=== PATIENT | female | born 1950 | race Caucasian/White ===

== ENCOUNTER → 2017-10-06 | Outpatient (CLI) | payer OTHER ==
[~2017-10-06] MED LIST: ASPI-319 PO; ATOR80TA PO; BENA40TA6 PO; CARV12.5 PO; CLON0.3T PO; EZET10TA47 PO; HYDR25TA4 PO; IPRA1AER2 INH; LEVO112T2 PO
--- NOTE | 2017-10-06 13:24 | DIAGNOSTIC IMAGING REPORT ---
R KNEE 3 VIEWS CLINICAL HISTORY: M17.11 Osteoarthritis of right knee, unspecified osteoarthritis pain COMPARISON: None. DISCUSSION: Moderate degenerative narrowing of all major joint compartments. No significant joint effusion. Moderate degenerative changes of patellofemoral joint. No evidence for subluxation. Mild osteopenia. There is no evidence for soft tissue swelling. IMPRESSION: Moderate degenerative change all major joint compartments. Osteopenia. The above report was generated using voice recognition software. It may contain grammatical, syntax or spelling errors. Electronically signed by: Yasir Patel M.D. 10/06/2017 1:22 PM Dictated Date/Time: 10/06/2017 1:20 PM
== END | disposition home or self-care (01) ==
LOC: C.RAD1850 12:16
PROVIDERS: ATTEND Internal Medicine
DX: M17.11 Unilateral primary osteoarthritis, right knee (principal); M85.861 Other specified disorders of bone density and structure, right lower leg

== ENCOUNTER → 2018-01-29 | Outpatient (CLI) | payer OTHER ==
[2018-01-29 10:51] LABS: BASO % 0.4 %; BASO ABS # 0.03 K/uL (0-0.2); EOS % 1.8 %; EOS ABS # 0.15 K/uL (0-0.5); HEMATOCRIT 38.1 % (37-47); HEMOGLOBIN 11.8 g/dL (12.0-16.0); IG# 0.02 K/uL (0.00-0.02); LYMPH % 21.4 %; LYMPH ABS # 1.77 K/uL (1.2-3.4); MEAN CORPUSCULAR HEMOGLOBIN 23.8 pg (25-34); MEAN PLATELET VOLUME 9.9 fL (7.4-10.4); MONO % 4.7 %; MONO ABS # 0.39 K/uL (0.11-0.59); NEUT % 71.5 %; PLATELET COUNT 256 K/uL (130-400); RED CELL DISTRIBUTION WIDTH CV 15.9 % (11.5-14.5); RED CELL DISTRIBUTION WIDTH SD 44.7 fL (36.4-46.3); WHITE BLOOD COUNT 8.26 K/uL (4.8-10.8)
[2018-01-29 11:05] LABS: HEMOGLOBIN A1C 5.7 % (4.5-5.6)
[2018-01-29 11:17] LABS: ALBUMIN 3.7 gm/dl (3.4-5.0); ALKALINE PHOSPHATASE 62 U/L (45-117); ALT/SGPT 15 U/L (12-78); AST/SGOT 10 U/L (15-37); BLOOD UREA NITROGEN 29 mg/dl (7-18); CALCIUM 8.6 mg/dl (8.5-10.1); CARBON DIOXIDE 27 mmol/L (21-32); CHOLESTEROL 309 mg/dl (0-200); CREATININE 1.36 mg/dl (0.60-1.20); GLUCOSE 104 mg/dl (70-99); LDL CHOLESTEROL CALCULATED 225 mg/dl; POTASSIUM 4.2 mmol/L (3.5-5.1); SODIUM 137 mmol/L (136-145); TOTAL PROTEIN 7.6 gm/dl (6.4-8.2)
== END | disposition home or self-care (01) ==
LOC: C.LABBC 07:27
PROVIDERS: ATTEND Internal Medicine
DX: R80.9 Proteinuria, unspecified (principal); R73.01 Impaired fasting glucose; E03.9 Hypothyroidism, unspecified; E78.5 Hyperlipidemia, unspecified; D64.9 Anemia, unspecified

== ENCOUNTER 2022-11-08 11:30 | Inpatient (IN) ==
--- NOTE | 2022-11-08 11:48 | Emergency Department Note ---
Impression & Plan Nausea & vomiting, Ventral hernia, Ambulatory dysfunction ED Provider Note Provider: John Felton MD DATE OF SERVICE: 11/08/2022 CHIEF COMPLAINT: Nausea and vomiting last night with report of blood in the vomit this morning HISTORY OF PRESENT ILLNESS: Patient is a 72-year-old female history of hypertension, COPD, and hypothyroidism presenting today via ambulance from her home. Patient hard of hearing but relates that last night nausea and vomiting. Had some mild mid abdominal pain. Abdominal pain and nausea and vomiting have resolved. Evidently according EMS family reported there is some blood in the vomit this morning and thus they sent her here for evaluation. Patient denies feeling lightheaded dizzy or falling. Denies chest pain or shortness of breath. Denies any diarrheal symptoms. No sick contacts reported. PAST MEDICAL HISTORY: As noted above MEDICATIONS: Reviewed home medications in plastic bag present with the patient upon arrival SOCIAL HISTORY: Lives with sons by her report PHYSICAL EXAM: GENERAL: alert and oriented in no acute distress on stretcher, hard of hearing Head: normocephalic and atraumatic EYES: No injection, discharge or icterus. NECK: Trachea midline. ENT: Mucous membranes pink and moist. LUNGS: Airway patent. No retractions. Breath sounds clear HEART: Regular rate and rhythm. No chest wall tenderness ABDOMEN: Soft and non-tender, without guarding or rebound with a large mid to right-sided appears to be hernia. SKIN: Acyanotic, warm, dry. There is some erythematous rash in the intertriginous regions and under the bilateral breasts. EXTREMITIES: Without swelling or deformity. NEUROLOGICAL: No focal deficits but again hard of hearing. No aphasia. No facial droop or slurred speech. EK bpm normal sinus rhythm with sinus arrhythmia. No PVC noted. No acute ST segment elevation with some inferior lateral T wave flattening and slight ST changes. QTc 450. CONTINUOUS CARDIAC MONITORING: was ordered and showed a heart rate of 80s-90s bpm in normal sinus rhythm Patient's laboratory studies and imaging reviewed. Differential includes GI bleed, appendicitis, infections, diverticulitis, UTI, obstruction, mesenteric ischemia, aortic pathology, inflammatory bowel disease, renal colic, PUD, pancreatitis, biliary pathology, hernia, volvulus, constipation, as well as other pathologies. IMPRESSION/MEDICAL DECISION MAKING: Patient with what appears to be likely a yeast infection in the intertriginous regions and given some nystatin powder for this. Benign abdomen here but a large hernia appreciated across the abdomen nontender in nature. Denies any diarrhea. Denies any black or bloody stools by her report. No sick contacts reported by the patient. Not any significant pain/distress. Not hypotensive. Basic blood work ordered including type and screen. We will give some Protonix as there is report of some blood in the vomit. Patient also with a bit of odor and question possible underlying UTI. We will complete a CT scan of the abdomen pelvis to further evaluate for any acute intra-abdominal issue at this time but lower suspicion as again her abdomen is fairly benign on exam. Do not believe she has an incarcerated hernia or perforation at this time. Denying any nausea at this point. Patient with some small sacral decubitus ulcers as well as covered in feces here as well as along the toenails. Reviewed prior [facility] outpatient records though it appears its been sometime since her regular office visit. With her permission reached out to her son Doug. Reports she lost her [address] 7 months ago and he brought her into her place so she was not homeless. Evidently bathrooms on the second floor she cannot really get there due to the stairs. Have been going to family members places at some points but mainly living in a bed and now in a recliner. These are very soiled. They have been pursuing various placement options and she is going to see about [facility] residences this coming week. He reports family are unsure if this would be enough care for her she is really not able to walk much even with a walker at home. Blood work shows a little bit of leukocytosis 11.5. Hemoglobin stable 11.4 from several years ago. Some slight CKD with a creatinine of 1.5 but from the notes it appears that this is around her baseline of 1.3. No evidence of acute hepatitis or pancreatitis. Doubt severe GI bleed possibly may be a bit of Princess-Michelle from vomiting overnight but comfortable now. Urinalysis here surprisingly without significant abnormality noted such as infection or blood. Patient's sister later at bedside with her. She initially refused CT scan after further discussion was agreeable to try it. Stated later some indigestion and nausea. Given Zofran and Pepcid with some improvement of this. Patient well resting and napping here does drop into the 80s on room air but improves with stimulation back above 90% on room air. CT scan per radiology shows large ventral hernia possibly with some gastric outlet syndrome but no evidence of obstruction. Again the patient has benign abdomen and nausea is improved. Doing some sips of water here. Discussed with her given her recurrent nausea issues as well as her care issues at home would recommend further observation here and possible need for placement services and will likely need outpatient surgery follow-up to further discuss her hernia. DIAGNOSIS: Nausea and vomiting, ventral hernia, ambulatory dysfunction DISPOSITION: Hospitalist will evaluate Patient was agreeable with this plan. Past Med/Surg History Surgical History H/O: hysterectomy History of tonsillectomy Family History Mother Myocardial infarction Diabetes Denies family history of Colon cancer Ovarian cancer Prostate cancer Breast cancer Social History Smoking Status: Never smoker Hx Alcohol Use: No Hx Substance Use: No Preferred Language: Amharic Visual Impairment: No Limitations Hearing Ability: Normal marital status: Current Living Situation: Alone current occupational status: retired Feels Safe at Home: Yes Dental Care, Regularly: Yes Physical Activity Frequency: Does not Exercise Allergies Allergies Allergy/AdvReac Type Severity Reaction Status Date / Time Penicillins Allergy Unknown Verified 06/24/19 10:09 Sulfa (Sulfonamide Allergy Unknown rash Verified 06/24/19 10:09 Antibiotics) Home Meds Home Medications Medication Instructions Recorded Confirmed atorvastatin 80 mg tablet 0 mg PO DAILY 11/08/22 11/08/22 buspirone 5 mg tablet 5 mg PO DAILY 11/08/22 11/08/22 escitalopram oxalate 10 mg tablet 10 mg PO DAILY 11/08/22 11/08/22 fluticasone furoate 100 0 puffs inhalation DAILY 11/08/22 11/08/22 mcg-vilanterol 25 mcg/dose inhalation powder (Breo Ellipta) Previous Rx's Medication Instructions Recorded benazepril 40 mg tablet 40 mg PO DAILY #90 tabs 06/24/19 carvedilol 12.5 mg tablet (Coreg) 12.5 mg PO BID #90 tabs 06/24/19 clonidine HCl 0.3 mg tablet 0.3 mg PO HS #90 tabs 06/24/19 ezetimibe 10 mg tablet (Zetia) 10 mg PO QDL #90 tabs 06/24/19 hydrochlorothiazide 25 mg tablet 25 mg PO DAILY #90 tabs 06/24/19 levothyroxine 112 mcg tablet 112 mcg PO 6XWK #90 tabs 07/07/19 Results & Data (ED) Vital Signs Vital Signs - 24 hr 11/08/22 12:05 11/08/22 11:40 11/08/22 12:51 Temperature 36.5 C Temperature Source Oral Pulse Rate 81 87 93 H Pulse Rate from SpO2 Sensor Respiratory Rate 20 20 Respiratory Effort / Characteristics Non-Labored Spontaneous Respiratory Depth Normal Respiratory Pattern Regular Blood Pressure 133/77 154/99 H Blood Pressure Mean 95 117 Pulse Oximetry 95 97 Oxygen Delivery Method Room Air Sepsis Recent Fever Within 48 Hours No Sepsis New/Unexplained Change in Mental Status No Sepsis Action Taken by Nursing No Action Required 11/08/22 14:00 11/08/22 15:30 11/08/22 15:35 Temperature Temperature Source Pulse Rate 82 93 H Pulse Rate from SpO2 Sensor 91 H Respiratory Rate 16 15 Respiratory Effort / Characteristics Respiratory Depth Respiratory Pattern Blood Pressure 163/107 H 169/101 H Blood Pressure Mean 125 123 Pulse Oximetry 94 95 85 L Oxygen Delivery Method Room Air Room Air Room Air Sepsis Recent Fever Within 48 Hours Sepsis New/Unexplained Change in Mental Status Sepsis Action Taken by Nursing 11/08/22 15:49 11/08/22 16:03 11/08/22 16:00 Temperature Temperature Source Pulse Rate 99 H 87 Pulse Rate from SpO2 Sensor Respiratory Rate 12 Respiratory Effort / Characteristics Respiratory Depth Respiratory Pattern Blood Pressure 140/90 Blood Pressure Mean 106 Pulse Oximetry 94 95 Oxygen Delivery Method Room Air Sepsis Recent Fever Within 48 Hours Sepsis New/Unexplained Change in Mental Status Sepsis Action Taken by Nursing 11/08/22 17:00 Temperature Temperature Source Pulse Rate 85 Pulse Rate from SpO2 Sensor Respiratory Rate 17 Respiratory Effort / Characteristics Respiratory Depth Respiratory Pattern Blood Pressure 122/89 Blood Pressure Mean 100 Pulse Oximetry 93 Oxygen Delivery Method Sepsis Recent Fever Within 48 Hours Sepsis New/Unexplained Change in Mental Status Sepsis Action Taken by Nursing Laboratory Data 11/08/22 12:05 11/08/22 12:05 Lab Results 11/08/22 11/08/22 11/08/22 Range/Units 12:05 12:05 12:05 WBC 11.58 H (4.8-10.8) K/ul RBC 4.63 (4.20-5.40) M/uL Hgb 11.4 L (12.0-16.0) g/dl Hct 37.3 (37.0-47.0) % MCV 80.6 (80.0-100.0) fL MCH 24.6 L (25.0-34.0) pg MCHC 30.6 L (32.0-36.0) g/dL RDW Std Deviation 48.5 H (36.4-46.3) fL RDW Coeff of Tip 16.6 H (11.5-14.5) % Plt Count 363 (130-400) K/uL MPV 9.4 (9.4-12.4) fL Immature Gran % (Auto) 0.4 % Neut % (Auto) 90.1 % Lymph % (Auto) 7.1 % Daniels % (Auto) 2.0 % Eos % (Auto) 0.2 % Baso % (Auto) 0.2 % Neut # (Auto) 10.44 H (1.40-6.50) K/uL Lymph # (Auto) 0.82 L (1.2-3.4) K/uL Daniels # (Auto) 0.23 (0.11-0.59) K/uL Eos # (Auto) 0.02 (0-0.50) K/uL Baso # (Auto) 0.02 (0-0.2) K/uL Immature Gran # (Auto) 0.05 (0.01-0.20) K/uL Hypersegmented Neuts 1+ PT 10.6 (9.0-12.0) Seconds INR 1.0 (0.9-1.1) Sodium (136-145) mmol/L Potassium (3.5-5.1) mmol/L Chloride (98-107) mmol/L Carbon Dioxide (21-32) mmol/L Anion Gap (3-11) BUN (6-23) mg/dl Creatinine (0.6-1.2) mg/dl Est Cr Clr Drug Dosing ml/min Est GFR ( Amer) ml/min Est GFR (Non-Af Amer) ml/min BUN/Creatinine Ratio (10-20) Glucose (70-99(Fasting)) mg/dl Calcium (8.6-10.3) mg/dl Total Bilirubin (0.2-1.0) mg/dl AST (13-39) U/L ALT (7-52) U/L Alkaline Phosphatase (34-104) U/L Troponin I High Sens (0-14) pg/ml Total Protein (6.0-8.3) gm/dl Albumin (3.4-5.0) gm/dl Globulin (2.5-4.0) gm/dl Albumin/Globulin Ratio (0.9-2) Lipase (11-82) U/L Urine Color Urine Appearance (Clear) Urine pH (4.5-7.5) Ur Specific [place] (1.000-1.030) Urine Protein (Negative) Urine Glucose (UA) (Negative) Urine Ketones (Negative) Urine Blood (Negative) Urine Nitrite (Negative) Urine Bilirubin (Negative) Urine Urobilinogen (Negative) Ur Leukocyte Esterase (Negative) Urine WBC (Auto) (0-5) /hpf Urine RBC (Auto) (0-4) /hpf U Hyaline Cast (Auto) (0-5) /lpf U Epithel Cells (Auto) (0-5) /lpf Urine Bacteria (Auto) (Negative) SARS-CoV-2, RNA, NAAT (NEGATIVE) Blood Type A Positive Antibody Screen NEGATIVE 11/08/22 11/08/22 11/08/22 Range/Units 12:05 12:45 12:45 WBC (4.8-10.8) K/ul RBC (4.20-5.40) M/uL Hgb (12.0-16.0) g/dl Hct (37.0-47.0) % MCV (80.0-100.0) fL MCH (25.0-34.0) pg MCHC (32.0-36.0) g/dL RDW Std Deviation (36.4-46.3) fL RDW Coeff of Tip (11.5-14.5) % Plt Count (130-400) K/uL MPV (9.4-12.4) fL Immature Gran % (Auto) % Neut % (Auto) % Lymph % (Auto) % Daniels % (Auto) % Eos % (Auto) % Baso % (Auto) % Neut # (Auto) (1.40-6.50) K/uL Lymph # (Auto) (1.2-3.4) K/uL Daniels # (Auto) (0.11-0.59) K/uL Eos # (Auto) (0-0.50) K/uL Baso # (Auto) (0-0.2) K/uL Immature Gran # (Auto) (0.01-0.20) K/uL Hypersegmented Neuts PT (9.0-12.0) Seconds INR (0.9-1.1) Sodium 140 (136-145) mmol/L Potassium 4.2 (3.5-5.1) mmol/L Chloride 98 (98-107) mmol/L Carbon Dioxide 31 (21-32) mmol/L Anion Gap 11 (3-11) BUN 44 H (6-23) mg/dl Creatinine 1.50 H (0.6-1.2) mg/dl Est Cr Clr Drug Dosing 30.8 ml/min Est GFR ( Amer) 39.4 ml/min Est GFR (Non-Af Amer) 34.0 ml/min BUN/Creatinine Ratio 29.3 H (10-20) Glucose 132 H (70-99(Fasting)) mg/dl Calcium 9.4 (8.6-10.3) mg/dl Total Bilirubin 0.8 (0.2-1.0) mg/dl AST 12 L (13-39) U/L ALT 7 (7-52) U/L Alkaline Phosphatase 59 (34-104) U/L Troponin I High Sens 13.0 (0-14) pg/ml Total Protein 7.3 (6.0-8.3) gm/dl Albumin 4.0 (3.4-5.0) gm/dl Globulin 3.3 (2.5-4.0) gm/dl Albumin/Globulin Ratio 1.2 (0.9-2) Lipase 80 (11-82) U/L Urine Color Dark Yellow Urine Appearance Clear (Clear) Urine pH 5.0 (4.5-7.5) Ur Specific [place] 1.025 (1.000-1.030) Urine Protein 2+ H (Negative) Urine Glucose (UA) Negative (Negative) Urine Ketones 1+ H (Negative) Urine Blood Negative (Negative) Urine Nitrite Negative (Negative) Urine Bilirubin Negative (Negative) Urine Urobilinogen Negative (Negative) Ur Leukocyte Esterase Negative (Negative) Urine WBC (Auto) 1-5 (0-5) /hpf Urine RBC (Auto) 0-4 (0-4) /hpf U Hyaline Cast (Auto) 0 (0-5) /lpf U Epithel Cells (Auto) 10-20 H (0-5) /lpf Urine Bacteria (Auto) Negative (Negative) SARS-CoV-2, RNA, NAAT NEGATIVE (NEGATIVE) Blood Type Antibody Screen Administered Medications Nystatin (Nystatin Powder 15gm Btl) 1 appln EXT BID PRN PRN Reason: rash Stop: 12/08/22 11:41 Last Admin: 11/08/22 13:46 Dose: 1 appln Documented By: ANNE Discontinued Medications Pantoprazole Sodium 80 mg/ (Dextrose) 120 mls @ 480 mls/hr IV ONE STA Stop: 11/08/22 11:54 Last Infusion: 11/08/22 16:25 Dose: 0 mls/hr Documented By: Admin: 11/08/22 15:37 Dose: 480 mls/hr Documented By: ANNE Famotidine (Pepcid 20mg Iv Push) 20 mg in 5 mls @ 2.5 mls/min IV NOW STA Stop: 11/08/22 13:42 Last Admin: 11/08/22 13:46 Dose: 2.5 mls/min Documented By: ANNE Sodium Chloride (Nss) 500 mls @ 999 mls/hr IV .Q31M ONE Stop: 11/08/22 17:12 Last Infusion: 11/08/22 17:54 Dose: 0 mls/hr Documented By: Admin: 11/08/22 16:51 Dose: 999 mls/hr Documented By: ESTELLA Ondansetron HCl (Ondansetron Inj 2 Mg/Ml 2 Ml Vial) 4 mg IV NOW STA Stop: 11/08/22 13:42 Last Admin: 11/08/22 13:46 Dose: 4 mg Documented By: ANNE Imaging Data Radiologist's Impression: Abdomen/Pelvis CT 11/08/22 12:44 CT abd pelvis wo con CLINICAL HISTORY: n/v TECHNIQUE: Helical axial images of the abdomen and pelvis were obtained. Automated dose lowering techniques and/or adjustment according to patient size were utilized for this exam. This exam was performed without intravenous contrast. CT DOSE: 948.46 mGy.cm COMPARISON: None available at the time of this dictation. FINDINGS: Lower chest: Bibasilar atelectasis versus scarring is seen. Liver: Unremarkable. No focal lesions are seen. Gallbladder and biliary tree: No calcified gallstones. Normal caliber wall. No intra- or extrahepatic biliary ductal dilation. Pancreas: Unremarkable, no focal lesions. Spleen: Unremarkable. Adrenals: Nodularity of the adrenal glands is noted. Kidneys and ureters: Numerous exophytic lesions are seen, some of which measure greater than simple fluid density. Vascular calcifications are seen. Bladder: Unremarkable. Reproductive organs: Patient is status post hysterectomy. Bowel: Diverticulosis is seen without evidence of diverticulitis. A large portion of bowel loops as well as the stomach lie within a large ventral hernia, however no evidence of bowel obstruction is seen. There is, however, prominence of the stomach with narrowing at the pylorus. Lymph nodes Retroperitoneal: Unremarkable. Pelvic: Unremarkable. Mesenteric: Unremarkable. Peritoneum: Normal. Vessels: Atherosclerotic calcifications are seen. Infrarenal aortic aneurysm measures approximately 3 mm in diameter. Abdominal wall: Large ventral hernia contains multiple loops of bowel. Fat- containing bilateral inguinal hernias are seen. Bones: Unremarkable. IMPRESSION: 1. Prominence of the stomach with multiple air-fluid levels and narrowing at the level of the pylorus as it exits from a ventral hernia. This may represent gastric outlet obstruction owing to the ventral hernia. No bowel obstruction is otherwise seen. Diverticulosis is seen without diverticulitis. 2. Numerous exophytic lesions in the bilateral kidneys, some of which measure greater than simple fluid density. A renal ultrasound or renal mass MRI can be performed to further characterize these findings and exclude renal cell carcinoma. ACT 112: Negative or not required by law. Electronically signed by: Alex Valentine M.D. 11/08/2022 4:21 PM Chest X-Ray 11/08/22 15:45 XR chest 1V portable HISTORY: hypoxia COMPARISON: Chest CTA 01/08/2015. FINDINGS: No pneumothorax. No pleural effusions. There are low lung volumes. The cardiac silhouette remains mildly enlarged. No new focal lung consolidations to suggest a pneumonia. No evidence for pulmonary edema. There are degenerative changes within the bilateral shoulders. IMPRESSION: Mild cardiomegaly. Otherwise, no acute process within the chest. ACT 112: Negative or not required by law. Electronically signed by: Christopher Levy M.D. 11/08/2022 4:32 PM Discharge Plan Visit Data Chief Complaint: Vomiting Stated Complaint: N/V LAST NIGHT ED Provider: John Felton Discharge Problem: Nausea & vomiting, Ventral hernia, Ambulatory dysfunction Patient Disposition: Being Evaluated by Hospitalist Forms Stand Alone Forms: My [facility] Prescriptions Prescriptions: No Action levothyroxine 112 mcg tablet 112 mcg PO 6XWK Qty: 90 3RF benazepril 40 mg tablet 40 mg PO DAILY Qty: 90 3RF carvedilol [Coreg] 12.5 mg tablet 12.5 mg PO BID Qty: 90 3RF clonidine HCl 0.3 mg tablet 0.3 mg PO HS Qty: 90 3RF ezetimibe [Zetia] 10 mg tablet 10 mg PO QDL Qty: 90 3RF hydrochlorothiazide 25 mg tablet 25 mg PO DAILY Qty: 90 3RF buspirone 5 mg tablet 5 mg PO DAILY escitalopram oxalate 10 mg tablet 10 mg PO DAILY atorvastatin 80 mg tablet 0 mg PO DAILY Patient Comments: Pt doesn't have the medication bottle with her but knows she takes a becky sterol Pt. fluticasone furoate-vilanterol [Breo Ellipta] 100-25 mcg/dose blister with device 0 puffs INH DAILY Rx Instructions: Pt doesn't have medicine with her and is unsure. Referrals Referrals: PCP,NO [Primary Care Provider] - Nausea & vomiting Qualifiers: Vomiting type: unspecified Qualified Code(s): R11.2 - Nausea with vomiting, unspecified Ventral hernia Qualifiers: Obstruction and gangrene presence: without obstruction or gangrene Qualified Code(s): K43.9 - Ventral hernia without obstruction or gangrene
[2022-11-08 12:27] LABS: Hematocrit (blood only) 37.3 % (37.0-47.0); Hemoglobin 11.4 g/dl (12.0-16.0); Mean Corpuscular Hemoglobin 24.6 pg (25.0-34.0); Mean Corpuscular Hgb Conc 30.6 g/dL (32.0-36.0); Mean Corpuscular Volume 80.6 fL (80.0-100.0); Mean Platelet Volume 9.4 fL (9.4-12.4); Platelet Count 363 K/uL (130-400); RDW Coefficient of Variation 16.6 % (11.5-14.5); RDW Standard Deviation 48.5 fL (36.4-46.3); Red Blood Count 4.63 M/uL (4.20-5.40); White Blood Count 11.58 K/ul (4.8-10.8)
[2022-11-08 12:42] LABS: Albumin Globulin Ratio 1.2 (0.9-2); BUN Creatinine Ratio 29.3 (10-20); Bilirubin,Total 0.8 mg/dl (0.2-1.0); Calcium 9.4 mg/dl (8.6-10.3); Creatinine Clr Calc Pharmacy 30.8 ml/min; Est GFR (African American) 39.4 ml/min; Globulin 3.3 gm/dl (2.5-4.0); Potassium 4.2 mmol/L (3.5-5.1); Total Protein 7.3 gm/dl (6.0-8.3)
[2022-11-08 12:47] LABS: Basophils # (auto) 0.02 K/uL (0-0.2); Basophils % (auto) 0.2 %; Eosinophils # (auto) 0.02 K/uL (0-0.50); Eosinophils % (auto) 0.2 %; Hypersegmented Neutrophils 1+; Immature Granulocytes # (auto) 0.05 K/uL (0.01-0.20); Immature Granulocytes % (auto) 0.4 %; Lymphocytes # (auto) 0.82 K/uL (1.2-3.4); Lymphocytes % (auto) 7.1 %; Monocytes # (auto) 0.23 K/uL (0.11-0.59); Neutrophils # (auto) 10.44 K/uL (1.40-6.50); Neutrophils % (auto) 90.1 %
[2022-11-08 12:51] LABS: Prothrombin Time 10.6 Seconds (9.0-12.0)
[2022-11-08 13:00] LABS: Appearance Urine Clear (Clear); Bacteria Urine Automated Negative (Negative); Bilirubin Urine Negative (Negative); Blood Urine Negative (Negative); Cast Urine Automated 0 /lpf (0-5); Color Urine Dark Yellow; Glucose Urine UA Negative (Negative); Ketones Urine 1+ (Negative); Leukocyte Esterase Urine Negative (Negative); Nitrite Urine Negative (Negative); Protein Urine 2+ (Negative); RBC Urine Automated 0-4 /hpf (0-4); Specific Gravity Urine 1.025 (1.000-1.030); Urobilinogen Urine Negative (Negative)
[2022-11-08] MEDS ORDERED: FAMOTIDINE 20MG IV PUSH 20 MG/5 ML SYR IV STA (13:41)
[2022-11-08] MEDS ORDERED: ONDANSETRON INJ 2 MG/ML 2 ML VIAL IV STA (13:41)
[2022-11-08] MEDS: NYSTATIN POWDER 15GM BTL EXT PRN ×2 (13:46→19:46)
[2022-11-08] MEDS: PANTOprazole 80 MG in DEXTROSE 5% 100 ML IV STA ×2 (13:46→15:37)
--- NOTE | 2022-11-08 14:59 | Electrocardiogram Report ---
Test Reason : Blood Pressure : / mmHG Vent. Rate : 089 BPM Atrial Rate : 089 BPM P-R Int : 122 ms QRS Dur : 092 ms QT Int : 370 ms P-R-T Axes : 088 023 236 degrees QTc Int : 450 ms Poor data quality, interpretation may be adversely affected Normal sinus rhythm with occasional Premature atrial complexes Nonspecific ST and T wave abnormality Abnormal ECG When compared with ECG of 08-JAN-2015 12:06, No significant change was found Confirmed by Nils Scott ([id number]) on 11/08/2022 2:59:16 PM Referred By: REFERRED SELF Confirmed By:Nils Scott
--- NOTE | 2022-11-08 16:23 | CT Scan Report ---
CT abd pelvis wo con CLINICAL HISTORY: n/v TECHNIQUE: Helical axial images of the abdomen and pelvis were obtained. Automated dose lowering tech niques and/or adjustment according to patient size were utilized for this exam. This exam was perfor med without intravenous contrast. CT DOSE: 948.46 mGy.cm COMPARISON: None available at the time of this dictation. FINDINGS: Lower chest: Bibasilar atelectasis versus scarring is seen. Liver: Unremarkable. No focal lesions are seen. Gallbladder and biliary tree: No calcified gallstones. Normal caliber wall. No intra- or extrahepatic biliary ductal dilation. Pancreas: Unremarkable, no focal lesions. Spleen: Unremarkable. Adrenals: Nodularity of the adrenal glands is noted. Kidneys and ureters: Numerous exophytic lesions are seen, some of which measure greater than simple f luid density. Vascular calcifications are seen. Bladder: Unremarkable. Reproductive organs: Patient is status post hysterectomy. Bowel: Diverticulosis is seen without evidence of diverticulitis. A large portion of bowel loops as w ell as the stomach lie within a large ventral hernia, however no evidence of bowel obstruction is see n. There is, however, prominence of the stomach with narrowing at the pylorus. Lymph nodes Retroperitoneal: Unremarkable. Pelvic: Unremarkable. Mesenteric: Unremarkable. Peritoneum: Normal. Vessels: Atherosclerotic calcifications are seen. Infrarenal aortic aneurysm measures approximately 3 mm in diameter. Abdominal wall: Large ventral hernia contains multiple loops of bowel. Fat-containing bilateral ingui nal hernias are seen. Bones: Unremarkable. IMPRESSION: 1. Prominence of the stomach with multiple air-fluid levels and narrowing at the level of the pyloru s as it exits from a ventral hernia. This may represent gastric outlet obstruction owing to the ventr al hernia. No bowel obstruction is otherwise seen. Diverticulosis is seen without diverticulitis. 2. Numerous exophytic lesions in the bilateral kidneys, some of which measure greater than simple fl uid density. A renal ultrasound or renal mass MRI can be performed to further characterize these find ings and exclude renal cell carcinoma. ACT 112: Negative or not required by law. Electronically signed by: Alex Valentine M.D. 11/08/2022 4:21 PM
--- NOTE | 2022-11-08 16:33 | XRay Report ---
XR chest 1V portable HISTORY: hypoxia COMPARISON: Chest CTA 01/08/2015. FINDINGS: No pneumothorax. No pleural effusions. There are low lung volumes. The cardiac silhouette r emains mildly enlarged. No new focal lung consolidations to suggest a pneumonia. No evidence for pulm onary edema. There are degenerative changes within the bilateral shoulders. IMPRESSION: Mild cardiomegaly. Otherwise, no acute process within the chest. ACT 112: Negative or not required by law. Electronically signed by: Christopher Levy M.D. 11/08/2022 4:32 PM
[2022-11-08] MEDS ORDERED: SODIUM CHLORIDE 0.9% 500 ML IV ONE (16:42)
--- NOTE | 2022-11-08 18:31 | History & Physical Report ---
Date of Service November 08, 2022 Assessment & Plan (1) Nausea & vomiting: (2) Ventral hernia: Plan: Patient is 72 y/o F with PMH HTN, CKD III, COPD, hypothyroidism, chronic anemia, anxiety presented to ER with complaint of nausea and vomiting x1 day In ER afebrile, vital stable. WBC: 11.5 CT abdomen pelvis: Prominence of the stomach with multiple air-fluid levels and narrowing at the level of the pylorus as it exits from a ventral hernia. This may represent gastric outlet obstruction owing to the ventral hernia. No bowel obstruction is otherwise seen. A 19 mm focus of fat necrosis is noted in the mesentery contained within the ventral hernia. Diverticulosis is seen without diverticulitis. No current abdominal pain. Clear liquid diet for now N.p.o. midnight General surgery consult. Dr Cortes examined patient. Recommended Cipro, Flagyl secondary to leukocytosis. No acute abdomen CBC, BMP in a.m. Possible hematemesis EMS reported possible hematemesis noted in patient's home. Patient is unaware of any noted hematemesis, coffee-ground emesis, melena, hematochezia Hgb: 11.4 (at baseline), BUN: 44,Cr: 1.5 In ER received 500 mL NSS, IV PPI, IV Pepcid, IV Zofran IV PPI IVF GI consult Monitor Hgb (3) Abnormal CT of the abdomen: Plan: CT abdomen pelvis: Numerous exophytic lesions in the bilateral kidneys, some of which measure greater than simple fluid density. A renal ultrasound or renal mass MRI can be performed to further characterize these findings and exclude renal cell carcinoma Obtain renal ultrasound (4) Ambulatory dysfunction: Plan: Ambulates with walker at baseline. Very sedentary Currently living with son who has bathroom on second floor which patient is unable to use PT/OT eval Will likely need case management assistance for possible placement (5) Candidiasis: Plan: Sacral wounds Nystatin Wound nurse consult for sacral wounds (6) CKD (chronic kidney disease), stage III: Plan: Cr: 1.5. Baseline~1.3 Monitor renal functions, avoid nephrotoxic agents when possible (7) Anemia: Plan: Hgb: 11.4. Baseline 11.5-11.8 per outpatient chart review Monitor H&H (8) COPD (chronic obstructive pulmonary disease): Plan: No signs acute exacerbation Continue home inhaler (9) HTN (hypertension): Plan: Continue carvedilol, benazepril with holding parameters Hold HCTZ (10) Hypothyroidism: Plan: Continue levothyroxine (11) Anxiety: Plan: Continue escitalopram, buspirone as needed DVT Prophylaxis SCDs Full Code as per discussion with pt Follows with Dr Ridley for routine care Pt was seen and care coordinated with Dr Marie. See addendum I spent a total of 81 minutes reviewing notes, outpatient records, labs, medication, coordinating, documenting and providing care for this patient excluding time spent in the performance of separately billed services. History of Present Illness Chief Complaint: nausea Primary Care Provider: NO PCP Patient is 72 y/o F with PMH HTN, CKD III, COPD, hypothyroidism, chronic anemia, anxiety presented to ER with complaint of nausea and vomiting x1 day. Patient states yesterday started with nausea and vomited several times. She also reports she had pain across her upper abdomen and points to location over her ventral hernia. She reports history of hernia to abdomen for years. Patient states pain "did not last long". She denies any current abdominal pain. Patient states vomited once while in ER today. She states overall she is feeling much better as compared to yesterday. Patient currently living with son. She reports she ambulates with use of walker. Patient reports sons house has bathroom on second floor and patient is unable to use the stairs to get to the bathroom. She states she is using bedside commode. She reports she does not bathe regularly. Patient's son is interested in trying to get placement for patient and they have been currently looking. Patient admits that she is not active and mostly sits in recliner. EMS had reported to ER staff that patient, clothing, furniture was soiled. EMS had thought had noted blood in emesis. Patient states "unsure" if had any hematemesis or coffee ground emesis. She reports has regular BM's and have been formed. Has not noted melena, hematochezia. Denies any known fever, chills, DAVIS, dizziness, syncope, falls, CP, SOB, palpitations, cough, sore throat, rhinorrhea, paresthesias, increased weakness, extremity edema, rashes, urinary symptoms. Allergies Allergy/AdvReac Type Severity Reaction Status Date / Time Penicillins Allergy Unknown Verified 06/24/19 10:09 Sulfa (Sulfonamide Allergy Unknown rash Verified 06/24/19 10:09 Antibiotics) Home Medications Medication Instructions Recorded Confirmed Type benazepril 40 mg tablet 40 mg PO DAILY #90 tabs 06/24/19 11/08/22 Rx carvedilol 12.5 mg tablet (Coreg) 12.5 mg PO BID #90 tabs 06/24/19 11/08/22 Rx clonidine HCl 0.3 mg tablet 0.3 mg PO HS #90 tabs 06/24/19 11/08/22 Rx ezetimibe 10 mg tablet (Zetia) 10 mg PO QDL #90 tabs 06/24/19 11/08/22 Rx hydrochlorothiazide 25 mg tablet 25 mg PO DAILY #90 tabs 06/24/19 11/08/22 Rx levothyroxine 112 mcg tablet 112 mcg PO 6XWK #90 tabs 07/07/19 11/08/22 Rx atorvastatin 80 mg tablet 80 mg PO DAILY 11/08/22 11/08/22 History buspirone 5 mg tablet 5 mg PO BID PRN Anxiety 11/08/22 11/08/22 History escitalopram oxalate 10 mg tablet 10 mg PO DAILY 11/08/22 11/08/22 History fluticasone furoate 100 1 puffs inhalation DAILY 11/08/22 11/08/22 History mcg-vilanterol 25 mcg/dose inhalation powder (Breo Ellipta) Past Med/Surg History Medical History Anemia Anxiety CKD (chronic kidney disease), stage III COPD (chronic obstructive pulmonary disease) HTN (hypertension) Hyperlipidemia Hypothyroidism Surgical History H/O: hysterectomy History of tonsillectomy Family History Mother Myocardial infarction Diabetes Denies family history of Colon cancer Ovarian cancer Prostate cancer Breast cancer Social History Smoking Status: Unknown if ever smoked Hx Substance Use: No Preferred Language: Vietnamese Visual Impairment: No Limitations 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 Beliefs That Will Affect Care: None marital status: Current Living Situation: Family Current Living Situation Comment: Lives with sons current occupational status: retired Feels Safe at Home: Declines to Answer Dental Care, Regularly: Yes Physical Activity Frequency: Does not Exercise Assistive Devices: Walker Review of Systems Review of Systems: All systems reviewed & are unremarkable except as noted in HPI & below Physical Exam Physical Exam: General: no distress, WDWN, disheveled Head: normocephalic, atraumatic Eyes: PERRL, EOM's intact, conjunctiva non-injected, anicteric ENT: +hard of hearing normal inspection external ears, nose, mucous membranes mildly dry Neck: supple, trachea midline Lungs: clear, no respiratory distress, no wheezing/rhonchi/rales CV: RRR, no murmur, no pretibial edema Abd: normal BS, +large ventral hernia, non-tender to palpation, otherwise soft, non-tender Ext: no cyanosis, no calf tenderness Neuro: A&O x 3, no focal deficits noted, normal affect Skin: warm, dry Results & Data Results & Data Vital Signs (Past 12 Hours) Vital Signs Temp Pulse Resp BP Pulse Ox O2 Del Method 11/08/22 18:00 84 16 138/94 93 Room Air 11/08/22 17:30 92 H 21 137/91 93 Room Air 11/08/22 17:00 85 17 122/89 93 11/08/22 16:00 87 12 140/90 95 11/08/22 16:03 99 H 11/08/22 15:49 94 Room Air 11/08/22 15:35 85 L Room Air 11/08/22 15:30 93 H 15 169/101 H 95 Room Air 11/08/22 14:00 82 16 163/107 H 94 Room Air 11/08/22 12:51 93 H 20 154/99 H 97 11/08/22 11:40 36.5 C 87 20 133/77 95 Room Air 11/08/22 12:05 81 Laboratory Results Short CBC 11/08/22 Range/Units 12:05 WBC 11.58 H (4.8-10.8) K/ul Hgb 11.4 L (12.0-16.0) g/dl Hct 37.3 (37.0-47.0) % Plt Count 363 (130-400) K/uL BMP 11/08/22 12:05 Sodium 140 Potassium 4.2 Chloride 98 Carbon Dioxide 31 BUN 44 H Creatinine 1.50 H Glucose 132 H Calcium 9.4 Liver Function 11/08/22 Range/Units 12:05 Total Bilirubin 0.8 (0.2-1.0) mg/dl AST 12 L (13-39) U/L ALT 7 (7-52) U/L Alkaline Phosphatase 59 (34-104) U/L Albumin 4.0 (3.4-5.0) gm/dl Urine 11/08/22 Range/Units 12:45 Urine Color Dark Yellow Urine Appearance Clear (Clear) Urine pH 5.0 (4.5-7.5) Ur Specific [place] 1.025 (1.000-1.030) Urine Protein 2+ H (Negative) Urine Glucose (UA) Negative (Negative) Diagnostic Findings Abdomen/Pelvis CT 11/08/22 12:44 CT abd pelvis wo con CLINICAL HISTORY: n/v TECHNIQUE: Helical axial images of the abdomen and pelvis were obtained. Automated dose lowering techniques and/or adjustment according to patient size were utilized for this exam. This exam was performed without intravenous contrast. CT DOSE: 948.46 mGy.cm COMPARISON: None available at the time of this dictation. FINDINGS: Lower chest: Bibasilar atelectasis versus scarring is seen. Liver: Unremarkable. No focal lesions are seen. Gallbladder and biliary tree: No calcified gallstones. Normal caliber wall. No intra- or extrahepatic biliary ductal dilation. Pancreas: Unremarkable, no focal lesions. Spleen: Unremarkable. Adrenals: Nodularity of the adrenal glands is noted. Kidneys and ureters: Numerous exophytic lesions are seen, some of which measure greater than simple fluid density. Vascular calcifications are seen. Bladder: Unremarkable. Reproductive organs: Patient is status post hysterectomy. Bowel: Diverticulosis is seen without evidence of diverticulitis. A large portion of bowel loops as well as the stomach lie within a large ventral hernia, however no evidence of bowel obstruction is seen. There is, however, prominence of the stomach with narrowing at the pylorus. Lymph nodes Retroperitoneal: Unremarkable. Pelvic: Unremarkable. Mesenteric: Unremarkable. Peritoneum: Normal. Vessels: Atherosclerotic calcifications are seen. Infrarenal aortic aneurysm measures approximately 3 mm in diameter. Abdominal wall: Large ventral hernia contains multiple loops of bowel. Fat- containing bilateral inguinal hernias are seen. Bones: Unremarkable. IMPRESSION: 1. Prominence of the stomach with multiple air-fluid levels and narrowing at the level of the pylorus as it exits from a ventral hernia. This may represent gastric outlet obstruction owing to the ventral hernia. No bowel obstruction is otherwise seen. Diverticulosis is seen without diverticulitis. 2. Numerous exophytic lesions in the bilateral kidneys, some of which measure greater than simple fluid density. A renal ultrasound or renal mass MRI can be performed to further characterize these findings and exclude renal cell carcinoma. ACT 112: Negative or not required by law. Electronically signed by: Alex Valentine M.D. 11/08/2022 4:21 PM Chest X-Ray 11/08/22 15:45 XR chest 1V portable HISTORY: hypoxia COMPARISON: Chest CTA 01/08/2015. FINDINGS: No pneumothorax. No pleural effusions. There are low lung volumes. The cardiac silhouette remains mildly enlarged. No new focal lung consolidations to suggest a pneumonia. No evidence for pulmonary edema. There are degenerative changes within the bilateral shoulders. IMPRESSION: Mild cardiomegaly. Otherwise, no acute process within the chest. ACT 112: Negative or not required by law. Electronically signed by: Christopher Levy M.D. 11/08/2022 4:32 PM Supervising Physician Co-Signing Physician Notes I have seen and examined the patient and have discussed the case with the provider above. I agree with the assessment and plan as stated. 72-year-old female with multiple medical problems including hearing loss presents with acute nausea and vomiting. History is difficult given her hearing loss. She denies any abdominal pain. She is feeling better and not consistently nauseous. There apparently are some social issues and she is currently living with her son. She reports not bathing regularly. She appears unkempt. On physical exam she is hemodynamically stable and afebrile and answering questions appropriately. She appears to be oriented to her baseline. She is oxygenating well on minimal oxygen supplementation via nasal cannula. Work-up today includes a CT abdomen pelvis without contrast revealing concern for gastric outlet obstruction owing to a ventral hernia. There are air-fluid levels and narrowing at the level of the pylorus as it exits from the ventral hernia. No other bowel obstruction is otherwise seen. Per general surgery she does not have an acute abdomen. Currently she is not requiring an NG tube. Physical exam is otherwise unremarkable or as noted above. Labs and imaging were reviewed and discussed with provider above. Agree with renal ultrasound. Appreciate general surgery following patient. GI consulted. Continue wound care for sacral wound seen on admission. PT OT consulted. She remains in stable condition on telemetry. DO Frank (1) Nausea & vomiting Vomiting type: unspecified Qualified Code(s): R11.2 - Nausea with vomiting, unspecified (2) Ventral hernia Obstruction and gangrene presence: without obstruction or gangrene Qualified Code(s): K43.9 - Ventral hernia without obstruction or gangrene
--- NOTE | 2022-11-08 20:05 | Surgery Consultation ---
Date of Consultation November 08, 2022 Assessment & Plan (1) Nausea & vomiting: assessment: pt is a 72 year-old female with PMH- HTN, cardiomegaly, chest pain, COPD, hypothyroidism, anemia and large ventral hernia. pt presents with one day history nausea and vomiting, vomiting with some blood per- EMS reported. pt has > 10 years history large ventral hernia. pt felt some abdominal pain, but now pt said that she has no abdominal pain, pt denies dizziness, no fever, no diarrhea. pt had CT scan at ER - IMPRESSION: 1. Prominence of the stomach with multiple air-fluid levels and narrowing at the level of the pylorus as it exits from a ventral hernia. This may represent gastric outlet obstruction owing to the ventral hernia. No bowel obstruction is otherwise seen. Diverticulosis is seen without diverticulitis. 2. Numerous exophytic lesions in the bilateral kidneys, some of which measure greater than simple fluid density. A renal ultrasound or renal mass MRI can be performed to further characterize these findings and exclude renal cell carcinoma. ADDENDUM A 19 mm focus of fat necrosis is noted in the mesentery contained within the ventral hernia. IM: nausea, vomiting, possible pylorus narrow, large ventral hernia. plan, based on H/P, labs and CT scan, no signs for incarcerated ventral hernia, conservative treatment now, NPO, IV fluid, may start cipro + flagyl for high WBC, consult GI for EGD to R/O upper GI bleeding and pylorus stenosis. repeat labs in morning. out-patient for large ventral hernia surgery by special hernia surgeon. will F/U. D/W hospitalist. (2) Ventral hernia: History of Present Illness Reason for Consultation: nausea and vomiting Requesting Physician: Lexi Nichols PA History of Present Illness CC: nausea and vomiting HPI: pt is a 72 year-old female who with PMH- HTN, cardiomegaly, chest pain, COPD, hypothyroidism, anemia and large ventral hernia. pt presents with one day history nausea and vomiting, vomiting with some blood per- EMS reported. pt has > 10 years history large ventral hernia. pt felt some abdominal pain, but now pt said that she has no abdominal pain, pt denies dizziness, no fever, no diarrhea. pt had CT scan at ER - IMPRESSION: 1. Prominence of the stomach with multiple air-fluid levels and narrowing at the level of the pylorus as it exits from a ventral hernia. This may represent gastric outlet obstruction owing to the ventral hernia. No bowel obstruction is otherwise seen. Diverticulosis is seen without diverticulitis. 2. Numerous exophytic lesions in the bilateral kidneys, some of which measure greater than simple fluid density. A renal ultrasound or renal mass MRI can be performed to further characterize these findings and exclude renal cell carcinoma. ADDENDUM A 19 mm focus of fat necrosis is noted in the mesentery contained within the ventral hernia. Allergies Allergy/AdvReac Type Severity Reaction Status Date / Time Penicillins Allergy Unknown Verified 06/24/19 10:09 Sulfa (Sulfonamide Allergy Unknown rash Verified 06/24/19 10:09 Antibiotics) Home Medications Medication Instructions Recorded Confirmed Type benazepril 40 mg tablet 40 mg PO DAILY #90 tabs 06/24/19 11/08/22 Rx carvedilol 12.5 mg tablet (Coreg) 12.5 mg PO BID #90 tabs 06/24/19 11/08/22 Rx clonidine HCl 0.3 mg tablet 0.3 mg PO HS #90 tabs 06/24/19 11/08/22 Rx ezetimibe 10 mg tablet (Zetia) 10 mg PO QDL #90 tabs 06/24/19 11/08/22 Rx hydrochlorothiazide 25 mg tablet 25 mg PO DAILY #90 tabs 06/24/19 11/08/22 Rx levothyroxine 112 mcg tablet 112 mcg PO 6XWK #90 tabs 07/07/19 11/08/22 Rx atorvastatin 80 mg tablet 80 mg PO DAILY 11/08/22 11/08/22 History buspirone 5 mg tablet 5 mg PO BID PRN Anxiety 11/08/22 11/08/22 History escitalopram oxalate 10 mg tablet 10 mg PO DAILY 11/08/22 11/08/22 History fluticasone furoate 100 1 puffs inhalation DAILY 11/08/22 11/08/22 History mcg-vilanterol 25 mcg/dose inhalation powder (Breo Ellipta) Patient History Surgical History H/O: hysterectomy History of tonsillectomy Family History Mother Myocardial infarction Diabetes Denies family history of Colon cancer Ovarian cancer Prostate cancer Breast cancer Social History Smoking Status: Never smoker Hx Alcohol Use: No Hx Substance Use: No Preferred Language: Frisian Visual Impairment: No Limitations Hearing Ability: Normal marital status: Current Living Situation: Alone current occupational status: retired Feels Safe at Home: Yes Dental Care, Regularly: Yes Physical Activity Frequency: Does not Exercise Review of Systems Constitutional: as per Subjective / HPI no distress Eyes: as per Subjective / HPI Respiratory: as per Subjective / HPI COPD Cardiovascular: Additional Comments: HTN, cardiomegaly, chest pain, hyperlipidemia Gastrointestinal: large ventral hernia, nausea and vomiting, Genitourinary: as per Subjective / HPI Neurologic: as per Subjective / HPI Psychiatric: as per Subjective / HPI Endocrine: hypothyroidism Hematologic / Lymphatic: anemia Physical Exam Constitutional: WD/WN, vitals as above Eyes: PERRL, conjunctivae normal, anicteric sclerae Neck: trachea midline, no thyromegaly Respiratory: normal respiratory effort, lungs clear to auscultation Cardiovascular: RRR, no murmur, no edema Gastrointestinal (Abdomen): large ventral hernia, soft, no tenderness, no distend, BS +. Neurologic: patellar DTR's 2+ bilat, sensation intact Psychiatric: A+Ox3, euthymic affect Results & Data Vital Signs (Past 12 Hours) Vital Signs Temp Pulse Resp BP Pulse Ox O2 Del Method O2 Flow Rate 11/08/22 19:30 78 14 149/81 H 92 Nasal Cannula 2 11/08/22 19:00 83 17 141/80 H 93 Room Air 11/08/22 18:30 84 15 142/100 H 91 Room Air 11/08/22 18:00 84 16 138/94 93 Room Air 11/08/22 17:30 92 H 21 137/91 93 Room Air 11/08/22 17:00 85 17 122/89 93 11/08/22 16:00 87 12 140/90 95 11/08/22 16:03 99 H 11/08/22 15:49 94 Room Air 11/08/22 15:35 85 L Room Air 11/08/22 15:30 93 H 15 169/101 H 95 Room Air 11/08/22 14:00 82 16 163/107 H 94 Room Air 11/08/22 12:51 93 H 20 154/99 H 97 11/08/22 11:40 36.5 C 87 20 133/77 95 Room Air 11/08/22 12:05 81 Laboratory Results Lab Results 11/08/22 11/08/22 11/08/22 Range/Units 12:05 12:05 12:05 WBC 11.58 H (4.8-10.8) K/ul RBC 4.63 (4.20-5.40) M/uL Hgb 11.4 L (12.0-16.0) g/dl Hct 37.3 (37.0-47.0) % MCV 80.6 (80.0-100.0) fL MCH 24.6 L (25.0-34.0) pg MCHC 30.6 L (32.0-36.0) g/dL RDW Std Deviation 48.5 H (36.4-46.3) fL RDW Coeff of Tip 16.6 H (11.5-14.5) % Plt Count 363 (130-400) K/uL MPV 9.4 (9.4-12.4) fL Immature Gran % (Auto) 0.4 % Neut % (Auto) 90.1 % Lymph % (Auto) 7.1 % Knott % (Auto) 2.0 % Eos % (Auto) 0.2 % Baso % (Auto) 0.2 % Neut # (Auto) 10.44 H (1.40-6.50) K/uL Lymph # (Auto) 0.82 L (1.2-3.4) K/uL Knott # (Auto) 0.23 (0.11-0.59) K/uL Eos # (Auto) 0.02 (0-0.50) K/uL Baso # (Auto) 0.02 (0-0.2) K/uL Immature Gran # (Auto) 0.05 (0.01-0.20) K/uL Hypersegmented Neuts 1+ PT 10.6 (9.0-12.0) Seconds INR 1.0 (0.9-1.1) Sodium (136-145) mmol/L Potassium (3.5-5.1) mmol/L Chloride (98-107) mmol/L Carbon Dioxide (21-32) mmol/L Anion Gap (3-11) BUN (6-23) mg/dl Creatinine (0.6-1.2) mg/dl Est Cr Clr Drug Dosing ml/min Est GFR ( Amer) ml/min Est GFR (Non-Af Amer) ml/min BUN/Creatinine Ratio (10-20) Glucose (70-99(Fasting)) mg/dl Calcium (8.6-10.3) mg/dl Total Bilirubin (0.2-1.0) mg/dl AST (13-39) U/L ALT (7-52) U/L Alkaline Phosphatase (34-104) U/L Troponin I High Sens (0-14) pg/ml Total Protein (6.0-8.3) gm/dl Albumin (3.4-5.0) gm/dl Globulin (2.5-4.0) gm/dl Albumin/Globulin Ratio (0.9-2) Lipase (11-82) U/L Urine Color Urine Appearance (Clear) Urine pH (4.5-7.5) Ur Specific [place] (1.000-1.030) Urine Protein (Negative) Urine Glucose (UA) (Negative) Urine Ketones (Negative) Urine Blood (Negative) Urine Nitrite (Negative) Urine Bilirubin (Negative) Urine Urobilinogen (Negative) Ur Leukocyte Esterase (Negative) Urine WBC (Auto) (0-5) /hpf Urine RBC (Auto) (0-4) /hpf U Hyaline Cast (Auto) (0-5) /lpf U Epithel Cells (Auto) (0-5) /lpf Urine Bacteria (Auto) (Negative) SARS-CoV-2, RNA, NAAT (NEGATIVE) Blood Type A Positive Antibody Screen NEGATIVE 11/08/22 11/08/22 11/08/22 Range/Units 12:05 12:45 12:45 WBC (4.8-10.8) K/ul RBC (4.20-5.40) M/uL Hgb (12.0-16.0) g/dl Hct (37.0-47.0) % MCV (80.0-100.0) fL MCH (25.0-34.0) pg MCHC (32.0-36.0) g/dL RDW Std Deviation (36.4-46.3) fL RDW Coeff of Tip (11.5-14.5) % Plt Count (130-400) K/uL MPV (9.4-12.4) fL Immature Gran % (Auto) % Neut % (Auto) % Lymph % (Auto) % Knott % (Auto) % Eos % (Auto) % Baso % (Auto) % Neut # (Auto) (1.40-6.50) K/uL Lymph # (Auto) (1.2-3.4) K/uL Knott # (Auto) (0.11-0.59) K/uL Eos # (Auto) (0-0.50) K/uL Baso # (Auto) (0-0.2) K/uL Immature Gran # (Auto) (0.01-0.20) K/uL Hypersegmented Neuts PT (9.0-12.0) Seconds INR (0.9-1.1) Sodium 140 (136-145) mmol/L Potassium 4.2 (3.5-5.1) mmol/L Chloride 98 (98-107) mmol/L Carbon Dioxide 31 (21-32) mmol/L Anion Gap 11 (3-11) BUN 44 H (6-23) mg/dl Creatinine 1.50 H (0.6-1.2) mg/dl Est Cr Clr Drug Dosing 30.8 ml/min Est GFR ( Amer) 39.4 ml/min Est GFR (Non-Af Amer) 34.0 ml/min BUN/Creatinine Ratio 29.3 H (10-20) Glucose 132 H (70-99(Fasting)) mg/dl Calcium 9.4 (8.6-10.3) mg/dl Total Bilirubin 0.8 (0.2-1.0) mg/dl AST 12 L (13-39) U/L ALT 7 (7-52) U/L Alkaline Phosphatase 59 (34-104) U/L Troponin I High Sens 13.0 (0-14) pg/ml Total Protein 7.3 (6.0-8.3) gm/dl Albumin 4.0 (3.4-5.0) gm/dl Globulin 3.3 (2.5-4.0) gm/dl Albumin/Globulin Ratio 1.2 (0.9-2) Lipase 80 (11-82) U/L Urine Color Dark Yellow Urine Appearance Clear (Clear) Urine pH 5.0 (4.5-7.5) Ur Specific [place] 1.025 (1.000-1.030) Urine Protein 2+ H (Negative) Urine Glucose (UA) Negative (Negative) Urine Ketones 1+ H (Negative) Urine Blood Negative (Negative) Urine Nitrite Negative (Negative) Urine Bilirubin Negative (Negative) Urine Urobilinogen Negative (Negative) Ur Leukocyte Esterase Negative (Negative) Urine WBC (Auto) 1-5 (0-5) /hpf Urine RBC (Auto) 0-4 (0-4) /hpf U Hyaline Cast (Auto) 0 (0-5) /lpf U Epithel Cells (Auto) 10-20 H (0-5) /lpf Urine Bacteria (Auto) Negative (Negative) SARS-CoV-2, RNA, NAAT NEGATIVE (NEGATIVE) Blood Type Antibody Screen Diagnostic Findings ADDENDUM A 19 mm focus of fat necrosis is noted in the mesentery contained within the ventral hernia. Electronically signed by: Alex Valentine M.D. 11/08/2022 5:[address] abd pelvis wo con CLINICAL HISTORY: n/v TECHNIQUE: Helical axial images of the abdomen and pelvis were obtained. Automated dose lowering techniques and/or adjustment according to patient size were utilized for this exam. This exam was performed without intravenous contrast. CT DOSE: 948.46 mGy.cm COMPARISON: None available at the time of this dictation. FINDINGS: Lower chest: Bibasilar atelectasis versus scarring is seen. Liver: Unremarkable. No focal lesions are seen. Gallbladder and biliary tree: No calcified gallstones. Normal caliber wall. No intra- or extrahepatic biliary ductal dilation. Pancreas: Unremarkable, no focal lesions. Spleen: Unremarkable. Adrenals: Nodularity of the adrenal glands is noted. Kidneys and ureters: Numerous exophytic lesions are seen, some of which measure greater than simple fluid density. Vascular calcifications are seen. Bladder: Unremarkable. Reproductive organs: Patient is status post hysterectomy. Bowel: Diverticulosis is seen without evidence of diverticulitis. A large portion of bowel loops as well as the stomach lie within a large ventral hernia, however no evidence of bowel obstruction is seen. There is, however, prominence of the stomach with narrowing at the pylorus. Lymph nodes Retroperitoneal: Unremarkable. Pelvic: Unremarkable. Mesenteric: Unremarkable. Peritoneum: Normal. Vessels: Atherosclerotic calcifications are seen. Infrarenal aortic aneurysm measures approximately 3 mm in diameter. Abdominal wall: Large ventral hernia contains multiple loops of bowel. Fat- containing bilateral inguinal hernias are seen. Bones: Unremarkable. IMPRESSION: 1. Prominence of the stomach with multiple air-fluid levels and narrowing at the level of the pylorus as it exits from a ventral hernia. This may represent gastric outlet obstruction owing to the ventral hernia. No bowel obstruction is otherwise seen. Diverticulosis is seen without diverticulitis. 2. Numerous exophytic lesions in the bilateral kidneys, some of which measure greater than simple fluid density. A renal ultrasound or renal mass MRI can be performed to further characterize these findings and exclude renal cell carcinoma. ACT 112: Negative or not required by law. Electronically signed by: Alex Valentine M.D. 11/08/2022 4:21 PM (1) Nausea & vomiting Vomiting type: unspecified Qualified Code(s): R11.2 - Nausea with vomiting, unspecified (2) Ventral hernia Obstruction and gangrene presence: without obstruction or gangrene Qualified Code(s): K43.9 - Ventral hernia without obstruction or gangrene
[2022-11-08] MEDS ORDERED: busPIRone 5 MG TAB PO PRN (20:29)
[2022-11-08] MEDS ORDERED: ONDANSETRON INJ 2 MG/ML 2 ML VIAL IV PRN (20:29)
[2022-11-08] MEDS ORDERED: ACETAMINOPHEN 325 MG TAB PO PRN (20:29)
[2022-11-08] MEDS ORDERED: POLYETHYLENE (MIRALAX) 17 GM PACK PO PRN (20:29)
[2022-11-08] MEDS ORDERED: cloNIDine HCL 0.3 MG TAB PO SCH (21:00)
[2022-11-08] MEDS: NYSTATIN POWDER 15GM BTL EXT SCH (21:49)
[2022-11-08] MEDS: PANTOprazole 40 MG in DEXTROSE 5% 100 ML IV SCH (21:50)
[2022-11-08] MEDS ORDERED: PROMETHAZINE HCL 6.25 MG in SODIUM CHLORIDE 0.9% 50 ML IV PRN (21:51)
[2022-11-08] MEDS ORDERED: SODIUM CHLORIDE 0.9% 1000ML 1,000 ML IV SCH (22:00)
[2022-11-08] MEDS: carvediloL 12.5 MG TAB PO SCH (22:16)
[2022-11-08] MEDS: CIPROFLOXACIN / D5W 400 MG/200 ML BAG IV SCH (23:05)
[2022-11-08] MEDS: metroNIDAZOLE 500 MG/100 ML BAG IV SCH (23:07)
[2022-11-09] MEDS: PANTOprazole 40 MG in DEXTROSE 5% 100 ML IV SCH ×4 (03:20→20:54)
[2022-11-09] MEDS: metroNIDAZOLE 500 MG/100 ML BAG IV SCH ×4 (05:21→23:15)
[2022-11-09] MEDS: LEVOTHYROXINE SODIUM 112 MCG TABLET PO SCH (05:25)
[2022-11-09 06:48] LABS: Basophils # (auto) 0.02 K/uL (0-0.2); Basophils % (auto) 0.2 %; Eosinophils # (auto) 0.04 K/uL (0-0.50); Eosinophils % (auto) 0.4 %; Hematocrit (blood only) 29.2 % (37.0-47.0); Immature Granulocytes # (auto) 0.04 K/uL (0.01-0.20); Immature Granulocytes % (auto) 0.4 %; Lymphocytes # (auto) 1.17 K/uL (1.2-3.4); Lymphocytes % (auto) 12.9 %; Mean Corpuscular Hemoglobin 24.9 pg (25.0-34.0); Mean Corpuscular Hgb Conc 30.8 g/dL (32.0-36.0); Mean Corpuscular Volume 80.7 fL (80.0-100.0); Mean Platelet Volume 9.4 fL (9.4-12.4); Monocytes # (auto) 0.45 K/uL (0.11-0.59); Neutrophils # (auto) 7.32 K/uL (1.40-6.50); Neutrophils % (auto) 81.1 %; Platelet Count 246 K/uL (130-400); RDW Coefficient of Variation 16.7 % (11.5-14.5); RDW Standard Deviation 49.5 fL (36.4-46.3); Red Blood Count 3.62 M/uL (4.20-5.40); White Blood Count 9.04 K/ul (4.8-10.8)
[2022-11-09 07:21] LABS: BUN Creatinine Ratio 26.2 (10-20); Calcium 8.7 mg/dl (8.6-10.3); Creatinine Clr Calc Pharmacy 34.8 ml/min; Est GFR (Non-African American) 35.4 ml/min; Potassium 3.8 mmol/L (3.5-5.1)
[2022-11-09] MEDS: ATORVASTATIN 40 MG TAB PO SCH (07:32)
[2022-11-09] MEDS: carvediloL 12.5 MG TAB PO SCH (07:32)
[2022-11-09] MEDS: ESCITALOPRAM OXALATE 10 MG TAB PO SCH (07:33)
[2022-11-09] MEDS ORDERED: ENALAPRIL MALEATE 10 MG TAB PO SCH (09:00)
--- NOTE | 2022-11-09 09:15 | Gastrointestinal Consultation ---
Date of Consultation November 09, 2022 Assessment & Plan (1) Nausea & vomiting: She has had vomiting for several days without pain. Confusing as to the bleeding as she says she looked at her emesis and didn't see blood but her son told her she didn't vomit any blood. The problem is the CT suggests the stomach is "obstructed" from the ventral hernia. To do EGD and blow air into the stomach we could make the issues worse with obstruction and perhaps precipitate incarceration. I think she needs her ventral hernia repaired before we can safely do EGD. Granted her hemoglobin has dropped from 11 to 9 but she is not vomiting any further right now and she reports her stools are not black. History of Present Illness Reason for Consultation: ? hematemsis Attending Physician: Darrell Gtz MD History of Present Illness 72 year old female admitted with vomiting for several days. She tells me (she is really hard of hearing) that she did not see any blood. Her son told her she did vomit blood. She has a ventral hernia and says she has had it for life. She denies abdominal pain with the vomiting. Her last episode of vomiting was last night. CT on admit showed large ventral hernia containing stomach and small bowel with thickening of the pylorus where it exits the hernia. They felt it was consistent with gastric outlet obstruction related to the hernia Allergies Allergy/AdvReac Type Severity Reaction Status Date / Time Penicillins Allergy Unknown Verified 06/24/19 10:09 Sulfa (Sulfonamide Allergy Unknown rash Verified 06/24/19 10:09 Antibiotics) Home Medications Medication Instructions Recorded Confirmed Type benazepril 40 mg tablet 40 mg PO DAILY #90 tabs 06/24/19 11/08/22 Rx carvedilol 12.5 mg tablet (Coreg) 12.5 mg PO BID #90 tabs 06/24/19 11/08/22 Rx clonidine HCl 0.3 mg tablet 0.3 mg PO HS #90 tabs 06/24/19 11/08/22 Rx ezetimibe 10 mg tablet (Zetia) 10 mg PO QDL #90 tabs 06/24/19 11/08/22 Rx hydrochlorothiazide 25 mg tablet 25 mg PO DAILY #90 tabs 06/24/19 11/08/22 Rx levothyroxine 112 mcg tablet 112 mcg PO 6XWK #90 tabs 07/07/19 11/08/22 Rx atorvastatin 80 mg tablet 80 mg PO DAILY 11/08/22 11/08/22 History buspirone 5 mg tablet 5 mg PO BID PRN Anxiety 11/08/22 11/08/22 History escitalopram oxalate 10 mg tablet 10 mg PO DAILY 11/08/22 11/08/22 History fluticasone furoate 100 1 puffs inhalation DAILY 11/08/22 11/08/22 History mcg-vilanterol 25 mcg/dose inhalation powder (Breo Ellipta) Patient History Medical History Anemia Anxiety CKD (chronic kidney disease), stage III COPD (chronic obstructive pulmonary disease) HTN (hypertension) Hyperlipidemia Hypothyroidism Surgical History H/O: hysterectomy History of tonsillectomy Family History Mother Myocardial infarction Diabetes Denies family history of Colon cancer Ovarian cancer Prostate cancer Breast cancer Social History Smoking Status: Unknown if ever smoked Hx Substance Use: No Preferred Language: Citizen Of [place] Visual Impairment: No Limitations Hearing Ability: Normal 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 Beliefs That Will Affect Care: None marital status: Current Living Situation: Family Current Living Situation Comment: Lives with sons current occupational status: retired Feels Safe at Home: Declines to Answer Dental Care, Regularly: Yes Physical Activity Frequency: Does not Exercise Assistive Devices: Walker Review of Systems Review of Systems: All systems reviewed & are unremarkable except as noted in HPI & below Physical Exam Constitutional: WD/WN, vitals as above no acute distress Eyes: PERRL, conjunctivae normal, anicteric sclerae ENMT: external ear and nose normal, oropharynx normal Neck: trachea midline, no thyromegaly Respiratory: normal respiratory effort, lungs clear to auscultation Cardiovascular: RRR, no murmur, no edema Gastrointestinal (Abdomen): normal bowel sounds, soft, nontender, no hepatosplenomegaly Musculoskeletal: Extremities: no cyanosis and no clubbing Skin: no rashes, warm and dry Neurologic: PERRL, EOMI, accommodation nl, no face palsy, no dysarthria Psychiatric: Orientation: alert and oriented x 3 Results & Data Vital Signs (Past 12 Hours) Vital Signs Temp Pulse Pulse Resp BP BP Pulse Ox 11/09/22 07:16 36.5 C 85 18 110/71 95 11/09/22 03:21 36.6 C 80 18 106/69 99 11/08/22 23:30 84 11/08/22 23:11 36.5 C 84 19 114/78 99 O2 Del Method O2 Flow Rate 11/09/22 07:16 Nasal Cannula 2 11/09/22 03:21 Nasal Cannula 2 11/08/22 23:30 11/08/22 23:11 Nasal Cannula 2 Laboratory Results 11/09/22 11/09/22 11/08/22 Range/Units 06:09 06:09 12:45 WBC 9.04 (4.8-10.8) K/ul RBC 3.62 L (4.20-5.40) M/uL Hgb 9.0 L (12.0-16.0) g/dl Hct 29.2 L (37.0-47.0) % MCV 80.7 (80.0-100.0) fL MCH 24.9 L (25.0-34.0) pg MCHC 30.8 L (32.0-36.0) g/dL RDW Std Deviation 49.5 H (36.4-46.3) fL RDW Coeff of Tip 16.7 H (11.5-14.5) % Plt Count 246 (130-400) K/uL MPV 9.4 (9.4-12.4) fL Immature Gran % (Auto) 0.4 % Neut % (Auto) 81.1 % Lymph % (Auto) 12.9 % Sunflower % (Auto) 5.0 % Eos % (Auto) 0.4 % Baso % (Auto) 0.2 % Neut # (Auto) 7.32 H (1.40-6.50) K/uL Lymph # (Auto) 1.17 L (1.2-3.4) K/uL [place] # (Auto) 0.45 (0.11-0.59) K/uL Eos # (Auto) 0.04 (0-0.50) K/uL Baso # (Auto) 0.02 (0-0.2) K/uL Immature Gran # (Auto) 0.04 (0.01-0.20) K/uL Hypersegmented Neuts PT (9.0-12.0) Seconds INR (0.9-1.1) Sodium 141 (136-145) mmol/L Potassium 3.8 (3.5-5.1) mmol/L Chloride 102 (98-107) mmol/L Carbon Dioxide 32 (21-32) mmol/L Anion Gap 7 (3-11) BUN 38 H (6-23) mg/dl Creatinine 1.45 H (0.6-1.2) mg/dl Est Cr Clr Drug Dosing 34.8 ml/min Est GFR ( Amer) 41.0 ml/min Est GFR (Non-Af Amer) 35.4 ml/min BUN/Creatinine Ratio 26.2 H (10-20) Glucose 97 (70-99(Fasting)) mg/dl Calcium 8.7 (8.6-10.3) mg/dl Total Bilirubin (0.2-1.0) mg/dl AST (13-39) U/L ALT (7-52) U/L Alkaline Phosphatase (34-104) U/L Troponin I High Sens (0-14) pg/ml Total Protein (6.0-8.3) gm/dl Albumin (3.4-5.0) gm/dl Globulin (2.5-4.0) gm/dl Albumin/Globulin Ratio (0.9-2) Lipase (11-82) U/L Urine Color Urine Appearance (Clear) Urine pH (4.5-7.5) Ur Specific [place] (1.000-1.030) Urine Protein (Negative) Urine Glucose (UA) (Negative) Urine Ketones (Negative) Urine Blood (Negative) Urine Nitrite (Negative) Urine Bilirubin (Negative) Urine Urobilinogen (Negative) Ur Leukocyte Esterase (Negative) Urine WBC (Auto) (0-5) /hpf Urine RBC (Auto) (0-4) /hpf U Hyaline Cast (Auto) (0-5) /lpf U Epithel Cells (Auto) (0-5) /lpf Urine Bacteria (Auto) (Negative) SARS-CoV-2, RNA, NAAT NEGATIVE (NEGATIVE) Blood Type Antibody Screen 11/08/22 11/08/22 11/08/22 Range/Units 12:45 12:05 12:05 WBC (4.8-10.8) K/ul RBC (4.20-5.40) M/uL Hgb (12.0-16.0) g/dl Hct (37.0-47.0) % MCV (80.0-100.0) fL MCH (25.0-34.0) pg MCHC (32.0-36.0) g/dL RDW Std Deviation (36.4-46.3) fL RDW Coeff of Tip (11.5-14.5) % Plt Count (130-400) K/uL MPV (9.4-12.4) fL Immature Gran % (Auto) % Neut % (Auto) % Lymph % (Auto) % [place] % (Auto) % Eos % (Auto) % Baso % (Auto) % Neut # (Auto) (1.40-6.50) K/uL Lymph # (Auto) (1.2-3.4) K/uL [place] # (Auto) (0.11-0.59) K/uL Eos # (Auto) (0-0.50) K/uL Baso # (Auto) (0-0.2) K/uL Immature Gran # (Auto) (0.01-0.20) K/uL Hypersegmented Neuts PT 10.6 (9.0-12.0) Seconds INR 1.0 (0.9-1.1) Sodium 140 (136-145) mmol/L Potassium 4.2 (3.5-5.1) mmol/L Chloride 98 (98-107) mmol/L Carbon Dioxide 31 (21-32) mmol/L Anion Gap 11 (3-11) BUN 44 H (6-23) mg/dl Creatinine 1.50 H (0.6-1.2) mg/dl Est Cr Clr Drug Dosing 30.8 ml/min Est GFR ( Amer) 39.4 ml/min Est GFR (Non-Af Amer) 34.0 ml/min BUN/Creatinine Ratio 29.3 H (10-20) Glucose 132 H (70-99(Fasting)) mg/dl Calcium 9.4 (8.6-10.3) mg/dl Total Bilirubin 0.8 (0.2-1.0) mg/dl AST 12 L (13-39) U/L ALT 7 (7-52) U/L Alkaline Phosphatase 59 (34-104) U/L Troponin I High Sens 13.0 (0-14) pg/ml Total Protein 7.3 (6.0-8.3) gm/dl Albumin 4.0 (3.4-5.0) gm/dl Globulin 3.3 (2.5-4.0) gm/dl Albumin/Globulin Ratio 1.2 (0.9-2) Lipase 80 (11-82) U/L Urine Color Dark Yellow Urine Appearance Clear (Clear) Urine pH 5.0 (4.5-7.5) Ur Specific [place] 1.025 (1.000-1.030) Urine Protein 2+ H (Negative) Urine Glucose (UA) Negative (Negative) Urine Ketones 1+ H (Negative) Urine Blood Negative (Negative) Urine Nitrite Negative (Negative) Urine Bilirubin Negative (Negative) Urine Urobilinogen Negative (Negative) Ur Leukocyte Esterase Negative (Negative) Urine WBC (Auto) 1-5 (0-5) /hpf Urine RBC (Auto) 0-4 (0-4) /hpf U Hyaline Cast (Auto) 0 (0-5) /lpf U Epithel Cells (Auto) 10-20 H (0-5) /lpf Urine Bacteria (Auto) Negative (Negative) SARS-CoV-2, RNA, NAAT (NEGATIVE) Blood Type Antibody Screen 11/08/22 11/08/22 Range/Units 12:05 12:05 WBC 11.58 H (4.8-10.8) K/ul RBC 4.63 (4.20-5.40) M/uL Hgb 11.4 L (12.0-16.0) g/dl Hct 37.3 (37.0-47.0) % MCV 80.6 (80.0-100.0) fL MCH 24.6 L (25.0-34.0) pg MCHC 30.6 L (32.0-36.0) g/dL RDW Std Deviation 48.5 H (36.4-46.3) fL RDW Coeff of Tip 16.6 H (11.5-14.5) % Plt Count 363 (130-400) K/uL MPV 9.4 (9.4-12.4) fL Immature Gran % (Auto) 0.4 % Neut % (Auto) 90.1 % Lymph % (Auto) 7.1 % [place]flower % (Auto) 2.0 % Eos % (Auto) 0.2 % Baso % (Auto) 0.2 % Neut # (Auto) 10.44 H (1.40-6.50) K/uL Lymph # (Auto) 0.82 L (1.2-3.4) K/uL [place] # (Auto) 0.23 (0.11-0.59) K/uL Eos # (Auto) 0.02 (0-0.50) K/uL Baso # (Auto) 0.02 (0-0.2) K/uL Immature Gran # (Auto) 0.05 (0.01-0.20) K/uL Hypersegmented Neuts 1+ PT (9.0-12.0) Seconds INR (0.9-1.1) Sodium (136-145) mmol/L Potassium (3.5-5.1) mmol/L Chloride (98-107) mmol/L Carbon Dioxide (21-32) mmol/L Anion Gap (3-11) BUN (6-23) mg/dl Creatinine (0.6-1.2) mg/dl Est Cr Clr Drug Dosing ml/min Est GFR ( Amer) ml/min Est GFR (Non-Af Amer) ml/min BUN/Creatinine Ratio (10-20) Glucose (70-99(Fasting)) mg/dl Calcium (8.6-10.3) mg/dl Total Bilirubin (0.2-1.0) mg/dl AST (13-39) U/L ALT (7-52) U/L Alkaline Phosphatase (34-104) U/L Troponin I High Sens (0-14) pg/ml Total Protein (6.0-8.3) gm/dl Albumin (3.4-5.0) gm/dl Globulin (2.5-4.0) gm/dl Albumin/Globulin Ratio (0.9-2) Lipase (11-82) U/L Urine Color Urine Appearance (Clear) Urine pH (4.5-7.5) Ur Specific [place] (1.000-1.030) Urine Protein (Negative) Urine Glucose (UA) (Negative) Urine Ketones (Negative) Urine Blood (Negative) Urine Nitrite (Negative) Urine Bilirubin (Negative) Urine Urobilinogen (Negative) Ur Leukocyte Esterase (Negative) Urine WBC (Auto) (0-5) /hpf Urine RBC (Auto) (0-4) /hpf U Hyaline Cast (Auto) (0-5) /lpf U Epithel Cells (Auto) (0-5) /lpf Urine Bacteria (Auto) (Negative) SARS-CoV-2, RNA, NAAT (NEGATIVE) Blood Type A Positive Antibody Screen NEGATIVE Diagnostic Findings Abdomen/Pelvis CT 11/08/22 12:44 CT abd pelvis wo con CLINICAL HISTORY: n/v TECHNIQUE: Helical axial images of the abdomen and pelvis were obtained. Automated dose lowering techniques and/or adjustment according to patient size were utilized for this exam. This exam was performed without intravenous contrast. CT DOSE: 948.46 mGy.cm COMPARISON: None available at the time of this dictation. FINDINGS: Lower chest: Bibasilar atelectasis versus scarring is seen. Liver: Unremarkable. No focal lesions are seen. Gallbladder and biliary tree: No calcified gallstones. Normal caliber wall. No intra- or extrahepatic biliary ductal dilation. Pancreas: Unremarkable, no focal lesions. Spleen: Unremarkable. Adrenals: Nodularity of the adrenal glands is noted. Kidneys and ureters: Numerous exophytic lesions are seen, some of which measure greater than simple fluid density. Vascular calcifications are seen. Bladder: Unremarkable. Reproductive organs: Patient is status post hysterectomy. Bowel: Diverticulosis is seen without evidence of diverticulitis. A large portion of bowel loops as well as the stomach lie within a large ventral hernia, however no evidence of bowel obstruction is seen. There is, however, prominence of the stomach with narrowing at the pylorus. Lymph nodes Retroperitoneal: Unremarkable. Pelvic: Unremarkable. Mesenteric: Unremarkable. Peritoneum: Normal. Vessels: Atherosclerotic calcifications are seen. Infrarenal aortic aneurysm measures approximately 3 mm in diameter. Abdominal wall: Large ventral hernia contains multiple loops of bowel. Fat- containing bilateral inguinal hernias are seen. Bones: Unremarkable. IMPRESSION: 1. Prominence of the stomach with multiple air-fluid levels and narrowing at the level of the pylorus as it exits from a ventral hernia. This may represent gastric outlet obstruction owing to the ventral hernia. No bowel obstruction is otherwise seen. Diverticulosis is seen without diverticulitis. 2. Numerous exophytic lesions in the bilateral kidneys, some of which measure greater than simple fluid density. A renal ultrasound or renal mass MRI can be performed to further characterize these findings and exclude renal cell carcinoma. ACT 112: Negative or not required by law. Electronically signed by: Alex Valentine M.D. 11/08/2022 4:21 PM Chest X-Ray 11/08/22 15:45 XR chest 1V portable HISTORY: hypoxia COMPARISON: Chest CTA 01/08/2015. FINDINGS: No pneumothorax. No pleural effusions. There are low lung volumes. The cardiac silhouette remains mildly enlarged. No new focal lung consolidations to suggest a pneumonia. No evidence for pulmonary edema. There are degenerative changes within the bilateral shoulders. IMPRESSION: Mild cardiomegaly. Otherwise, no acute process within the chest. ACT 112: Negative or not required by law. Electronically signed by: Christopher Levy M.D. 11/08/2022 4:32 PM (1) Nausea & vomiting Vomiting type: unspecified Qualified Code(s): R11.2 - Nausea with vomiting, unspecified
[2022-11-09] MEDS: CIPROFLOXACIN / D5W 400 MG/200 ML BAG IV SCH ×2 (09:58→21:02)
[2022-11-09] MEDS: FLUTICASONE/VILANTEROL 100/25MCG 14 PUFFS/INHALER INH SCH (10:02)
--- NOTE | 2022-11-09 10:37 | Ultrasound Report ---
RENAL ULTRASOUND HISTORY: Abnormal CT. Follow-up renal cysts. renal cysts COMPARISON: Abdomen and pelvis CT 11/08/2022. FINDINGS: Right kidney: 8.8 cm. Multiple cysts with the largest in the upper pole measuring 6.1 cm. No hydronep hrosis. Normal corticomedullary differentiation and cortical thickness. Left kidney: 8.5 cm. Multiple cysts with the largest in the upper pole measuring 4.2 cm. No hydroneph rosis. Normal corticomedullary differentiation and cortical thickness. Bladder: Decompressed and not well visualized. IMPRESSION: 1. Multiple bilateral renal cysts. 2. No hydronephrosis. 3. The bladder is decompressed and not well visualized. ACT 112: Negative or not required by law. Electronically signed by: Christopher Levy M.D. 11/09/2022 10:35 AM
[2022-11-09] MEDS ORDERED: LACTATED RINGER'S 500 ML IV ONE (11:43)
[2022-11-09] MEDS: EZETIMIBE 10 MG TABLET PO SCH (11:51)
[2022-11-09] MEDS: NYSTATIN POWDER 15GM BTL EXT SCH ×3 (11:51→20:55)
--- NOTE | 2022-11-09 12:13 | Surgery Progress Note ---
Date of Service November 09, 2022 Assessment & Plan (1) Nausea & vomiting: Plan: assessment: pt is a 72 year-old female with PMH- HTN, cardiomegaly, chest pain, COPD, hypothyroidism, anemia and large ventral hernia. pt presents with one day history nausea and vomiting, vomiting with some blood per- EMS reported. pt has > 10 years history large ventral hernia. pt felt some abdominal pain, but now pt said that she has no abdominal pain, pt denies dizziness, no fever, no diarrhea. pt had CT scan at ER - IMPRESSION: 1. Prominence of the stomach with multiple air-fluid levels and narrowing at the level of the pylorus as it exits from a ventral hernia. This may represent gastric outlet obstruction owing to the ventral hernia. No bowel obstruction is otherwise seen. Diverticulosis is seen without diverticulitis. 2. Numerous exophytic lesions in the bilateral kidneys, some of which measure greater than simple fluid density. A renal ultrasound or renal mass MRI can be performed to further characterize these findings and exclude renal cell carcinoma. ADDENDUM A 19 mm focus of fat necrosis is noted in the mesentery contained within the ventral hernia. IM: nausea, vomiting, possible pylorus narrow, large ventral hernia. plan, based on H/P, labs and CT scan, no signs for incarcerated ventral hernia, conservative treatment now, NPO, IV fluid, may start cipro + flagyl for high WBC, consult GI for EGD to R/O upper GI bleeding and pylorus stenosis. repeat labs in morning. out-patient for large ventral hernia surgery by special hernia surgeon. will F/U. D/W hospitalist. 11/09/2022 12:[address] Cortes F/U large ventral hernia, pt is doing better, passed some gas, no nausea and vomiting, based on large ventral hernia, recommend to transfer to higher level care , need speciality hernia surgeon for pt's hernia repair. keep NPO now. ice chip and po meds okay. will F/U, (2) Ventral hernia: Admission and Anticipated Discharge Date Admission Date: November 08, 2022 Subjective 11/09/2022 12:05Pm Dr. Cortes F/U large ventral hernia, pt said she feels better, passed some gas, no BM yet. no abdominal pain, no nausea and vomiting, no fever. Review of Systems Constitutional: as per Subjective / HPI no distress Eyes: as per Subjective / HPI Respiratory: as per Subjective / HPI COPD Cardiovascular: Additional Comments: HTN, cardiomegaly, chest pain, hyperlipidemia Gastrointestinal: large ventral hernia, nausea and vomiting, Genitourinary: as per Subjective / HPI Neurologic: as per Subjective / HPI Psychiatric: as per Subjective / HPI Endocrine: hypothyroidism Hematologic / Lymphatic: anemia Physical Exam Constitutional: WD/WN, vitals as above Eyes: PERRL, conjunctivae normal, anicteric sclerae Neck: trachea midline, no thyromegaly Respiratory: normal respiratory effort, lungs clear to auscultation Cardiovascular: RRR, no murmur, no edema Gastrointestinal (Abdomen): soft, no tenderness, large ventral hernia, no incarcerated signs on abdomen, BS +, no distend. Neurologic: patellar DTR's 2+ bilat, sensation intact Psychiatric: A+Ox3, euthymic affect Results & Data Vital Signs (Past 12 Hours) Vital Signs Temp Pulse Resp BP BP Pulse Ox O2 Del Method 11/09/22 11:47 36.3 C L 59 L 18 82/42 L 96 Nasal Cannula 11/09/22 07:16 36.5 C 85 18 110/71 95 Nasal Cannula 11/09/22 03:21 36.6 C 80 18 106/69 99 Nasal Cannula O2 Flow Rate 11/09/22 11:47 11/09/22 07:16 2 11/09/22 03:21 2 Laboratory Results Lab Results 11/08/22 11/08/22 11/08/22 Range/Units 12:05 12:05 12:05 WBC 11.58 H (4.8-10.8) K/ul RBC 4.63 (4.20-5.40) M/uL Hgb 11.4 L (12.0-16.0) g/dl Hct 37.3 (37.0-47.0) % MCV 80.6 (80.0-100.0) fL MCH 24.6 L (25.0-34.0) pg MCHC 30.6 L (32.0-36.0) g/dL RDW Std Deviation 48.5 H (36.4-46.3) fL RDW Coeff of Tip 16.6 H (11.5-14.5) % Plt Count 363 (130-400) K/uL MPV 9.4 (9.4-12.4) fL Immature Gran % (Auto) 0.4 % Neut % (Auto) 90.1 % Lymph % (Auto) 7.1 % [place] % (Auto) 2.0 % Eos % (Auto) 0.2 % Baso % (Auto) 0.2 % Neut # (Auto) 10.44 H (1.40-6.50) K/uL Lymph # (Auto) 0.82 L (1.2-3.4) K/uL [place] # (Auto) 0.23 (0.11-0.59) K/uL Eos # (Auto) 0.02 (0-0.50) K/uL Baso # (Auto) 0.02 (0-0.2) K/uL Immature Gran # (Auto) 0.05 (0.01-0.20) K/uL Hypersegmented Neuts 1+ PT 10.6 (9.0-12.0) Seconds INR 1.0 (0.9-1.1) Sodium (136-145) mmol/L Potassium (3.5-5.1) mmol/L Chloride (98-107) mmol/L Carbon Dioxide (21-32) mmol/L Anion Gap (3-11) BUN (6-23) mg/dl Creatinine (0.6-1.2) mg/dl Est Cr Clr Drug Dosing ml/min Est GFR ( Amer) ml/min Est GFR (Non-Af Amer) ml/min BUN/Creatinine Ratio (10-20) Glucose (70-99(Fasting)) mg/dl Calcium (8.6-10.3) mg/dl Total Bilirubin (0.2-1.0) mg/dl AST (13-39) U/L ALT (7-52) U/L Alkaline Phosphatase (34-104) U/L Troponin I High Sens (0-14) pg/ml Total Protein (6.0-8.3) gm/dl Albumin (3.4-5.0) gm/dl Globulin (2.5-4.0) gm/dl Albumin/Globulin Ratio (0.9-2) Lipase (11-82) U/L Urine Color Urine Appearance (Clear) Urine pH (4.5-7.5) Ur Specific [place] (1.000-1.030) Urine Protein (Negative) Urine Glucose (UA) (Negative) Urine Ketones (Negative) Urine Blood (Negative) Urine Nitrite (Negative) Urine Bilirubin (Negative) Urine Urobilinogen (Negative) Ur Leukocyte Esterase (Negative) Urine WBC (Auto) (0-5) /hpf Urine RBC (Auto) (0-4) /hpf U Hyaline Cast (Auto) (0-5) /lpf U Epithel Cells (Auto) (0-5) /lpf Urine Bacteria (Auto) (Negative) SARS-CoV-2, RNA, NAAT (NEGATIVE) Blood Type A Positive Antibody Screen NEGATIVE 11/08/22 11/08/22 11/08/22 Range/Units 12:05 12:45 12:45 WBC (4.8-10.8) K/ul RBC (4.20-5.40) M/uL Hgb (12.0-16.0) g/dl Hct (37.0-47.0) % MCV (80.0-100.0) fL MCH (25.0-34.0) pg MCHC (32.0-36.0) g/dL RDW Std Deviation (36.4-46.3) fL RDW Coeff of Tip (11.5-14.5) % Plt Count (130-400) K/uL MPV (9.4-12.4) fL Immature Gran % (Auto) % Neut % (Auto) % Lymph % (Auto) % [place] % (Auto) % Eos % (Auto) % Baso % (Auto) % Neut # (Auto) (1.40-6.50) K/uL Lymph # (Auto) (1.2-3.4) K/uL [place] # (Auto) (0.11-0.59) K/uL Eos # (Auto) (0-0.50) K/uL Baso # (Auto) (0-0.2) K/uL Immature Gran # (Auto) (0.01-0.20) K/uL Hypersegmented Neuts PT (9.0-12.0) Seconds INR (0.9-1.1) Sodium 140 (136-145) mmol/L Potassium 4.2 (3.5-5.1) mmol/L Chloride 98 (98-107) mmol/L Carbon Dioxide 31 (21-32) mmol/L Anion Gap 11 (3-11) BUN 44 H (6-23) mg/dl Creatinine 1.50 H (0.6-1.2) mg/dl Est Cr Clr Drug Dosing 30.8 ml/min Est GFR ( Amer) 39.4 ml/min Est GFR (Non-Af Amer) 34.0 ml/min BUN/Creatinine Ratio 29.3 H (10-20) Glucose 132 H (70-99(Fasting)) mg/dl Calcium 9.4 (8.6-10.3) mg/dl Total Bilirubin 0.8 (0.2-1.0) mg/dl AST 12 L (13-39) U/L ALT 7 (7-52) U/L Alkaline Phosphatase 59 (34-104) U/L Troponin I High Sens 13.0 (0-14) pg/ml Total Protein 7.3 (6.0-8.3) gm/dl Albumin 4.0 (3.4-5.0) gm/dl Globulin 3.3 (2.5-4.0) gm/dl Albumin/Globulin Ratio 1.2 (0.9-2) Lipase 80 (11-82) U/L Urine Color Dark Yellow Urine Appearance Clear (Clear) Urine pH 5.0 (4.5-7.5) Ur Specific [place] 1.025 (1.000-1.030) Urine Protein 2+ H (Negative) Urine Glucose (UA) Negative (Negative) Urine Ketones 1+ H (Negative) Urine Blood Negative (Negative) Urine Nitrite Negative (Negative) Urine Bilirubin Negative (Negative) Urine Urobilinogen Negative (Negative) Ur Leukocyte Esterase Negative (Negative) Urine WBC (Auto) 1-5 (0-5) /hpf Urine RBC (Auto) 0-4 (0-4) /hpf U Hyaline Cast (Auto) 0 (0-5) /lpf U Epithel Cells (Auto) 10-20 H (0-5) /lpf Urine Bacteria (Auto) Negative (Negative) SARS-CoV-2, RNA, NAAT NEGATIVE (NEGATIVE) Blood Type Antibody Screen 11/09/22 11/09/22 Range/Units 06:09 06:09 WBC 9.04 (4.8-10.8) K/ul RBC 3.62 L (4.20-5.40) M/uL Hgb 9.0 L (12.0-16.0) g/dl Hct 29.2 L (37.0-47.0) % MCV 80.7 (80.0-100.0) fL MCH 24.9 L (25.0-34.0) pg MCHC 30.8 L (32.0-36.0) g/dL RDW Std Deviation 49.5 H (36.4-46.3) fL RDW Coeff of Tip 16.7 H (11.5-14.5) % Plt Count 246 (130-400) K/uL MPV 9.4 (9.4-12.4) fL Immature Gran % (Auto) 0.4 % Neut % (Auto) 81.1 % Lymph % (Auto) 12.9 % [place] % (Auto) 5.0 % Eos % (Auto) 0.4 % Baso % (Auto) 0.2 % Neut # (Auto) 7.32 H (1.40-6.50) K/uL Lymph # (Auto) 1.17 L (1.2-3.4) K/uL [place] # (Auto) 0.45 (0.11-0.59) K/uL Eos # (Auto) 0.04 (0-0.50) K/uL Baso # (Auto) 0.02 (0-0.2) K/uL Immature Gran # (Auto) 0.04 (0.01-0.20) K/uL Hypersegmented Neuts PT (9.0-12.0) Seconds INR (0.9-1.1) Sodium 141 (136-145) mmol/L Potassium 3.8 (3.5-5.1) mmol/L Chloride 102 (98-107) mmol/L Carbon Dioxide 32 (21-32) mmol/L Anion Gap 7 (3-11) BUN 38 H (6-23) mg/dl Creatinine 1.45 H (0.6-1.2) mg/dl Est Cr Clr Drug Dosing 34.8 ml/min Est GFR ( Amer) 41.0 ml/min Est GFR (Non-Af Amer) 35.4 ml/min BUN/Creatinine Ratio 26.2 H (10-20) Glucose 97 (70-99(Fasting)) mg/dl Calcium 8.7 (8.6-10.3) mg/dl Total Bilirubin (0.2-1.0) mg/dl AST (13-39) U/L ALT (7-52) U/L Alkaline Phosphatase (34-104) U/L Troponin I High Sens (0-14) pg/ml Total Protein (6.0-8.3) gm/dl Albumin (3.4-5.0) gm/dl Globulin (2.5-4.0) gm/dl Albumin/Globulin Ratio (0.9-2) Lipase (11-82) U/L Urine Color Urine Appearance (Clear) Urine pH (4.5-7.5) Ur Specific [place] (1.000-1.030) Urine Protein (Negative) Urine Glucose (UA) (Negative) Urine Ketones (Negative) Urine Blood (Negative) Urine Nitrite (Negative) Urine Bilirubin (Negative) Urine Urobilinogen (Negative) Ur Leukocyte Esterase (Negative) Urine WBC (Auto) (0-5) /hpf Urine RBC (Auto) (0-4) /hpf U Hyaline Cast (Auto) (0-5) /lpf U Epithel Cells (Auto) (0-5) /lpf Urine Bacteria (Auto) (Negative) SARS-CoV-2, RNA, NAAT (NEGATIVE) Blood Type Antibody Screen (1) Nausea & vomiting Vomiting type: unspecified Qualified Code(s): R11.2 - Nausea with vomiting, unspecified (2) Ventral hernia Obstruction and gangrene presence: without obstruction or gangrene Qualified Code(s): K43.9 - Ventral hernia without obstruction or gangrene
[2022-11-09] MEDS ORDERED: SODIUM CHLORIDE 0.9% 1000ML 1,000 ML IV ONE (13:31)
[2022-11-09] MEDS: D5W AND LACTATED RINGERS 1,000 ML IV SCH (15:17)
--- NOTE | 2022-11-09 16:18 | Hospitalist Progress Note ---
Date of Service November 09, 2022 Assessment & Plan (1) Nausea & vomiting: (2) Ventral hernia: Plan: Past medical history of hypertension, CKD, COPD, anxiety presented to the hospital with nausea and vomiting for 1 day. Patient living with her son prior to presentation. Had nausea on and off for several months to years. Has not seen a doctor for several years. Unknown medical compliance as patient is responsible for her medications. CT abdomen and pelvis on admission personally reviewed; Prominence of the stomach with multiple air-fluid levels and narrowing at the level of the pylorus as it exits from a ventral hernia. This may represent gastric outlet obstruction owing to the ventral hernia. No bowel obstruction is otherwise seen. Discussed with Dr. Cortes from surgery; recommended transfer to tertiary care center for ventral hernia repair. Discussed with Dr. Hernandez in [facility]; recommended NG tube placement and Gastrografin challenge test in 8 hours Patient declined placement of NG tube and transferred to [place]. Dr. Cortes was also at bedside. Patient denied nausea, vomiting. Patient noted to have acute hypotension with blood pressure with SBP's of 60s to 70s. The most likely cause is the multiple antihypertensive she received. Mercedes ent was noncompliant prior to admission. Patient evaluated at bedside multiple times; she was alert oriented x3. She denies any dizziness or any distress. Lactate was ordered; 1.1. Also, 500 cc fluid ordered. Also, 1 L bolus ordered. Continue on antibiotics. All of her antihypertensive were stopped. Clear liquid diet was started after discussion with general surgery. N.p.o. from midnight. Discussed with radiologist(Dr. Levy); plan for barium swallow tomorrow a.m. with KUB. Monitor lactic acid; bolus as necessary. Started on D5 LR at 125 cc/h. (3) Abnormal CT of the abdomen: Plan: CT abdomen pelvis: Numerous exophytic lesions in the bilateral kidneys, some of which measure greater than simple fluid density. A renal ultrasound or renal mass MRI can be performed to further characterize these findings and exclude renal cell carcinoma Renal ultrasound results reviewed; no hydronephrosis. Multiple bilateral renal cysts. (4) Ambulatory dysfunction: Plan: Sister reports that patient has been in bed for the last 8 months. Currently living with son who has bathroom on second floor which patient is unable to use PT/OT eval (5) Candidiasis: Plan: Sacral wounds Nystatin Wound nurse consult for sacral wounds (6) CKD (chronic kidney disease), stage III: Plan: Cr: 1.5. Baseline~1.3 Monitor renal functions, avoid nephrotoxic agents when possible (7) Anemia: Plan: Hgb: 11.4. Baseline 11.5-11.8 per outpatient chart review Monitor H&H (8) COPD (chronic obstructive pulmonary disease): Plan: No signs acute exacerbation Continue home inhaler (9) HTN (hypertension): Plan: Stop antihypertensive due to hypotension. (10) Hypothyroidism: Plan: Continue levothyroxine (11) Anxiety: Plan: Continue escitalopram, buspirone as needed DVT Prophylaxis SCDs Full code Discussed with her sister Total critical time spent 60 minutes which includes history taking/examining patient at bedside, ordering labs, reviewing them, discussing with consultants, making decent communicating with RN. Please note the above document was generated using voice recognition software. It may contain grammatical, syntax or spelling errors. Any formal questions or concerns about the content, text or information contained within the body of this dictation should be directly addressed to the provider for clarification Admission and Anticipated Discharge Date Admission Date: November 08, 2022 Subjective Patient seen multiple times during the day. She appears comfortable; not in distress. No nausea or vomiting. She denies any abdominal pain. Review of Systems Review of Systems: All systems reviewed & are unremarkable except as noted in Subjective Physical Exam Physical Exam: Constitutional: Alert, oriented to time place and person. Hard of hearing. Respiratory: normal respiratory effort, lungs clear to auscultation, no wheeze, rales, rhonchi. Normal insp/exp effort, no accessory muscle use Cardiovascular: RRR, no murmur, no edema Vessels: no JVD or carotid bruit Chest: normal inspection of chest Abdomen: Large ventral hernia present, nontender. Musculoskeletal: no cyanosis or clubbing, extremities motor strength 5/5 Skin: no rashes, warm and dry normal turgor Neurologic: PERRL, EOMI, accommodation nl, no face palsy, no dysarthria CN's II- XI intact bilaterally and moves all extremities Psychiatric: A+Ox3, euthymic affect Results & Data Results & Data Vital Signs (Past 12 Hours) Vital Signs Temp Pulse Pulse Resp BP BP Pulse Ox 11/09/22 15:32 63 84/58 L 11/09/22 15:00 36.5 C 77 18 121/58 L 95 11/09/22 14:15 78/49 L 11/09/22 13:12 72/41 L 11/09/22 12:08 88/44 L 11/09/22 11:47 36.3 C L 59 L 18 82/42 L 96 11/09/22 07:16 36.5 C 85 18 110/71 95 O2 Del Method O2 Flow Rate 11/09/22 15:32 11/09/22 15:00 Room Air 11/09/22 14:15 11/09/22 13:12 11/09/22 12:08 11/09/22 11:47 Nasal Cannula 11/09/22 07:16 Nasal Cannula 2 Laboratory Results Laboratory Results WBC 9.04 K/ul (4.8-10.8) 11/09/22 06:09 RBC 3.62 M/uL (4.20-5.40) L 11/09/22 06:09 Hgb 9.0 g/dl (12.0-16.0) L 11/09/22 06:09 Hct 29.2 % (37.0-47.0) L 11/09/22 06:09 MCV 80.7 fL (80.0-100.0) 11/09/22 06:09 MCH 24.9 pg (25.0-34.0) L 11/09/22 06:09 MCHC 30.8 g/dL (32.0-36.0) L 11/09/22 06:09 RDW Std Deviation 49.5 fL (36.4-46.3) H 11/09/22 06:09 RDW Coeff of Tip 16.7 % (11.5-14.5) H 11/09/22 06:09 Plt Count 246 K/uL (130-400) 11/09/22 06:09 MPV 9.4 fL (9.4-12.4) 11/09/22 06:09 Immature Gran % (Auto) 0.4 % 11/09/22 06:09 Neut % (Auto) 81.1 % 11/09/22 06:09 Lymph % (Auto) 12.9 % 11/09/22 06:09 [place] % (Auto) 5.0 % 11/09/22 06:09 Eos % (Auto) 0.4 % 11/09/22 06:09 Baso % (Auto) 0.2 % 11/09/22 06:09 Neut # (Auto) 7.32 K/uL (1.40-6.50) H 11/09/22 06:09 Lymph # (Auto) 1.17 K/uL (1.2-3.4) L 11/09/22 06:09 [place] # (Auto) 0.45 K/uL (0.11-0.59) 11/09/22 06:09 Eos # (Auto) 0.04 K/uL (0-0.50) 11/09/22 06:09 Baso # (Auto) 0.02 K/uL (0-0.2) 11/09/22 06:09 Immature Gran # (Auto) 0.04 K/uL (0.01-0.20) 11/09/22 06:09 Hypersegmented Neuts 1+ 11/08/22 12:05 PT 10.6 Seconds (9.0-12.0) 11/08/22 12:05 INR 1.0 (0.9-1.1) 11/08/22 12:05 Sodium 141 mmol/L (136-145) 11/09/22 06:09 Potassium 3.8 mmol/L (3.5-5.1) 11/09/22 06:09 Chloride 102 mmol/L (98-107) 11/09/22 06:09 Carbon Dioxide 32 mmol/L (21-32) 11/09/22 06:09 Anion Gap 7 (3-11) 11/09/22 06:09 BUN 38 mg/dl (6-23) H 11/09/22 06:09 Creatinine 1.45 mg/dl (0.6-1.2) H 11/09/22 06:09 Est Cr Clr Drug Dosing 34.8 ml/min 11/09/22 06:09 Est GFR ( Amer) 41.0 ml/min 11/09/22 06:09 Est GFR (Non-Af Amer) 35.4 ml/min 11/09/22 06:09 BUN/Creatinine Ratio 26.2 (10-20) H 11/09/22 06:09 Glucose 97 mg/dl (70-99(Fasting)) 11/09/22 06:09 Lactate 1.0 mmol/L (0.4-2.0) 11/09/22 14:08 Calcium 8.7 mg/dl (8.6-10.3) 11/09/22 06:09 Total Bilirubin 0.8 mg/dl (0.2-1.0) 11/08/22 12:05 AST 12 U/L (13-39) L 11/08/22 12:05 ALT 7 U/L (7-52) 11/08/22 12:05 Alkaline Phosphatase 59 U/L (34-104) 11/08/22 12:05 Troponin I High Sens 13.0 pg/ml (0-14) 11/08/22 12:05 Total Protein 7.3 gm/dl (6.0-8.3) 11/08/22 12:05 Albumin 4.0 gm/dl (3.4-5.0) 11/08/22 12:05 Globulin 3.3 gm/dl (2.5-4.0) 11/08/22 12:05 Albumin/Globulin Ratio 1.2 (0.9-2) 11/08/22 12:05 Lipase 80 U/L (11-82) 11/08/22 12:05 Urine Color Dark Yellow 11/08/22 12:45 Urine Appearance Clear (Clear) 11/08/22 12:45 Urine pH 5.0 (4.5-7.5) 11/08/22 12:45 Ur Specific [place] 1.025 (1.000-1.030) 11/08/22 12:45 Urine Protein 2+ (Negative) H 11/08/22 12:45 Urine Glucose (UA) Negative (Negative) 11/08/22 12:45 Urine Ketones 1+ (Negative) H 11/08/22 12:45 Urine Blood Negative (Negative) 11/08/22 12:45 Urine Nitrite Negative (Negative) 11/08/22 12:45 Urine Bilirubin Negative (Negative) 11/08/22 12:45 Urine Urobilinogen Negative (Negative) 11/08/22 12:45 Ur Leukocyte Esterase Negative (Negative) 11/08/22 12:45 Urine WBC (Auto) 1-5 /hpf (0-5) 11/08/22 12:45 Urine RBC (Auto) 0-4 /hpf (0-4) 11/08/22 12:45 U Hyaline Cast (Auto) 0 /lpf (0-5) 11/08/22 12:45 U Epithel Cells (Auto) 10-20 /lpf (0-5) H 11/08/22 12:45 Urine Bacteria (Auto) Negative (Negative) 11/08/22 12:45 SARS-CoV-2, RNA, NAAT NEGATIVE (NEGATIVE) 11/08/22 12:45 Blood Type A Positive 11/08/22 12:05 Antibody Screen NEGATIVE 11/08/22 12:05 Impressions Abdomen/Pelvis CT 11/08/22 12:44 CT abd pelvis wo con CLINICAL HISTORY: n/v TECHNIQUE: Helical axial images of the abdomen and pelvis were obtained. Automated dose lowering techniques and/or adjustment according to patient size were utilized for this exam. This exam was performed without intravenous contrast. CT DOSE: 948.46 mGy.cm COMPARISON: None available at the time of this dictation. FINDINGS: Lower chest: Bibasilar atelectasis versus scarring is seen. Liver: Unremarkable. No focal lesions are seen. Gallbladder and biliary tree: No calcified gallstones. Normal caliber wall. No intra- or extrahepatic biliary ductal dilation. Pancreas: Unremarkable, no focal lesions. Spleen: Unremarkable. Adrenals: Nodularity of the adrenal glands is noted. Kidneys and ureters: Numerous exophytic lesions are seen, some of which measure greater than simple fluid density. Vascular calcifications are seen. Bladder: Unremarkable. Reproductive organs: Patient is status post hysterectomy. Bowel: Diverticulosis is seen without evidence of diverticulitis. A large portion of bowel loops as well as the stomach lie within a large ventral hernia, however no evidence of bowel obstruction is seen. There is, however, prominence of the stomach with narrowing at the pylorus. Lymph nodes Retroperitoneal: Unremarkable. Pelvic: Unremarkable. Mesenteric: Unremarkable. Peritoneum: Normal. Vessels: Atherosclerotic calcifications are seen. Infrarenal aortic aneurysm measures approximately 3 mm in diameter. Abdominal wall: Large ventral hernia contains multiple loops of bowel. Fat- containing bilateral inguinal hernias are seen. Bones: Unremarkable. IMPRESSION: 1. Prominence of the stomach with multiple air-fluid levels and narrowing at the level of the pylorus as it exits from a ventral hernia. This may represent gastric outlet obstruction owing to the ventral hernia. No bowel obstruction is otherwise seen. Diverticulosis is seen without diverticulitis. 2. Numerous exophytic lesions in the bilateral kidneys, some of which measure greater than simple fluid density. A renal ultrasound or renal mass MRI can be performed to further characterize these findings and exclude renal cell carcinoma. ACT 112: Negative or not required by law. Electronically signed by: Alex Valentine M.D. 11/08/2022 4:21 PM Chest X-Ray 11/08/22 15:45 XR chest 1V portable HISTORY: hypoxia COMPARISON: Chest CTA 01/08/2015. FINDINGS: No pneumothorax. No pleural effusions. There are low lung volumes. The cardiac silhouette remains mildly enlarged. No new focal lung consolidations to suggest a pneumonia. No evidence for pulmonary edema. There are degenerative changes within the bilateral shoulders. IMPRESSION: Mild cardiomegaly. Otherwise, no acute process within the chest. ACT 112: Negative or not required by law. Electronically signed by: Christopher Levy M.D. 11/08/2022 4:32 PM Renal Ultrasound 11/09/22 00:00 RENAL ULTRASOUND HISTORY: Abnormal CT. Follow-up renal cysts. renal cysts COMPARISON: Abdomen and pelvis CT 11/08/2022. FINDINGS: Right kidney: 8.8 cm. Multiple cysts with the largest in the upper pole measuring 6.1 cm. No hydronephrosis. Normal corticomedullary differentiation and cortical thickness. Left kidney: 8.5 cm. Multiple cysts with the largest in the upper pole measuring 4.2 cm. No hydronephrosis. Normal corticomedullary differentiation and cortical thickness. Bladder: Decompressed and not well visualized. IMPRESSION: 1. Multiple bilateral renal cysts. 2. No hydronephrosis. 3. The bladder is decompressed and not well visualized. ACT 112: Negative or not required by law. Electronically signed by: Christopher Levy M.D. 11/09/2022 10:35 AM (1) Nausea & vomiting Vomiting type: unspecified Qualified Code(s): R11.2 - Nausea with vomiting, unspecified (2) Ventral hernia Obstruction and gangrene presence: without obstruction or gangrene Qualified Code(s): K43.9 - Ventral hernia without obstruction or gangrene
[2022-11-09] MEDS ORDERED: LACTATED RINGER'S 1,000 ML IV ONE (16:19)
[2022-11-09] MEDS ORDERED: SODIUM CHLORIDE 0.9% 500 ML IV ONE (23:58)
[2022-11-10] MEDS: D5W AND LACTATED RINGERS 1,000 ML IV SCH (00:02)
[2022-11-10] MEDS ORDERED: D5W AND NSS 1,000 ML IV SCH (01:00)
[2022-11-10] MEDS ORDERED: SODIUM CHLORIDE 0.9% 500 ML IV ONE (01:24)
[2022-11-10] MEDS: PANTOprazole 40 MG in DEXTROSE 5% 100 ML IV SCH ×4 (02:10→15:52)
[2022-11-10 02:34] LABS: Basophils # (auto) 0.01 K/uL (0-0.2); Basophils % (auto) 0.2 %; Eosinophils # (auto) 0.09 K/uL (0-0.50); Eosinophils % (auto) 1.8 %; Hematocrit (blood only) 24.3 % (37.0-47.0); Hemoglobin 7.3 g/dl (12.0-16.0); Immature Granulocytes # (auto) 0.02 K/uL (0.01-0.20); Immature Granulocytes % (auto) 0.4 %; Lymphocytes # (auto) 1.07 K/uL (1.2-3.4); Lymphocytes % (auto) 20.9 %; Mean Corpuscular Hemoglobin 25.3 pg (25.0-34.0); Mean Corpuscular Volume 84.1 fL (80.0-100.0); Mean Platelet Volume 9.4 fL (9.4-12.4); Monocytes # (auto) 0.24 K/uL (0.11-0.59); Monocytes % (auto) 4.7 %; Neutrophils # (auto) 3.69 K/uL (1.40-6.50); Platelet Count 169 K/uL (130-400); RDW Coefficient of Variation 16.9 % (11.5-14.5); Red Blood Count 2.89 M/uL (4.20-5.40); White Blood Count 5.12 K/ul (4.8-10.8)
[2022-11-10] MEDS: D5W AND NSS 1,000 ML IV SCH ×3 (02:53→22:46)
[2022-11-10 02:59] LABS: Hypochromasia Present
[2022-11-10 03:00] LABS: Albumin Globulin Ratio 1.3 (0.9-2); Albumin Level 2.6 gm/dl (3.4-5.0); BUN Creatinine Ratio 23.5 (10-20); Bilirubin,Total 0.4 mg/dl (0.2-1.0); Calcium 7.3 mg/dl (8.6-10.3); Creatinine Clr Calc Pharmacy 33.9 ml/min; Est GFR (African American) 39.7 ml/min; Est GFR (Non-African American) 34.2 ml/min; Magnesium 1.1 mg/dl (1.7-2.4); Potassium 3.6 mmol/L (3.5-5.1); Total Protein 4.6 gm/dl (6.0-8.3)
[2022-11-10] MEDS: metroNIDAZOLE 500 MG/100 ML BAG IV SCH ×2 (05:54→15:44)
[2022-11-10] MEDS ORDERED: SODIUM CHLORIDE 0.9% 1000ML 500 ML IV ONE (07:27)
[2022-11-10] MEDS ORDERED: SODIUM CHLORIDE 0.9% 250 ML IV PRN (07:50)
[2022-11-10 08:21] LABS: Hematocrit (blood only) 25.3 % (37.0-47.0); Hemoglobin 7.5 g/dl (12.0-16.0)
--- NOTE | 2022-11-10 08:48 | Gastroenterology Progress Note ---
Date of Service November 10, 2022 Assessment & Plan (1) Anemia: Plan: Discussed with patient and she does not want to have EGD after having told Dr. Gtz she would go through with it. She is afraid to be "knocked out". I explained to her that it was safe but she wants to think about it. It is unusual to have that significant of a drop in hemoglobin without manifesting with blood in stool. The other issue is the question of this hernia. If she does have an obstruction as read by radiology then EGD could potentially precipitate an incarcerated hernia leading to emergent surgery. If she changes her mind will proceed with EGD as long as general surgery available if hernia does incarcerate Admission and Anticipated Discharge Date Admission Date: November 08, 2022 Subjective Apparently had trouble last night with hypotension and a drop in hemoglobin to 7. No mandi bleeding. No hematemesis. No mandi blood on rectal exam. Physical Exam Physical Exam: She looks comfortable at this time Results & Data Vital Signs (Past 12 Hours) Vital Signs Temp Pulse Pulse Pulse Resp BP BP 11/10/22 08:00 66 20 81/46 L 11/10/22 07:20 36.4 C L 64 16 66/39 L 11/10/22 07:00 58 L 11/10/22 06:30 83/49 L 11/10/22 03:37 36.0 C L 64 16 93/60 L 11/10/22 03:00 65 20 85/46 L 11/10/22 01:43 78/42 L 11/10/22 01:23 64/40 L 11/10/22 00:43 55 L 11/09/22 23:53 72/40 L 11/09/22 23:37 36.3 C L 56 L 18 76/44 L 11/09/22 22:45 Pulse Ox O2 Del Method O2 Flow Rate 11/10/22 08:00 96 Nasal Cannula 2 11/10/22 07:20 96 Nasal Cannula 2 11/10/22 07:00 11/10/22 06:30 11/10/22 03:37 95 Nasal Cannula 2 11/10/22 03:00 94 Nasal Cannula 2 11/10/22 01:43 11/10/22 01:23 11/10/22 00:43 11/09/22 23:53 11/09/22 23:37 98 Nasal Cannula 2 11/09/22 22:45 Nasal Cannula 1.5 Laboratory Results 11/10/22 11/10/22 11/10/22 Range/Units Unknown 07:48 02:11 WBC (4.8-10.8) K/ul RBC (4.20-5.40) M/uL Hgb 7.5 L (12.0-16.0) g/dl Hct 25.3 L (37.0-47.0) % MCV (80.0-100.0) fL MCH (25.0-34.0) pg MCHC (32.0-36.0) g/dL RDW Std Deviation (36.4-46.3) fL RDW Coeff of Tip (11.5-14.5) % Plt Count (130-400) K/uL MPV (9.4-12.4) fL Immature Gran % (Auto) % Neut % (Auto) % Lymph % (Auto) % [place] % (Auto) % Eos % (Auto) % Baso % (Auto) % Neut # (Auto) (1.40-6.50) K/uL Lymph # (Auto) (1.2-3.4) K/uL [place] # (Auto) (0.11-0.59) K/uL Eos # (Auto) (0-0.50) K/uL Baso # (Auto) (0-0.2) K/uL Immature Gran # (Auto) (0.01-0.20) K/uL Hypochromasia Sodium (136-145) mmol/L Potassium (3.5-5.1) mmol/L Chloride (98-107) mmol/L Carbon Dioxide (21-32) mmol/L Anion Gap (3-11) BUN (6-23) mg/dl Creatinine (0.6-1.2) mg/dl Est Cr Clr Drug Dosing ml/min Est GFR ( Amer) ml/min Est GFR (Non-Af Amer) ml/min BUN/Creatinine Ratio (10-20) Glucose (70-99(Fasting)) mg/dl Lactate (0.4-2.0) mmol/L Calcium (8.6-10.3) mg/dl Magnesium (1.7-2.4) mg/dl Total Bilirubin (0.2-1.0) mg/dl AST (13-39) U/L ALT (7-52) U/L Alkaline Phosphatase (34-104) U/L Total Protein (6.0-8.3) gm/dl Albumin (3.4-5.0) gm/dl Globulin (2.5-4.0) gm/dl Albumin/Globulin Ratio (0.9-2) Random Cortisol mcg/dl Stool Occult Bld Scrn Negative (Negative) Blood Type Recheck Pending 11/10/22 11/10/22 11/10/22 Range/Units 02:11 02:11 02:11 WBC 5.12 (4.8-10.8) K/ul RBC 2.89 L (4.20-5.40) M/uL Hgb 7.3 L (12.0-16.0) g/dl Hct 24.3 L (37.0-47.0) % MCV 84.1 (80.0-100.0) fL MCH 25.3 (25.0-34.0) pg MCHC 30.0 L (32.0-36.0) g/dL RDW Std Deviation 52.0 H (36.4-46.3) fL RDW Coeff of Tip 16.9 H (11.5-14.5) % Plt Count 169 (130-400) K/uL MPV 9.4 (9.4-12.4) fL Immature Gran % (Auto) 0.4 % Neut % (Auto) 72.0 % Lymph % (Auto) 20.9 % [place] % (Auto) 4.7 % Eos % (Auto) 1.8 % Baso % (Auto) 0.2 % Neut # (Auto) 3.69 (1.40-6.50) K/uL Lymph # (Auto) 1.07 L (1.2-3.4) K/uL [place] # (Auto) 0.24 (0.11-0.59) K/uL Eos # (Auto) 0.09 (0-0.50) K/uL Baso # (Auto) 0.01 (0-0.2) K/uL Immature Gran # (Auto) 0.02 (0.01-0.20) K/uL Hypochromasia Present Sodium 135 L (136-145) mmol/L Potassium 3.6 (3.5-5.1) mmol/L Chloride 106 (98-107) mmol/L Carbon Dioxide 28 (21-32) mmol/L Anion Gap 1 L (3-11) BUN 35 H (6-23) mg/dl Creatinine 1.49 H (0.6-1.2) mg/dl Est Cr Clr Drug Dosing 33.9 ml/min Est GFR ( Amer) 39.7 ml/min Est GFR (Non-Af Amer) 34.2 ml/min BUN/Creatinine Ratio 23.5 H (10-20) Glucose 98 (70-99(Fasting)) mg/dl Lactate 0.6 (0.4-2.0) mmol/L Calcium 7.3 L (8.6-10.3) mg/dl Magnesium 1.1 L (1.7-2.4) mg/dl Total Bilirubin 0.4 (0.2-1.0) mg/dl AST 8 L (13-39) U/L ALT 5 L (7-52) U/L Alkaline Phosphatase 32 L (34-104) U/L Total Protein 4.6 L D (6.0-8.3) gm/dl Albumin 2.6 L (3.4-5.0) gm/dl Globulin 2.0 L (2.5-4.0) gm/dl Albumin/Globulin Ratio 1.3 (0.9-2) Random Cortisol mcg/dl Stool Occult Bld Scrn (Negative) Blood Type Recheck 11/09/22 11/09/22 11/09/22 Range/Units 20:22 17:11 14:08 WBC (4.8-10.8) K/ul RBC (4.20-5.40) M/uL Hgb (12.0-16.0) g/dl Hct (37.0-47.0) % MCV (80.0-100.0) fL MCH (25.0-34.0) pg MCHC (32.0-36.0) g/dL RDW Std Deviation (36.4-46.3) fL RDW Coeff of Tip (11.5-14.5) % Plt Count (130-400) K/uL MPV (9.4-12.4) fL Immature Gran % (Auto) % Neut % (Auto) % Lymph % (Auto) % [place] % (Auto) % Eos % (Auto) % Baso % (Auto) % Neut # (Auto) (1.40-6.50) K/uL Lymph # (Auto) (1.2-3.4) K/uL [place] # (Auto) (0.11-0.59) K/uL Eos # (Auto) (0-0.50) K/uL Baso # (Auto) (0-0.2) K/uL Immature Gran # (Auto) (0.01-0.20) K/uL Hypochromasia Sodium (136-145) mmol/L Potassium (3.5-5.1) mmol/L Chloride (98-107) mmol/L Carbon Dioxide (21-32) mmol/L Anion Gap (3-11) BUN (6-23) mg/dl Creatinine (0.6-1.2) mg/dl Est Cr Clr Drug Dosing ml/min Est GFR ( Amer) ml/min Est GFR (Non-Af Amer) ml/min BUN/Creatinine Ratio (10-20) Glucose (70-99(Fasting)) mg/dl Lactate 1.8 1.0 (0.4-2.0) mmol/L Calcium (8.6-10.3) mg/dl Magnesium (1.7-2.4) mg/dl Total Bilirubin (0.2-1.0) mg/dl AST (13-39) U/L ALT (7-52) U/L Alkaline Phosphatase (34-104) U/L Total Protein (6.0-8.3) gm/dl Albumin (3.4-5.0) gm/dl Globulin (2.5-4.0) gm/dl Albumin/Globulin Ratio (0.9-2) Random Cortisol 13.28 mcg/dl Stool Occult Bld Scrn (Negative) Blood Type Recheck
--- NOTE | 2022-11-10 08:54 | Surgery Progress Note ---
Date of Service November 10, 2022 Assessment & Plan (1) Nausea & vomiting: Plan: assessment: pt is a 72 year-old female with PMH- HTN, cardiomegaly, chest pain, COPD, hypothyroidism, anemia and large ventral hernia. pt presents with one day history nausea and vomiting, vomiting with some blood per- EMS reported. pt has > 10 years history large ventral hernia. pt felt some abdominal pain, but now pt said that she has no abdominal pain, pt denies dizziness, no fever, no diarrhea. pt had CT scan at ER - IMPRESSION: 1. Prominence of the stomach with multiple air-fluid levels and narrowing at the level of the pylorus as it exits from a ventral hernia. This may represent gastric outlet obstruction owing to the ventral hernia. No bowel obstruction is otherwise seen. Diverticulosis is seen without diverticulitis. 2. Numerous exophytic lesions in the bilateral kidneys, some of which measure greater than simple fluid density. A renal ultrasound or renal mass MRI can be performed to further characterize these findings and exclude renal cell carcinoma. ADDENDUM A 19 mm focus of fat necrosis is noted in the mesentery contained within the ventral hernia. IM: nausea, vomiting, possible pylorus narrow, large ventral hernia. plan, based on H/P, labs and CT scan, no signs for incarcerated ventral hernia, conservative treatment now, NPO, IV fluid, may start cipro + flagyl for high WBC, consult GI for EGD to R/O upper GI bleeding and pylorus stenosis. repeat labs in morning. out-patient for large ventral hernia surgery by special hernia surgeon. will F/U. D/W hospitalist. 11/09/2022 12:[address] Sebastian Franz/Isidro large ventral hernia, pt is doing better, passed some gas, no nausea and vomiting, based on large ventral hernia, recommend to transfer to higher level care , need speciality hernia surgeon for pt's hernia repair. keep NPO now. ice chip and po meds okay. will F/U, 11/10/2022 9:01 AM , DR. Sebastian Franz/Isidro large ventral hernia. no incarcerated hernia signs, no emergent surgery indication now, passed BM. low BP 81/46, but pt feels comfortable. recommend blood transfusion, possible 2 units RBC, check H/H after first blood transfusion. need to R/O Upper GI bleed, per GI doctor. pt agreed with transfusion. please correct low MG may consult paving contractor for 2-D echo once pt is stable , recommend to transfer to higher level care , need speciality hernia surgeon for pt's hernia repair. D/W hospitalist will F/U (2) Ventral hernia: Admission and Anticipated Discharge Date Admission Date: November 08, 2022 Supervising Physician Co-Signing Physician Notes I have seen and examined the patient and have discussed the case with the provider above. I agree with the assessment and plan as stated. 72-year-old female with multiple medical problems including hearing loss presents with acute nausea and vomiting. History is difficult given her hearing loss. She denies any abdominal pain. She is feeling better and not consistently nauseous. There apparently are some social issues and she is currently living with her son. She reports not bathing regularly. She appears unkempt. On physical exam she is hemodynamically stable and afebrile and answering questions appropriately. She appears to be oriented to her baseline. She is oxygenating well on minimal oxygen supplementation via nasal cannula. Work-up today includes a CT abdomen pelvis without contrast revealing concern for gastric outlet obstruction owing to a ventral hernia. There are air-fluid levels and narrowing at the level of the pylorus as it exits from the ventral hernia. No other bowel obstruction is otherwise seen. Per general surgery she does not have an acute abdomen. Currently she is not requiring an NG tube. Physical exam is otherwise unremarkable or as noted above. Labs and imaging were reviewed and discussed with provider above. Agree with renal ultrasound. Appreciate general surgery following patient. GI consulted. Continue wound care for sacral wound seen on admission. PT OT consulted. She remains in stable condition on telemetry. DO Anirudh Marie Apparently had trouble last night with hypotension and a drop in hemoglobin to 7. No mandi bleeding. No hematemesis. No mandi blood on rectal exam. 11/10/2022 8:55 AM, Dr. Cortes pt's BP is 81/46, but pt is comfortable on bed, no distress, pt said she feels like normal, no abdominal pain, no nausea, no hematemesis. passed BM , no black stool. H/H 7.5/25.3. lactate 0.5 Review of Systems Constitutional: as per Subjective / HPI no distress Eyes: as per Subjective / HPI Respiratory: as per Subjective / HPI COPD Cardiovascular: Additional Comments: HTN, cardiomegaly, chest pain, hyperlipidemia Gastrointestinal: large ventral hernia, nausea and vomiting, Genitourinary: as per Subjective / HPI Neurologic: as per Subjective / HPI Psychiatric: as per Subjective / HPI Endocrine: hypothyroidism Hematologic / Lymphatic: anemia Physical Exam Constitutional: WD/WN, vitals as above Eyes: PERRL, conjunctivae normal, anicteric sclerae Neck: trachea midline, no thyromegaly Respiratory: normal respiratory effort, lungs clear to auscultation Cardiovascular: RRR, no murmur, no edema Gastrointestinal (Abdomen): large ventral hernia, soft, no tenderness, no distend, BS +. no signs of incarcerated hernia Neurologic: patellar DTR's 2+ bilat, sensation intact Psychiatric: A+Ox3, euthymic affect Results & Data Vital Signs (Past 12 Hours) Vital Signs Temp Pulse Pulse Pulse Resp BP BP 11/10/22 08:00 66 20 81/46 L 11/10/22 07:20 36.4 C L 64 16 66/39 L 11/10/22 07:00 58 L 11/10/22 06:30 83/49 L 11/10/22 03:37 36.0 C L 64 16 93/60 L 11/10/22 03:00 65 20 85/46 L 11/10/22 01:43 78/42 L 11/10/22 01:23 64/40 L 11/10/22 00:43 55 L 11/09/22 23:53 72/40 L 11/09/22 23:37 36.3 C L 56 L 18 76/44 L 11/09/22 22:45 Pulse Ox O2 Del Method O2 Flow Rate 11/10/22 08:00 96 Nasal Cannula 2 11/10/22 07:20 96 Nasal Cannula 2 11/10/22 07:00 11/10/22 06:30 11/10/22 03:37 95 Nasal Cannula 2 11/10/22 03:00 94 Nasal Cannula 2 11/10/22 01:43 11/10/22 01:23 11/10/22 00:43 11/09/22 23:53 11/09/22 23:37 98 Nasal Cannula 2 11/09/22 22:45 Nasal Cannula 1.5 Laboratory Results Lab Results 11/08/22 11/08/22 11/08/22 Range/Units 12:05 12:05 12:05 WBC 11.58 H (4.8-10.8) K/ul RBC 4.63 (4.20-5.40) M/uL Hgb 11.4 L (12.0-16.0) g/dl Hct 37.3 (37.0-47.0) % MCV 80.6 (80.0-100.0) fL MCH 24.6 L (25.0-34.0) pg MCHC 30.6 L (32.0-36.0) g/dL RDW Std Deviation 48.5 H (36.4-46.3) fL RDW Coeff of Tip 16.6 H (11.5-14.5) % Plt Count 363 (130-400) K/uL MPV 9.4 (9.4-12.4) fL Immature Gran % (Auto) 0.4 % Neut % (Auto) 90.1 % Lymph % (Auto) 7.1 % [place] % (Auto) 2.0 % Eos % (Auto) 0.2 % Baso % (Auto) 0.2 % Neut # (Auto) 10.44 H (1.40-6.50) K/uL Lymph # (Auto) 0.82 L (1.2-3.4) K/uL [place] # (Auto) 0.23 (0.11-0.59) K/uL Eos # (Auto) 0.02 (0-0.50) K/uL Baso # (Auto) 0.02 (0-0.2) K/uL Immature Gran # (Auto) 0.05 (0.01-0.20) K/uL Hypersegmented Neuts 1+ Hypochromasia PT 10.6 (9.0-12.0) Seconds INR 1.0 (0.9-1.1) Sodium (136-145) mmol/L Potassium (3.5-5.1) mmol/L Chloride (98-107) mmol/L Carbon Dioxide (21-32) mmol/L Anion Gap (3-11) BUN (6-23) mg/dl Creatinine (0.6-1.2) mg/dl Est Cr Clr Drug Dosing ml/min Est GFR ( Amer) ml/min Est GFR (Non-Af Amer) ml/min BUN/Creatinine Ratio (10-20) Glucose (70-99(Fasting)) mg/dl Lactate (0.4-2.0) mmol/L Calcium (8.6-10.3) mg/dl Magnesium (1.7-2.4) mg/dl Total Bilirubin (0.2-1.0) mg/dl AST (13-39) U/L ALT (7-52) U/L Alkaline Phosphatase (34-104) U/L Troponin I High Sens (0-14) pg/ml Total Protein (6.0-8.3) gm/dl Albumin (3.4-5.0) gm/dl Globulin (2.5-4.0) gm/dl Albumin/Globulin Ratio (0.9-2) Lipase (11-82) U/L Random Cortisol mcg/dl Urine Color Urine Appearance (Clear) Urine pH (4.5-7.5) Ur Specific [place] (1.000-1.030) Urine Protein (Negative) Urine Glucose (UA) (Negative) Urine Ketones (Negative) Urine Blood (Negative) Urine Nitrite (Negative) Urine Bilirubin (Negative) Urine Urobilinogen (Negative) Ur Leukocyte Esterase (Negative) Urine WBC (Auto) (0-5) /hpf Urine RBC (Auto) (0-4) /hpf U Hyaline Cast (Auto) (0-5) /lpf U Epithel Cells (Auto) (0-5) /lpf Urine Bacteria (Auto) (Negative) Stool Occult Bld Scrn (Negative) SARS-CoV-2, RNA, NAAT (NEGATIVE) Blood Type A Positive Blood Type Recheck Antibody Screen NEGATIVE Crossmatch See Detail 11/08/22 11/08/22 11/08/22 Range/Units 12:05 12:45 12:45 WBC (4.8-10.8) K/ul RBC (4.20-5.40) M/uL Hgb (12.0-16.0) g/dl Hct (37.0-47.0) % MCV (80.0-100.0) fL MCH (25.0-34.0) pg MCHC (32.0-36.0) g/dL RDW Std Deviation (36.4-46.3) fL RDW Coeff of Tip (11.5-14.5) % Plt Count (130-400) K/uL MPV (9.4-12.4) fL Immature Gran % (Auto) % Neut % (Auto) % Lymph % (Auto) % [place] % (Auto) % Eos % (Auto) % Baso % (Auto) % Neut # (Auto) (1.40-6.50) K/uL Lymph # (Auto) (1.2-3.4) K/uL [place] # (Auto) (0.11-0.59) K/uL Eos # (Auto) (0-0.50) K/uL Baso # (Auto) (0-0.2) K/uL Immature Gran # (Auto) (0.01-0.20) K/uL Hypersegmented Neuts Hypochromasia PT (9.0-12.0) Seconds INR (0.9-1.1) Sodium 140 (136-145) mmol/L Potassium 4.2 (3.5-5.1) mmol/L Chloride 98 (98-107) mmol/L Carbon Dioxide 31 (21-32) mmol/L Anion Gap 11 (3-11) BUN 44 H (6-23) mg/dl Creatinine 1.50 H (0.6-1.2) mg/dl Est Cr Clr Drug Dosing 30.8 ml/min Est GFR ( Amer) 39.4 ml/min Est GFR (Non-Af Amer) 34.0 ml/min BUN/Creatinine Ratio 29.3 H (10-20) Glucose 132 H (70-99(Fasting)) mg/dl Lactate (0.4-2.0) mmol/L Calcium 9.4 (8.6-10.3) mg/dl Magnesium (1.7-2.4) mg/dl Total Bilirubin 0.8 (0.2-1.0) mg/dl AST 12 L (13-39) U/L ALT 7 (7-52) U/L Alkaline Phosphatase 59 (34-104) U/L Troponin I High Sens 13.0 (0-14) pg/ml Total Protein 7.3 (6.0-8.3) gm/dl Albumin 4.0 (3.4-5.0) gm/dl Globulin 3.3 (2.5-4.0) gm/dl Albumin/Globulin Ratio 1.2 (0.9-2) Lipase 80 (11-82) U/L Random Cortisol mcg/dl Urine Color Dark Yellow Urine Appearance Clear (Clear) Urine pH 5.0 (4.5-7.5) Ur Specific [place] 1.025 (1.000-1.030) Urine Protein 2+ H (Negative) Urine Glucose (UA) Negative (Negative) Urine Ketones 1+ H (Negative) Urine Blood Negative (Negative) Urine Nitrite Negative (Negative) Urine Bilirubin Negative (Negative) Urine Urobilinogen Negative (Negative) Ur Leukocyte Esterase Negative (Negative) Urine WBC (Auto) 1-5 (0-5) /hpf Urine RBC (Auto) 0-4 (0-4) /hpf U Hyaline Cast (Auto) 0 (0-5) /lpf U Epithel Cells (Auto) 10-20 H (0-5) /lpf Urine Bacteria (Auto) Negative (Negative) Stool Occult Bld Scrn (Negative) SARS-CoV-2, RNA, NAAT NEGATIVE (NEGATIVE) Blood Type Blood Type Recheck Antibody Screen Crossmatch 11/09/22 11/09/22 11/09/22 Range/Units 06:09 06:09 14:08 WBC 9.04 (4.8-10.8) K/ul RBC 3.62 L (4.20-5.40) M/uL Hgb 9.0 L (12.0-16.0) g/dl Hct 29.2 L (37.0-47.0) % MCV 80.7 (80.0-100.0) fL MCH 24.9 L (25.0-34.0) pg MCHC 30.8 L (32.0-36.0) g/dL RDW Std Deviation 49.5 H (36.4-46.3) fL RDW Coeff of Tip 16.7 H (11.5-14.5) % Plt Count 246 (130-400) K/uL MPV 9.4 (9.4-12.4) fL Immature Gran % (Auto) 0.4 % Neut % (Auto) 81.1 % Lymph % (Auto) 12.9 % [place] % (Auto) 5.0 % Eos % (Auto) 0.4 % Baso % (Auto) 0.2 % Neut # (Auto) 7.32 H (1.40-6.50) K/uL Lymph # (Auto) 1.17 L (1.2-3.4) K/uL [place] # (Auto) 0.45 (0.11-0.59) K/uL Eos # (Auto) 0.04 (0-0.50) K/uL Baso # (Auto) 0.02 (0-0.2) K/uL Immature Gran # (Auto) 0.04 (0.01-0.20) K/uL Hypersegmented Neuts Hypochromasia PT (9.0-12.0) Seconds INR (0.9-1.1) Sodium 141 (136-145) mmol/L Potassium 3.8 (3.5-5.1) mmol/L Chloride 102 (98-107) mmol/L Carbon Dioxide 32 (21-32) mmol/L Anion Gap 7 (3-11) BUN 38 H (6-23) mg/dl Creatinine 1.45 H (0.6-1.2) mg/dl Est Cr Clr Drug Dosing 34.8 ml/min Est GFR ( Amer) 41.0 ml/min Est GFR (Non-Af Amer) 35.4 ml/min BUN/Creatinine Ratio 26.2 H (10-20) Glucose 97 (70-99(Fasting)) mg/dl Lactate 1.0 (0.4-2.0) mmol/L Calcium 8.7 (8.6-10.3) mg/dl Magnesium (1.7-2.4) mg/dl Total Bilirubin (0.2-1.0) mg/dl AST (13-39) U/L ALT (7-52) U/L Alkaline Phosphatase (34-104) U/L Troponin I High Sens (0-14) pg/ml Total Protein (6.0-8.3) gm/dl Albumin (3.4-5.0) gm/dl Globulin (2.5-4.0) gm/dl Albumin/Globulin Ratio (0.9-2) Lipase (11-82) U/L Random Cortisol mcg/dl Urine Color Urine Appearance (Clear) Urine pH (4.5-7.5) Ur Specific [place] (1.000-1.030) Urine Protein (Negative) Urine Glucose (UA) (Negative) Urine Ketones (Negative) Urine Blood (Negative) Urine Nitrite (Negative) Urine Bilirubin (Negative) Urine Urobilinogen (Negative) Ur Leukocyte Esterase (Negative) Urine WBC (Auto) (0-5) /hpf Urine RBC (Auto) (0-4) /hpf U Hyaline Cast (Auto) (0-5) /lpf U Epithel Cells (Auto) (0-5) /lpf Urine Bacteria (Auto) (Negative) Stool Occult Bld Scrn (Negative) SARS-CoV-2, RNA, NAAT (NEGATIVE) Blood Type Blood Type Recheck Antibody Screen Crossmatch 11/09/22 11/09/22 11/10/22 Range/Units 17:11 20:22 02:11 WBC 5.12 (4.8-10.8) K/ul RBC 2.89 L (4.20-5.40) M/uL Hgb 7.3 L (12.0-16.0) g/dl Hct 24.3 L (37.0-47.0) % MCV 84.1 (80.0-100.0) fL MCH 25.3 (25.0-34.0) pg MCHC 30.0 L (32.0-36.0) g/dL RDW Std Deviation 52.0 H (36.4-46.3) fL RDW Coeff of Tip 16.9 H (11.5-14.5) % Plt Count 169 (130-400) K/uL MPV 9.4 (9.4-12.4) fL Immature Gran % (Auto) 0.4 % Neut % (Auto) 72.0 % Lymph % (Auto) 20.9 % [place] % (Auto) 4.7 % Eos % (Auto) 1.8 % Baso % (Auto) 0.2 % Neut # (Auto) 3.69 (1.40-6.50) K/uL Lymph # (Auto) 1.07 L (1.2-3.4) K/uL [place] # (Auto) 0.24 (0.11-0.59) K/uL Eos # (Auto) 0.09 (0-0.50) K/uL Baso # (Auto) 0.01 (0-0.2) K/uL Immature Gran # (Auto) 0.02 (0.01-0.20) K/uL Hypersegmented Neuts Hypochromasia Present PT (9.0-12.0) Seconds INR (0.9-1.1) Sodium (136-145) mmol/L Potassium (3.5-5.1) mmol/L Chloride (98-107) mmol/L Carbon Dioxide (21-32) mmol/L Anion Gap (3-11) BUN (6-23) mg/dl Creatinine (0.6-1.2) mg/dl Est Cr Clr Drug Dosing ml/min Est GFR ( Amer) ml/min Est GFR (Non-Af Amer) ml/min BUN/Creatinine Ratio (10-20) Glucose (70-99(Fasting)) mg/dl Lactate 1.8 (0.4-2.0) mmol/L Calcium (8.6-10.3) mg/dl Magnesium (1.7-2.4) mg/dl Total Bilirubin (0.2-1.0) mg/dl AST (13-39) U/L ALT (7-52) U/L Alkaline Phosphatase (34-104) U/L Troponin I High Sens (0-14) pg/ml Total Protein (6.0-8.3) gm/dl Albumin (3.4-5.0) gm/dl Globulin (2.5-4.0) gm/dl Albumin/Globulin Ratio (0.9-2) Lipase (11-82) U/L Random Cortisol 13.28 mcg/dl Urine Color Urine Appearance (Clear) Urine pH (4.5-7.5) Ur Specific [place] (1.000-1.030) Urine Protein (Negative) Urine Glucose (UA) (Negative) Urine Ketones (Negative) Urine Blood (Negative) Urine Nitrite (Negative) Urine Bilirubin (Negative) Urine Urobilinogen (Negative) Ur Leukocyte Esterase (Negative) Urine WBC (Auto) (0-5) /hpf Urine RBC (Auto) (0-4) /hpf U Hyaline Cast (Auto) (0-5) /lpf U Epithel Cells (Auto) (0-5) /lpf Urine Bacteria (Auto) (Negative) Stool Occult Bld Scrn (Negative) SARS-CoV-2, RNA, NAAT (NEGATIVE) Blood Type Blood Type Recheck Antibody Screen Crossmatch 0511/10/22 11/10/22 Range/Units 02:11 02:11 02:11 WBC (4.8-10.8) K/ul RBC (4.20-5.40) M/uL Hgb (12.0-16.0) g/dl Hct (37.0-47.0) % MCV (80.0-100.0) fL MCH (25.0-34.0) pg MCHC (32.0-36.0) g/dL RDW Std Deviation (36.4-46.3) fL RDW Coeff of Tip (11.5-14.5) % Plt Count (130-400) K/uL MPV (9.4-12.4) fL Immature Gran % (Auto) % Neut % (Auto) % Lymph % (Auto) % [place] % (Auto) % Eos % (Auto) % Baso % (Auto) % Neut # (Auto) (1.40-6.50) K/uL Lymph # (Auto) (1.2-3.4) K/uL [place] # (Auto) (0.11-0.59) K/uL Eos # (Auto) (0-0.50) K/uL Baso # (Auto) (0-0.2) K/uL Immature Gran # (Auto) (0.01-0.20) K/uL Hypersegmented Neuts Hypochromasia PT (9.0-12.0) Seconds INR (0.9-1.1) Sodium 135 L (136-145) mmol/L Potassium 3.6 (3.5-5.1) mmol/L Chloride 106 (98-107) mmol/L Carbon Dioxide 28 (21-32) mmol/L Anion Gap 1 L (3-11) BUN 35 H (6-23) mg/dl Creatinine 1.49 H (0.6-1.2) mg/dl Est Cr Clr Drug Dosing 33.9 ml/min Est GFR ( Amer) 39.7 ml/min Est GFR (Non-Af Amer) 34.2 ml/min BUN/Creatinine Ratio 23.5 H (10-20) Glucose 98 (70-99(Fasting)) mg/dl Lactate 0.6 (0.4-2.0) mmol/L Calcium 7.3 L (8.6-10.3) mg/dl Magnesium 1.1 L (1.7-2.4) mg/dl Total Bilirubin 0.4 (0.2-1.0) mg/dl AST 8 L (13-39) U/L ALT 5 L (7-52) U/L Alkaline Phosphatase 32 L (34-104) U/L Troponin I High Sens (0-14) pg/ml Total Protein 4.6 L D (6.0-8.3) gm/dl Albumin 2.6 L (3.4-5.0) gm/dl Globulin 2.0 L (2.5-4.0) gm/dl Albumin/Globulin Ratio 1.3 (0.9-2) Lipase (11-82) U/L Random Cortisol mcg/dl Urine Color Urine Appearance (Clear) Urine pH (4.5-7.5) Ur Specific [place] (1.000-1.030) Urine Protein (Negative) Urine Glucose (UA) (Negative) Urine Ketones (Negative) Urine Blood (Negative) Urine Nitrite (Negative) Urine Bilirubin (Negative) Urine Urobilinogen (Negative) Ur Leukocyte Esterase (Negative) Urine WBC (Auto) (0-5) /hpf Urine RBC (Auto) (0-4) /hpf U Hyaline Cast (Auto) (0-5) /lpf U Epithel Cells (Auto) (0-5) /lpf Urine Bacteria (Auto) (Negative) Stool Occult Bld Scrn (Negative) SARS-CoV-2, RNA, NAAT (NEGATIVE) Blood Type Blood Type Recheck A Positive Antibody Screen Crossmatch 11/10/22 11/10/22 Range/Units 07:48 Unknown WBC (4.8-10.8) K/ul RBC (4.20-5.40) M/uL Hgb 7.5 L (12.0-16.0) g/dl Hct 25.3 L (37.0-47.0) % MCV (80.0-100.0) fL MCH (25.0-34.0) pg MCHC (32.0-36.0) g/dL RDW Std Deviation (36.4-46.3) fL RDW Coeff of Tip (11.5-14.5) % Plt Count (130-400) K/uL MPV (9.4-12.4) fL Immature Gran % (Auto) % Neut % (Auto) % Lymph % (Auto) % [place] % (Auto) % Eos % (Auto) % Baso % (Auto) % Neut # (Auto) (1.40-6.50) K/uL Lymph # (Auto) (1.2-3.4) K/uL [place] # (Auto) (0.11-0.59) K/uL Eos # (Auto) (0-0.50) K/uL Baso # (Auto) (0-0.2) K/uL Immature Gran # (Auto) (0.01-0.20) K/uL Hypersegmented Neuts Hypochromasia PT (9.0-12.0) Seconds INR (0.9-1.1) Sodium (136-145) mmol/L Potassium (3.5-5.1) mmol/L Chloride (98-107) mmol/L Carbon Dioxide (21-32) mmol/L Anion Gap (3-11) BUN (6-23) mg/dl Creatinine (0.6-1.2) mg/dl Est Cr Clr Drug Dosing ml/min Est GFR ( Amer) ml/min Est GFR (Non-Af Amer) ml/min BUN/Creatinine Ratio (10-20) Glucose (70-99(Fasting)) mg/dl Lactate (0.4-2.0) mmol/L Calcium (8.6-10.3) mg/dl Magnesium (1.7-2.4) mg/dl Total Bilirubin (0.2-1.0) mg/dl AST (13-39) U/L ALT (7-52) U/L Alkaline Phosphatase (34-104) U/L Troponin I High Sens (0-14) pg/ml Total Protein (6.0-8.3) gm/dl Albumin (3.4-5.0) gm/dl Globulin (2.5-4.0) gm/dl Albumin/Globulin Ratio (0.9-2) Lipase (11-82) U/L Random Cortisol mcg/dl Urine Color Urine Appearance (Clear) Urine pH (4.5-7.5) Ur Specific [place] (1.000-1.030) Urine Protein (Negative) Urine Glucose (UA) (Negative) Urine Ketones (Negative) Urine Blood (Negative) Urine Nitrite (Negative) Urine Bilirubin (Negative) Urine Urobilinogen (Negative) Ur Leukocyte Esterase (Negative) Urine WBC (Auto) (0-5) /hpf Urine RBC (Auto) (0-4) /hpf U Hyaline Cast (Auto) (0-5) /lpf U Epithel Cells (Auto) (0-5) /lpf Urine Bacteria (Auto) (Negative) Stool Occult Bld Scrn Negative (Negative) SARS-CoV-2, RNA, NAAT (NEGATIVE) Blood Type Blood Type Recheck Antibody Screen Crossmatch (1) Nausea & vomiting Vomiting type: unspecified Qualified Code(s): R11.2 - Nausea with vomiting, unspecified (2) Ventral hernia Obstruction and gangrene presence: without obstruction or gangrene Qualified Code(s): K43.9 - Ventral hernia without obstruction or gangrene
[2022-11-10] MEDS: MAGNESIUM SULFATE / D5W 1 GM/100 ML BAG IV SCH ×4 (09:39→15:20)
[2022-11-10] MEDS ORDERED: COSYNTROPIN 250 MCG in SYRINGE 4 ML IV ONE ×2 (10:00→14:00)
[2022-11-10] MEDS: NYSTATIN POWDER 15GM BTL EXT SCH ×3 (10:10→21:14)
[2022-11-10] MEDS: ESCITALOPRAM OXALATE 10 MG TAB PO SCH (10:10)
[2022-11-10] MEDS: ATORVASTATIN 40 MG TAB PO SCH (10:10)
[2022-11-10] MEDS: FLUTICASONE/VILANTEROL 100/25MCG 14 PUFFS/INHALER INH SCH (10:10)
--- NOTE | 2022-11-10 10:47 | Anesthesiology Consultation ---
Date of Service November 10, 2022 Assessment & Plan Chart Review Chart Review: order entry technician initiated History Surgery Operation Date: 11/10/22 10:45 Proposed Procedures p Esophagogastroduodenoscopy - Viviane Walls Jr, MD Height/Weight Height: 5 ft 6 in Weight: 79.1 kg Allergies Allergy/AdvReac Type Severity Reaction Status Date / Time Penicillins Allergy Unknown Verified 06/24/19 10:09 Sulfa (Sulfonamide Allergy Unknown rash Verified 06/24/19 10:09 Antibiotics) Medications Home Medications Medication Instructions Recorded Confirmed Last Taken benazepril 40 mg tablet 40 mg PO DAILY #90 tabs 06/24/19 11/08/22 11/07/22 carvedilol 12.5 mg tablet (Coreg) 12.5 mg PO BID #90 tabs 06/24/19 11/08/22 11/07/22 clonidine HCl 0.3 mg tablet 0.3 mg PO HS #90 tabs 06/24/19 11/08/22 11/07/22 ezetimibe 10 mg tablet (Zetia) 10 mg PO QDL #90 tabs 06/24/19 11/08/22 11/07/22 hydrochlorothiazide 25 mg tablet 25 mg PO DAILY #90 tabs 06/24/19 11/08/22 11/07/22 levothyroxine 112 mcg tablet 112 mcg PO 6XWK #90 tabs 07/07/19 11/08/22 11/07/22 atorvastatin 80 mg tablet 80 mg PO DAILY 11/08/22 11/08/22 11/07/22 buspirone 5 mg tablet 5 mg PO BID PRN Anxiety 11/08/22 11/08/22 Unknown escitalopram oxalate 10 mg tablet 10 mg PO DAILY 11/08/22 11/08/22 11/07/22 fluticasone furoate 100 1 puffs inhalation DAILY 11/08/22 11/08/22 Unknown mcg-vilanterol 25 mcg/dose inhalation powder (Breo Ellipta) Active Medications Generic Name Dose Route Start Last Admin Trade Name Freq PRN Reason Stop Dose Admin Atorvastatin Calcium 80 mg 11/09/22 09:00 11/10/22 10:10 Atorvastatin 40 Mg Tab PO 12/09/22 08:59 Not Given DAILY AKI Buspirone HCl 5 mg 11/08/22 20:29 11/09/22 07:36 Buspirone 5 Mg Tab PO 12/08/22 20:28 5 mg BID PRN Administration Anxiety Ezetimibe 10 mg 11/09/22 11:30 11/09/22 11:51 Ezetimibe 10 Mg Tablet PO 12/09/22 11:29 10 mg QDL AKI Administration Escitalopram Oxalate 10 mg 11/09/22 09:00 11/10/22 10:10 Escitalopram Oxalate 10 Mg Tab PO 12/09/22 08:59 Not Given DAILY AKI Fluticasone/Vilanterol 1 puffs 11/09/22 09:00 11/10/22 10:10 Fluticasone/Vilanterol 100/25mcg 14 Puffs/Inhaler INH 12/09/22 08:59 1 puffs DAILY AKI Administration Pantoprazole Sodium 40 mg/ 100 mls @ 20 mls/hr 11/08/22 21:15 11/10/22 07:14 Dextrose IV 12/08/22 21:14 8 mg/hr Q5H AKI 20 mls/hr Administration 8 MG/HR Ciprofloxacin 400 mg in 200 mls @ 100 mls/hr 11/08/22 22:00 11/09/22 23:11 Cipro / D5w IV 11/10/22 21:59 Infused Q12H AKI Infusion Protocol Metronidazole 500 mg in 100 mls @ 100 mls/hr 11/08/22 22:00 11/10/22 07:16 Flagyl IV 11/10/22 21:59 Infused Q8H AKI Infusion Protocol Dextrose/Sodium Chloride 1,000 mls @ 100 mls/hr 11/10/22 02:00 11/10/22 02:53 D5w And Nss IV 12/10/22 01:59 100 mls/hr .Q10H AKI Administration Magnesium Sulfate/Dextrose 1 gm in 100 mls @ 50 mls/hr 11/10/22 08:45 11/10/22 09:39 Magnesium Sulfate / D5w IV 11/10/22 16:44 50 mls/hr Q2H AKI Administration Levothyroxine Sodium 112 mcg 11/09/22 06:30 11/09/22 05:25 Levothyroxine Sodium 112 Mcg Tablet PO 12/09/22 06:29 112 mcg [id number] AKI Administration Nystatin 1 appln 11/08/22 21:00 11/10/22 10:10 Nystatin Powder 15gm Btl EXT 12/08/22 20:59 1 appln TID AKI Administration Past Medical History Medical History Anemia Anxiety CKD (chronic kidney disease), stage III COPD (chronic obstructive pulmonary disease) HTN (hypertension) Hyperlipidemia Hypothyroidism Past Family History Family History Mother Myocardial infarction Diabetes Denies family history of Colon cancer Ovarian cancer Prostate cancer Breast cancer Past Surgical History Surgical History H/O: hysterectomy History of tonsillectomy Social History Smoking Status: Unknown if ever smoked Hx Substance Use: No Physical Exam Vital Signs Last Vital Signs Temp 97.5 F L 11/10/22 07:20 Pulse 66 11/10/22 08:00 Resp 20 11/10/22 08:00 BP 81/46 L 11/10/22 08:00 Pulse Ox 96 11/10/22 08:00 O2 Del Method Nasal Cannula 11/10/22 08:00 O2 Flow Rate 2 11/10/22 08:00 Testing Laboratory Results 11/10/22 07:48 11/10/22 02:11 PT 10.6 Seconds (9.0-12.0) 11/08/22 12:05 INR 1.0 (0.9-1.1) 11/08/22 12:05 Urine Color Dark Yellow 11/08/22 12:45 Urine Appearance Clear (Clear) 11/08/22 12:45 Urine pH 5.0 (4.5-7.5) 11/08/22 12:45 Ur Specific Spencer 1.025 (1.000-1.030) 11/08/22 12:45 Urine Protein 2+ (Negative) H 11/08/22 12:45 Urine Glucose (UA) Negative (Negative) 11/08/22 12:45 Urine Ketones 1+ (Negative) H 11/08/22 12:45 Urine Nitrite Negative (Negative) 11/08/22 12:45 Ur Leukocyte Esterase Negative (Negative) 11/08/22 12:45 Urine WBC (Auto) 1-5 /hpf (0-5) 11/08/22 12:45 Urine RBC (Auto) 0-4 /hpf (0-4) 11/08/22 12:45 U Hyaline Cast (Auto) 0 /lpf (0-5) 11/08/22 12:45 U Epithel Cells (Auto) 10-20 /lpf (0-5) H 11/08/22 12:45 Urine Bacteria (Auto) Negative (Negative) 11/08/22 12:45 Blood Type A Positive 11/08/22 12:05 Antibody Screen NEGATIVE 11/08/22 12:05 Electrocardiogram Date: 11/08/22 Poor data quality, interpretation may be adversely affected Normal sinus rhythm with occasional Premature atrial complexes, rate [address] and T wave abnormality Abnormal ECG When compared with ECG of 08-JAN-2015 12:06, No significant change was found Confirmed by Nils Scott ([id number]) on 11/08/2022 2:59:16 PM Chest X-Ray Date: 11/08/22 IMPRESSION: Mild cardiomegaly. Otherwise, no acute process within the chest.
[2022-11-10] MEDS: CIPROFLOXACIN / D5W 400 MG/200 ML BAG IV SCH (11:16)
[2022-11-10] MEDS ORDERED: PROPOFOL IV EMULSION 10 MG/ML 20 ML VIAL IV ONE (12:19)
[2022-11-10] MEDS ORDERED: LIDOCAINE 2% 2 ML VIAL/AMP(20MG/ML) INFIL ONE (12:19)
--- NOTE | 2022-11-10 12:33 | Post Operative Brief Note ---
Immediate Post Op Note v1 Date of Surgery November 10, 2022 Pre & Post Diagnosis Operation Date: 11/10/22 10:45 Pre-Op Diagnosis: Anemia Post-Op Diagnosis: Anemia I identified the patient and participated in the time-out.: Yes Procedure Operation Date: 11/10/22 10:45 Actual Procedures p Esophagogastroduodenoscopy(Not Applicable) - Viviane Walls Jr, MD Surgeon Vivinae Walls Jr, MD Credit Collection Specialist none Estimated Blood Loss 0 Findings See Below No blood present in entire UGI tract that I was able to examine. Unusual configuration to the stomach with two areas that appeared narrowed, one in distal body that was easily traversed, the pylorus seemed deflected in an unusual position but with manipulation could get through. The mucosa of the proximal stomach appeared "mottled" but not inflamed. There was some LA class B esophagitis Anesthesia Type General Complications none Disposition Accompanied Patient To Recovery: No Overlapping Procedure I was immediately available: during the entire case.
--- NOTE | 2022-11-10 12:47 | Anesthesiology Progress Note ---
Date of Service November 10, 2022 Anesthesia Post Procedure Vital Signs Vital Signs: Temp Pulse Pulse Pulse Resp BP BP 11/10/22 11:41 98.1 F 59 L 16 81/49 L 11/10/22 11:26 97.7 F 61 18 96/61 L 11/10/22 11:11 98.1 F 63 18 100/62 11/10/22 08:00 66 20 81/46 L 11/10/22 07:20 97.5 F L 64 16 11/10/22 07:00 58 L 11/10/22 06:30 83/49 L 11/10/22 03:37 96.8 F L 64 16 11/10/22 03:00 65 20 85/46 L 11/10/22 01:43 78/42 L 11/10/22 01:23 11/10/22 00:43 55 L 11/09/22 23:53 11/09/22 23:37 97.3 F L 56 L 18 11/09/22 22:45 11/09/22 19:18 97.5 F L 55 L 18 11/09/22 18:14 97.9 F 61 18 80/51 L 11/09/22 14:17 57 L 11/09/22 16:09 97.3 F L 63 18 61/40 L 11/09/22 15:32 63 84/58 L 11/09/22 15:00 97.7 F 77 18 121/58 L 11/09/22 14:15 78/49 L 11/09/22 13:12 BP Pulse Ox O2 Del Method O2 Flow Rate 11/10/22 11:41 96 11/10/22 11:26 97 2 11/10/22 11:11 97 11/10/22 08:00 96 Nasal Cannula 2 11/10/22 07:20 66/39 L 96 Nasal Cannula 2 11/10/22 07:00 11/10/22 06:30 11/10/22 03:37 93/60 L 95 Nasal Cannula 2 11/10/22 03:00 94 Nasal Cannula 2 11/10/22 01:43 11/10/22 01:23 64/40 L 11/10/22 00:43 11/09/22 23:53 72/40 L 11/09/22 23:37 76/44 L 98 Nasal Cannula 2 11/09/22 22:45 Nasal Cannula 1.5 11/09/22 19:18 88/50 L 97 Nasal Cannula 1 11/09/22 18:14 92 Nasal Cannula 1 11/09/22 14:17 11/09/22 16:09 97 Nasal Cannula 1 11/09/22 15:32 11/09/22 15:00 95 Room Air 11/09/22 14:15 11/09/22 13:12 72/41 L Transfer of Care Handoff Completed per policy Notes Mental Status: alert / awake / arousable and participated in evaluation Patient Amnestic to Procedure: Yes Nausea / Vomiting: adequately controlled Pain: adequately controlled Airway Patency, RR, SpO2: stable & adequate BP & HR: stable & adequate Hydration State: stable & adequate Anesthetic Complications: no major complications apparent and Pt Satisfied with anesthetic care
[2022-11-10] MEDS: EZETIMIBE 10 MG TABLET PO SCH (12:51)
--- NOTE | 2022-11-10 13:52 | Operative Report (OR) ---
DATE OF PROCEDURE: 11/10/2022. PREOPERATIVE DIAGNOSIS: GI bleeding. POSTOPERATIVE DIAGNOSIS: Esophagitis, otherwise "normal" upper endoscopy. SURGEON: Viviane Walls MD. OPERATION PERFORMED: Upper GI endoscopy. INDICATIONS: A 72-year-old female who came into the hospital with apparent obstruction in her stomac h from a large ventral hernia. She had some hematemesis on admission. Last night, she dropped her h emoglobin from 11 to 7, although interestingly, she never passed any blood. She had some episodes of hypotension. We felt evaluation with endoscopy was warranted. History and physical documented in [facility] patient's chart. The procedure, risks for upper endoscopy were discussed with the patient. She a greed to proceed. DESCRIPTION OF PROCEDURE: After informed consent was obtained, the patient was brought to the operat ing room where she was sedated per Anesthesia. The Olympus video endoscope was then lubricated and a dvanced into the patient's esophagus. There was thick mucus in the esophagus. Distal esophagus show ed some evidence of esophagitis. This was LA class B esophagitis. The endoscope was advanced into [facility] stomach. The proximal part of the stomach was dilated. The mucosa had a kind of splotchy red and pale appearance to it. There is no obvious inflammation and no overt evidence of ischemia. The dis yessenia part of the body appeared to be somewhat narrowed or pinched in, but it was able to be traversed very easily. The antrum appeared normal. The pylorus was somewhat deflected to an angle. I was abl e to traverse the pylorus pretty easily and the duodenum was normal. There is no evidence of any blo od anywhere at the upper GI part of the stomach. There is no overt evidence of obstruction. The end oscope was then withdrawn back into the stomach, as much air and liquid as could be removed from the stomach was removed. The endoscope was then removed from the patient's mouth. She is allowed to rec over having suffered no immediate ill effects from the procedure. POSTPROCEDURE SUMMARY: This 72-year-old female underwent successful upper endoscopy for evaluation of anemia with some preoperative hematemesis. She does have evidence of esophagitis. I do not see any evidence of bleeding in her stomach. I would probably consider getting a ventral hernia repair befo re we think about doing a colonoscopy if we decide that we need to do that. I am curious as to how s he could drop her hemoglobin 4 grams, without passing any blood through her stool, but we will contin ue to follow her. Job ID: [id number]
[2022-11-10] MEDS: MIDODRINE HCL 2.5 MG TAB PO SCH ×2 (14:26→17:42)
--- NOTE | 2022-11-10 15:16 | Surgery Progress Note ---
Date of Service November 10, 2022 Assessment & Plan (1) Nausea & vomiting: Plan: assessment: pt is a 72 year-old female with PMH- HTN, cardiomegaly, chest pain, COPD, hypothyroidism, anemia and large ventral hernia. pt presents with one day history nausea and vomiting, vomiting with some blood per- EMS reported. pt has > 10 years history large ventral hernia. pt felt some abdominal pain, but now pt said that she has no abdominal pain, pt denies dizziness, no fever, no diarrhea. pt had CT scan at ER - IMPRESSION: 1. Prominence of the stomach with multiple air-fluid levels and narrowing at the level of the pylorus as it exits from a ventral hernia. This may represent gastric outlet obstruction owing to the ventral hernia. No bowel obstruction is otherwise seen. Diverticulosis is seen without diverticulitis. 2. Numerous exophytic lesions in the bilateral kidneys, some of which measure greater than simple fluid density. A renal ultrasound or renal mass MRI can be performed to further characterize these findings and exclude renal cell carcinoma. ADDENDUM A 19 mm focus of fat necrosis is noted in the mesentery contained within the ventral hernia. IM: nausea, vomiting, possible pylorus narrow, large ventral hernia. plan, based on H/P, labs and CT scan, no signs for incarcerated ventral hernia, conservative treatment now, NPO, IV fluid, may start cipro + flagyl for high WBC, consult GI for EGD to R/O upper GI bleeding and pylorus stenosis. repeat labs in morning. out-patient for large ventral hernia surgery by special hernia surgeon. will F/U. D/W hospitalist. 11/09/2022 12:[address] Sebastian Franz/Isidro large ventral hernia, pt is doing better, passed some gas, no nausea and vomiting, based on large ventral hernia, recommend to transfer to higher level care , need speciality hernia surgeon for pt's hernia repair. keep NPO now. ice chip and po meds okay. will F/U, 11/10/2022 9:01 AM , DR. Sebastian Franz/Isidro large ventral hernia. no incarcerated hernia signs, no emergent surgery indication now, passed BM. low BP 81/46, but pt feels comfortable. recommend blood transfusion, possible 2 units RBC, check H/H after first blood transfusion. need to R/O Upper GI bleed, per GI doctor. pt agreed with transfusion. please correct low MG may consult cuff setter overlock for 2-D echo once pt is stable , recommend to transfer to higher level care , need speciality hernia surgeon for pt's hernia repair. D/W hospitalist will F/U 11/10/2022 3:[address] Cortes pt just had EGD, EGD finding- esophagitis, and scope passed pylorus. no abdominal pain, still low bp 76/52, HR 60, RR 18, T 36.5, o2sat 97% NC clear diet today, pt needs blood transfusions D/W Hospitalist, pt will have 2 units RBC, repeat labs in morning, will F/U (2) Ventral hernia: Admission and Anticipated Discharge Date Admission Date: November 08, 2022 Supervising Physician Co-Signing Physician Notes I have seen and examined the patient and have discussed the case with the provider above. I agree with the assessment and plan as stated. 72-year-old female with multiple medical problems including hearing loss presents with acute nausea and vomiting. History is difficult given her hearing loss. She denies any abdominal pain. She is feeling better and not consistently nauseous. There apparently are some social issues and she is currently living with her son. She reports not bathing regularly. She appears unkempt. On physical exam she is hemodynamically stable and afebrile and answering questions appropriately. She appears to be oriented to her baseline. She is oxygenating well on minimal oxygen supplementation via nasal cannula. Work-up today includes a CT abdomen pelvis without contrast revealing concern for gastric outlet obstruction owing to a ventral hernia. There are air-fluid levels and narrowing at the level of the pylorus as it exits from the ventral hernia. No other bowel obstruction is otherwise seen. Per general surgery she does not have an acute abdomen. Currently she is not requiring an NG tube. Physical exam is otherwise unremarkable or as noted above. Labs and imaging were reviewed and discussed with provider above. Agree with renal ultrasound. Appreciate general surgery following patient. GI consulted. Continue wound care for sacral wound seen on admission. PT OT consulted. She remains in stable condition on telemetry. DO Anirudh Marie Apparently had trouble last night with hypotension and a drop in hemoglobin to 7. No mandi bleeding. No hematemesis. No mandi blood on rectal exam. 11/10/2022 8:55 AM, Dr. Cortes pt's BP is 81/46, but pt is comfortable on bed, no distress, pt said she feels like normal, no abdominal pain, no nausea, no hematemesis. passed BM , no black stool. H/H 7.5/25.3. lactate 0.5 11/10/2022 3: 14 PM, Dr. Cortes pt just had EGD done, pt is comfortable on bed, no abdominal pain, no nausea and vomiting. EGD finding- esophagitis, and scope passed pylorus. I reviewed GI doctor not, Thanks. Review of Systems Constitutional: as per Subjective / HPI no distress Eyes: as per Subjective / HPI Respiratory: as per Subjective / HPI COPD Cardiovascular: Additional Comments: HTN, cardiomegaly, chest pain, hyperlipidemia Gastrointestinal: large ventral hernia, nausea and vomiting, Genitourinary: as per Subjective / HPI Neurologic: as per Subjective / HPI Psychiatric: as per Subjective / HPI Endocrine: hypothyroidism Hematologic / Lymphatic: anemia Physical Exam Constitutional: WD/WN, vitals as above Eyes: PERRL, conjunctivae normal, anicteric sclerae Neck: trachea midline, no thyromegaly Respiratory: normal respiratory effort, lungs clear to auscultation Cardiovascular: RRR, no murmur, no edema Gastrointestinal (Abdomen): large ventral hernia, soft, NT, ND, BS +, Neurologic: patellar DTR's 2+ bilat, sensation intact Psychiatric: A+Ox3, euthymic affect Results & Data Vital Signs (Past 12 Hours) Vital Signs Temp Pulse Pulse Pulse Resp BP BP 11/10/22 14:49 36.5 C 60 18 76/52 L 11/10/22 08:03 74 11/10/22 08:30 11/10/22 14:11 36.5 C 60 18 76/50 L 11/10/22 13:11 36.5 C 58 L 16 79/49 L 11/10/22 12:55 37.0 C 65 16 102/67 11/10/22 12:45 65 18 89/54 L 11/10/22 12:38 36 C L 69 14 86/51 L 11/10/22 13:13 36.3 C L 58 L 16 88/63 L 11/10/22 11:41 36.7 C 59 L 16 81/49 L 11/10/22 11:26 36.5 C 61 18 96/61 L 11/10/22 11:11 36.7 C 63 18 100/62 11/10/22 08:00 66 20 81/46 L 11/10/22 07:20 36.4 C L 64 16 11/10/22 07:00 58 L 11/10/22 06:30 83/49 L 11/10/22 03:37 36.0 C L 64 16 BP Pulse Ox O2 Del Method O2 Flow Rate 11/10/22 14:49 97 2 11/10/22 08:03 11/10/22 08:30 Nasal Cannula 2 11/10/22 14:11 97 2 11/10/22 13:11 97 2 11/10/22 12:55 97 Nasal Cannula 3 11/10/22 12:45 99 Nasal Cannula 3 11/10/22 12:38 98 Oxymask 12 11/10/22 13:13 97 2 11/10/22 11:41 96 11/10/22 11:26 97 2 11/10/22 11:11 97 11/10/22 08:00 96 Nasal Cannula 2 11/10/22 07:20 66/39 L 96 Nasal Cannula 2 11/10/22 07:00 11/10/22 06:30 11/10/22 03:37 93/60 L 95 Nasal Cannula 2 (1) Nausea & vomiting Vomiting type: unspecified Qualified Code(s): R11.2 - Nausea with vomiting, unspecified (2) Ventral hernia Obstruction and gangrene presence: without obstruction or gangrene Qualified Code(s): K43.9 - Ventral hernia without obstruction or gangrene
[2022-11-10] MEDS: HYDROCORTISONE SOD 50 MG in SYRINGE 0 ML IV SCH ×2 (15:54→22:44)
[2022-11-10 15:59] LABS: Basophils # (auto) 0.01 K/uL (0-0.2); Basophils % (auto) 0.2 %; Eosinophils # (auto) 0.04 K/uL (0-0.50); Eosinophils % (auto) 0.7 %; Hematocrit (blood only) 27.9 % (37.0-47.0); Hemoglobin 8.3 g/dl (12.0-16.0); Immature Granulocytes # (auto) 0.02 K/uL (0.01-0.20); Immature Granulocytes % (auto) 0.4 %; Lymphocytes # (auto) 0.73 K/uL (1.2-3.4); Lymphocytes % (auto) 13.6 %; Mean Corpuscular Hemoglobin 25.9 pg (25.0-34.0); Mean Corpuscular Hgb Conc 29.7 g/dL (32.0-36.0); Mean Corpuscular Volume 87.2 fL (80.0-100.0); Mean Platelet Volume 9.4 fL (9.4-12.4); Monocytes # (auto) 0.26 K/uL (0.11-0.59); Monocytes % (auto) 4.9 %; Neutrophils # (auto) 4.29 K/uL (1.40-6.50); Neutrophils % (auto) 80.2 %; Platelet Count 170 K/uL (130-400); RDW Coefficient of Variation 17.2 % (11.5-14.5); RDW Standard Deviation 55.2 fL (36.4-46.3); White Blood Count 5.35 K/ul (4.8-10.8)
--- NOTE | 2022-11-10 16:04 | Hospitalist Progress Note ---
Date of Service November 10, 2022 Assessment & Plan (1) Nausea & vomiting: (2) Acute blood loss anemia: (3) Ventral hernia: Plan: Past medical history of hypertension, CKD, COPD, anxiety presented to the hospital with nausea and vomiting for 1 day. Patient living with her son prior to presentation. Had nausea on and off for several months to years. Has not seen a doctor for several years. Unknown medical compliance as patient is responsible for her medications. CT abdomen and pelvis on admission personally reviewed; Prominence of the stomach with multiple air-fluid levels and narrowing at the level of the pylorus as it exits from a ventral hernia. This may represent gastric outlet obstruction owing to the ventral hernia. No bowel obstruction is otherwise seen. Discussed with Dr. Cortes from surgery; recommended transfer to tertiary care center for ventral hernia repair. Discussed with Dr. Hernandez from surgery at [facility]. Recommended close monitoring and transfer when bed is available. Patient declined placement of NG tube and transfer to tertiary care center On November 10; patient's hemoglobin dropped from 11-7. Digital rectal exam done; no mandi blood. Fecal occult negative Patient transferred to PCU She underwent EGD; no profuse bleeding seen. Esophagitis present 2 units of packed RBC ordered. (4) Hypotension: Plan: On November 09 a.m.; patient became hypotensive requiring multiple boluses. Patient had received clonidine 0.3 mg, Coreg 12.5 mg and benazepril 40 mg in the last 12 hours. Lactate obtained multiple times; within normal limits. Patient mentating well. Urine output of 775 cc in last 24 hours. She is +6 L Although antihypertensives are stopped. Started on midodrine. Also, cortisol obtain which is 13. Will start on hydrocortisone for now and see if she responds to it. Continue on IV antibiotic Obtain blood culture Continue on IV fluids (5) Abnormal CT of the abdomen: Plan: CT abdomen pelvis: Numerous exophytic lesions in the bilateral kidneys, some of which measure greater than simple fluid density. A renal ultrasound or renal mass MRI can be performed to further characterize these findings and exclude renal cell carcinoma Renal ultrasound results reviewed; no hydronephrosis. Multiple bilateral renal cysts. (6) Ambulatory dysfunction: Plan: Sister reports that patient has been in bed for the last 8 months. Currently living with son who has bathroom on second floor which patient is unable to use PT/OT eval (7) Candidiasis: Plan: Sacral wounds Nystatin Wound nurse consult for sacral wounds (8) CKD (chronic kidney disease), stage III: Plan: Cr: 1.5. Baseline~1.3 Monitor renal functions, avoid nephrotoxic agents when possible (9) COPD (chronic obstructive pulmonary disease): Plan: No signs acute exacerbation Continue home inhaler (10) HTN (hypertension): Plan: Stop antihypertensive due to hypotension. (11) Hypothyroidism: Plan: Continue levothyroxine (12) Anxiety: Plan: Continue escitalopram, buspirone as needed DVT Prophylaxis SCDs Full code Discussed with his son over the phone. He is aware of patient's critical condition. He is trying to convince her to agree to go to tertiary care center for further care but patient continues to refuse. Time spent evaluating patient, direct bedside care, chart review, placing orders, interpretation of diagnostic studies, discussion with consultants, patient, and family members, as well as other required patient management activities is 60 minutes Please note the above document was generated using voice recognition software. It may contain grammatical, syntax or spelling errors. Any formal questions or concerns about the content, text or information contained within the body of this dictation should be directly addressed to the provider for clarification Admission and Anticipated Discharge Date Admission Date: November 08, 2022 Subjective Seen and examined at bedside multiple times during the day. Patient is awake, alert, oriented to self, place and time. Denies any pain or discomfort. Review of Systems Review of Systems: All systems reviewed & are unremarkable except as noted in Subjective Physical Exam Physical Exam: Constitutional: Alert, oriented to time place and person. Hard of hearing. Respiratory: normal respiratory effort, lungs clear to auscultation, no wheeze, rales, rhonchi. Normal insp/exp effort, no accessory muscle use Cardiovascular: RRR, no murmur, no edema Vessels: no JVD or carotid bruit Chest: normal inspection of chest Abdomen: Large ventral hernia present, nontender. Musculoskeletal: no cyanosis or clubbing, extremities motor strength 5/5 Skin: no rashes, warm and dry normal turgor Neurologic: PERRL, EOMI, accommodation nl, no face palsy, no dysarthria CN's II- XI intact bilaterally and moves all extremities Psychiatric: A+Ox3, euthymic affect Results & Data Results & Data Vital Signs (Past 12 Hours) Vital Signs Temp Pulse Pulse Pulse Resp BP BP 11/10/22 15:46 36.5 C 54 L 18 85/56 L 11/10/22 14:07 56 L 11/10/22 14:49 36.5 C 60 18 76/52 L 11/10/22 08:03 74 11/10/22 08:30 11/10/22 14:11 36.5 C 60 18 76/50 L 11/10/22 13:11 36.5 C 58 L 16 79/49 L 11/10/22 12:55 37.0 C 65 16 102/67 11/10/22 12:45 65 18 89/54 L 11/10/22 12:38 36 C L 69 14 86/51 L 11/10/22 13:13 36.3 C L 58 L 16 88/63 L 11/10/22 11:41 36.7 C 59 L 16 81/49 L 11/10/22 11:26 36.5 C 61 18 96/61 L 11/10/22 11:11 36.7 C 63 18 100/62 11/10/22 08:00 66 20 81/46 L 11/10/22 07:20 36.4 C L 64 16 11/10/22 07:00 58 L 11/10/22 06:30 83/49 L BP Pulse Ox O2 Del Method O2 Flow Rate 11/10/22 15:46 97 Nasal Cannula 2 11/10/22 14:07 11/10/22 14:49 97 2 11/10/22 08:03 11/10/22 08:30 Nasal Cannula 2 11/10/22 14:11 97 2 11/10/22 13:11 97 2 11/10/22 12:55 97 Nasal Cannula 3 11/10/22 12:45 99 Nasal Cannula 3 11/10/22 12:38 98 Oxymask 12 11/10/22 13:13 97 2 11/10/22 11:41 96 11/10/22 11:26 97 2 11/10/22 11:11 97 11/10/22 08:00 96 Nasal Cannula 2 11/10/22 07:20 66/39 L 96 Nasal Cannula 2 11/10/22 07:00 11/10/22 06:30 Laboratory Results Laboratory Results WBC 5.12 K/ul (4.8-10.8) 05/28/23 02:11 RBC 2.89 M/uL (4.20-5.40) L 11/10/22 02:11 Hgb 7.5 g/dl (12.0-16.0) L 11/10/22 07:48 Hct 25.3 % (37.0-47.0) L 11/10/22 07:48 MCV 84.1 fL (80.0-100.0) 11/10/22 02:11 MCH 25.3 pg (25.0-34.0) 11/10/22 02:11 MCHC 30.0 g/dL (32.0-36.0) L 11/10/22 02:11 RDW Std Deviation 52.0 fL (36.4-46.3) H 11/10/22 02:11 RDW Coeff of Tip 16.9 % (11.5-14.5) H 11/10/22 02:11 Plt Count 169 K/uL (130-400) 11/10/22 02:11 MPV 9.4 fL (9.4-12.4) 11/10/22 02:11 Immature Gran % (Auto) 0.4 % 11/10/22 02:11 Neut % (Auto) 72.0 % 11/10/22 02:11 Lymph % (Auto) 20.9 % 11/10/22 02:11 Scurry % (Auto) 4.7 % 11/10/22 02:11 Eos % (Auto) 1.8 % 11/10/22 02:11 Baso % (Auto) 0.2 % 11/10/22 02:11 Neut # (Auto) 3.69 K/uL (1.40-6.50) 11/10/22 02:11 Lymph # (Auto) 1.07 K/uL (1.2-3.4) L 11/10/22 02:11 Scurry # (Auto) 0.24 K/uL (0.11-0.59) 11/10/22 02:11 Eos # (Auto) 0.09 K/uL (0-0.50) 11/10/22 02:11 Baso # (Auto) 0.01 K/uL (0-0.2) 11/10/22 02:11 Immature Gran # (Auto) 0.02 K/uL (0.01-0.20) 11/10/22 02:11 Hypersegmented Neuts 1+ 11/08/22 12:05 Hypochromasia Present 11/10/22 02:11 PT 10.6 Seconds (9.0-12.0) 11/08/22 12:05 INR 1.0 (0.9-1.1) 11/08/22 12:05 Sodium 135 mmol/L (136-145) L 11/10/22 02:11 Potassium 3.6 mmol/L (3.5-5.1) 11/10/22 02:11 Chloride 106 mmol/L (98-107) 11/10/22 02:11 Carbon Dioxide 28 mmol/L (21-32) 11/10/22 02:11 Anion Gap 1 (3-11) L 11/10/22 02:11 BUN 35 mg/dl (6-23) H 11/10/22 02:11 Creatinine 1.49 mg/dl (0.6-1.2) H 11/10/22 02:11 Est Cr Clr Drug Dosing 33.9 ml/min 11/10/22 02:11 Est GFR ( Amer) 39.7 ml/min 11/10/22 02:11 Est GFR (Non-Af Amer) 34.2 ml/min 11/10/22 02:11 BUN/Creatinine Ratio 23.5 (10-20) H 11/10/22 02:11 Glucose 98 mg/dl (70-99(Fasting)) 11/10/22 02:11 Lactate 0.6 mmol/L (0.4-2.0) 11/10/22 02:11 Calcium 7.3 mg/dl (8.6-10.3) L 11/10/22 02:11 Magnesium 1.1 mg/dl (1.7-2.4) L 11/10/22 02:11 Total Bilirubin 0.4 mg/dl (0.2-1.0) 11/10/22 02:11 AST 8 U/L (13-39) L 11/10/22 02:11 ALT 5 U/L (7-52) L 11/10/22 02:11 Alkaline Phosphatase 32 U/L (34-104) L 11/10/22 02:11 Troponin I High Sens 13.0 pg/ml (0-14) 11/08/22 12:05 Total Protein 4.6 gm/dl (6.0-8.3) L D 11/10/22 02:11 Albumin 2.6 gm/dl (3.4-5.0) L 11/10/22 02:11 Globulin 2.0 gm/dl (2.5-4.0) L 11/10/22 02:11 Albumin/Globulin Ratio 1.3 (0.9-2) 11/10/22 02:11 Lipase 80 U/L (11-82) 11/08/22 12:05 Random Cortisol 13.28 mcg/dl 11/09/22 17:11 Urine Color Dark Yellow 11/08/22 12:45 Urine Appearance Clear (Clear) 11/08/22 12:45 Urine pH 5.0 (4.5-7.5) 11/08/22 12:45 Ur Specific Deane 1.025 (1.000-1.030) 11/08/22 12:45 Urine Protein 2+ (Negative) H 11/08/22 12:45 Urine Glucose (UA) Negative (Negative) 11/08/22 12:45 Urine Ketones 1+ (Negative) H 11/08/22 12:45 Urine Blood Negative (Negative) 11/08/22 12:45 Urine Nitrite Negative (Negative) 11/08/22 12:45 Urine Bilirubin Negative (Negative) 11/08/22 12:45 Urine Urobilinogen Negative (Negative) 11/08/22 12:45 Ur Leukocyte Esterase Negative (Negative) 11/08/22 12:45 Urine WBC (Auto) 1-5 /hpf (0-5) 11/08/22 12:45 Urine RBC (Auto) 0-4 /hpf (0-4) 11/08/22 12:45 U Hyaline Cast (Auto) 0 /lpf (0-5) 11/08/22 12:45 U Epithel Cells (Auto) 10-20 /lpf (0-5) H 11/08/22 12:45 Urine Bacteria (Auto) Negative (Negative) 11/08/22 12:45 Stool Occult Bld Scrn Negative (Negative) 11/10/22 Unknown SARS-CoV-2, RNA, NAAT NEGATIVE (NEGATIVE) 05/26/23 12:45 Blood Type A Positive 11/08/22 12:05 Blood Type Recheck A Positive 11/10/22 02:11 Antibody Screen NEGATIVE 11/08/22 12:05 Crossmatch See Detail 11/08/22 12:05 Impressions Abdomen/Pelvis CT 11/08/22 12:44 CT abd pelvis wo con CLINICAL HISTORY: n/v TECHNIQUE: Helical axial images of the abdomen and pelvis were obtained. Automat ed dose lowering techniques and/or adjustment according to patient size were utilized for this exam. This exam was performed without intravenous contrast. CT DOSE: 948.46 mGy.cm COMPARISON: None available at the time of this dictation. FINDINGS: Lower chest: Bibasilar atelectasis versus scarring is seen. Liver: Unremarkable. No focal lesions are seen. Gallbladder and biliary tree: No calcified gallstones. Normal caliber wall. No intra- or extrahepatic biliary ductal dilation. Pancreas: Unremarkable, no focal lesions. Spleen: Unremarkable. Adrenals: Nodularity of the adrenal glands is noted. Kidneys and ureters: Numerous exophytic lesions are seen, some of which measure greater than simple fluid density. Vascular calcifications are seen. Bladder: Unremarkable. Reproductive organs: Patient is status post hysterectomy. Bowel: Diverticulosis is seen without evidence of diverticulitis. A large portion of bowel loops as well as the stomach lie within a large ventral hernia, however no evidence of bowel obstruction is seen. There is, however, prominence of the stomach with narrowing at the pylorus. Lymph nodes Retroperitoneal: Unremarkable. Pelvic: Unremarkable. Mesenteric: Unremarkable. Peritoneum: Normal. Vessels: Atherosclerotic calcifications are seen. Infrarenal aortic aneurysm measures approximately 3 mm in diameter. Abdominal wall: Large ventral hernia contains multiple loops of bowel. Fat- containing bilateral inguinal hernias are seen. Bones: Unremarkable. IMPRESSION: 1. Prominence of the stomach with multiple air-fluid levels and narrowing at the level of the pylorus as it exits from a ventral hernia. This may represent gastric outlet obstruction owing to the ventral hernia. No bowel obstruction is otherwise seen. Diverticulosis is seen without diverticulitis. 2. Numerous exophytic lesions in the bilateral kidneys, some of which measure greater than simple fluid density. A renal ultrasound or renal mass MRI can be performed to further characterize these findings and exclude renal cell carcinoma. ACT 112: Negative or not required by law. Electronically signed by: Alex Valentine M.D. 11/08/2022 4:21 PM Chest X-Ray 11/08/22 15:45 XR chest 1V portable HISTORY: hypoxia COMPARISON: Chest CTA 01/08/2015. FINDINGS: No pneumothorax. No pleural effusions. There are low lung volumes. The cardiac silhouette remains mildly enlarged. No new focal lung consolidations to suggest a pneumonia. No evidence for pulmonary edema. There are degenerative changes within the bilateral shoulders. IMPRESSION: Mild cardiomegaly. Otherwise, no acute process within the chest. ACT 112: Negative or not required by law. Electronically signed by: Christopher Levy M.D. 11/08/2022 4:32 PM Renal Ultrasound 11/09/22 00:00 RENAL ULTRASOUND HISTORY: Abnormal CT. Follow-up renal cysts. renal cysts COMPARISON: Abdomen and pelvis CT 11/08/2022. FINDINGS: Right kidney: 8.8 cm. Multiple cysts with the largest in the upper pole measuring 6.1 cm. No hydronephrosis. Normal corticomedullary differentiation and cortical thickness. Left kidney: 8.5 cm. Multiple cysts with the largest in the upper pole measuring 4.2 cm. No hydronephrosis. Normal corticomedullary differentiation and cortical thickness. Bladder: Decompressed and not well visualized. IMPRESSION: 1. Multiple bilateral renal cysts. 2. No hydronephrosis. 3. The bladder is decompressed and not well visualized. ACT 112: Negative or not required by law. Electronically signed by: Christopher Levy M.D. 11/09/2022 10:35 AM (1) Nausea & vomiting Vomiting type: unspecified Qualified Code(s): R11.2 - Nausea with vomiting, unspecified (3) Ventral hernia Obstruction and gangrene presence: without obstruction or gangrene Qualified Code(s): K43.9 - Ventral hernia without obstruction or gangrene
[2022-11-10] MEDS ORDERED: PANTOprazole 40 MG in SYRINGE 0 ML IV SCH (21:00)
[2022-11-10] MEDS: CARBAMIDE PEROXIDE 6.5% 15 ML BTL OT SCH (21:13)
[2022-11-11 04:57] LABS: Basophils # (auto) 0.01 K/uL (0-0.2); Basophils % (auto) 0.2 %; Hematocrit (blood only) 30.5 % (37.0-47.0); Hemoglobin 9.5 g/dl (12.0-16.0); Immature Granulocytes # (auto) 0.11 K/uL (0.01-0.20); Immature Granulocytes % (auto) 1.7 %; Lymphocytes % (auto) 6.2 %; Mean Corpuscular Hgb Conc 31.1 g/dL (32.0-36.0); Mean Corpuscular Volume 83.6 fL (80.0-100.0); Mean Platelet Volume 9.7 fL (9.4-12.4); Monocytes # (auto) 0.13 K/uL (0.11-0.59); Neutrophils # (auto) 5.85 K/uL (1.40-6.50); Neutrophils % (auto) 89.9 %; Platelet Count 207 K/uL (130-400); RDW Coefficient of Variation 17.1 % (11.5-14.5); RDW Standard Deviation 52.6 fL (36.4-46.3); Red Blood Count 3.65 M/uL (4.20-5.40)
[2022-11-11 05:10] LABS: Albumin Globulin Ratio 1.2 (0.9-2); Albumin Level 2.8 gm/dl (3.4-5.0); Bilirubin,Total 0.5 mg/dl (0.2-1.0); Calcium 7.9 mg/dl (8.6-10.3); Creatinine Clr Calc Pharmacy 41.6 ml/min; Est GFR (African American) 48.6 ml/min; Est GFR (Non-African American) 41.9 ml/min; Globulin 2.4 gm/dl (2.5-4.0); Potassium 3.8 mmol/L (3.5-5.1); Total Protein 5.2 gm/dl (6.0-8.3)
[2022-11-11] MEDS: HYDROCORTISONE SOD 50 MG in SYRINGE 0 ML IV SCH (06:14)
[2022-11-11] MEDS: LEVOTHYROXINE SODIUM 112 MCG TABLET PO SCH (06:14)
--- NOTE | 2022-11-11 07:50 | Surgery Progress Note ---
Date of Service November 11, 2022 Assessment & Plan (1) Nausea & vomiting: Plan: assessment: pt is a 72 year-old female with PMH- HTN, cardiomegaly, chest pain, COPD, hypothyroidism, anemia and large ventral hernia. pt presents with one day history nausea and vomiting, vomiting with some blood per- EMS reported. pt has > 10 years history large ventral hernia. pt felt some abdominal pain, but now pt said that she has no abdominal pain, pt denies dizziness, no fever, no diarrhea. pt had CT scan at ER - IMPRESSION: 1. Prominence of the stomach with multiple air-fluid levels and narrowing at the level of the pylorus as it exits from a ventral hernia. This may represent gastric outlet obstruction owing to the ventral hernia. No bowel obstruction is otherwise seen. Diverticulosis is seen without diverticulitis. 2. Numerous exophytic lesions in the bilateral kidneys, some of which measure greater than simple fluid density. A renal ultrasound or renal mass MRI can be performed to further characterize these findings and exclude renal cell carcinoma. ADDENDUM A 19 mm focus of fat necrosis is noted in the mesentery contained within the ventral hernia. IM: nausea, vomiting, possible pylorus narrow, large ventral hernia. plan, based on H/P, labs and CT scan, no signs for incarcerated ventral hernia, conservative treatment now, NPO, IV fluid, may start cipro + flagyl for high WBC, consult GI for EGD to R/O upper GI bleeding and pylorus stenosis. repeat labs in morning. out-patient for large ventral hernia surgery by special hernia surgeon. will F/U. D/W hospitalist. 11/09/2022 12:[address] Sebastian Franz/Isidro large ventral hernia, pt is doing better, passed some gas, no nausea and vomiting, based on large ventral hernia, recommend to transfer to higher level care , need speciality hernia surgeon for pt's hernia repair. keep NPO now. ice chip and po meds okay. will F/U, 11/10/2022 9:01 AM , DR. Sebastian Franz/Isidro large ventral hernia. no incarcerated hernia signs, no emergent surgery indication now, passed BM. low BP 81/46, but pt feels comfortable. recommend blood transfusion, possible 2 units RBC, check H/H after first blood transfusion. need to R/O Upper GI bleed, per GI doctor. pt agreed with transfusion. please correct low MG may consult wood grinder for 2-D echo once pt is stable , recommend to transfer to higher level care , need speciality hernia surgeon for pt's hernia repair. D/W hospitalist will F/U 11/10/2022 3:[address] Cortes pt just had EGD, EGD finding- esophagitis, and scope passed pylorus. no abdominal pain, still low bp 76/52, HR 60, RR 18, T 36.5, o2sat 97% NC clear diet today, pt needs blood transfusions D/W Hospitalist, pt will have 2 units RBC, repeat labs in morning, will F/U 11/11/2022 7:47 AM, Dr. Cortes after 2 units RBC, BP 130/72, for large ventral hernia, recommend to transfer to higher level care , need speciality hernia surgeon for pt's hernia repair. otherwise pt will develop bowel obstruction. will F/U (2) Ventral hernia: Admission and Anticipated Discharge Date Admission Date: November 08, 2022 Supervising Physician Co-Signing Physician Notes I have seen and examined the patient and have discussed the case with the provider above. I agree with the assessment and plan as stated. 72-year-old female with multiple medical problems including hearing loss presents with acute nausea and vomiting. History is difficult given her hearing loss. She denies any abdominal pain. She is feeling better and not consistently nauseous. There apparently are some social issues and she is currently living with her son. She reports not bathing regularly. She appears unkempt. On physical exam she is hemodynamically stable and afebrile and answering questions appropriately. She appears to be oriented to her baseline. She is oxygenating well on minimal oxygen supplementation via nasal cannula. Work-up today includes a CT abdomen pelvis without contrast revealing concern for gastric outlet obstruction owing to a ventral hernia. There are air-fluid levels and narrowing at the level of the pylorus as it exits from the ventral hernia. No other bowel obstruction is otherwise seen. Per general surgery she does not have an acute abdomen. Currently she is not requiring an NG tube. Physical exam is otherwise unremarkable or as noted above. Labs and imaging were reviewed and discussed with provider above. Agree with renal ultrasound. Appreciate general surgery following patient. GI consulted. Continue wound care for sacral wound seen on admission. PT OT consulted. She remains in stable condition on telemetry. DO Anirudh Marie Seen and examined at bedside multiple times during the day. Patient is awake, alert, oriented to self, place and time. Denies any pain or discomfort. 11/11/2022 7:[address] Cortes after 2 units RBC, BP 130/72. HR 73. T 36.7. pt denies any abdominal pain or discomfort now. HGB 9.5 Review of Systems Constitutional: as per Subjective / HPI no distress Eyes: as per Subjective / HPI Respiratory: as per Subjective / HPI COPD Cardiovascular: Additional Comments: HTN, cardiomegaly, chest pain, hyperlipidemia Gastrointestinal: large ventral hernia, nausea and vomiting, Genitourinary: as per Subjective / HPI Neurologic: as per Subjective / HPI Psychiatric: as per Subjective / HPI Endocrine: hypothyroidism Hematologic / Lymphatic: anemia Physical Exam Constitutional: WD/WN, vitals as above Eyes: PERRL, conjunctivae normal, anicteric sclerae Neck: trachea midline, no thyromegaly Respiratory: normal respiratory effort, lungs clear to auscultation Cardiovascular: RRR, no murmur, no edema Gastrointestinal (Abdomen): large ventral hernia, soft, no tenderness, no distend, BS +. Neurologic: patellar DTR's 2+ bilat, sensation intact Psychiatric: A+Ox3, euthymic affect Results & Data Vital Signs (Past 12 Hours) Vital Signs Temp Pulse Pulse Resp BP Pulse Ox O2 Del Method 11/11/22 03:49 36.7 C 73 22 130/72 92 Nasal Cannula 11/11/22 02:11 52 L 11/10/22 20:45 Nasal Cannula 11/10/22 23:19 36.4 C L 54 L 20 132/78 94 Nasal Cannula O2 Flow Rate 11/11/22 03:49 1 11/11/22 02:11 11/10/22 20:45 2 11/10/22 23:19 1 Laboratory Results Lab Results 11/08/22 11/08/22 11/08/22 Range/Units 12:05 12:05 12:05 WBC 11.58 H (4.8-10.8) K/ul RBC 4.63 (4.20-5.40) M/uL Hgb 11.4 L (12.0-16.0) g/dl Hct 37.3 (37.0-47.0) % MCV 80.6 (80.0-100.0) fL MCH 24.6 L (25.0-34.0) pg MCHC 30.6 L (32.0-36.0) g/dL RDW Std Deviation 48.5 H (36.4-46.3) fL RDW Coeff of Tip 16.6 H (11.5-14.5) % Plt Count 363 (130-400) K/uL MPV 9.4 (9.4-12.4) fL Immature Gran % (Auto) 0.4 % Neut % (Auto) 90.1 % Lymph % (Auto) 7.1 % [place] % (Auto) 2.0 % Eos % (Auto) 0.2 % Baso % (Auto) 0.2 % Neut # (Auto) 10.44 H (1.40-6.50) K/uL Lymph # (Auto) 0.82 L (1.2-3.4) K/uL [place] # (Auto) 0.23 (0.11-0.59) K/uL Eos # (Auto) 0.02 (0-0.50) K/uL Baso # (Auto) 0.02 (0-0.2) K/uL Immature Gran # (Auto) 0.05 (0.01-0.20) K/uL Hypersegmented Neuts 1+ Hypochromasia PT 10.6 (9.0-12.0) Seconds INR 1.0 (0.9-1.1) Sodium (136-145) mmol/L Potassium (3.5-5.1) mmol/L Chloride (98-107) mmol/L Carbon Dioxide (21-32) mmol/L Anion Gap (3-11) BUN (6-23) mg/dl Creatinine (0.6-1.2) mg/dl Est Cr Clr Drug Dosing ml/min Est GFR ( Amer) ml/min Est GFR (Non-Af Amer) ml/min BUN/Creatinine Ratio (10-20) Glucose (70-99(Fasting)) mg/dl Lactate (0.4-2.0) mmol/L Calcium (8.6-10.3) mg/dl Magnesium (1.7-2.4) mg/dl Total Bilirubin (0.2-1.0) mg/dl AST (13-39) U/L ALT (7-52) U/L Alkaline Phosphatase (34-104) U/L Troponin I High Sens (0-14) pg/ml Total Protein (6.0-8.3) gm/dl Albumin (3.4-5.0) gm/dl Globulin (2.5-4.0) gm/dl Albumin/Globulin Ratio (0.9-2) Lipase (11-82) U/L Random Cortisol mcg/dl Urine Color Urine Appearance (Clear) Urine pH (4.5-7.5) Ur Specific [place] (1.000-1.030) Urine Protein (Negative) Urine Glucose (UA) (Negative) Urine Ketones (Negative) Urine Blood (Negative) Urine Nitrite (Negative) Urine Bilirubin (Negative) Urine Urobilinogen (Negative) Ur Leukocyte Esterase (Negative) Urine WBC (Auto) (0-5) /hpf Urine RBC (Auto) (0-4) /hpf U Hyaline Cast (Auto) (0-5) /lpf U Epithel Cells (Auto) (0-5) /lpf Urine Bacteria (Auto) (Negative) Stool Occult Bld Scrn (Negative) SARS-CoV-2, RNA, NAAT (NEGATIVE) Blood Type A Positive Blood Type Recheck Antibody Screen NEGATIVE Crossmatch See Detail 11/08/22 11/08/22 11/08/22 Range/Units 12:05 12:45 12:45 WBC (4.8-10.8) K/ul RBC (4.20-5.40) M/uL Hgb (12.0-16.0) g/dl Hct (37.0-47.0) % MCV (80.0-100.0) fL MCH (25.0-34.0) pg MCHC (32.0-36.0) g/dL RDW Std Deviation (36.4-46.3) fL RDW Coeff of Tip (11.5-14.5) % Plt Count (130-400) K/uL MPV (9.4-12.4) fL Immature Gran % (Auto) % Neut % (Auto) % Lymph % (Auto) % [place] % (Auto) % Eos % (Auto) % Baso % (Auto) % Neut # (Auto) (1.40-6.50) K/uL Lymph # (Auto) (1.2-3.4) K/uL [place] # (Auto) (0.11-0.59) K/uL Eos # (Auto) (0-0.50) K/uL Baso # (Auto) (0-0.2) K/uL Immature Gran # (Auto) (0.01-0.20) K/uL Hypersegmented Neuts Hypochromasia PT (9.0-12.0) Seconds INR (0.9-1.1) Sodium 140 (136-145) mmol/L Potassium 4.2 (3.5-5.1) mmol/L Chloride 98 (98-107) mmol/L Carbon Dioxide 31 (21-32) mmol/L Anion Gap 11 (3-11) BUN 44 H (6-23) mg/dl Creatinine 1.50 H (0.6-1.2) mg/dl Est Cr Clr Drug Dosing 30.8 ml/min Est GFR ( Amer) 39.4 ml/min Est GFR (Non-Af Amer) 34.0 ml/min BUN/Creatinine Ratio 29.3 H (10-20) Glucose 132 H (70-99(Fasting)) mg/dl Lactate (0.4-2.0) mmol/L Calcium 9.4 (8.6-10.3) mg/dl Magnesium (1.7-2.4) mg/dl Total Bilirubin 0.8 (0.2-1.0) mg/dl AST 12 L (13-39) U/L ALT 7 (7-52) U/L Alkaline Phosphatase 59 (34-104) U/L Troponin I High Sens 13.0 (0-14) pg/ml Total Protein 7.3 (6.0-8.3) gm/dl Albumin 4.0 (3.4-5.0) gm/dl Globulin 3.3 (2.5-4.0) gm/dl Albumin/Globulin Ratio 1.2 (0.9-2) Lipase 80 (11-82) U/L Random Cortisol mcg/dl Urine Color Dark Yellow Urine Appearance Clear (Clear) Urine pH 5.0 (4.5-7.5) Ur Specific [place] 1.025 (1.000-1.030) Urine Protein 2+ H (Negative) Urine Glucose (UA) Negative (Negative) Urine Ketones 1+ H (Negative) Urine Blood Negative (Negative) Urine Nitrite Negative (Negative) Urine Bilirubin Negative (Negative) Urine Urobilinogen Negative (Negative) Ur Leukocyte Esterase Negative (Negative) Urine WBC (Auto) 1-5 (0-5) /hpf Urine RBC (Auto) 0-4 (0-4) /hpf U Hyaline Cast (Auto) 0 (0-5) /lpf U Epithel Cells (Auto) 10-20 H (0-5) /lpf Urine Bacteria (Auto) Negative (Negative) Stool Occult Bld Scrn (Negative) SARS-CoV-2, RNA, NAAT NEGATIVE (NEGATIVE) Blood Type Blood Type Recheck Antibody Screen Crossmatch 11/09/22 11/09/22 11/09/22 Range/Units 06:09 06:09 14:08 WBC 9.04 (4.8-10.8) K/ul RBC 3.62 L (4.20-5.40) M/uL Hgb 9.0 L (12.0-16.0) g/dl Hct 29.2 L (37.0-47.0) % MCV 80.7 (80.0-100.0) fL MCH 24.9 L (25.0-34.0) pg MCHC 30.8 L (32.0-36.0) g/dL RDW Std Deviation 49.5 H (36.4-46.3) fL RDW Coeff of Tip 16.7 H (11.5-14.5) % Plt Count 246 (130-400) K/uL MPV 9.4 (9.4-12.4) fL Immature Gran % (Auto) 0.4 % Neut % (Auto) 81.1 % Lymph % (Auto) 12.9 % [place] % (Auto) 5.0 % Eos % (Auto) 0.4 % Baso % (Auto) 0.2 % Neut # (Auto) 7.32 H (1.40-6.50) K/uL Lymph # (Auto) 1.17 L (1.2-3.4) K/uL [place] # (Auto) 0.45 (0.11-0.59) K/uL Eos # (Auto) 0.04 (0-0.50) K/uL Baso # (Auto) 0.02 (0-0.2) K/uL Immature Gran # (Auto) 0.04 (0.01-0.20) K/uL Hypersegmented Neuts Hypochromasia PT (9.0-12.0) Seconds INR (0.9-1.1) Sodium 141 (136-145) mmol/L Potassium 3.8 (3.5-5.1) mmol/L Chloride 102 (98-107) mmol/L Carbon Dioxide 32 (21-32) mmol/L Anion Gap 7 (3-11) BUN 38 H (6-23) mg/dl Creatinine 1.45 H (0.6-1.2) mg/dl Est Cr Clr Drug Dosing 34.8 ml/min Est GFR ( Amer) 41.0 ml/min Est GFR (Non-Af Amer) 35.4 ml/min BUN/Creatinine Ratio 26.2 H (10-20) Glucose 97 (70-99(Fasting)) mg/dl Lactate 1.0 (0.4-2.0) mmol/L Calcium 8.7 (8.6-10.3) mg/dl Magnesium (1.7-2.4) mg/dl Total Bilirubin (0.2-1.0) mg/dl AST (13-39) U/L ALT (7-52) U/L Alkaline Phosphatase (34-104) U/L Troponin I High Sens (0-14) pg/ml Total Protein (6.0-8.3) gm/dl Albumin (3.4-5.0) gm/dl Globulin (2.5-4.0) gm/dl Albumin/Globulin Ratio (0.9-2) Lipase (11-82) U/L Random Cortisol mcg/dl Urine Color Urine Appearance (Clear) Urine pH (4.5-7.5) Ur Specific [place] (1.000-1.030) Urine Protein (Negative) Urine Glucose (UA) (Negative) Urine Ketones (Negative) Urine Blood (Negative) Urine Nitrite (Negative) Urine Bilirubin (Negative) Urine Urobilinogen (Negative) Ur Leukocyte Esterase (Negative) Urine WBC (Auto) (0-5) /hpf Urine RBC (Auto) (0-4) /hpf U Hyaline Cast (Auto) (0-5) /lpf U Epithel Cells (Auto) (0-5) /lpf Urine Bacteria (Auto) (Negative) Stool Occult Bld Scrn (Negative) SARS-CoV-2, RNA, NAAT (NEGATIVE) Blood Type Blood Type Recheck Antibody Screen Crossmatch 11/09/22 11/09/22 11/10/22 Range/Units 17:11 20:22 02:11 WBC 5.12 (4.8-10.8) K/ul RBC 2.89 L (4.20-5.40) M/uL Hgb 7.3 L (12.0-16.0) g/dl Hct 24.3 L (37.0-47.0) % MCV 84.1 (80.0-100.0) fL MCH 25.3 (25.0-34.0) pg MCHC 30.0 L (32.0-36.0) g/dL RDW Std Deviation 52.0 H (36.4-46.3) fL RDW Coeff of Tip 16.9 H (11.5-14.5) % Plt Count 169 (130-400) K/uL MPV 9.4 (9.4-12.4) fL Immature Gran % (Auto) 0.4 % Neut % (Auto) 72.0 % Lymph % (Auto) 20.9 % [place] % (Auto) 4.7 % Eos % (Auto) 1.8 % Baso % (Auto) 0.2 % Neut # (Auto) 3.69 (1.40-6.50) K/uL Lymph # (Auto) 1.07 L (1.2-3.4) K/uL [place] # (Auto) 0.24 (0.11-0.59) K/uL Eos # (Auto) 0.09 (0-0.50) K/uL Baso # (Auto) 0.01 (0-0.2) K/uL Immature Gran # (Auto) 0.02 (0.01-0.20) K/uL Hypersegmented Neuts Hypochromasia Present PT (9.0-12.0) Seconds INR (0.9-1.1) Sodium (136-145) mmol/L Potassium (3.5-5.1) mmol/L Chloride (98-107) mmol/L Carbon Dioxide (21-32) mmol/L Anion Gap (3-11) BUN (6-23) mg/dl Creatinine (0.6-1.2) mg/dl Est Cr Clr Drug Dosing ml/min Est GFR ( Amer) ml/min Est GFR (Non-Af Amer) ml/min BUN/Creatinine Ratio (10-20) Glucose (70-99(Fasting)) mg/dl Lactate 1.8 (0.4-2.0) mmol/L Calcium (8.6-10.3) mg/dl Magnesium (1.7-2.4) mg/dl Total Bilirubin (0.2-1.0) mg/dl AST (13-39) U/L ALT (7-52) U/L Alkaline Phosphatase (34-104) U/L Troponin I High Sens (0-14) pg/ml Total Protein (6.0-8.3) gm/dl Albumin (3.4-5.0) gm/dl Globulin (2.5-4.0) gm/dl Albumin/Globulin Ratio (0.9-2) Lipase (11-82) U/L Random Cortisol 13.28 mcg/dl Urine Color Urine Appearance (Clear) Urine pH (4.5-7.5) Ur Specific [place] (1.000-1.030) Urine Protein (Negative) Urine Glucose (UA) (Negative) Urine Ketones (Negative) Urine Blood (Negative) Urine Nitrite (Negative) Urine Bilirubin (Negative) Urine Urobilinogen (Negative) Ur Leukocyte Esterase (Negative) Urine WBC (Auto) (0-5) /hpf Urine RBC (Auto) (0-4) /hpf U Hyaline Cast (Auto) (0-5) /lpf U Epithel Cells (Auto) (0-5) /lpf Urine Bacteria (Auto) (Negative) Stool Occult Bld Scrn (Negative) SARS-CoV-2, RNA, NAAT (NEGATIVE) Blood Type Blood Type Recheck Antibody Screen Crossmatch 11/10/22 11/10/22 11/10/22 Range/Units 02:11 02:11 02:11 WBC (4.8-10.8) K/ul RBC (4.20-5.40) M/uL Hgb (12.0-16.0) g/dl Hct (37.0-47.0) % MCV (80.0-100.0) fL MCH (25.0-34.0) pg MCHC (32.0-36.0) g/dL RDW Std Deviation (36.4-46.3) fL RDW Coeff of Tip (11.5-14.5) % Plt Count (130-400) K/uL MPV (9.4-12.4) fL Immature Gran % (Auto) % Neut % (Auto) % Lymph % (Auto) % [place] % (Auto) % Eos % (Auto) % Baso % (Auto) % Neut # (Auto) (1.40-6.50) K/uL Lymph # (Auto) (1.2-3.4) K/uL [place] # (Auto) (0.11-0.59) K/uL Eos # (Auto) (0-0.50) K/uL Baso # (Auto) (0-0.2) K/uL Immature Gran # (Auto) (0.01-0.20) K/uL Hypersegmented Neuts Hypochromasia PT (9.0-12.0) Seconds INR (0.9-1.1) Sodium 135 L (136-145) mmol/L Potassium 3.6 (3.5-5.1) mmol/L Chloride 106 (98-107) mmol/L Carbon Dioxide 28 (21-32) mmol/L Anion Gap 1 L (3-11) BUN 35 H (6-23) mg/dl Creatinine 1.49 H (0.6-1.2) mg/dl Est Cr Clr Drug Dosing 33.9 ml/min Est GFR ( Amer) 39.7 ml/min Est GFR (Non-Af Amer) 34.2 ml/min BUN/Creatinine Ratio 23.5 H (10-20) Glucose 98 (70-99(Fasting)) mg/dl Lactate 0.6 (0.4-2.0) mmol/L Calcium 7.3 L (8.6-10.3) mg/dl Magnesium 1.1 L (1.7-2.4) mg/dl Total Bilirubin 0.4 (0.2-1.0) mg/dl AST 8 L (13-39) U/L ALT 5 L (7-52) U/L Alkaline Phosphatase 32 L (34-104) U/L Troponin I High Sens (0-14) pg/ml Total Protein 4.6 L D (6.0-8.3) gm/dl Albumin 2.6 L (3.4-5.0) gm/dl Globulin 2.0 L (2.5-4.0) gm/dl Albumin/Globulin Ratio 1.3 (0.9-2) Lipase (11-82) U/L Random Cortisol mcg/dl Urine Color Urine Appearance (Clear) Urine pH (4.5-7.5) Ur Specific [place] (1.000-1.030) Urine Protein (Negative) Urine Glucose (UA) (Negative) Urine Ketones (Negative) Urine Blood (Negative) Urine Nitrite (Negative) Urine Bilirubin (Negative) Urine Urobilinogen (Negative) Ur Leukocyte Esterase (Negative) Urine WBC (Auto) (0-5) /hpf Urine RBC (Auto) (0-4) /hpf U Hyaline Cast (Auto) (0-5) /lpf U Epithel Cells (Auto) (0-5) /lpf Urine Bacteria (Auto) (Negative) Stool Occult Bld Scrn (Negative) SARS-CoV-2, RNA, NAAT (NEGATIVE) Blood Type Blood Type Recheck A Positive Antibody Screen Crossmatch 11/10/22 11/10/22 11/10/22 Range/Units 07:48 15:39 15:51 WBC 5.35 (4.8-10.8) K/ul RBC 3.20 L (4.20-5.40) M/uL Hgb 7.5 L 8.3 L (12.0-16.0) g/dl Hct 25.3 L 27.9 L (37.0-47.0) % MCV 87.2 (80.0-100.0) fL MCH 25.9 (25.0-34.0) pg MCHC 29.7 L (32.0-36.0) g/dL RDW Std Deviation 55.2 H (36.4-46.3) fL RDW Coeff of Tip 17.2 H (11.5-14.5) % Plt Count 170 (130-400) K/uL MPV 9.4 (9.4-12.4) fL Immature Gran % (Auto) 0.4 % Neut % (Auto) 80.2 % Lymph % (Auto) 13.6 % [place] % (Auto) 4.9 % Eos % (Auto) 0.7 % Baso % (Auto) 0.2 % Neut # (Auto) 4.29 (1.40-6.50) K/uL Lymph # (Auto) 0.73 L (1.2-3.4) K/uL [place] # (Auto) 0.26 (0.11-0.59) K/uL Eos # (Auto) 0.04 (0-0.50) K/uL Baso # (Auto) 0.01 (0-0.2) K/uL Immature Gran # (Auto) 0.02 (0.01-0.20) K/uL Hypersegmented Neuts Hypochromasia PT (9.0-12.0) Seconds INR (0.9-1.1) Sodium (136-145) mmol/L Potassium (3.5-5.1) mmol/L Chloride (98-107) mmol/L Carbon Dioxide (21-32) mmol/L Anion Gap (3-11) BUN (6-23) mg/dl Creatinine (0.6-1.2) mg/dl Est Cr Clr Drug Dosing ml/min Est GFR ( Amer) ml/min Est GFR (Non-Af Amer) ml/min BUN/Creatinine Ratio (10-20) Glucose (70-99(Fasting)) mg/dl Lactate 1.4 (0.4-2.0) mmol/L Calcium (8.6-10.3) mg/dl Magnesium (1.7-2.4) mg/dl Total Bilirubin (0.2-1.0) mg/dl AST (13-39) U/L ALT (7-52) U/L Alkaline Phosphatase (34-104) U/L Troponin I High Sens (0-14) pg/ml Total Protein (6.0-8.3) gm/dl Albumin (3.4-5.0) gm/dl Globulin (2.5-4.0) gm/dl Albumin/Globulin Ratio (0.9-2) Lipase (11-82) U/L Random Cortisol mcg/dl Urine Color Urine Appearance (Clear) Urine pH (4.5-7.5) Ur Specific [place] (1.000-1.030) Urine Protein (Negative) Urine Glucose (UA) (Negative) Urine Ketones (Negative) Urine Blood (Negative) Urine Nitrite (Negative) Urine Bilirubin (Negative) Urine Urobilinogen (Negative) Ur Leukocyte Esterase (Negative) Urine WBC (Auto) (0-5) /hpf Urine RBC (Auto) (0-4) /hpf U Hyaline Cast (Auto) (0-5) /lpf U Epithel Cells (Auto) (0-5) /lpf Urine Bacteria (Auto) (Negative) Stool Occult Bld Scrn (Negative) SARS-CoV-2, RNA, NAAT (NEGATIVE) Blood Type Blood Type Recheck Antibody Screen Crossmatch 11/10/22 11/11/22 11/11/22 Range/Units Unknown 04:24 04:24 WBC 6.50 (4.8-10.8) K/ul RBC 3.65 L (4.20-5.40) M/uL Hgb 9.5 L (12.0-16.0) g/dl Hct 30.5 L (37.0-47.0) % MCV 83.6 (80.0-100.0) fL MCH 26.0 (25.0-34.0) pg MCHC 31.1 L (32.0-36.0) g/dL RDW Std Deviation 52.6 H (36.4-46.3) fL RDW Coeff of Tip 17.1 H (11.5-14.5) % Plt Count 207 (130-400) K/uL MPV 9.7 (9.4-12.4) fL Immature Gran % (Auto) 1.7 % Neut % (Auto) 89.9 % Lymph % (Auto) 6.2 % [place] % (Auto) 2.0 % Eos % (Auto) 0.0 % Baso % (Auto) 0.2 % Neut # (Auto) 5.85 (1.40-6.50) K/uL Lymph # (Auto) 0.40 L (1.2-3.4) K/uL [place] # (Auto) 0.13 (0.11-0.59) K/uL Eos # (Auto) 0.00 (0-0.50) K/uL Baso # (Auto) 0.01 (0-0.2) K/uL Immature Gran # (Auto) 0.11 (0.01-0.20) K/uL Hypersegmented Neuts Hypochromasia PT (9.0-12.0) Seconds INR (0.9-1.1) Sodium 136 (136-145) mmol/L Potassium 3.8 (3.5-5.1) mmol/L Chloride 108 H (98-107) mmol/L Carbon Dioxide 25 (21-32) mmol/L Anion Gap 3 (3-11) BUN 24 H (6-23) mg/dl Creatinine 1.26 H (0.6-1.2) mg/dl Est Cr Clr Drug Dosing 41.6 ml/min Est GFR ( Amer) 48.6 ml/min Est GFR (Non-Af Amer) 41.9 ml/min BUN/Creatinine Ratio 19.0 (10-20) Glucose 136 H (70-99(Fasting)) mg/dl Lactate (0.4-2.0) mmol/L Calcium 7.9 L (8.6-10.3) mg/dl Magnesium (1.7-2.4) mg/dl Total Bilirubin 0.5 (0.2-1.0) mg/dl AST 9 L (13-39) U/L ALT 6 L (7-52) U/L Alkaline Phosphatase 37 (34-104) U/L Troponin I High Sens (0-14) pg/ml Total Protein 5.2 L (6.0-8.3) gm/dl Albumin 2.8 L (3.4-5.0) gm/dl Globulin 2.4 L (2.5-4.0) gm/dl Albumin/Globulin Ratio 1.2 (0.9-2) Lipase (11-82) U/L Random Cortisol mcg/dl Urine Color Urine Appearance (Clear) Urine pH (4.5-7.5) Ur Specific Tyler (1.000-1.030) Urine Protein (Negative) Urine Glucose (UA) (Negative) Urine Ketones (Negative) Urine Blood (Negative) Urine Nitrite (Negative) Urine Bilirubin (Negative) Urine Urobilinogen (Negative) Ur Leukocyte Esterase (Negative) Urine WBC (Auto) (0-5) /hpf Urine RBC (Auto) (0-4) /hpf U Hyaline Cast (Auto) (0-5) /lpf U Epithel Cells (Auto) (0-5) /lpf Urine Bacteria (Auto) (Negative) Stool Occult Bld Scrn Negative (Negative) SARS-CoV-2, RNA, NAAT (NEGATIVE) Blood Type Blood Type Recheck Antibody Screen Crossmatch (1) Nausea & vomiting Vomiting type: unspecified Qualified Code(s): R11.2 - Nausea with vomiting, unspecified (2) Ventral hernia Obstruction and gangrene presence: without obstruction or gangrene Qualified Code(s): K43.9 - Ventral hernia without obstruction or gangrene
[2022-11-11] MEDS: ATORVASTATIN 40 MG TAB PO SCH (09:17)
[2022-11-11] MEDS: ESCITALOPRAM OXALATE 10 MG TAB PO SCH (09:17)
[2022-11-11] MEDS: FLUTICASONE/VILANTEROL 100/25MCG 14 PUFFS/INHALER INH SCH (09:17)
[2022-11-11] MEDS: NYSTATIN POWDER 15GM BTL EXT SCH ×3 (09:18→20:26)
[2022-11-11] MEDS: MIDODRINE HCL 2.5 MG TAB PO SCH (09:18)
[2022-11-11] MEDS: CARBAMIDE PEROXIDE 6.5% 15 ML BTL OT SCH ×2 (09:19→20:26)
[2022-11-11] MEDS: PANTOprazole 40 MG TAB PO SCH ×2 (09:20→20:29)
--- NOTE | 2022-11-11 09:34 | Gastroenterology Progress Note ---
Date of Service November 11, 2022 Assessment & Plan (1) Acute blood loss anemia: Plan: She seems to be doing well. No further signs of bleeding. No signs of vomiting. I do think she needs her ventral hernia repaired but can be done electively now if we think she will get it done. Probably should have a colonoscopy at some point but should have hernia repaired before then due to the fluid load. Okay with me to discharge when you are ready. Admission and Anticipated Discharge Date Admission Date: November 08, 2022 Subjective Feeling good. Happy that her son is involved in her care. No further bleeding. No vomiting. H/H stable and a little up Physical Exam Physical Exam: she looks well Results & Data Vital Signs (Past 12 Hours) Vital Signs Temp Pulse Pulse Resp BP Pulse Ox O2 Del Method 11/11/22 08:26 67 11/11/22 08:26 Nasal Cannula 11/11/22 08:11 36.4 C L 75 16 152/87 H 93 Nasal Cannula 11/11/22 03:49 36.7 C 73 22 130/72 92 Nasal Cannula 11/11/22 02:11 52 L 11/10/22 23:19 36.4 C L 54 L 20 132/78 94 Nasal Cannula O2 Flow Rate 11/11/22 08:26 11/11/22 08:26 2 11/11/22 08:11 1 11/11/22 03:49 1 11/11/22 02:11 11/10/22 23:19 1
[2022-11-11] MEDS: HYDROCORTISONE SOD 25 MG in SYRINGE 0 ML IV SCH ×4 (12:35→23:49)
[2022-11-11] MEDS: EZETIMIBE 10 MG TABLET PO SCH ×2 (12:36→12:38)
--- NOTE | 2022-11-11 16:25 | Hospitalist Progress Note ---
Date of Service November 11, 2022 Assessment & Plan (1) Nausea & vomiting: (2) Acute blood loss anemia: (3) Ventral hernia: Plan: Past medical history of hypertension, CKD, COPD, anxiety presented to the hospital with nausea and vomiting for 1 day. Patient living with her son prior to presentation. Had nausea on and off for several months to years. Has not seen a doctor for several years. Unknown medical compliance as patient is responsible for her medications. CT abdomen and pelvis on admission personally reviewed; Prominence of the stomach with multiple air-fluid levels and narrowing at the level of the pylorus as it exits from a ventral hernia. This may represent gastric outlet obstruction owing to the ventral hernia. No bowel obstruction is otherwise seen. Discussed with Dr. Cortes from surgery; recommended transfer to tertiary care center for ventral hernia repair. Discussed with Dr. Hernandez from surgery at [place]. Recommended close monitoring and transfer when bed is available. Patient declined placement of NG tube and transfer to tertiary care center. Multiple discussion has been done with the patient; she continues to refuse for now. Her son and sister also tried to convince her; patient continues to refused. On November 10, patient's hemoglobin dropped from 11-7. Digital rectal exam done; no mandi blood. Fecal occult negative Patient transferred to PCU She underwent EGD; no profuse bleeding seen. Esophagitis present Patient refused 1 unit of packed RBC. Discussed with surgery; recommend full liquid diet. Transfer to tertiary care center. Discussed with GI; okay for patient to be discharged. (4) Hypotension: Plan: On November 09 a.m.; patient became hypotensive requiring multiple boluses. Patient had received clonidine 0.3 mg, Coreg 12.5 mg and benazepril 40 mg in the last 12 hours. Lactate obtained multiple times; within normal limits. Patient mentating well. Cortisol obtained which was 13. Cosyntropin test was not able to confirm that patient was not NPO. Empirically started on hydrocortisone 50 mg 3 times daily and midodrine 5 mg 3 times daily. Patient's hemodynamics have improved. Will stop midodrine and decrease hydrocortisone to 25 mg 3 times daily. Plan to wean down the hydrocortisone to 20 mg in a.m. and 10 mg in afternoon. Will need work-up for adrenal sufficiency as outpatient. Continue on IV antibiotic with ciprofloxacin and Flagyl. Will provide 7-day of course if blood culture is negative. Follow-up on blood culture (5) Abnormal CT of the abdomen: Plan: CT abdomen pelvis: Numerous exophytic lesions in the bilateral kidneys, some of which measure greater than simple fluid density. A renal ultrasound or renal mass MRI can be performed to further characterize these findings and exclude renal cell carcinoma Renal ultrasound results reviewed; no hydronephrosis. Multiple bilateral renal cysts. (6) Ambulatory dysfunction: Plan: Sister reports that patient has been in bed for the last 8 months. Currently living with son who has bathroom on second floor which patient is unable to use PT/OT eval (7) Candidiasis: Plan: Sacral wounds Nystatin Wound nurse consult for sacral wounds (8) CKD (chronic kidney disease), stage III: Plan: Creatinine at baseline. Avoid all nephrotoxic drug. (9) COPD (chronic obstructive pulmonary disease): Plan: No signs acute exacerbation Continue home inhaler (10) HTN (hypertension): Plan: Stop antihypertensive due to hypotension. (11) Hypothyroidism: Plan: Continue levothyroxine (12) Anxiety: Plan: Continue escitalopram, buspirone as needed DVT Prophylaxis SCDs Full code Time spent evaluating patient, direct bedside care, chart review, placing orders, interpretation of diagnostic studies, discussion with consultants, patient, and family members, as well as other required patient management activities is 60 minutes Please note the above document was generated using voice recognition software. It may contain grammatical, syntax or spelling errors. Any formal questions or concerns about the content, text or information contained within the body of this dictation should be directly addressed to the provider for clarification Admission and Anticipated Discharge Date Admission Date: November 08, 2022 Subjective Patient seen and examined at bedside. She is comfortably lying in the bed; not in distress. Hemodynamics improved with addition of midodrine and hydrocortisone. Urine output improving as well. Tolerating clear liquid diet without any issues. No nausea vomiting or abdominal pain Review of Systems Review of Systems: All systems reviewed & are unremarkable except as noted in Subjective Physical Exam Physical Exam: Constitutional: Alert, oriented to time place and person. Hard of hearing. Respiratory: normal respiratory effort, lungs clear to auscultation, no wheeze, rales, rhonchi. Normal insp/exp effort, no accessory muscle use Cardiovascular: RRR, no murmur, no edema Vessels: no JVD or carotid bruit Chest: normal inspection of chest Abdomen: Large ventral hernia present, nontender. Musculoskeletal: no cyanosis or clubbing, extremities motor strength 5/5 Skin: no rashes, warm and dry normal turgor Neurologic: PERRL, EOMI, accommodation nl, no face palsy, no dysarthria CN's II- XI intact bilaterally and moves all extremities Psychiatric: A+Ox3, euthymic affect Results & Data Results & Data Vital Signs (Past 12 Hours) Vital Signs Temp Pulse Pulse Resp BP Pulse Ox O2 Del Method 11/11/22 16:00 36.8 C 80 18 119/74 90 Room Air 11/11/22 12:15 36.5 C 58 L 20 150/81 H 91 Room Air 11/11/22 08:26 67 11/11/22 08:26 Nasal Cannula 11/11/22 08:11 36.4 C L 75 16 152/87 H 93 Nasal Cannula O2 Flow Rate 11/11/22 16:00 11/11/22 12:15 11/11/22 08:26 11/11/22 08:26 2 11/11/22 08:11 1 Laboratory Results Laboratory Results WBC 6.50 K/ul (4.8-10.8) 11/11/22 04:24 RBC 3.65 M/uL (4.20-5.40) L 11/11/22 04:24 Hgb 9.5 g/dl (12.0-16.0) L 11/11/22 04:24 Hct 30.5 % (37.0-47.0) L 11/11/22 04:24 MCV 83.6 fL (80.0-100.0) 11/11/22 04:24 MCH 26.0 pg (25.0-34.0) 11/11/22 04:24 MCHC 31.1 g/dL (32.0-36.0) L 11/11/22 04:24 RDW Std Deviation 52.6 fL (36.4-46.3) H 11/11/22 04:24 RDW Coeff of Tip 17.1 % (11.5-14.5) H 11/11/22 04:24 Plt Count 207 K/uL (130-400) 11/11/22 04:24 MPV 9.7 fL (9.4-12.4) 11/11/22 04:24 Immature Gran % (Auto) 1.7 % 11/11/22 04:24 Neut % (Auto) 89.9 % 11/11/22 04:24 Lymph % (Auto) 6.2 % 11/11/22 04:24 Moody % (Auto) 2.0 % 11/11/22 04:24 Eos % (Auto) 0.0 % 11/11/22 04:24 Baso % (Auto) 0.2 % 11/11/22 04:24 Neut # (Auto) 5.85 K/uL (1.40-6.50) 11/11/22 04:24 Lymph # (Auto) 0.40 K/uL (1.2-3.4) L 11/11/22 04:24 Moody # (Auto) 0.13 K/uL (0.11-0.59) 11/11/22 04:24 Eos # (Auto) 0.00 K/uL (0-0.50) 11/11/22 04:24 Baso # (Auto) 0.01 K/uL (0-0.2) 11/11/22 04:24 Immature Gran # (Auto) 0.11 K/uL (0.01-0.20) 11/11/22 04:24 Hypersegmented Neuts 1+ 11/08/22 12:05 Hypochromasia Present 11/10/22 02:11 PT 10.6 Seconds (9.0-12.0) 11/08/22 12:05 INR 1.0 (0.9-1.1) 11/08/22 12:05 Sodium 136 mmol/L (136-145) 11/11/22 04:24 Potassium 3.8 mmol/L (3.5-5.1) 11/11/22 04:24 Chloride 108 mmol/L (98-107) H 11/11/22 04:24 Carbon Dioxide 25 mmol/L (21-32) 11/11/22 04:24 Anion Gap 3 (3-11) 11/11/22 04:24 BUN 24 mg/dl (6-23) H 11/11/22 04:24 Creatinine 1.26 mg/dl (0.6-1.2) H 11/11/22 04:24 Est Cr Clr Drug Dosing 41.6 ml/min 11/11/22 04:24 Est GFR ( Amer) 48.6 ml/min 11/11/22 04:24 Est GFR (Non-Af Amer) 41.9 ml/min 11/11/22 04:24 BUN/Creatinine Ratio 19.0 (10-20) 11/11/22 04:24 Glucose 136 mg/dl (70-99(Fasting)) H 11/11/22 04:24 Lactate 1.4 mmol/L (0.4-2.0) 11/10/22 15:51 Calcium 7.9 mg/dl (8.6-10.3) L 11/11/22 04:24 Magnesium 1.1 mg/dl (1.7-2.4) L 11/10/22 02:11 Total Bilirubin 0.5 mg/dl (0.2-1.0) 11/11/22 04:24 AST 9 U/L (13-39) L 11/11/22 04:24 ALT 6 U/L (7-52) L 11/11/22 04:24 Alkaline Phosphatase 37 U/L (34-104) 11/11/22 04:24 Troponin I High Sens 13.0 pg/ml (0-14) 11/08/22 12:05 Total Protein 5.2 gm/dl (6.0-8.3) L 11/11/22 04:24 Albumin 2.8 gm/dl (3.4-5.0) L 11/11/22 04:24 Globulin 2.4 gm/dl (2.5-4.0) L 11/11/22 04:24 Albumin/Globulin Ratio 1.2 (0.9-2) 11/11/22 04:24 Lipase 80 U/L (11-82) 11/08/22 12:05 Random Cortisol 13.28 mcg/dl 11/09/22 17:11 Urine Color Dark Yellow 11/08/22 12:45 Urine Appearance Clear (Clear) 11/08/22 12:45 Urine pH 5.0 (4.5-7.5) 11/08/22 12:45 Ur Specific [place] 1.025 (1.000-1.030) 11/08/22 12:45 Urine Protein 2+ (Negative) H 11/08/22 12:45 Urine Glucose (UA) Negative (Negative) 11/08/22 12:45 Urine Ketones 1+ (Negative) H 11/08/22 12:45 Urine Blood Negative (Negative) 11/08/22 12:45 Urine Nitrite Negative (Negative) 11/08/22 12:45 Urine Bilirubin Negative (Negative) 11/08/22 12:45 Urine Urobilinogen Negative (Negative) 11/08/22 12:45 Ur Leukocyte Esterase Negative (Negative) 11/08/22 12:45 Urine WBC (Auto) 1-5 /hpf (0-5) 11/08/22 12:45 Urine RBC (Auto) 0-4 /hpf (0-4) 11/08/22 12:45 U Hyaline Cast (Auto) 0 /lpf (0-5) 11/08/22 12:45 U Epithel Cells (Auto) 10-20 /lpf (0-5) H 11/08/22 12:45 Urine Bacteria (Auto) Negative (Negative) 11/08/22 12:45 Stool Occult Bld Scrn Negative (Negative) 11/10/22 Unknown SARS-CoV-2, RNA, NAAT NEGATIVE (NEGATIVE) 11/08/22 12:45 Blood Type A Positive 11/08/22 12:05 Blood Type Recheck A Positive 11/10/22 02:11 Antibody Screen NEGATIVE 11/08/22 12:05 Crossmatch See Detail 11/08/22 12:05 Impressions Abdomen/Pelvis CT 11/08/22 12:44 CT abd pelvis wo con CLINICAL HISTORY: n/v TECHNIQUE: Helical axial images of the abdomen and pelvis were obtained. Automated dose lowering techniques and/or adjustment according to patient size were utilized for this exam. This exam was performed without intravenous contrast. CT DOSE: 948.46 mGy.cm COMPARISON: None available at the time of this dictation. FINDINGS: Lower chest: Bibasilar atelectasis versus scarring is seen. Liver: Unremarkable. No focal lesions are seen. Gallbladder and biliary tree: No calcified gallstones. Normal caliber wall. No intra- or extrahepatic biliary ductal dilation. Pancreas: Unremarkable, no focal lesions. Spleen: Unremarkable. Adrenals: Nodularity of the adrenal glands is noted. Kidneys and ureters: Numerous exophytic lesions are seen, some of which measure greater than simple fluid density. Vascular calcifications are seen. Bladder: Unremarkable. Reproductive organs: Patient is status post hysterectomy. Bowel: Diverticulosis is seen without evidence of diverticulitis. A large portion of bowel loops as well as the stomach lie within a large ventral hernia, however no evidence of bowel obstruction is seen. There is, however, prominence of the stomach with narrowing at the pylorus. Lymph nodes Retroperitoneal: Unremarkable. Pelvic: Unremarkable. Mesenteric: Unremarkable. Peritoneum: Normal. Vessels: Atherosclerotic calcifications are seen. Infrarenal aortic aneurysm measures approximately 3 mm in diameter. Abdominal wall: Large ventral hernia contains multiple loops of bowel. Fat- containing bilateral inguinal hernias are seen. Bones: Unremarkable. IMPRESSION: 1. Prominence of the stomach with multiple air-fluid levels and narrowing at the level of the pylorus as it exits from a ventral hernia. This may represent gastric outlet obstruction owing to the ventral hernia. No bowel obstruction is otherwise seen. Diverticulosis is seen without diverticulitis. 2. Numerous exophytic lesions in the bilateral kidneys, some of which measure greater than simple fluid density. A renal ultrasound or renal mass MRI can be performed to further characterize these findings and exclude renal cell carcinoma. ACT 112: Negative or not required by law. Electronically signed by: Alex Valentine M.D. 11/08/2022 4:21 PM Chest X-Ray 11/08/22 15:45 XR chest 1V portable HISTORY: hypoxia COMPARISON: Chest CTA 01/08/2015. FINDINGS: No pneumothorax. No pleural effusions. There are low lung volumes. The cardiac silhouette remains mildly enlarged. No new focal lung consolidations to suggest a pneumonia. No evidence for pulmonary edema. There are degenerative changes within the bilateral shoulders. IMPRESSION: Mild cardiomegaly. Otherwise, no acute process within the chest. ACT 112: Negative or not required by law. Electronically signed by: Christopher Levy M.D. 11/08/2022 4:32 PM Renal Ultrasound 11/09/22 00:00 RENAL ULTRASOUND HISTORY: Abnormal CT. Follow-up renal cysts. renal cysts COMPARISON: Abdomen and pelvis CT 11/08/2022. FINDINGS: Right kidney: 8.8 cm. Multiple cysts with the largest in the upper pole ryan uring 6.1 cm. No hydronephrosis. Normal corticomedullary differentiation and cortical thickness. Left kidney: 8.5 cm. Multiple cysts with the largest in the upper pole measuring 4.2 cm. No hydronephrosis. Normal corticomedullary differentiation and cortical thickness. Bladder: Decompressed and not well visualized. IMPRESSION: 1. Multiple bilateral renal cysts. 2. No hydronephrosis. 3. The bladder is decompressed and not well visualized. ACT 112: Negative or not required by law. Electronically signed by: Christopher Levy M.D. 11/09/2022 10:35 AM (1) Nausea & vomiting Vomiting type: unspecified Qualified Code(s): R11.2 - Nausea with vomiting, unspecified (3) Ventral hernia Obstruction and gangrene presence: without obstruction or gangrene Qualified Code(s): K43.9 - Ventral hernia without obstruction or gangrene
[2022-11-12 06:34] LABS: Basophils # (auto) 0.02 K/uL (0-0.2); Basophils % (auto) 0.3 %; Eosinophils # (auto) 0.01 K/uL (0-0.50); Eosinophils % (auto) 0.2 %; Hematocrit (blood only) 32.2 % (37.0-47.0); Hemoglobin 10.2 g/dl (12.0-16.0); Immature Granulocytes # (auto) 0.03 K/uL (0.01-0.20); Immature Granulocytes % (auto) 0.5 %; Lymphocytes # (auto) 1.09 K/uL (1.2-3.4); Lymphocytes % (auto) 16.8 %; Mean Corpuscular Hemoglobin 25.8 pg (25.0-34.0); Mean Corpuscular Hgb Conc 31.7 g/dL (32.0-36.0); Mean Corpuscular Volume 81.3 fL (80.0-100.0); Mean Platelet Volume 10.2 fL (9.4-12.4); Monocytes # (auto) 0.22 K/uL (0.11-0.59); Monocytes % (auto) 3.4 %; Neutrophils # (auto) 5.12 K/uL (1.40-6.50); Neutrophils % (auto) 78.8 %; Platelet Count 224 K/uL (130-400); RDW Coefficient of Variation 17.5 % (11.5-14.5); RDW Standard Deviation 51.9 fL (36.4-46.3); Red Blood Count 3.96 M/uL (4.20-5.40); White Blood Count 6.49 K/ul (4.8-10.8)
[2022-11-12] MEDS: LEVOTHYROXINE SODIUM 112 MCG TABLET PO SCH (06:36)
[2022-11-12 06:39] LABS: Calcium 8.3 mg/dl (8.6-10.3); Creatinine Clr Calc Pharmacy 46.8 ml/min; Est GFR (Non-African American) 48.4 ml/min; Potassium 3.3 mmol/L (3.5-5.1)
[2022-11-12] MEDS: FLUTICASONE/VILANTEROL 100/25MCG 14 PUFFS/INHALER INH SCH (09:07)
[2022-11-12] MEDS: PANTOprazole 40 MG TAB PO SCH ×2 (09:07→20:55)
[2022-11-12] MEDS: ESCITALOPRAM OXALATE 10 MG TAB PO SCH (09:07)
[2022-11-12] MEDS: ATORVASTATIN 40 MG TAB PO SCH (09:08)
[2022-11-12] MEDS: CARBAMIDE PEROXIDE 6.5% 15 ML BTL OT SCH ×2 (09:08→20:54)
[2022-11-12] MEDS: NYSTATIN POWDER 15GM BTL EXT SCH ×3 (09:09→20:55)
--- NOTE | 2022-11-12 09:21 | Surgery Progress Note ---
Date of Service November 12, 2022 Assessment & Plan (1) Nausea & vomiting: Plan: assessment: pt is a 72 year-old female with PMH- HTN, cardiomegaly, chest pain, COPD, hypothyroidism, anemia and large ventral hernia. pt presents with one day history nausea and vomiting, vomiting with some blood per- EMS reported. pt has > 10 years history large ventral hernia. pt felt some abdominal pain, but now pt said that she has no abdominal pain, pt denies dizziness, no fever, no diarrhea. pt had CT scan at ER - IMPRESSION: 1. Prominence of the stomach with multiple air-fluid levels and narrowing at the level of the pylorus as it exits from a ventral hernia. This may represent gastric outlet obstruction owing to the ventral hernia. No bowel obstruction is otherwise seen. Diverticulosis is seen without diverticulitis. 2. Numerous exophytic lesions in the bilateral kidneys, some of which measure greater than simple fluid density. A renal ultrasound or renal mass MRI can be performed to further characterize these findings and exclude renal cell carcinoma. ADDENDUM A 19 mm focus of fat necrosis is noted in the mesentery contained within the ventral hernia. IM: nausea, vomiting, possible pylorus narrow, large ventral hernia. plan, based on H/P, labs and CT scan, no signs for incarcerated ventral hernia, conservative treatment now, NPO, IV fluid, may start cipro + flagyl for high WBC, consult GI for EGD to R/O upper GI bleeding and pylorus stenosis. repeat labs in morning. out-patient for large ventral hernia surgery by special hernia surgeon. will F/U. D/W hospitalist. 11/09/2022 12:[address] Sebastian Franz/Isidro large ventral hernia, pt is doing better, passed some gas, no nausea and vomiting, based on large ventral hernia, recommend to transfer to higher level care , need speciality hernia surgeon for pt's hernia repair. keep NPO now. ice chip and po meds okay. will F/U, 11/10/2022 9:01 AM , DR. Sebastian Franz/Isidro large ventral hernia. no incarcerated hernia signs, no emergent surgery indication now, passed BM. low BP 81/46, but pt feels comfortable. recommend blood transfusion, possible 2 units RBC, check H/H after first blood transfusion. need to R/O Upper GI bleed, per GI doctor. pt agreed with transfusion. please correct low MG may consult casting technician for 2-D echo once pt is stable , recommend to transfer to higher level care , need speciality hernia surgeon for pt's hernia repair. D/W hospitalist will F/U 11/10/2022 3:[address] Cortes pt just had EGD, EGD finding- esophagitis, and scope passed pylorus. no abdominal pain, still low bp 76/52, HR 60, RR 18, T 36.5, o2sat 97% NC clear diet today, pt needs blood transfusions D/W Hospitalist, pt will have 2 units RBC, repeat labs in morning, will F/U 11/11/2022 7:47 AM, Dr. Cortes after 2 units RBC, BP 130/72, for large ventral hernia, recommend to transfer to higher level care , need speciality hernia surgeon for pt's hernia repair. otherwise pt will develop bowel obstruction. will F/U 11/12/2022 9:19 AM, Dr. Cortes tolerated clear diet, no nausea, no vomiting. no abdominal pain. full liquid diet for large ventral hernia, recommend to transfer to higher level care , need speciality hernia surgeon for pt's hernia repair. otherwise pt will develop bowel obstruction. sign off today, please call with questions, Thanks. (2) Ventral hernia: Admission and Anticipated Discharge Date Admission Date: November 08, 2022 Subjective Patient seen and examined at bedside. She is comfortably lying in the bed; not in distress. Hemodynamics improved with addition of midodrine and hydrocortisone. Urine output improving as well. Tolerating clear liquid diet without any issues. No nausea vomiting or abdominal pain 11/12/2022 9:16 AM, DR. Cortes pt is stable, no abdominal pain, tolerated clear diet, no nausea, no vomiting. Review of Systems Constitutional: as per Subjective / HPI no distress Eyes: as per Subjective / HPI Respiratory: as per Subjective / HPI COPD Cardiovascular: Additional Comments: HTN, cardiomegaly, chest pain, hyperlipidemia Gastrointestinal: large ventral hernia, nausea and vomiting, Genitourinary: as per Subjective / HPI Neurologic: as per Subjective / HPI Psychiatric: as per Subjective / HPI Endocrine: hypothyroidism Hematologic / Lymphatic: anemia Physical Exam Constitutional: WD/WN, vitals as above Eyes: PERRL, conjunctivae normal, anicteric sclerae Neck: trachea midline, no thyromegaly Respiratory: normal respiratory effort, lungs clear to auscultation Cardiovascular: RRR, no murmur, no edema Gastrointestinal (Abdomen): large ventral hernia, soft, NT, ND, BS +. Neurologic: patellar DTR's 2+ bilat, sensation intact Psychiatric: A+Ox3, euthymic affect Results & Data Vital Signs (Past 12 Hours) Vital Signs Temp Pulse Pulse Resp BP Pulse Ox O2 Del Method 11/12/22 08:25 36.7 C 83 18 185/95 H 90 Room Air 11/12/22 08:25 Nasal Cannula 11/12/22 08:21 69 11/12/22 03:23 36.4 C L 83 16 164/99 H 92 Room Air 11/11/22 23:35 67 11/11/22 23:13 36.5 C 62 19 168/91 H 91 Room Air O2 Flow Rate 11/12/22 08:25 11/12/22 08:25 2 11/12/22 08:21 11/12/22 03:23 11/11/22 23:35 11/11/22 23:13 Laboratory Results Lab Results 11/08/22 11/08/22 11/08/22 Range/Units 12:05 12:05 12:05 WBC 11.58 H (4.8-10.8) K/ul RBC 4.63 (4.20-5.40) M/uL Hgb 11.4 L (12.0-16.0) g/dl Hct 37.3 (37.0-47.0) % MCV 80.6 (80.0-100.0) fL MCH 24.6 L (25.0-34.0) pg MCHC 30.6 L (32.0-36.0) g/dL RDW Std Deviation 48.5 H (36.4-46.3) fL RDW Coeff of Tip 16.6 H (11.5-14.5) % Plt Count 363 (130-400) K/uL MPV 9.4 (9.4-12.4) fL Immature Gran % (Auto) 0.4 % Neut % (Auto) 90.1 % Lymph % (Auto) 7.1 % [place] % (Auto) 2.0 % Eos % (Auto) 0.2 % Baso % (Auto) 0.2 % Neut # (Auto) 10.44 H (1.40-6.50) K/uL Lymph # (Auto) 0.82 L (1.2-3.4) K/uL [place] # (Auto) 0.23 (0.11-0.59) K/uL Eos # (Auto) 0.02 (0-0.50) K/uL Baso # (Auto) 0.02 (0-0.2) K/uL Immature Gran # (Auto) 0.05 (0.01-0.20) K/uL Hypersegmented Neuts 1+ Hypochromasia PT 10.6 (9.0-12.0) Seconds INR 1.0 (0.9-1.1) Sodium (136-145) mmol/L Potassium (3.5-5.1) mmol/L Chloride (98-107) mmol/L Carbon Dioxide (21-32) mmol/L Anion Gap (3-11) BUN (6-23) mg/dl Creatinine (0.6-1.2) mg/dl Est Cr Clr Drug Dosing ml/min Est GFR ( Amer) ml/min Est GFR (Non-Af Amer) ml/min BUN/Creatinine Ratio (10-20) Glucose (70-99(Fasting)) mg/dl Lactate (0.4-2.0) mmol/L Calcium (8.6-10.3) mg/dl Magnesium (1.7-2.4) mg/dl Total Bilirubin (0.2-1.0) mg/dl AST (13-39) U/L ALT (7-52) U/L Alkaline Phosphatase (34-104) U/L Troponin I High Sens (0-14) pg/ml Total Protein (6.0-8.3) gm/dl Albumin (3.4-5.0) gm/dl Globulin (2.5-4.0) gm/dl Albumin/Globulin Ratio (0.9-2) Lipase (11-82) U/L Random Cortisol mcg/dl Urine Color Urine Appearance (Clear) Urine pH (4.5-7.5) Ur Specific [place] (1.000-1.030) Urine Protein (Negative) Urine Glucose (UA) (Negative) Urine Ketones (Negative) Urine Blood (Negative) Urine Nitrite (Negative) Urine Bilirubin (Negative) Urine Urobilinogen (Negative) Ur Leukocyte Esterase (Negative) Urine WBC (Auto) (0-5) /hpf Urine RBC (Auto) (0-4) /hpf U Hyaline Cast (Auto) (0-5) /lpf U Epithel Cells (Auto) (0-5) /lpf Urine Bacteria (Auto) (Negative) Stool Occult Bld Scrn (Negative) SARS-CoV-2, RNA, NAAT (NEGATIVE) Blood Type A Positive Blood Type Recheck Antibody Screen NEGATIVE Crossmatch See Detail 11/08/22 11/08/22 11/08/22 Range/Units 12:05 12:45 12:45 WBC (4.8-10.8) K/ul RBC (4.20-5.40) M/uL Hgb (12.0-16.0) g/dl Hct (37.0-47.0) % MCV (80.0-100.0) fL MCH (25.0-34.0) pg MCHC (32.0-36.0) g/dL RDW Std Deviation (36.4-46.3) fL RDW Coeff of Tip (11.5-14.5) % Plt Count (130-400) K/uL MPV (9.4-12.4) fL Immature Gran % (Auto) % Neut % (Auto) % Lymph % (Auto) % [place] % (Auto) % Eos % (Auto) % Baso % (Auto) % Neut # (Auto) (1.40-6.50) K/uL Lymph # (Auto) (1.2-3.4) K/uL [place] # (Auto) (0.11-0.59) K/uL Eos # (Auto) (0-0.50) K/uL Baso # (Auto) (0-0.2) K/uL Immature Gran # (Auto) (0.01-0.20) K/uL Hypersegmented Neuts Hypochromasia PT (9.0-12.0) Seconds INR (0.9-1.1) Sodium 140 (136-145) mmol/L Potassium 4.2 (3.5-5.1) mmol/L Chloride 98 (98-107) mmol/L Carbon Dioxide 31 (21-32) mmol/L Anion Gap 11 (3-11) BUN 44 H (6-23) mg/dl Creatinine 1.50 H (0.6-1.2) mg/dl Est Cr Clr Drug Dosing 30.8 ml/min Est GFR ( Amer) 39.4 ml/min Est GFR (Non-Af Amer) 34.0 ml/min BUN/Creatinine Ratio 29.3 H (10-20) Glucose 132 H (70-99(Fasting)) mg/dl Lactate (0.4-2.0) mmol/L Calcium 9.4 (8.6-10.3) mg/dl Magnesium (1.7-2.4) mg/dl Total Bilirubin 0.8 (0.2-1.0) mg/dl AST 12 L (13-39) U/L ALT 7 (7-52) U/L Alkaline Phosphatase 59 (34-104) U/L Troponin I High Sens 13.0 (0-14) pg/ml Total Protein 7.3 (6.0-8.3) gm/dl Albumin 4.0 (3.4-5.0) gm/dl Globulin 3.3 (2.5-4.0) gm/dl Albumin/Globulin Ratio 1.2 (0.9-2) Lipase 80 (11-82) U/L Random Cortisol mcg/dl Urine Color Dark Yellow Urine Appearance Clear (Clear) Urine pH 5.0 (4.5-7.5) Ur Specific [place] 1.025 (1.000-1.030) Urine Protein 2+ H (Negative) Urine Glucose (UA) Negative (Negative) Urine Ketones 1+ H (Negative) Urine Blood Negative (Negative) Urine Nitrite Negative (Negative) Urine Bilirubin Negative (Negative) Urine Urobilinogen Negative (Negative) Ur Leukocyte Esterase Negative (Negative) Urine WBC (Auto) 1-5 (0-5) /hpf Urine RBC (Auto) 0-4 (0-4) /hpf U Hyaline Cast (Auto) 0 (0-5) /lpf U Epithel Cells (Auto) 10-20 H (0-5) /lpf Urine Bacteria (Auto) Negative (Negative) Stool Occult Bld Scrn (Negative) SARS-CoV-2, RNA, NAAT NEGATIVE (NEGATIVE) Blood Type Blood Type Recheck Antibody Screen Crossmatch 11/09/22 11/09/22 11/09/22 Range/Units 06:09 06:09 14:08 WBC 9.04 (4.8-10.8) K/ul RBC 3.62 L (4.20-5.40) M/uL Hgb 9.0 L (12.0-16.0) g/dl Hct 29.2 L (37.0-47.0) % MCV 80.7 (80.0-100.0) fL MCH 24.9 L (25.0-34.0) pg MCHC 30.8 L (32.0-36.0) g/dL RDW Std Deviation 49.5 H (36.4-46.3) fL RDW Coeff of Tip 16.7 H (11.5-14.5) % Plt Count 246 (130-400) K/uL MPV 9.4 (9.4-12.4) fL Immature Gran % (Auto) 0.4 % Neut % (Auto) 81.1 % Lymph % (Auto) 12.9 % [place] % (Auto) 5.0 % Eos % (Auto) 0.4 % Baso % (Auto) 0.2 % Neut # (Auto) 7.32 H (1.40-6.50) K/uL Lymph # (Auto) 1.17 L (1.2-3.4) K/uL [place] # (Auto) 0.45 (0.11-0.59) K/uL Eos # (Auto) 0.04 (0-0.50) K/uL Baso # (Auto) 0.02 (0-0.2) K/uL Immature Gran # (Auto) 0.04 (0.01-0.20) K/uL Hypersegmented Neuts Hypochromasia PT (9.0-12.0) Seconds INR (0.9-1.1) Sodium 141 (136-145) mmol/L Potassium 3.8 (3.5-5.1) mmol/L Chloride 102 (98-107) mmol/L Carbon Dioxide 32 (21-32) mmol/L Anion Gap 7 (3-11) BUN 38 H (6-23) mg/dl Creatinine 1.45 H (0.6-1.2) mg/dl Est Cr Clr Drug Dosing 34.8 ml/min Est GFR ( Amer) 41.0 ml/min Est GFR (Non-Af Amer) 35.4 ml/min BUN/Creatinine Ratio 26.2 H (10-20) Glucose 97 (70-99(Fasting)) mg/dl Lactate 1.0 (0.4-2.0) mmol/L Calcium 8.7 (8.6-10.3) mg/dl Magnesium (1.7-2.4) mg/dl Total Bilirubin (0.2-1.0) mg/dl AST (13-39) U/L ALT (7-52) U/L Alkaline Phosphatase (34-104) U/L Troponin I High Sens (0-14) pg/ml Total Protein (6.0-8.3) gm/dl Albumin (3.4-5.0) gm/dl Globulin (2.5-4.0) gm/dl Albumin/Globulin Ratio (0.9-2) Lipase (11-82) U/L Random Cortisol mcg/dl Urine Color Urine Appearance (Clear) Urine pH (4.5-7.5) Ur Specific [place] (1.000-1.030) Urine Protein (Negative) Urine Glucose (UA) (Negative) Urine Ketones (Negative) Urine Blood (Negative) Urine Nitrite (Negative) Urine Bilirubin (Negative) Urine Urobilinogen (Negative) Ur Leukocyte Esterase (Negative) Urine WBC (Auto) (0-5) /hpf Urine RBC (Auto) (0-4) /hpf U Hyaline Cast (Auto) (0-5) /lpf U Epithel Cells (Auto) (0-5) /lpf Urine Bacteria (Auto) (Negative) Stool Occult Bld Scrn (Negative) SARS-CoV-2, RNA, NAAT (NEGATIVE) Blood Type Blood Type Recheck Antibody Screen Crossmatch 11/09/22 11/09/22 11/10/22 Range/Units 17:11 20:22 02:11 WBC 5.12 (4.8-10.8) K/ul RBC 2.89 L (4.20-5.40) M/uL Hgb 7.3 L (12.0-16.0) g/dl Hct 24.3 L (37.0-47.0) % MCV 84.1 (80.0-100.0) fL MCH 25.3 (25.0-34.0) pg MCHC 30.0 L (32.0-36.0) g/dL RDW Std Deviation 52.0 H (36.4-46.3) fL RDW Coeff of Tip 16.9 H (11.5-14.5) % Plt Count 169 (130-400) K/uL MPV 9.4 (9.4-12.4) fL Immature Gran % (Auto) 0.4 % Neut % (Auto) 72.0 % Lymph % (Auto) 20.9 % [place] % (Auto) 4.7 % Eos % (Auto) 1.8 % Baso % (Auto) 0.2 % Neut # (Auto) 3.69 (1.40-6.50) K/uL Lymph # (Auto) 1.07 L (1.2-3.4) K/uL [place] # (Auto) 0.24 (0.11-0.59) K/uL Eos # (Auto) 0.09 (0-0.50) K/uL Baso # (Auto) 0.01 (0-0.2) K/uL Immature Gran # (Auto) 0.02 (0.01-0.20) K/uL Hypersegmented Neuts Hypochromasia Present PT (9.0-12.0) Seconds INR (0.9-1.1) Sodium (136-145) mmol/L Potassium (3.5-5.1) mmol/L Chloride (98-107) mmol/L Carbon Dioxide (21-32) mmol/L Anion Gap (3-11) BUN (6-23) mg/dl Creatinine (0.6-1.2) mg/dl Est Cr Clr Drug Dosing ml/min Est GFR ( Amer) ml/min Est GFR (Non-Af Amer) ml/min BUN/Creatinine Ratio (10-20) Glucose (70-99(Fasting)) mg/dl Lactate 1.8 (0.4-2.0) mmol/L Calcium (8.6-10.3) mg/dl Magnesium (1.7-2.4) mg/dl Total Bilirubin (0.2-1.0) mg/dl AST (13-39) U/L ALT (7-52) U/L Alkaline Phosphatase (34-104) U/L Troponin I High Sens (0-14) pg/ml Total Protein (6.0-8.3) gm/dl Albumin (3.4-5.0) gm/dl Globulin (2.5-4.0) gm/dl Albumin/Globulin Ratio (0.9-2) Lipase (11-82) U/L Random Cortisol 13.28 mcg/dl Urine Color Urine Appearance (Clear) Urine pH (4.5-7.5) Ur Specific [place] (1.000-1.030) Urine Protein (Negative) Urine Glucose (UA) (Negative) Urine Ketones (Negative) Urine Blood (Negative) Urine Nitrite (Negative) Urine Bilirubin (Negative) Urine Urobilinogen (Negative) Ur Leukocyte Esterase (Negative) Urine WBC (Auto) (0-5) /hpf Urine RBC (Auto) (0-4) /hpf U Hyaline Cast (Auto) (0-5) /lpf U Epithel Cells (Auto) (0-5) /lpf Urine Bacteria (Auto) (Negative) Stool Occult Bld Scrn (Negative) SARS-CoV-2, RNA, NAAT (NEGATIVE) Blood Type Blood Type Recheck Antibody Screen Crossmatch 11/10/22 11/10/22 11/10/22 Range/Units 02:11 02:11 02:11 WBC (4.8-10.8) K/ul RBC (4.20-5.40) M/uL Hgb (12.0-16.0) g/dl Hct (37.0-47.0) % MCV (80.0-100.0) fL MCH (25.0-34.0) pg MCHC (32.0-36.0) g/dL RDW Std Deviation (36.4-46.3) fL RDW Coeff of Tip (11.5-14.5) % Plt Count (130-400) K/uL MPV (9.4-12.4) fL Immature Gran % (Auto) % Neut % (Auto) % Lymph % (Auto) % [place] % (Auto) % Eos % (Auto) % Baso % (Auto) % Neut # (Auto) (1.40-6.50) K/uL Lymph # (Auto) (1.2-3.4) K/uL [place] # (Auto) (0.11-0.59) K/uL Eos # (Auto) (0-0.50) K/uL Baso # (Auto) (0-0.2) K/uL Immature Gran # (Auto) (0.01-0.20) K/uL Hypersegmented Neuts Hypochromasia PT (9.0-12.0) Seconds INR (0.9-1.1) Sodium 135 L (136-145) mmol/L Potassium 3.6 (3.5-5.1) mmol/L Chloride 106 (98-107) mmol/L Carbon Dioxide 28 (21-32) mmol/L Anion Gap 1 L (3-11) BUN 35 H (6-23) mg/dl Creatinine 1.49 H (0.6-1.2) mg/dl Est Cr Clr Drug Dosing 33.9 ml/min Est GFR ( Amer) 39.7 ml/min Est GFR (Non-Af Amer) 34.2 ml/min BUN/Creatinine Ratio 23.5 H (10-20) Glucose 98 (70-99(Fasting)) mg/dl Lactate 0.6 (0.4-2.0) mmol/L Calcium 7.3 L (8.6-10.3) mg/dl Magnesium 1.1 L (1.7-2.4) mg/dl Total Bilirubin 0.4 (0.2-1.0) mg/dl AST 8 L (13-39) U/L ALT 5 L (7-52) U/L Alkaline Phosphatase 32 L (34-104) U/L Troponin I High Sens (0-14) pg/ml Total Protein 4.6 L D (6.0-8.3) gm/dl Albumin 2.6 L (3.4-5.0) gm/dl Globulin 2.0 L (2.5-4.0) gm/dl Albumin/Globulin Ratio 1.3 (0.9-2) Lipase (11-82) U/L Random Cortisol mcg/dl Urine Color Urine Appearance (Clear) Urine pH (4.5-7.5) Ur Specific [place] (1.000-1.030) Urine Protein (Negative) Urine Glucose (UA) (Negative) Urine Ketones (Negative) Urine Blood (Negative) Urine Nitrite (Negative) Urine Bilirubin (Negative) Urine Urobilinogen (Negative) Ur Leukocyte Esterase (Negative) Urine WBC (Auto) (0-5) /hpf Urine RBC (Auto) (0-4) /hpf U Hyaline Cast (Auto) (0-5) /lpf U Epithel Cells (Auto) (0-5) /lpf Urine Bacteria (Auto) (Negative) Stool Occult Bld Scrn (Negative) SARS-CoV-2, RNA, NAAT (NEGATIVE) Blood Type Blood Type Recheck A Positive Antibody Screen Crossmatch 11/10/22 11/10/22 11/10/22 Range/Units 07:48 15:39 15:51 WBC 5.35 (4.8-10.8) K/ul RBC 3.20 L (4.20-5.40) M/uL Hgb 7.5 L 8.3 L (12.0-16.0) g/dl Hct 25.3 L 27.9 L (37.0-47.0) % MCV 87.2 (80.0-100.0) fL MCH 25.9 (25.0-34.0) pg MCHC 29.7 L (32.0-36.0) g/dL RDW Std Deviation 55.2 H (36.4-46.3) fL RDW Coeff of Tip 17.2 H (11.5-14.5) % Plt Count 170 (130-400) K/uL MPV 9.4 (9.4-12.4) fL Immature Gran % (Auto) 0.4 % Neut % (Auto) 80.2 % Lymph % (Auto) 13.6 % [place] % (Auto) 4.9 % Eos % (Auto) 0.7 % Baso % (Auto) 0.2 % Neut # (Auto) 4.29 (1.40-6.50) K/uL Lymph # (Auto) 0.73 L (1.2-3.4) K/uL [place] # (Auto) 0.26 (0.11-0.59) K/uL Eos # (Auto) 0.04 (0-0.50) K/uL Baso # (Auto) 0.01 (0-0.2) K/uL Immature Gran # (Auto) 0.02 (0.01-0.20) K/uL Hypersegmented Neuts Hypochromasia PT (9.0-12.0) Seconds INR (0.9-1.1) Sodium (136-145) mmol/L Potassium (3.5-5.1) mmol/L Chloride (98-107) mmol/L Carbon Dioxide (21-32) mmol/L Anion Gap (3-11) BUN (6-23) mg/dl Creatinine (0.6-1.2) mg/dl Est Cr Clr Drug Dosing ml/min Est GFR ( Amer) ml/min Est GFR (Non-Af Amer) ml/min BUN/Creatinine Ratio (10-20) Glucose (70-99(Fasting)) mg/dl Lactate 1.4 (0.4-2.0) mmol/L Calcium (8.6-10.3) mg/dl Magnesium (1.7-2.4) mg/dl Total Bilirubin (0.2-1.0) mg/dl AST (13-39) U/L ALT (7-52) U/L Alkaline Phosphatase (34-104) U/L Troponin I High Sens (0-14) pg/ml Total Protein (6.0-8.3) gm/dl Albumin (3.4-5.0) gm/dl Globulin (2.5-4.0) gm/dl Albumin/Globulin Ratio (0.9-2) Lipase (11-82) U/L Random Cortisol mcg/dl Urine Color Urine Appearance (Clear) Urine pH (4.5-7.5) Ur Specific [place] (1.000-1.030) Urine Protein (Negative) Urine Glucose (UA) (Negative) Urine Ketones (Negative) Urine Blood (Negative) Urine Nitrite (Negative) Urine Bilirubin (Negative) Urine Urobilinogen (Negative) Ur Leukocyte Esterase (Negative) Urine WBC (Auto) (0-5) /hpf Urine RBC (Auto) (0-4) /hpf U Hyaline Cast (Auto) (0-5) /lpf U Epithel Cells (Auto) (0-5) /lpf Urine Bacteria (Auto) (Negative) Stool Occult Bld Scrn (Negative) SARS-CoV-2, RNA, NAAT (NEGATIVE) Blood Type Blood Type Recheck Antibody Screen Crossmatch 11/10/22 11/11/22 11/11/22 Range/Units Unknown 04:24 04:24 WBC 6.50 (4.8-10.8) K/ul RBC 3.65 L (4.20-5.40) M/uL Hgb 9.5 L (12.0-16.0) g/dl Hct 30.5 L (37.0-47.0) % MCV 83.6 (80.0-100.0) fL MCH 26.0 (25.0-34.0) pg MCHC 31.1 L (32.0-36.0) g/dL RDW Std Deviation 52.6 H (36.4-46.3) fL RDW Coeff of Tip 17.1 H (11.5-14.5) % Plt Count 207 (130-400) K/uL MPV 9.7 (9.4-12.4) fL Immature Gran % (Auto) 1.7 % Neut % (Auto) 89.9 % Lymph % (Auto) 6.2 % [place] % (Auto) 2.0 % Eos % (Auto) 0.0 % Baso % (Auto) 0.2 % Neut # (Auto) 5.85 (1.40-6.50) K/uL Lymph # (Auto) 0.40 L (1.2-3.4) K/uL [place] # (Auto) 0.13 (0.11-0.59) K/uL Eos # (Auto) 0.00 (0-0.50) K/uL Baso # (Auto) 0.01 (0-0.2) K/uL Immature Gran # (Auto) 0.11 (0.01-0.20) K/uL Hypersegmented Neuts Hypochromasia PT (9.0-12.0) Seconds INR (0.9-1.1) Sodium 136 (136-145) mmol/L Potassium 3.8 (3.5-5.1) mmol/L Chloride 108 H (98-107) mmol/L Carbon Dioxide 25 (21-32) mmol/L Anion Gap 3 (3-11) BUN 24 H (6-23) mg/dl Creatinine 1.26 H (0.6-1.2) mg/dl Est Cr Clr Drug Dosing 41.6 ml/min Est GFR ( Amer) 48.6 ml/min Est GFR (Non-Af Amer) 41.9 ml/min BUN/Creatinine Ratio 19.0 (10-20) Glucose 136 H (70-99(Fasting)) mg/dl Lactate (0.4-2.0) mmol/L Calcium 7.9 L (8.6-10.3) mg/dl Magnesium (1.7-2.4) mg/dl Total Bilirubin 0.5 (0.2-1.0) mg/dl AST 9 L (13-39) U/L ALT 6 L (7-52) U/L Alkaline Phosphatase 37 (34-104) U/L Troponin I High Sens (0-14) pg/ml Total Protein 5.2 L (6.0-8.3) gm/dl Albumin 2.8 L (3.4-5.0) gm/dl Globulin 2.4 L (2.5-4.0) gm/dl Albumin/Globulin Ratio 1.2 (0.9-2) Lipase (11-82) U/L Random Cortisol mcg/dl Urine Color Urine Appearance (Clear) Urine pH (4.5-7.5) Ur Specific [place] (1.000-1.030) Urine Protein (Negative) Urine Glucose (UA) (Negative) Urine Ketones (Negative) Urine Blood (Negative) Urine Nitrite (Negative) Urine Bilirubin (Negative) Urine Urobilinogen (Negative) Ur Leukocyte Esterase (Negative) Urine WBC (Auto) (0-5) /hpf Urine RBC (Auto) (0-4) /hpf U Hyaline Cast (Auto) (0-5) /lpf U Epithel Cells (Auto) (0-5) /lpf Urine Bacteria (Auto) (Negative) Stool Occult Bld Scrn Negative (Negative) SARS-CoV-2, RNA, NAAT (NEGATIVE) Blood Type Blood Type Recheck Antibody Screen Crossmatch 11/12/22 11/12/22 Range/Units 05:45 05:45 WBC 6.49 (4.8-10.8) K/ul RBC 3.96 L (4.20-5.40) M/uL Hgb 10.2 L (12.0-16.0) g/dl Hct 32.2 L (37.0-47.0) % MCV 81.3 (80.0-100.0) fL MCH 25.8 (25.0-34.0) pg MCHC 31.7 L (32.0-36.0) g/dL RDW Std Deviation 51.9 H (36.4-46.3) fL RDW Coeff of Tip 17.5 H (11.5-14.5) % Plt Count 224 (130-400) K/uL MPV 10.2 (9.4-12.4) fL Immature Gran % (Auto) 0.5 % Neut % (Auto) 78.8 % Lymph % (Auto) 16.8 % [place] % (Auto) 3.4 % Eos % (Auto) 0.2 % Baso % (Auto) 0.3 % Neut # (Auto) 5.12 (1.40-6.50) K/uL Lymph # (Auto) 1.09 L (1.2-3.4) K/uL [place] # (Auto) 0.22 (0.11-0.59) K/uL Eos # (Auto) 0.01 (0-0.50) K/uL Baso # (Auto) 0.02 (0-0.2) K/uL Immature Gran # (Auto) 0.03 (0.01-0.20) K/uL Hypersegmented Neuts Hypochromasia PT (9.0-12.0) Seconds INR (0.9-1.1) Sodium 138 (136-145) mmol/L Potassium 3.3 L (3.5-5.1) mmol/L Chloride 108 H (98-107) mmol/L Carbon Dioxide 25 (21-32) mmol/L Anion Gap 5 (3-11) BUN 19 (6-23) mg/dl Creatinine 1.12 (0.6-1.2) mg/dl Est Cr Clr Drug Dosing 46.8 ml/min Est GFR ( Amer) 56.0 ml/min Est GFR (Non-Af Amer) 48.4 ml/min BUN/Creatinine Ratio 17.0 (10-20) Glucose 94 (70-99(Fasting)) mg/dl Lactate (0.4-2.0) mmol/L Calcium 8.3 L (8.6-10.3) mg/dl Magnesium (1.7-2.4) mg/dl Total Bilirubin (0.2-1.0) mg/dl AST (13-39) U/L ALT (7-52) U/L Alkaline Phosphatase (34-104) U/L Troponin I High Sens (0-14) pg/ml Total Protein (6.0-8.3) gm/dl Albumin (3.4-5.0) gm/dl Globulin (2.5-4.0) gm/dl Albumin/Globulin Ratio (0.9-2) Lipase (11-82) U/L Random Cortisol mcg/dl Urine Color Urine Appearance (Clear) Urine pH (4.5-7.5) Ur Specific [place] (1.000-1.030) Urine Protein (Negative) Urine Glucose (UA) (Negative) Urine Ketones (Negative) Urine Blood (Negative) Urine Nitrite (Negative) Urine Bilirubin (Negative) Urine Urobilinogen (Negative) Ur Leukocyte Esterase (Negative) Urine WBC (Auto) (0-5) /hpf Urine RBC (Auto) (0-4) /hpf U Hyaline Cast (Auto) (0-5) /lpf U Epithel Cells (Auto) (0-5) /lpf Urine Bacteria (Auto) (Negative) Stool Occult Bld Scrn (Negative) SARS-CoV-2, RNA, NAAT (NEGATIVE) Blood Type Blood Type Recheck Antibody Screen Crossmatch (1) Nausea & vomiting Vomiting type: unspecified Qualified Code(s): R11.2 - Nausea with vomiting, unspecified (2) Ventral hernia Obstruction and gangrene presence: without obstruction or gangrene Qualified Code(s): K43.9 - Ventral hernia without obstruction or gangrene
[2022-11-12] MEDS ORDERED: MAGNESIUM HYDROXIDE SUSP 30 ML UDC PO ONE (09:28)
[2022-11-12] MEDS ORDERED: MAGNESIUM HYDROXIDE SUSP 30 ML UDC ONE (13:09)
[2022-11-12] MEDS: EZETIMIBE 10 MG TABLET PO SCH (13:11)
--- NOTE | 2022-11-12 17:39 | Hospitalist Progress Note ---
Date of Service November 12, 2022 Assessment & Plan (1) Nausea & vomiting: (2) Acute blood loss anemia: (3) Ventral hernia: Plan: Past medical history of hypertension, CKD, COPD, anxiety presented to the hospital with nausea and vomiting for 1 day. Patient living with her son prior to presentation. Had nausea on and off for several months to years. Has not seen a doctor for several years. Unknown medical compliance as patient is responsible for her medications. CT abdomen and pelvis on admission personally reviewed; Prominence of the stomach with multiple air-fluid levels and narrowing at the level of the pylorus as it exits from a ventral hernia. This may represent gastric outlet obstruction owing to the ventral hernia. No bowel obstruction is otherwise seen. Discussed with Dr. Cortes from surgery; recommended transfer to tertiary care center for ventral hernia repair. Patient declined transfer to tertiary care center initially. multiple discussion has been done with the patient by me and family. Patient refused to initially but later agreed on November 12. On November 10, patient's hemoglobin dropped from 11-7. Digital rectal exam done; no mandi blood. Fecal occult negative Patient transferred to PCU She underwent EGD; no profuse bleeding seen. Esophagitis present Patient transfused 1 unit of packed RBC. (4) Hypotension: Plan: On November 09 a.m.; patient became hypotensive requiring multiple boluses. Patient had received clonidine 0.3 mg, Coreg 12.5 mg and benazepril 40 mg in the last 12 hours. Lactate obtained multiple times; within normal limits. Patient mentating well. Cortisol obtained which was 13. Cosyntropin test was not able to confirm that patient was not NPO. Empirically started on hydrocortisone 50 mg 3 times daily and midodrine 5 mg 3 times daily. Patient's hemodynamics have improved. Stop hydrocortisone and midodrine. Continue on IV antibiotic with ciprofloxacin and Flagyl. Will provide 7-day of course if blood culture is negative. (5) Abnormal CT of the abdomen: Plan: CT abdomen pelvis: Numerous exophytic lesions in the bilateral kidneys, some of which measure greater than simple fluid density. A renal ultrasound or renal mass MRI can be performed to further characterize these findings and exclude renal cell carcinoma Renal ultrasound results reviewed; no hydronephrosis. Multiple bilateral renal cysts. (6) Ambulatory dysfunction: Plan: Sister reports that patient has been in bed for the last 8 months. Currently living with son who has bathroom on second floor which patient is unable to use PT/OT eval (7) Candidiasis: Plan: Sacral wounds Nystatin Wound nurse consult for sacral wounds (8) CKD (chronic kidney disease), stage III: Plan: Creatinine at baseline. Avoid all nephrotoxic drug. (9) COPD (chronic obstructive pulmonary disease): Plan: No signs acute exacerbation Continue home inhaler (10) HTN (hypertension): Plan: Stop antihypertensive due to hypotension. Will resume antihypertensive gradually patient continues to be hypertensive. (11) Hypothyroidism: Plan: Continue levothyroxine (12) Anxiety: Plan: Continue escitalopram, buspirone as needed DVT Prophylaxis SCDs Full code Disposition; patient accepted at [facility] under Dr. Armas (Surgical center) given the large hiatal hernia. Awaiting bed placement. Time spent evaluating patient, direct bedside care, chart review, placing orders, interpretation of diagnostic studies, discussion with consultants, patient, and family members, as well as other required patient management activities is 90 minutes Please note the above document was generated using voice recognition software. It may contain grammatical, syntax or spelling errors. Any formal questions or concerns about the content, text or information contained within the body of this dictation should be directly addressed to the provider for clarification Admission and Anticipated Discharge Date Admission Date: November 08, 2022 Subjective Patient seen multiple times during the day. She is comfortable; not in distress. Tolerating full liquid diet without any difficulty. Denies nausea, vomiting or abdominal pain. Passing gas Review of Systems Review of Systems: All systems reviewed & are unremarkable except as noted in Subjective Physical Exam Physical Exam: Constitutional: Alert, oriented to time place and person. Hard of hearing. Respiratory: normal respiratory effort, lungs clear to auscultation, no wheeze, rales, rhonchi. Normal insp/exp effort, no accessory muscle use Cardiovascular: RRR, no murmur, no edema Vessels: no JVD or carotid bruit Chest: normal inspection of chest Abdomen: Large ventral hernia present, nontender. Musculoskeletal: no cyanosis or clubbing, extremities motor strength 5/5 Skin: no rashes, warm and dry normal turgor Neurologic: PERRL, EOMI, accommodation nl, no face palsy, no dysarthria CN's II- XI intact bilaterally and moves all extremities Psychiatric: A+Ox3, euthymic affect Results & Data Results & Data Vital Signs (Past 12 Hours) Vital Signs Temp Pulse Pulse Resp BP Pulse Ox O2 Del Method 11/12/22 16:05 36.4 C L 81 18 178/90 H 90 Room Air 11/12/22 15:58 36.8 C 83 18 106/64 95 Oxymask 11/12/22 15:35 62 11/12/22 11:53 36.8 C 117 H 19 159/96 H 92 Room Air 11/12/22 08:25 36.7 C 83 18 185/95 H 90 Room Air 11/12/22 08:25 Nasal Cannula 11/12/22 08:21 69 O2 Flow Rate 11/12/22 16:05 11/12/22 15:58 4.0 11/12/22 15:35 11/12/22 11:53 11/12/22 08:25 11/12/22 08:25 2 11/12/22 08:21 Laboratory Results Laboratory Results WBC 6.49 K/ul (4.8-10.8) 11/12/22 05:45 RBC 3.96 M/uL (4.20-5.40) L 11/12/22 05:45 Hgb 10.2 g/dl (12.0-16.0) L 11/12/22 05:45 Hct 32.2 % (37.0-47.0) L 11/12/22 05:45 MCV 81.3 fL (80.0-100.0) 11/12/22 05:45 MCH 25.8 pg (25.0-34.0) 11/12/22 05:45 MCHC 31.7 g/dL (32.0-36.0) L 11/12/22 05:45 RDW Std Deviation 51.9 fL (36.4-46.3) H 11/12/22 05:45 RDW Coeff of Tip 17.5 % (11.5-14.5) H 11/12/22 05:45 Plt Count 224 K/uL (130-400) 11/12/22 05:45 MPV 10.2 fL (9.4-12.4) 11/12/22 05:45 Immature Gran % (Auto) 0.5 % 11/12/22 05:45 Neut % (Auto) 78.8 % 11/12/22 05:45 Lymph % (Auto) 16.8 % 11/12/22 05:45 [place] % (Auto) 3.4 % 11/12/22 05:45 Eos % (Auto) 0.2 % 11/12/22 05:45 Baso % (Auto) 0.3 % 11/12/22 05:45 Neut # (Auto) 5.12 K/uL (1.40-6.50) 11/12/22 05:45 Lymph # (Auto) 1.09 K/uL (1.2-3.4) L 11/12/22 05:45 [place] # (Auto) 0.22 K/uL (0.11-0.59) 11/12/22 05:45 Eos # (Auto) 0.01 K/uL (0-0.50) 11/12/22 05:45 Baso # (Auto) 0.02 K/uL (0-0.2) 11/12/22 05:45 Immature Gran # (Auto) 0.03 K/uL (0.01-0.20) 11/12/22 05:45 Hypersegmented Neuts 1+ 11/08/22 12:05 Hypochromasia Present 11/10/22 02:11 PT 10.6 Seconds (9.0-12.0) 11/08/22 12:05 INR 1.0 (0.9-1.1) 11/08/22 12:05 Sodium 138 mmol/L (136-145) 11/12/22 05:45 Potassium 3.3 mmol/L (3.5-5.1) L 11/12/22 05:45 Chloride 108 mmol/L (98-107) H 11/12/22 05:45 Carbon Dioxide 25 mmol/L (21-32) 11/12/22 05:45 Anion Gap 5 (3-11) 11/12/22 05:45 BUN 19 mg/dl (6-23) 11/12/22 05:45 Creatinine 1.12 mg/dl (0.6-1.2) 11/12/22 05:45 Est Cr Clr Drug Dosing 46.8 ml/min 11/12/22 05:45 Est GFR ( Amer) 56.0 ml/min 11/12/22 05:45 Est GFR (Non-Af Amer) 48.4 ml/min 11/12/22 05:45 BUN/Creatinine Ratio 17.0 (10-20) 11/12/22 05:45 Glucose 94 mg/dl (70-99(Fasting)) 11/12/22 05:45 Lactate 1.4 mmol/L (0.4-2.0) 11/10/22 15:51 Calcium 8.3 mg/dl (8.6-10.3) L 11/12/22 05:45 Magnesium 1.1 mg/dl (1.7-2.4) L 11/10/22 02:11 Total Bilirubin 0.5 mg/dl (0.2-1.0) 11/11/22 04:24 AST 9 U/L (13-39) L 11/11/22 04:24 ALT 6 U/L (7-52) L 11/11/22 04:24 Alkaline Phosphatase 37 U/L (34-104) 11/11/22 04:24 Troponin I High Sens 13.0 pg/ml (0-14) 11/08/22 12:05 Total Protein 5.2 gm/dl (6.0-8.3) L 11/11/22 04:24 Albumin 2.8 gm/dl (3.4-5.0) L 11/11/22 04:24 Globulin 2.4 gm/dl (2.5-4.0) L 11/11/22 04:24 Albumin/Globulin Ratio 1.2 (0.9-2) 11/11/22 04:24 Lipase 80 U/L (11-82) 11/08/22 12:05 Random Cortisol 13.28 mcg/dl 11/09/22 17:11 Urine Color Dark Yellow 11/08/22 12:45 Urine Appearance Clear (Clear) 11/08/22 12:45 Urine pH 5.0 (4.5-7.5) 11/08/22 12:45 Ur Specific [place] 1.025 (1.000-1.030) 11/08/22 12:45 Urine Protein 2+ (Negative) H 11/08/22 12:45 Urine Glucose (UA) Negative (Negative) 11/08/22 12:45 Urine Ketones 1+ (Negative) H 11/08/22 12:45 Urine Blood Negative (Negative) 11/08/22 12:45 Urine Nitrite Negative (Negative) 11/08/22 12:45 Urine Bilirubin Negative (Negative) 11/08/22 12:45 Urine Urobilinogen Negative (Negative) 11/08/22 12:45 Ur Leukocyte Esterase Negative (Negative) 11/08/22 12:45 Urine WBC (Auto) 1-5 /hpf (0-5) 11/08/22 12:45 Urine RBC (Auto) 0-4 /hpf (0-4) 11/08/22 12:45 U Hyaline Cast (Auto) 0 /lpf (0-5) 11/08/22 12:45 U Epithel Cells (Auto) 10-20 /lpf (0-5) H 11/08/22 12:45 Urine Bacteria (Auto) Negative (Negative) 11/08/22 12:45 Stool Occult Bld Scrn Negative (Negative) 11/10/22 Unknown SARS-CoV-2, RNA, NAAT NEGATIVE (NEGATIVE) 11/08/22 12:45 Blood Type A Positive 11/08/22 12:05 Blood Type Recheck A Positive 11/10/22 02:11 Antibody Screen NEGATIVE 11/08/22 12:05 Crossmatch See Detail 11/08/22 12:05 Impressions Abdomen/Pelvis CT 11/08/22 12:44 CT abd pelvis wo con CLINICAL HISTORY: n/v TECHNIQUE: Helical axial images of the abdomen and pelvis were obtained. Automated dose lowering techniques and/or adjustment according to patient size were utilized for this exam. This exam was performed without intravenous contrast. CT DOSE: 948.46 mGy.cm COMPARISON: None available at the time of this dictation. FINDINGS: Lower chest: Bibasilar atelectasis versus scarring is seen. Liver: Unremarkable. No focal lesions are seen. Gallbladder and biliary tree: No calcified gallstones. Normal caliber wall. No intra- or extrahepatic biliary ductal dilation. Pancreas: Unremarkable, no focal lesions. Spleen: Unremarkable. Adrenals: Nodularity of the adrenal glands is noted. Kidneys and ureters: Numerous exophytic lesions are seen, some of which measure greater than simple fluid density. Vascular calcifications are seen. Bladder: Unremarkable. Reproductive organs: Patient is status post hysterectomy. Bowel: Diverticulosis is seen without evidence of diverticulitis. A large p ortion of bowel loops as well as the stomach lie within a large ventral hernia, however no evidence of bowel obstruction is seen. There is, however, prominence of the stomach with narrowing at the pylorus. Lymph nodes Retroperitoneal: Unremarkable. Pelvic: Unremarkable. Mesenteric: Unremarkable. Peritoneum: Normal. Vessels: Atherosclerotic calcifications are seen. Infrarenal aortic aneurysm measures approximately 3 mm in diameter. Abdominal wall: Large ventral hernia contains multiple loops of bowel. Fat- containing bilateral inguinal hernias are seen. Bones: Unremarkable. IMPRESSION: 1. Prominence of the stomach with multiple air-fluid levels and narrowing at the level of the pylorus as it exits from a ventral hernia. This may represent gastric outlet obstruction owing to the ventral hernia. No bowel obstruction is otherwise seen. Diverticulosis is seen without diverticulitis. 2. Numerous exophytic lesions in the bilateral kidneys, some of which measure greater than simple fluid density. A renal ultrasound or renal mass MRI can be performed to further characterize these findings and exclude renal cell carcinoma. ACT 112: Negative or not required by law. Electronically signed by: Alex Valentine M.D. 11/08/2022 4:21 PM Chest X-Ray 11/08/22 15:45 XR chest 1V portable HISTORY: hypoxia COMPARISON: Chest CTA 01/08/2015. FINDINGS: No pneumothorax. No pleural effusions. There are low lung volumes. The cardiac silhouette remains mildly enlarged. No new focal lung consolidations to suggest a pneumonia. No evidence for pulmonary edema. There are degenerative changes within the bilateral shoulders. IMPRESSION: Mild cardiomegaly. Otherwise, no acute process within the chest. ACT 112: Negative or not required by law. Electronically signed by: Christopher Levy M.D. 11/08/2022 4:32 PM Renal Ultrasound 11/09/22 00:00 RENAL ULTRASOUND HISTORY: Abnormal CT. Follow-up renal cysts. renal cysts COMPARISON: Abdomen and pelvis CT 11/08/2022. FINDINGS: Right kidney: 8.8 cm. Multiple cysts with the largest in the upper pole measuring 6.1 cm. No hydronephrosis. Normal corticomedullary differentiation and cortical thickness. Left kidney: 8.5 cm. Multiple cysts with the largest in the upper pole measuring 4.2 cm. No hydronephrosis. Normal corticomedullary differentiation and cortical thickness. Bladder: Decompressed and not well visualized. IMPRESSION: 1. Multiple bilateral renal cysts. 2. No hydronephrosis. 3. The bladder is decompressed and not well visualized. ACT 112: Negative or not required by law. Electronically signed by: Chritsopher Levy M.D. 11/09/2022 10:35 AM (1) Nausea & vomiting Vomiting type: unspecified Qualified Code(s): R11.2 - Nausea with vomiting, unspecified (3) Ventral hernia Obstruction and gangrene presence: without obstruction or gangrene Qualified Code(s): K43.9 - Ventral hernia without obstruction or gangrene
[2022-11-12] MEDS: CIPROFLOXACIN / D5W 400 MG/200 ML BAG IV SCH (18:13)
[2022-11-12] MEDS: metroNIDAZOLE 500 MG TAB PO SCH (20:53)
[2022-11-13 06:21] LABS: Basophils # (auto) 0.02 K/uL (0-0.2); Basophils % (auto) 0.3 %; Eosinophils # (auto) 0.08 K/uL (0-0.50); Eosinophils % (auto) 1.3 %; Hematocrit (blood only) 33.9 % (37.0-47.0); Hemoglobin 11.1 g/dl (12.0-16.0); Immature Granulocytes # (auto) 0.02 K/uL (0.01-0.20); Immature Granulocytes % (auto) 0.3 %; Lymphocytes # (auto) 1.36 K/uL (1.2-3.4); Lymphocytes % (auto) 22.7 %; Mean Corpuscular Hemoglobin 25.9 pg (25.0-34.0); Mean Corpuscular Hgb Conc 32.7 g/dL (32.0-36.0); Mean Corpuscular Volume 79.2 fL (80.0-100.0); Mean Platelet Volume 9.8 fL (9.4-12.4); Monocytes # (auto) 0.32 K/uL (0.11-0.59); Monocytes % (auto) 5.3 %; Neutrophils # (auto) 4.19 K/uL (1.40-6.50); Neutrophils % (auto) 70.1 %; Platelet Count 201 K/uL (130-400); RDW Coefficient of Variation 17.5 % (11.5-14.5); RDW Standard Deviation 50.6 fL (36.4-46.3); Red Blood Count 4.28 M/uL (4.20-5.40); White Blood Count 5.99 K/ul (4.8-10.8)
[2022-11-13] MEDS: CIPROFLOXACIN / D5W 400 MG/200 ML BAG IV SCH ×2 (06:21→17:38)
[2022-11-13] MEDS: LEVOTHYROXINE SODIUM 112 MCG TABLET PO SCH (06:24)
[2022-11-13 06:41] LABS: Calcium 8.1 mg/dl (8.6-10.3); Potassium 3.1 mmol/L (3.5-5.1)
[2022-11-13 06:47] LABS: BUN Creatinine Ratio 16.5 (10-20); Creatinine Clr Calc Pharmacy 51.1 ml/min; Est GFR (Non-African American) 53.5 ml/min
[2022-11-13] MEDS: NYSTATIN POWDER 15GM BTL EXT SCH ×3 (09:27→21:33)
[2022-11-13] MEDS: FLUTICASONE/VILANTEROL 100/25MCG 14 PUFFS/INHALER INH SCH (09:28)
[2022-11-13] MEDS: metroNIDAZOLE 500 MG TAB PO SCH ×3 (09:28→21:33)
[2022-11-13] MEDS: ESCITALOPRAM OXALATE 10 MG TAB PO SCH (09:28)
[2022-11-13] MEDS: PANTOprazole 40 MG TAB PO SCH ×2 (09:28→21:33)
[2022-11-13] MEDS: CARBAMIDE PEROXIDE 6.5% 15 ML BTL OT SCH ×2 (09:29→21:32)
[2022-11-13] MEDS: ATORVASTATIN 40 MG TAB PO SCH (09:29)
[2022-11-13] MEDS: EZETIMIBE 10 MG TABLET PO SCH (11:32)
[2022-11-13] MEDS: POTASSIUM CHLORIDE CRTAB 20 MEQ TABCR PO SCH ×2 (11:32→17:39)
--- NOTE | 2022-11-13 19:12 | Discharge Summary ---
Discharge Summary Date of Service November 13, 2022 Notes For Next Care Provider Medication Changes From Visit Current Inpatient Medications Acetaminophen (Acetaminophen 325 Mg Tab) 650 mg PO Q4H PRN PRN Reason: Pain or Fever Stop: 12/08/22 20:28 Atorvastatin Calcium (Atorvastatin 40 Mg Tab) 80 mg PO DAILY [facility] Stop: 12/09/22 08:59 Last Admin: 11/13/22 09:29 Dose: 80 mg Buspirone HCl (Buspirone 5 Mg Tab) 5 mg PO BID PRN PRN Reason: Anxiety Stop: 12/08/22 20:28 Last Admin: 11/09/22 07:36 Dose: 5 mg Carbamide Peroxide (Carbamide Peroxide 6.5% 15 Ml Btl) 2 drops OT BID [facility] Stop: 11/14/22 20:59 Last Admin: 11/13/22 09:29 Dose: 2 drops Ezetimibe (Ezetimibe 10 Mg Tablet) 10 mg PO QDL [facility] Stop: 12/09/22 11:29 Last Admin: 11/13/22 11:32 Dose: 10 mg Escitalopram Oxalate (Escitalopram Oxalate 10 Mg Tab) 10 mg PO DAILY [facility] Stop: 12/09/22 08:59 Last Admin: 11/13/22 09:28 Dose: 10 mg Fluticasone/Vilanterol (Fluticasone/Vilanterol 100/25mcg 14 Puffs/Inhaler) 1 puffs INH DAILY [facility] Stop: 12/09/22 08:59 Last Admin: 11/13/22 09:28 Dose: 1 puffs Ciprofloxacin (Cipro / D5w) 400 mg in 200 mls @ 100 mls/hr IV Q12H [facility]; Protocol Stop: 11/17/22 17:59 Last Admin: 11/13/22 17:38 Dose: 100 mls/hr Levothyroxine Sodium (Levothyroxine Sodium 112 Mcg Tablet) 112 mcg PO [id number] [facility] Stop: 12/09/22 06:29 Last Admin: 11/13/22 06:24 Dose: 112 mcg Metronidazole (Metronidazole 500 Mg Tab) 500 mg PO TID [facility]; Protocol Stop: 11/18/22 20:59 Last Admin: 11/13/22 14:00 Dose: 500 mg Nystatin (Nystatin Powder 15gm Btl) 1 appln EXT TID [facility] Stop: 12/08/22 20:59 Last Admin: 11/13/22 14:00 Dose: 1 appln Pantoprazole Sodium (Pantoprazole 40 Mg Tab) 40 mg PO BID [facility] Stop: 12/11/22 08:59 Last Admin: 11/13/22 09:28 Dose: 40 mg Polyethylene Glycol (Polyethylene (Miralax) 17 Gm Pack) 17 gm PO DAILY PRN PRN Reason: Constipation Stop: 12/08/22 20:28 Admission HPI Per Admitting Provider Patient is 72 y/o F with PMH HTN, CKD III, COPD, hypothyroidism, chronic anemia, anxiety presented to ER with complaint of nausea and vomiting x1 day. Patient states yesterday started with nausea and vomited several times. She also reports she had pain across her upper abdomen and points to location over her ventral hernia. She reports history of hernia to abdomen for years. Patient states pain "did not last long". She denies any current abdominal pain. Patient states vomited once while in ER today. She states overall she is feeling much better as compared to yesterday. Patient currently living with son. She reports she ambulates with use of walker. Patient reports sons house has bathroom on second floor and patient is unable to use the stairs to get to the bathroom. She states she is using bedside commode. She reports she does not bathe regularly. Patient's son is interested in trying to get placement for patient and they have been currently looking. Patient admits that she is not ac tive and mostly sits in recliner. EMS had reported to ER staff that patient, clothing, furniture was soiled. EMS had thought had noted blood in emesis. Patient states "unsure" if had any hematemesis or coffee ground emesis. She reports has regular BM's and have been formed. Has not noted melena, hematochezia. Denies any known fever, chills, DAVSI, dizziness, syncope, falls, CP, SOB, palpitations, cough, sore throat, rhinorrhea, paresthesias, increased weakness, extremity edema, rashes, urinary symptoms. Principal Dx & Hospital Course #1 = Principal Diagnosis (1) Nausea & vomiting: (2) Ventral hernia: Past medical history of hypertension, CKD, COPD, anxiety presented to the hospital with nausea and vomiting for 1 day. Patient living with her son prior to presentation. Had nausea on and off for several months to years. Has not seen a doctor for several years. Unknown medical compliance as patient is responsible for her medications. CT abdomen and pelvis on admission revealed a prominence of the stomach with multiple air-fluid levels and narrowing at the level of the pylorus as it exits from a ventral hernia. This may represent gastric outlet obstruction owing to the ventral hernia. No bowel obstruction is otherwise seen. Discussed with Dr. Cortes from surgery; recommended transfer to tertiary care [facility] for ventral hernia repair acutely during this admission. She initially declined transfer, but then was fine with it. The day of discharge she reported feeling "the best I've ever felt" She denies any vomiting and was tolerating full liquids reliably. (3) Acute blood loss anemia: On November 10, patient's hemoglobin dropped from 11 to 7. Digital rectal exam done; no mandi blood. Fecal occult negative Patient transferred to PCU She underwent EGD; no profuse bleeding seen. Esophagitis present Patient transfused 1 unit of packed RBC. Hb slowly improved back up to 11.1 by day of discharge. (4) Hypotension: On November 09 a.m.; patient became hypotensive requiring multiple boluses. Patient had received clonidine 0.3 mg, Coreg 12.5 mg and benazepril 40 mg in the last 12 hours. Lactate obtained multiple times; within normal limits. Patient mentating well. Cortisol obtained which was 13. Cosyntropin test was not able be performed and she was empirically started on hydrocortisone 50 mg 3 times daily and midodrine 5 mg 3 times daily. Patient's hemodynamics improved after a couple of days and these agents were stopped. Continue on IV antibiotic with ciprofloxacin and Flagyl. Will provide 7-day of course; blood culture negative. Last day is 11/14 (5) Abnormal CT of the abdomen: CT abdomen pelvis: Numerous exophytic lesions in the bilateral kidneys, some of which measure greater than simple fluid density. A renal ultrasound or renal mass MRI can be performed to further characterize these findings and exclude renal cell carcinoma Renal ultrasound results reviewed; no hydronephrosis. Multiple bilateral renal cysts. Followup as outpatient after hernia issue is addressed. (6) Ambulatory dysfunction: Sister reports that patient has been in bed for the last 8 months. Currently living with son who has bathroom on second floor which patient is unable to use PT/OT evaluated her with SNF recommended. [place] [facility] (7) Candidiasis: Sacral wounds Nystatin Wound nurse consult for sacral wounds (8) CKD (chronic kidney disease), stage III: chronic, stable. Creatinine at baseline. Avoid all nephrotoxic drug. (9) COPD (chronic obstructive pulmonary disease): chronic, stable. No signs acute exacerbation Continue home inhaler regimen. (10) HTN (hypertension): Stop antihypertensive due to hypotension. Will resume antihypertensive gradually patient continues to be hypertensive. (11) Hypothyroidism: Continue levothyroxine (12) Anxiety: chronic, stable. Continue escitalopram, buspirone as needed DVT Prophylaxis SCDs Full code Disposition; patient accepted at [facility] under Dr. Armas(Surgical center) given the large hiatal hernia. Awaiting bed placement. I did contact her sister Mary and inform her of the transfer tonight. She agreed with proceeding. I did confirm with Dr. Cortes that despite tolerating full liquids and reporting no symptoms, this hernia should still be urgently fixed and he agreed that was still the recommendation. She was [place] [facility] [place]. Discharge Exam hemodynamically stable and afebrile Oxygenating well on room air Abdomen is soft nontender nondistended Cardiovascular exam S1-S2 heard with no murmurs gallops or rubs. Regular rate and rhythm Lungs clear to auscultation bilaterally Updated Medication List Medication Instructions Recorded Confirmed Type benazepril 40 mg tablet 40 mg PO DAILY #90 tabs 06/24/19 11/08/22 Rx carvedilol 12.5 mg tablet (Coreg) 12.5 mg PO BID #90 tabs 06/24/19 11/08/22 Rx clonidine HCl 0.3 mg tablet 0.3 mg PO HS #90 tabs 06/24/19 11/08/22 Rx ezetimibe 10 mg tablet (Zetia) 10 mg PO QDL #90 tabs 06/24/19 11/08/22 Rx hydrochlorothiazide 25 mg tablet 25 mg PO DAILY #90 tabs 06/24/19 11/08/22 Rx levothyroxine 112 mcg tablet 112 mcg PO 6XWK #90 tabs 07/07/19 11/08/22 Rx atorvastatin 80 mg tablet 80 mg PO DAILY 11/08/22 11/08/22 History buspirone 5 mg tablet 5 mg PO BID PRN Anxiety 11/08/22 11/08/22 History escitalopram oxalate 10 mg tablet 10 mg PO DAILY 11/08/22 11/08/22 History fluticasone furoate 100 1 puffs inhalation DAILY 11/08/22 11/08/22 History mcg-vilanterol 25 mcg/dose inhalation powder (Breo Ellipta) Hospital Stay Data Consultations 11/08/22 16:52 ED Decision to Admit Stat 11/08/22 18:52 Consult General Surgery Routine 11/08/22 20:29 Consult Gastroenterology Routine Procedures Performed Operation Date: 11/10/22 10:45 Actual Procedures p Esophagogastroduodenoscopy(Not Applicable) - Viviane Walls Jr, MD Diagnostic Imagining Performed 11/08/22 12:44 CT abd pelvis wo con Stat 11/09/22 US renal/blad retro comp Routine Pending Results Patient Have Any Pending Studies at Discharge: No Discharge Instructions Given to Patient (Per Discharging Provider) You are being transferred to a tertiary care faciity for further evaluation of your hernia as a possible cause for your vomiting. Please followup with your primary care physician within one week of discharge from [facility]. It was a pleasure taking care of you! Please call if you have any questions or problems. You can reach a [facility] hospitalist on duty at [facility] 24 hours a day by calling [phone]. Take care of yourself. Yeni Marie, [facility] Hospitalist Total Time Total Time Spent Total Time Spent (In Minutes): 60
== END 2022-11-13 22:50 | disposition short-term general hospital (02) | DRG 394 ==
LOC: ED 11:30 → 2N 17:37 → SUATTDRO 17:37 → 2N 19:47 → 4W 11-10 08:11

== ENCOUNTER 2022-11-14 13:28 | Inpatient (IN) ==
[2022-11-14] MEDS ORDERED: ACETAMINOPHEN 325 MG TAB PO PRN (13:47)
[2022-11-14] MEDS ORDERED: ALUMINUM/MAGNESIUM SUSP 30 ML UDC PO PRN (13:47)
[2022-11-14] MEDS ORDERED: ONDANSETRON INJ 2 MG/ML 2 ML VIAL IV PRN (13:47)
[2022-11-14] MEDS ORDERED: MAGNESIUM HYDROXIDE SUSP 30 ML UDC PO PRN (13:47)
[2022-11-14] MEDS ORDERED: POLYETHYLENE (MIRALAX) 17 GM PACK PO PRN (13:47)
--- NOTE | 2022-11-14 21:23 | History & Physical Report ---
Date of Service November 14, 2022 Assessment & Plan (1) Ventral hernia: (2) Hyperlipidemia: (3) Hypothyroidism: (4) COPD (chronic obstructive pulmonary disease): (5) Anemia: (6) CKD (chronic kidney disease), stage III: Plan This is a 72-year-old female with significant past medical history of HTN, CKD, COPD, hypothyroidism, chronic anemia and anxiety who was a direct admission from [facility] after being transferred there yesterday for further surgical evaluation from our facility. Large ventral hernia Patient recently admitted here 11/08 to 11/13 due to large ventral hernia concerning for possible obstruction with nausea and vomiting Patient treated here conservatively and symptoms resolved, was passing gas and tolerating regular diet after being transferred down to [place]. She was seen and evaluated by surgery at [place] who felt urgent or elective surgery at this point was not required. She is being transferred back to our facility for disposition needs and likely long-term placement. She was discharged on bowel regimen of docusate 100 mg twice daily and senna 17.2 mg twice daily. Patient's chronic medical conditions including hypertension, hyperlipidemia, COPD, CKD-3 and hypothyroidism. Her medications were reconciled. All discharge paperwork was reviewed. Pt will need PT/OT evals in a.m. CM for dispo likely joint terminal attack controller placement. Continue home meds. Pt was collaborated with Dr. Christianson, please see his addendum for further assessment and plan. Admission and Anticipated Discharge Date Admission Date: November 14, 2022 History of Present Illness Chief Complaint: Direct admit from [facility] Primary Care Provider: Dr. Brady This is a 72-year-old female with significant past medical history of HTN, CKD, COPD, hypothyroidism, chronic anemia and anxiety who was a direct admission from [facility] after being transferred there yesterday for further surgical evaluation from our facility. Of significance patient was admitted here on 11/08/2022 and discharged to [place] yesterday on 11/13/2022. She was initially admitted secondary to nausea and vomiting and concern for possible bleeding. Initial CT scan on admission showed prominence of the stomach with multiple air- fluid levels and narrowing at the level of the pylorus as it exits from a ventral hernia which was concerning for gastric outlet obstruction owing to the ventral hernia. She was seen and evaluated by our general surgery team and recommendation was for patient to be transferred for special hernia surgeon. Hospital course complicated for acute anemia for which hemoglobin dropped from 11-7. Digital rectal exam was performed and no mandi blood, fecal occult negative. She was seen by GI due to concern for possible upper GI bleeding. She did eventually undergo upper GI which revealed esophagitis but otherwise normal upper endoscopy. She underwent transfusion of 1 unit PRBC. Patient eventually was then transferred down to [place] for further evaluation. At our hospital she was treated with conservative measures and refused NG tube. Gradually her symptoms resolved. When arriving at [place] she no longer had abdominal pain, was passing gas and tolerating a normal diet. After further review of her imaging it was not felt that surgery was required. Patient does have a difficult disposition as she likely requires long-term placement and therefore was transferred back to our facility. Allergies Allergy/AdvReac Type Severity Reaction Status Date / Time Penicillins Allergy Unknown Verified 11/14/22 21:27 Sulfa (Sulfonamide Allergy Unknown rash Verified 11/14/22 21:27 Antibiotics) Home Medications Medication Instructions Recorded Confirmed Type benazepril 40 mg tablet 40 mg PO DAILY #90 tabs 06/24/19 11/14/22 Rx carvedilol 12.5 mg tablet (Coreg) 12.5 mg PO BID #90 tabs 06/24/19 11/14/22 Rx clonidine HCl 0.3 mg tablet 0.3 mg PO HS #90 tabs 06/24/19 11/14/22 Rx ezetimibe 10 mg tablet (Zetia) 10 mg PO QDL #90 tabs 06/24/19 11/14/22 Rx hydrochlorothiazide 25 mg tablet 25 mg PO DAILY #90 tabs 06/24/19 11/14/22 Rx levothyroxine 112 mcg tablet 112 mcg PO 6XWK #90 tabs 07/07/19 11/14/22 Rx atorvastatin 80 mg tablet 80 mg PO DAILY 11/08/22 11/14/22 History buspirone 5 mg tablet 5 mg PO BID PRN Anxiety 11/08/22 11/14/22 History escitalopram oxalate 10 mg tablet 10 mg PO DAILY 11/08/22 11/14/22 History fluticasone furoate 100 1 puffs inhalation DAILY 11/08/22 11/14/22 History mcg-vilanterol 25 mcg/dose inhalation powder (Breo Ellipta) docusate sodium 100 mg capsule 100 mg PO BID 11/14/22 11/14/22 History nystatin 100,000 unit/gram topical See Rx Instructions .Route .COMPLEX 11/14/22 11/14/22 History powder sennosides 8.6 mg tablet (senna) 17.2 mg PO BID 11/14/22 11/14/22 History Past Med/Surg History Medical History Anemia Anxiety CKD (chronic kidney disease), stage III COPD (chronic obstructive pulmonary disease) HTN (hypertension) Hyperlipidemia Hypothyroidism Surgical History H/O: hysterectomy History of tonsillectomy Family History Mother Myocardial infarction Diabetes Denies family history of Colon cancer Ovarian cancer Prostate cancer Breast cancer Social History Smoking Status: Unknown if ever smoked Second Hand Exposure: No; Do You Dip or Chew Tobacco: No; Tobacco Cessation Education Requested by Patient: No Hx Alcohol Use: No Hx Substance Use: No Preferred Language: [place]ralt[place] Communication Ability: Effective Visual Impairment: No Limitations Hearing Ability: Normal Orthotics Assistant Required: No Beliefs That Will Affect Care: None marital status: Current Living Situation: Family Current Living Situation Comment: Lives with Sons. current occupational status: retired Other Information That Helps Us Care for You: No Feels Safe at Home: Declines to Answer Dental Care, Regularly: Yes Physical Activity Frequency: Does not Exercise Assistive Devices: Hospital Bed and Walker Review of Systems Review of Systems: All systems reviewed & are unremarkable except as noted in HPI & below Physical Exam Physical Exam: Gen: WD/WN, F, [place], NAD, A&O x3 HEENT: Normocephalic, atraumatic, conjunctivae moist, sclerae anicteric, mucous membranes dry Lung: Clear to Auscultation bilaterally, no wheezes/rales/rhonchi Heart: Regular rate, regular rhythm, no murmurs, rubs, or gallops Abdomen: Soft, NT, mildly distended,+BS x 4 Extremities: No edema Skin: Warm, no rash, negative turgor. Results & Data Results & Data Vital Signs (Past 12 Hours) Vital Signs Temp Pulse Resp BP Pulse Ox O2 Del Method 11/14/22 21:02 36.5 C 63 18 149/78 H 92 Room Air 11/14/22 20:50 36.5 C 63 16 149/78 H 92 Room Air Laboratory Results Reviewed lab results done at [facility] today 11/14/2022 at 8:38 AM Chemistry sodium 135, K4.4, BUN 14, creatinine 1.2, calcium 7.9 CBC H&H 10.2 and 33.1, WC 6.9, platelet 170 Medications Administered Current Inpatient Medications Acetaminophen (Acetaminophen 325 Mg Tab) 650 mg PO Q4H PRN PRN Reason: pain/fever Stop: 12/14/22 13:46 Al Hydrox/Mg Hydrox/Simethicone (Aluminum/Magnesium Susp 30 Ml Udc) 30 ml PO Q6H PRN PRN Reason: Dyspepsia Stop: 12/14/22 13:46 Magnesium Hydroxide (Magnesium Hydroxide Susp 30 Ml Udc) 30 ml PO Q6H PRN PRN Reason: Constipation Stop: 12/14/22 13:46 Ondansetron HCl (Ondansetron Inj 2 Mg/Ml 2 Ml Vial) 4 mg IV Q6H PRN PRN Reason: Nausea Stop: 12/14/22 13:46 Polyethylene Glycol (Polyethylene (Miralax) 17 Gm Pack) 17 gm PO DAILY PRN PRN Reason: Constipation Stop: 12/14/22 13:46 Code Status & VTE Plan Code Status Full code VTE Prophylaxis Plan VTE Prophylaxis will be ordered: Yes Supervising Physician Co-Signing Physician Notes IM ATTENDING : Patient seen and examined. History obtained from patient and records. History somewhat limited from patient secondary to marked hearing impairment. Preceding documentation by Ms. Melba Givens PA-C reviewed. FINAL ASSESSMENT AND PLAN as follows : Hypertension slight elevated COPD, baseline lung status CRI, stable with a.m. blood work done at [facility] Chronic anemia (baseline hemoglobin 10-11), hemoglobin at baseline from a.m. blood work at [facility] Ventral hernia, surgery deferred at [facility] given symptomatic improvement Hypothyroidism, outpatient TSH markedly elevated at 100 last September 2022 past tobacco abuse functional disability [facility] Check TSH today with AM blood work, home levothyroxine dose may need dose titration PT OT eval DVT prophylaxis. SCDs RE recent GI bleed necessitating blood transfusion Full code Text document was generated using [employer] voice recognition software. It may contain grammatical or spelling errors. Kindly contact undersigned for clarification of any documentation item in question. (1) Ventral hernia Obstruction and gangrene presence: without obstruction or gangrene Qualified Code(s): K43.9 - Ventral hernia without obstruction or gangrene
[2022-11-14] MEDS ORDERED: busPIRone 5 MG TAB PO PRN (23:01)
[2022-11-14] MEDS ORDERED: PROMETHAZINE HCL 6.25 MG in SODIUM CHLORIDE 0.9% 50 ML IV PRN (23:02)
[2022-11-14] MEDS: SENNA 8.6 MG TAB PO SCH (23:47)
[2022-11-14] MEDS: cloNIDine HCL 0.3 MG TAB PO SCH (23:47)
[2022-11-14] MEDS: DOCUSATE SODIUM 100 MG CAP PO SCH (23:48)
[2022-11-15] MEDS: LEVOTHYROXINE SODIUM 112 MCG TABLET PO SCH (05:46)
[2022-11-15 07:38] LABS: Basophils # (auto) 0.02 K/uL (0-0.2); Basophils % (auto) 0.3 %; Eosinophils % (auto) 2.7 %; Hematocrit (blood only) 34.1 % (37.0-47.0); Immature Granulocytes # (auto) 0.04 K/uL (0.01-0.20); Immature Granulocytes % (auto) 0.5 %; Lymphocytes # (auto) 1.34 K/uL (1.2-3.4); Lymphocytes % (auto) 17.9 %; Mean Corpuscular Hemoglobin 25.9 pg (25.0-34.0); Mean Corpuscular Hgb Conc 32.3 g/dL (32.0-36.0); Mean Corpuscular Volume 80.4 fL (80.0-100.0); Mean Platelet Volume 9.4 fL (9.4-12.4); Monocytes # (auto) 0.36 K/uL (0.11-0.59); Monocytes % (auto) 4.8 %; Neutrophils # (auto) 5.52 K/uL (1.40-6.50); Neutrophils % (auto) 73.8 %; Platelet Count 173 K/uL (130-400); RDW Standard Deviation 52.2 fL (36.4-46.3); Red Blood Count 4.24 M/uL (4.20-5.40); White Blood Count 7.48 K/ul (4.8-10.8)
[2022-11-15 08:12] LABS: Albumin Globulin Ratio 1.1 (0.9-2); Albumin Level 2.7 gm/dl (3.4-5.0); Bilirubin,Total 0.7 mg/dl (0.2-1.0); Calcium 8.2 mg/dl (8.6-10.3); Creatinine Clr Calc Pharmacy 56.5 ml/min; Est GFR (African American) 71.1 ml/min; Est GFR (Non-African American) 61.3 ml/min; Globulin 2.4 gm/dl (2.5-4.0); Magnesium 1.1 mg/dl (1.7-2.4); Potassium 3.6 mmol/L (3.5-5.1); Thyroid Stimulating Hormone 8.373 uIu/ml (0.300-4.500); Total Protein 5.1 gm/dl (6.0-8.3)
[2022-11-15 08:47] LABS: T4 Free Thyroxine 1.26 ng/dl (0.61-1.60)
[2022-11-15] MEDS: ESCITALOPRAM OXALATE 10 MG TAB PO SCH (09:02)
[2022-11-15] MEDS: SENNA 8.6 MG TAB PO SCH ×2 (09:02→19:46)
[2022-11-15] MEDS: DOCUSATE SODIUM 100 MG CAP PO SCH ×2 (09:02→19:48)
[2022-11-15] MEDS: FLUTICASONE/VILANTEROL 100/25MCG 14 PUFFS/INHALER INH SCH (09:03)
[2022-11-15] MEDS: carvediloL 6.25 MG TAB PO SCH ×2 (09:03→19:48)
[2022-11-15] MEDS: ATORVASTATIN 40 MG TAB PO SCH (09:03)
[2022-11-15] MEDS: EZETIMIBE 10 MG TABLET PO SCH (11:47)
--- NOTE | 2022-11-15 14:33 | Hospitalist Progress Note ---
Date of Service November 15, 2022 Assessment & Plan (1) Ventral hernia: Plan: This is a 72-year-old female with significant past medical history of HTN, CKD, COPD, hypothyroidism, chronic anemia and anxiety who was a direct admission from [facility] after being transferred for further surgical evaluation from our facility two days prior. Large ventral hernia Patient recently admitted here 11/08 to 11/13 due to large ventral hernia concerning for possible obstruction with nausea and vomiting Patient treated here conservatively and symptoms resolved, was passing gas and tolerating regular diet after being transferred down to [place]. Dr. Cortes recommended transfer for urgent surgical correction of her hernia She was seen and evaluated by surgery at [place] who felt urgent or elective surgery at this point was not required. She is being transferred back to our facility for disposition needs and likely long-term placement. (2) Hypothyroidism: Plan: chronic, Stable continue thyroid replacement per home regimen. (3) COPD (chronic obstructive pulmonary disease): Plan: Chronic, stable. No evidence of exacerbation. Continue inhalers daily. (4) Anemia: Plan: Acute blood loss anemia secondary to recent drop in hemoglobin around November 10 per prior records. She underwent EGD with no profuse bleeding seen but esophagitis was present. She was transfused 1 unit of packed red blood cells and hemoglobin is back up to 11 by day of discharge 2 days ago. Hemoglobin remained stable.Outpatient colonoscopy recommended. (5) CKD (chronic kidney disease), stage III: Plan: Chronic, stable. Avoid nephrotoxic substances. Continue to trend BMP periodically (6) HTN (hypertension): Plan: Chronic, at goal. Continue BenzePrO, carvedilol, clonidine, HCTZ per home regimen. (7) Anxiety: Plan: Chronic, stable. Continue BuSpar as needed anxiety and Lexapro daily. Lovenox Full code Disposition-to rehab when bed available. Patient is medically stable for discharge when bed is available. [facility]eni Marie [facility] and Anticipated Discharge Date Admission Date: November 14, 2022 Subjective 72-year-old female transferred back from [facility] after hernia operation not performed. Patient reports she is tolerating solid food and has no pain She is getting set up for rehab No acute issues today. Review of Systems Review of Systems: All systems reviewed negative except as indicated above. Physical Exam Physical Exam: CONSTITUTIONAL: WNWD, vitals as above, generally well-appearing, NAD EYES: normal conjunctivae, no scleral icterus ENT: external ear and nose normal, NAD NECK: trachea midline RESPIRATORY: clear to auscultation bilaterally, no crackles, rales or wheezes, normal respiratory effort CARDIOVASCULAR: regular rate and rhythm, S1 and 2 heard without murmurs, gallops or rubs, no JVD, no peripheral edema CHEST: inspection of chest was normal GASTROINTESTINAL: soft, nontender, ND, no guarding MUSCULOSKELETAL: strength 5/5 throughout, head is normocephalic and atraumatic SKIN: warm and dry NEUROLOGIC: CN 2-12 grossly intact, no sensory deficit, normal cognition, normal speech, no tremor PSYCHIATRIC: alert cooperative and oriented to person, place and time. Results & Data Results & Data Vital Signs (Past 12 Hours) Vital Signs Temp Pulse Resp BP Pulse Ox O2 Del Method 11/15/22 08:00 Room Air 11/15/22 07:43 36.4 C L 65 18 158/80 H 95 Room Air Laboratory Results Short CBC 11/15/22 Range/Units 06:53 WBC 7.48 (4.8-10.8) K/ul Hgb 11.0 L (12.0-16.0) g/dl Hct 34.1 L (37.0-47.0) % Plt Count 173 (130-400) K/uL BMP 11/15/22 06:53 Sodium 136 Potassium 3.6 Chloride 101 Carbon Dioxide 28 BUN 12 Creatinine 0.92 Glucose 84 Calcium 8.2 L Liver Function 11/15/22 Range/Units 06:53 Total Bilirubin 0.7 (0.2-1.0) mg/dl AST 11 L (13-39) U/L ALT 7 (7-52) U/L Alkaline Phosphatase 39 (34-104) U/L Albumin 2.7 L (3.4-5.0) gm/dl Medications Administered Current Inpatient Medications Acetaminophen (Acetaminophen 325 Mg Tab) 650 mg PO Q4H PRN PRN Reason: pain/fever Stop: 12/14/22 13:46 Al Hydrox/Mg Hydrox/Simethicone (Aluminum/Magnesium Susp 30 Ml Udc) 30 ml PO Q6H PRN PRN Reason: Dyspepsia Stop: 12/14/22 13:46 Atorvastatin Calcium (Atorvastatin 40 Mg Tab) 80 mg PO DAILY AKI Stop: 12/15/22 08:59 Last Admin: 11/15/22 09:03 Dose: 80 mg Buspirone HCl (Buspirone 5 Mg Tab) 5 mg PO BID PRN PRN Reason: Anxiety Stop: 12/14/22 23:00 Carvedilol (Carvedilol 6.25 Mg Tab) 6.25 mg PO BID [facility] Stop: 12/15/22 08:59 Last Admin: 11/15/22 09:03 Dose: 6.25 mg Clonidine HCl (Clonidine Hcl 0.3 Mg Tab) 0.3 mg PO HS [facility] Stop: 12/14/22 23:04 Last Admin: 11/14/22 23:47 Dose: 0.3 mg Docusate Sodium (Docusate Sodium 100 Mg Cap) 100 mg PO BID [facility] Stop: 12/14/22 23:14 Last Admin: 11/15/22 09:02 Dose: 100 mg Ezetimibe (Ezetimibe 10 Mg Tablet) 10 mg PO QDL [facility] Stop: 12/15/22 11:29 Last Admin: 11/15/22 11:47 Dose: 10 mg Escitalopram Oxalate (Escitalopram Oxalate 10 Mg Tab) 10 mg PO DAILY [facility] Stop: 12/15/22 08:59 Last Admin: 11/15/22 09:02 Dose: 10 mg Fluticasone/Vilanterol (Fluticasone/Vilanterol 100/25mcg 14 Puffs/Inhaler) 1 pu ffs INH DAILY [facility] Stop: 12/15/22 08:59 Last Admin: 11/15/22 09:03 Dose: 1 puffs Promethazine HCl 6.25 mg/ (Sodium Chloride) 50.25 mls @ 201 mls/hr IV Q6H PRN PRN Reason: Nausea And Vomiting Stop: 12/14/22 23:01 Levothyroxine Sodium (Levothyroxine Sodium 112 Mcg Tablet) 112 mcg PO MoTuWeThFrSa [facility] Stop: 12/15/22 06:29 Last Admin: 11/15/22 05:46 Dose: 112 mcg Magnesium Hydroxide (Magnesium Hydroxide Susp 30 Ml Udc) 30 ml PO Q6H PRN PRN Reason: Constipation Stop: 12/14/22 13:46 Ondansetron HCl (Ondansetron Inj 2 Mg/Ml 2 Ml Vial) 4 mg IV Q6H PRN PRN Reason: Nausea Stop: 12/14/22 13:46 Polyethylene Glycol (Polyethylene (Miralax) 17 Gm Pack) 17 gm PO DAILY PRN PRN Reason: Constipation Stop: 12/14/22 13:46 Sennosides (Senna 8.6 Mg Tab) 17.2 mg PO BID AKI Stop: 12/14/22 23:14 Last Admin: 11/15/22 09:02 Dose: 17.2 mg (1) Ventral hernia Obstruction and gangrene presence: without obstruction or gangrene Qualified Code(s): K43.9 - Ventral hernia without obstruction or gangrene
[2022-11-15] MEDS: ENOXAPARIN INJ 40 MG/0.4 ML SYR SQ SCH (19:47)
[2022-11-15] MEDS: cloNIDine HCL 0.3 MG TAB PO SCH (19:48)
[2022-11-16] MEDS: LEVOTHYROXINE SODIUM 112 MCG TABLET PO SCH (05:55)
[2022-11-16] MEDS: DOCUSATE SODIUM 100 MG CAP PO SCH ×2 (07:56→20:14)
[2022-11-16] MEDS: ATORVASTATIN 40 MG TAB PO SCH (07:57)
[2022-11-16] MEDS: ESCITALOPRAM OXALATE 10 MG TAB PO SCH (07:57)
[2022-11-16] MEDS: FLUTICASONE/VILANTEROL 100/25MCG 14 PUFFS/INHALER INH SCH (07:57)
[2022-11-16] MEDS: SENNA 8.6 MG TAB PO SCH ×2 (07:57→20:14)
[2022-11-16] MEDS: carvediloL 6.25 MG TAB PO SCH ×2 (07:57→20:15)
--- NOTE | 2022-11-16 10:18 | Hospitalist Progress Note ---
Date of Service November 16, 2022 Assessment & Plan (1) Ventral hernia: Plan: This is a 72-year-old female with significant past medical history of HTN, CKD, COPD, hypothyroidism, chronic anemia and anxiety who was a direct admission from [facility] after being transferred for further surgical evaluation from our facility two days prior. Large ventral hernia Patient recently admitted here 11/08 to 11/13 due to large ventral hernia concerning for possible obstruction with nausea and vomiting Patient treated here conservatively and symptoms resolved, was passing gas and tolerating regular diet after being transferred down to [place]. Dr. Cortes recommended transfer for urgent surgical correction of her hernia She was seen and evaluated by surgery at [place] who felt urgent or elective surgery at this point was not required. She transferred back to our facility for disposition needs and likely long-term placement. Awaiting bed availabilty (2) Hypothyroidism: Plan: chronic, Stable continue thyroid replacement per home regimen. (3) COPD (chronic obstructive pulmonary disease): Plan: Chronic, stable. No evidence of exacerbation. Continue inhalers daily. (4) Anemia: Plan: Acute blood loss anemia secondary to recent drop in hemoglobin around November 10 per prior records. She underwent EGD with no profuse bleeding seen but esophagitis was present. She was transfused 1 unit of packed red blood cells and hemoglobin is back up to 11 by day of discharge. Hemoglobin remains stable. Outpatient colonoscopy recommended. (5) CKD (chronic kidney disease), stage III: Plan: Chronic, stable. Avoid nephrotoxic substances. Continue to trend BMP periodically (6) HTN (hypertension): Plan: Chronic, at goal. Continue Benzepril, carvedilol, clonidine, HCTZ per home regimen. (7) Anxiety: Plan: Chronic, stable. Continue BuSpar as needed anxiety and Lexapro daily. Lovenox Full code Disposition-to rehab when bed available. Patient is medically stable for discharge when bed is available. Yeni Marie DO [facility] Hospitalist Admission and Anticipated Discharge Date Admission Date: November 14, 2022 Subjective 72-year-old female transferred back from [facility] [place] hernia operation not performed. Patient reports she is tolerating solid food and has no pain She is getting set up for rehab No acute issues today. Review of Systems Review of Systems: All systems reviewed negative except as indicated above. Physical Exam Physical Exam: CONSTITUTIONAL: WNWD, vitals as above, generally well-appearing, NAD EYES: normal conjunctivae, no scleral icterus ENT: external ear and nose normal, NAD NECK: trachea midline RESPIRATORY: clear to auscultation bilaterally, no crackles, rales or wheezes, normal respiratory effort CARDIOVASCULAR: regular rate and rhythm, S1 and 2 heard without murmurs, gallops or rubs, no JVD, no peripheral edema CHEST: inspection of chest was normal GASTROINTESTINAL: soft, nontender, ND, no guarding MUSCULOSKELETAL: strength 5/5 throughout, head is normocephalic and atraumatic SKIN: warm and dry NEUROLOGIC: CN 2-12 grossly intact, no sensory deficit, normal cognition, normal speech, no tremor PSYCHIATRIC: alert cooperative and oriented to person, place and time. Results & Data Results & Data Vital Signs (Past 12 Hours) Vital Signs Temp Pulse Resp BP Pulse Ox O2 Del Method 11/16/22 07:37 36.5 C 61 16 128/78 94 Room Air Medications Administered Current Inpatient Medications Acetaminophen (Acetaminophen 325 Mg Tab) 650 mg PO Q4H PRN PRN Reason: pain/fever Stop: 12/14/22 13:46 Al Hydrox/Mg Hydrox/Simethicone (Aluminum/Magnesium Susp 30 Ml Udc) 30 ml PO Q6H PRN PRN Reason: Dyspepsia Stop: 12/14/22 13:46 Atorvastatin Calcium (Atorvastatin 40 Mg Tab) 80 mg PO DAILY [facility] Stop: 12/15/22 08:59 Last Admin: 11/16/22 07:57 Dose: 80 mg Buspirone HCl (Buspirone 5 Mg Tab) 5 mg PO BID PRN PRN Reason: Anxiety Stop: 12/14/22 23:00 Carvedilol (Carvedilol 6.25 Mg Tab) 6.25 mg PO BID AKI Stop: 12/15/22 08:59 Last Admin: 11/16/22 07:57 Dose: 6.25 mg Clonidine HCl (Clonidine Hcl 0.3 Mg Tab) 0.3 mg PO HS [facility] Stop: 12/14/22 23:04 Last Admin: 11/15/22 19:48 Dose: 0.3 mg Docusate Sodium (Docusate Sodium 100 Mg Cap) 100 mg PO BID AKI Stop: 12/14/22 23:14 Last Admin: 11/16/22 07:56 Dose: 100 mg Ezetimibe (Ezetimibe 10 Mg Tablet) 10 mg PO QDL [facility] Stop: 12/15/22 11:29 Last Admin: 11/15/22 11:47 Dose: 10 mg Enoxaparin Sodium (Enoxaparin Inj 40 Mg/0.4 Ml Syr) 40 mg SQ HS [facility] Stop: 12/15/22 20:59 Last Admin: 11/15/22 19:47 Dose: 40 mg Escitalopram Oxalate (Escitalopram Oxalate 10 Mg Tab) 10 mg PO DAILY [facility] Stop: 12/15/22 08:59 Last Admin: 11/16/22 07:57 Dose: 10 mg Fluticasone/Vilanterol (Fluticasone/Vilanterol 100/25mcg 14 Puffs/Inhaler) 1 puffs INH DAILY [facility] Stop: 12/15/22 08:59 Last Admin: 11/16/22 07:57 Dose: 1 puffs Promethazine HCl 6.25 mg/ (Sodium Chloride) 50.25 mls @ 201 mls/hr IV Q6H PRN PRN Reason: Nausea And Vomiting Stop: 12/14/22 23:01 Levothyroxine Sodium (Levothyroxine Sodium 112 Mcg Tablet) 112 mcg PO MoTuWeThFrSa [facility] Stop: 12/15/22 06:29 Last Admin: 11/16/22 05:55 Dose: 112 mcg Magnesium Hydroxide (Magnesium Hydroxide Susp 30 Ml Udc) 30 ml PO Q6H PRN PRN Reason: Constipation Stop: 12/14/22 13:46 Ondansetron HCl (Ondansetron Inj 2 Mg/Ml 2 Ml Vial) 4 mg IV Q6H PRN PRN Reason: Nausea Stop: 12/14/22 13:46 Polyethylene Glycol (Polyethylene (Miralax) 17 Gm Pack) 17 gm PO DAILY PRN PRN Reason: Constipation Stop: 12/14/22 13:46 Sennosides (Senna 8.6 Mg Tab) 17.2 mg PO BID [facility] Stop: 12/14/22 23:14 Last Admin: 11/16/22 07:57 Dose: 17.2 mg (1) Ventral hernia Obstruction and gangrene presence: without obstruction or gangrene Qualified Code(s): K43.9 - Ventral hernia without obstruction or gangrene
[2022-11-16] MEDS: EZETIMIBE 10 MG TABLET PO SCH (11:20)
[2022-11-16] MEDS: ENOXAPARIN INJ 40 MG/0.4 ML SYR SQ SCH (20:14)
[2022-11-16] MEDS: cloNIDine HCL 0.3 MG TAB PO SCH (20:15)
[2022-11-17] MEDS: ATORVASTATIN 40 MG TAB PO SCH (07:48)
[2022-11-17] MEDS: FLUTICASONE/VILANTEROL 100/25MCG 14 PUFFS/INHALER INH SCH (07:49)
[2022-11-17] MEDS: carvediloL 6.25 MG TAB PO SCH ×2 (07:49→19:34)
[2022-11-17] MEDS: SENNA 8.6 MG TAB PO SCH ×2 (07:49→19:35)
[2022-11-17] MEDS: DOCUSATE SODIUM 100 MG CAP PO SCH ×2 (07:49→19:36)
[2022-11-17] MEDS: ESCITALOPRAM OXALATE 10 MG TAB PO SCH (07:49)
[2022-11-17] MEDS ORDERED: MAGNESIUM SULFATE 50% 4 GM in SODIUM CHLORIDE 0.9% 1000ML 1,000 ML IV SCH (09:00)
[2022-11-17] MEDS: EZETIMIBE 10 MG TABLET PO SCH (11:19)
--- NOTE | 2022-11-17 13:26 | Hospitalist Progress Note ---
Date of Service November 17, 2022 Assessment & Plan (1) Ventral hernia: Plan: This is a 72-year-old female with significant past medical history of HTN, CKD, COPD, hypothyroidism, chronic anemia and anxiety who was a direct admission from [facility] after being transferred for further surgical evaluation from our facility two days prior. Large ventral hernia Patient recently admitted here 11/08 to 11/13 due to large ventral hernia concerning for possible obstruction with nausea and vomiting Patient treated here conservatively and symptoms resolved, was passing gas and tolerating regular diet after being transferred down to [place]. Dr. Cortes recommended transfer for urgent surgical correction of her hernia She was seen and evaluated by surgery at [place] who felt urgent or elective surgery at this point was not required. She transferred back to our facility for disposition needs and likely long-term placement. Awaiting bed availabilty (2) Hypothyroidism: Plan: chronic, Stable continue thyroid replacement per home regimen. (3) COPD (chronic obstructive pulmonary disease): Plan: Chronic, stable. No evidence of exacerbation. Continue inhalers daily. (4) Hypomagnesemia: Plan: replace and repeat in am. (5) Anemia: Plan: Acute blood loss anemia secondary to recent drop in hemoglobin around November 10 per prior records. She underwent EGD with no profuse bleeding seen but esophagitis was present. She was transfused 1 unit of packed red blood cells and hemoglobin is back up to 11 by day of discharge. Hemoglobin remains stable. Outpatient colonoscopy recommended. (6) CKD (chronic kidney disease), stage III: Plan: Chronic, stable. Avoid nephrotoxic substances. Continue to trend BMP periodically (7) HTN (hypertension): Plan: Chronic, at goal. Continue Benzepril, carvedilol, clonidine, HCTZ per home regimen. (8) Anxiety: Plan: Chronic, stable. Continue BuSpar as needed anxiety and Lexapro daily. Lovenox Full code Disposition-to rehab when bed available. Patient is medically stable for discharge when bed is available. Yeni Marie DO [facility] Hospitalist Admission and Anticipated Discharge Date Admission Date: November 14, 2022 Subjective 72-year-old female transferred back from [facility] after hernia operation not performed. Patient reports she is tolerating solid food and has no pain She is getting set up for rehab No acute issues today. denies diarrhea Review of Systems Review of Systems: All systems reviewed negative except as indicated above. Physical Exam Physical Exam: CONSTITUTIONAL: WNWD, vitals as above, generally well-appearing, NAD EYES: normal conjunctivae, no scleral icterus ENT: external ear and nose normal, NAD NECK: trachea midline RESPIRATORY: clear to auscultation bilaterally, no crackles, rales or wheezes, normal respiratory effort CARDIOVASCULAR: regular rate and rhythm, S1 and 2 heard without murmurs, gall ops or rubs, no JVD, no peripheral edema CHEST: inspection of chest was normal GASTROINTESTINAL: soft, nontender, ND, no guarding MUSCULOSKELETAL: strength 5/5 throughout, head is normocephalic and atraumatic SKIN: warm and dry NEUROLOGIC: CN 2-12 grossly intact, no sensory deficit, normal cognition, normal speech, no tremor PSYCHIATRIC: alert cooperative and oriented to person, place and time. Results & Data Results & Data Vital Signs (Past 12 Hours) Vital Signs Temp Pulse Resp BP Pulse Ox O2 Del Method 11/17/22 07:19 36.5 C 68 18 104/71 94 Room Air Medications Administered Current Inpatient Medications Acetaminophen (Acetaminophen 325 Mg Tab) 650 mg PO Q4H PRN PRN Reason: pain/fever Stop: 12/14/22 13:46 Al Hydrox/Mg Hydrox/Simethicone (Aluminum/Magnesium Susp 30 Ml Udc) 30 ml PO Q6H PRN PRN Reason: Dyspepsia Stop: 12/14/22 13:46 Atorvastatin Calcium (Atorvastatin 40 Mg Tab) 80 mg PO DAILY [facility] Stop: 12/15/22 08:59 Last Admin: 11/17/22 07:48 Dose: 80 mg Buspirone HCl (Buspirone 5 Mg Tab) 5 mg PO BID PRN PRN Reason: Anxiety Stop: 12/14/22 23:00 Carvedilol (Carvedilol 6.25 Mg Tab) 6.25 mg PO BID AKI Stop: 12/15/22 08:59 Last Admin: 11/17/22 07:49 Dose: 6.25 mg Clonidine HCl (Clonidine Hcl 0.3 Mg Tab) 0.3 mg PO HS [facility] Stop: 12/14/22 23:04 Last Admin: 11/16/22 20:15 Dose: 0.3 mg Docusate Sodium (Docusate Sodium 100 Mg Cap) 100 mg PO BID AKI Stop: 12/14/22 23:14 Last Admin: 11/17/22 07:49 Dose: Not Given Ezetimibe (Ezetimibe 10 Mg Tablet) 10 mg PO QDL [facility] Stop: 12/15/22 11:29 Last Admin: 11/17/22 11:19 Dose: 10 mg Enoxaparin Sodium (Enoxaparin Inj 40 Mg/0.4 Ml Syr) 40 mg SQ HS [facility] Stop: 12/15/22 20:59 Last Admin: 11/16/22 20:14 Dose: 40 mg Escitalopram Oxalate (Escitalopram Oxalate 10 Mg Tab) 10 mg PO DAILY [facility] Stop: 12/15/22 08:59 Last Admin: 11/17/22 07:49 Dose: 10 mg Fluticasone/Vilanterol (Fluticasone/Vilanterol 100/25mcg 14 Puffs/Inhaler) 1 puffs INH DAILY [facility] Stop: 12/15/22 08:59 Last Admin: 11/17/22 07:49 Dose: 1 puffs Promethazine HCl 6.25 mg/ (Sodium Chloride) 50.25 mls @ 201 mls/hr IV Q6H PRN PRN Reason: Nausea And Vomiting Stop: 12/14/22 23:01 Magnesium Sulfate 4 gm/ Sodium (Chloride) 1,008 mls @ 125 mls/hr IV .Q8H4M [facility] Stop: 11/17/22 17:03 Last Admin: 11/17/22 09:22 Dose: 125 mls/hr Levothyroxine Sodium (Levothyroxine Sodium 112 Mcg Tablet) 112 mcg PO MoTuWeThFrSa [facility] Stop: 12/15/22 06:29 Last Admin: 11/16/22 05:55 Dose: 112 mcg Magnesium Hydroxide (Magnesium Hydroxide Susp 30 Ml Udc) 30 ml PO Q6H PRN PRN Reason: Constipation Stop: 12/14/22 13:46 Ondansetron HCl (Ondansetron Inj 2 Mg/Ml 2 Ml Vial) 4 mg IV Q6H PRN PRN Reason: Nausea Stop: 12/14/22 13:46 Polyethylene Glycol (Polyethylene (Miralax) 17 Gm Pack) 17 gm PO DAILY PRN PRN Reason: Constipation Stop: 12/14/22 13:46 Sennosides (Senna 8.6 Mg Tab) 17.2 mg PO BID [facility] Stop: 07/01/23 23:14 Last Admin: 11/17/22 07:49 Dose: Not Given (1) Ventral hernia Obstruction and gangrene presence: without obstruction or gangrene Qualified Code(s): K43.9 - Ventral hernia without obstruction or gangrene
[2022-11-17] MEDS: cloNIDine HCL 0.3 MG TAB PO SCH (19:35)
[2022-11-17] MEDS: ENOXAPARIN INJ 40 MG/0.4 ML SYR SQ SCH (19:36)
[2022-11-17] MEDS ORDERED: SODIUM CHLORIDE 0.9% 500 ML IV ONE (20:26)
[2022-11-17 21:16] LABS: Calcium 7.7 mg/dl (8.6-10.3); Magnesium 2.2 mg/dl (1.7-2.4); Potassium 3.7 mmol/L (3.5-5.1)
[2022-11-17 21:22] LABS: Est GFR (Non-African American) 64.7 ml/min
[2022-11-17 21:29] LABS: Basophils # (auto) 0.03 K/uL (0-0.2); Basophils % (auto) 0.3 %; Eosinophils # (auto) 0.06 K/uL (0-0.50); Eosinophils % (auto) 0.6 %; Hematocrit (blood only) 30.5 % (37.0-47.0); Immature Granulocytes # (auto) 0.04 K/uL (0.01-0.20); Immature Granulocytes % (auto) 0.4 %; Lymphocytes # (auto) 1.05 K/uL (1.2-3.4); Mean Corpuscular Hemoglobin 26.3 pg (25.0-34.0); Mean Corpuscular Hgb Conc 32.8 g/dL (32.0-36.0); Mean Corpuscular Volume 80.3 fL (80.0-100.0); Mean Platelet Volume 10.1 fL (9.4-12.4); Monocytes # (auto) 0.67 K/uL (0.11-0.59); Monocytes % (auto) 6.4 %; Neutrophils # (auto) 8.63 K/uL (1.40-6.50); Neutrophils % (auto) 82.3 %; Platelet Count 206 K/uL (130-400); RDW Coefficient of Variation 18.6 % (11.5-14.5); RDW Standard Deviation 54.6 fL (36.4-46.3); White Blood Count 10.48 K/ul (4.8-10.8)
[2022-11-18] MEDS: LEVOTHYROXINE SODIUM 112 MCG TABLET PO SCH (05:45)
--- NOTE | 2022-11-18 07:59 | Hospitalist Progress Note ---
Date of Service November 18, 2022 Assessment & Plan (1) Ventral hernia: Plan: This is a 72-year-old female with significant past medical history of HTN, CKD, COPD, hypothyroidism, chronic anemia and anxiety who was a direct admission from [facility] after being transferred for further surgical evaluation from our facility two days prior. Large ventral hernia Patient recently admitted here 11/08 to 11/13 due to large ventral hernia concerning for possible obstruction with nausea and vomiting Patient treated here conservatively and symptoms resolved, was passing gas and tolerating regular diet after being transferred down to [place]. Dr. Cortes recommended transfer for urgent surgical correction of her hernia She was seen and evaluated by surgery at [place] who felt urgent or elective surgery at this point was not required. She transferred back to our facility for disposition needs and likely long-term placement. Awaiting bed availabilty (2) Hypothyroidism: Plan: chronic, Stable continue thyroid replacement per home regimen. (3) COPD (chronic obstructive pulmonary disease): Plan: Chronic, stable. No evidence of exacerbation. Continue inhalers daily. (4) Hypomagnesemia: Plan: replace and repeat in am. (5) Anemia: Plan: Acute blood loss anemia secondary to recent drop in hemoglobin around November 10 per prior records. She underwent EGD with no profuse bleeding seen but esophagitis was present. She was transfused 1 unit of packed red blood cells and hemoglobin is back up to 11 by day of discharge. Hemoglobin remains stable. Outpatient colonoscopy recommended. (6) CKD (chronic kidney disease), stage III: Plan: Chronic, stable. Avoid nephrotoxic substances. Continue to trend BMP periodically (7) HTN (hypertension): Plan: Chronic, at goal. Continue Benzepril, carvedilol, clonidine, HCTZ per home regimen. (8) Anxiety: Plan: Chronic, stable. Continue BuSpar as needed anxiety and Lexapro daily. Lovenox Full code Disposition-to rehab when bed available. Patient is medically stable for discharge when bed is available. Yeni Marie DO [facility] Hospitalist Admission and Anticipated Discharge Date Admission Date: November 14, 2022 Subjective 72-year-old female transferred back from [facility] after hernia operation not performed. Patient reports she is tolerating solid food and has no pain She is getting set up for rehab No acute issues today. denies diarrhea Review of Systems Review of Systems: All systems reviewed negative except as indicated above. Physical Exam Physical Exam: CONSTITUTIONAL: WNWD, vitals as above, generally well-appearing, NAD EYES: normal conjunctivae, no scleral icterus ENT: external ear and nose normal, NAD NECK: trachea midline RESPIRATORY: clear to auscultation bilaterally, no crackles, rales or wheezes, normal respiratory effort CARDIOVASCULAR: regular rate and rhythm, S1 and 2 heard without murmurs, gall ops or rubs, no JVD, no peripheral edema CHEST: inspection of chest was normal GASTROINTESTINAL: soft, nontender, ND, no guarding MUSCULOSKELETAL: strength 5/5 throughout, head is normocephalic and atraumatic SKIN: warm and dry NEUROLOGIC: CN 2-12 grossly intact, no sensory deficit, normal cognition, normal speech, no tremor PSYCHIATRIC: alert cooperative and oriented to person, place and time. Results & Data Results & Data Vital Signs (Past 12 Hours) Vital Signs Temp Pulse Resp BP Pulse Ox O2 Del Method 11/18/22 07:05 36.4 C L 70 18 113/75 93 Room Air 11/17/22 21:45 117/57 L Laboratory Results Short CBC 11/17/22 Range/Units 20:45 WBC 10.48 (4.8-10.8) K/ul Hgb 10.0 L (12.0-16.0) g/dl Hct 30.5 L (37.0-47.0) % Plt Count 206 (130-400) K/uL BMP 11/17/22 20:45 Sodium 136 Potassium 3.7 Chloride 103 Carbon Dioxide 28 BUN 15 Creatinine 0.88 Glucose 128 H Calcium 7.7 L Medications Administered Current Inpatient Medications Acetaminophen (Acetaminophen 325 Mg Tab) 650 mg PO Q4H PRN PRN Reason: pain/fever Stop: 12/14/22 13:46 Last Admin: 11/18/22 03:37 Dose: 650 mg Al Hydrox/Mg Hydrox/Simethicone (Aluminum/Magnesium Susp 30 Ml Udc) 30 ml PO Q6H PRN PRN Reason: Dyspepsia Stop: 12/14/22 13:46 Atorvastatin Calcium (Atorvastatin 40 Mg Tab) 80 mg PO DAILY [facility] Stop: 12/15/22 08:59 Last Admin: 11/17/22 07:48 Dose: 80 mg Buspirone HCl (Buspirone 5 Mg Tab) 5 mg PO BID PRN PRN Reason: Anxiety Stop: 12/14/22 23:00 Carvedilol (Carvedilol 6.25 Mg Tab) 6.25 mg PO BID [facility] Stop: 12/15/22 08:59 Last Admin: 11/17/22 19:34 Dose: Not Given Clonidine HCl (Clonidine Hcl 0.3 Mg Tab) 0.3 mg PO HS [facility] Stop: 12/14/22 23:04 Last Admin: 11/17/22 19:35 Dose: Not Given Docusate Sodium (Docusate Sodium 100 Mg Cap) 100 mg PO BID [facility] Stop: 12/14/22 23:14 Last Admin: 11/17/22 19:36 Dose: 100 mg Ezetimibe (Ezetimibe 10 Mg Tablet) 10 mg PO QDL [facility] Stop: 12/15/22 11:29 Last Admin: 11/17/22 11:19 Dose: 10 mg Enoxaparin Sodium (Enoxaparin Inj 40 Mg/0.4 Ml Syr) 40 mg SQ HS [facility] Stop: 12/15/22 20:59 Last Admin: 11/17/22 19:36 Dose: 40 mg Escitalopram Oxalate (Escitalopram Oxalate 10 Mg Tab) 10 mg PO DAILY [facility] Stop: 12/15/22 08:59 Last Admin: 11/17/22 07:49 Dose: 10 mg Fluticasone/Vilanterol (Fluticasone/Vilanterol 100/25mcg 14 Puffs/Inhaler) 1 puffs INH DAILY [facility] Stop: 12/15/22 08:59 Last Admin: 11/17/22 07:49 Dose: 1 puffs Promethazine HCl 6.25 mg/ (Sodium Chloride) 50.25 mls @ 201 mls/hr IV Q6H PRN PRN Reason: Nausea And Vomiting Stop: 12/14/22 23:01 Levothyroxine Sodium (Levothyroxine Sodium 112 Mcg Tablet) 112 mcg PO MoTuWeThFrSa [facility] Stop: 12/15/22 06:29 Last Admin: 11/18/22 05:45 Dose: 112 mcg Magnesium Hydroxide (Magnesium Hydroxide Susp 30 Ml Udc) 30 ml PO Q6H PRN PRN Reason: Constipation Stop: 12/14/22 13:46 Ondansetron HCl (Ondansetron Inj 2 Mg/Ml 2 Ml Vial) 4 mg IV Q6H PRN PRN Reason: Nausea Stop: 12/14/22 13:46 Polyethylene Glycol (Polyethylene (Miralax) 17 Gm Pack) 17 gm PO DAILY PRN PRN Reason: Constipation Stop: 12/14/22 13:46 Sennosides (Senna 8.6 Mg Tab) 17.2 mg PO BID AKI Stop: 12/14/22 23:14 Last Admin: 11/17/22 19:35 Dose: 17.2 mg (1) Ventral hernia Obstruction and gangrene presence: without obstruction or gangrene Qualified Code(s): K43.9 - Ventral hernia without obstruction or gangrene
[2022-11-18] MEDS: DOCUSATE SODIUM 100 MG CAP PO SCH (08:48)
[2022-11-18] MEDS: FLUTICASONE/VILANTEROL 100/25MCG 14 PUFFS/INHALER INH SCH (08:48)
[2022-11-18] MEDS: ESCITALOPRAM OXALATE 10 MG TAB PO SCH (08:49)
[2022-11-18] MEDS: SENNA 8.6 MG TAB PO SCH (08:49)
[2022-11-18] MEDS: carvediloL 6.25 MG TAB PO SCH (08:49)
[2022-11-18] MEDS: ATORVASTATIN 40 MG TAB PO SCH (08:49)
[2022-11-18 09:31] LABS: BUN Creatinine Ratio 17.3 (10-20); Creatinine Clr Calc Pharmacy 64.1 ml/min; Est GFR (African American) 82.9 ml/min; Est GFR (Non-African American) 71.5 ml/min; Magnesium 1.9 mg/dl (1.7-2.4); Phosphorus 2.3 mg/dl (2.5-4.9); Potassium 3.3 mmol/L (3.5-5.1)
[2022-11-18] MEDS: EZETIMIBE 10 MG TABLET PO SCH (11:37)
--- NOTE | 2022-11-18 12:46 | Discharge Summary ---
Discharge Summary Date of Service November 18, 2022 Admission HPI Per Admitting Provider This is a 72-year-old female with significant past medical history of HTN, CKD, COPD, hypothyroidism, chronic anemia and anxiety who was a direct admission from [facility] after being transferred there yesterday for further surgical evaluation from our facility. Of significance patient was admitted here on 11/08/2022 and discharged to [place] yesterday on 11/13/2022. She was initially admitted secondary to nausea and vomiting and concern for possible bleeding. Initial CT scan on admission showed prominence of the stomach with multiple air- fluid levels and narrowing at the level of the pylorus as it exits from a ventral hernia which was concerning for gastric outlet obstruction owing to the ventral hernia. She was seen and evaluated by our general surgery team and recommendation was for patient to be transferred for special hernia surgeon. Hospital course complicated for acute anemia for which hemoglobin dropped from 11-7. Digital rectal exam was performed and no mandi blood, fecal occult negative. She was seen by GI due to concern for possible upper GI bleeding. She did eventually undergo upper GI which revealed esophagitis but otherwise normal upper endoscopy. She underwent transfusion of 1 unit PRBC. Patient eventually was then transferred down to [place] for further evaluation. At our hospital she was treated with conservative measures and refused NG tube. Gradually her symptoms resolved. When arriving at [place] she no longer had abdominal pain, was passing gas and tolerating a normal diet. After further review of her imaging it was not felt that surgery was required. Patient does have a difficult disposition as she likely requires long-term placement and therefore was transferred back to our facility. Principal Dx & Hospital Course #1 = Principal Diagnosis (1) Ventral hernia: (2) Hypothyroidism: (3) COPD (chronic obstructive pulmonary disease): (4) Hypomagnesemia: (5) Anemia: (6) CKD (chronic kidney disease), stage III: (7) HTN (hypertension): (8) Anxiety: Updated Medication List Medication Instructions Recorded Confirmed Type benazepril 40 mg tablet 40 mg PO DAILY #90 tabs 06/24/19 11/14/22 Rx carvedilol 12.5 mg tablet (Coreg) 12.5 mg PO BID #90 tabs 06/24/19 11/14/22 Rx clonidine HCl 0.3 mg tablet 0.3 mg PO HS #90 tabs 06/24/19 11/14/22 Rx ezetimibe 10 mg tablet (Zetia) 10 mg PO QDL #90 tabs 06/24/19 11/14/22 Rx hydrochlorothiazide 25 mg tablet 25 mg PO DAILY #90 tabs 06/24/19 11/14/22 Rx levothyroxine 112 mcg tablet 112 mcg PO 6XWK #90 tabs 07/07/19 11/14/22 Rx atorvastatin 80 mg tablet 80 mg PO DAILY 11/08/22 11/14/22 History buspirone 5 mg tablet 5 mg PO BID PRN Anxiety 11/08/22 11/14/22 History escitalopram oxalate 10 mg tablet 10 mg PO DAILY 11/08/22 11/14/22 History fluticasone furoate 100 1 puffs inhalation DAILY 11/08/22 11/14/22 History mcg-vilanterol 25 mcg/dose inhalation powder (Breo Ellipta) docusate sodium 100 mg capsule 100 mg PO BID 11/14/22 11/14/22 History nystatin 100,000 unit/gram topical See Rx Instructions .Route .COMPLEX 11/14/22 11/14/22 History powder sennosides 8.6 mg tablet (senna) 17.2 mg PO BID 11/14/22 11/14/22 History Hospital Stay Data Pending Results Patient Have Any Pending Studies at Discharge: No Discharge Instructions Given to Patient (Per Discharging Provider) Please take all medications as instructed on discharge list below. It is recommended that you follow-up with your primary care doctor within 1 week of discharge from the hospital to ensure you are still doing well. Regarding previous imaging from your prior hospital stay you were found to have multiple bilateral kidney cysts that should be followed up as an outpatient after your hernia is addressed. Follow-up at the wound care clinic for your sacral wounds may be necessary. Please discuss this at follow-up with your primary care doctor. Your magnesium was found to be low in the hospital and replacement was given. Please consider repeat magnesium check in the outpatient setting with your primary care doctor. A follow-up BNP and CBC is also recommended to ensure stability. It was a pleasure taking care of you! Please call if you have any questions or problems. You can reach a [facility] hospitalist on duty at [facility] 24 hours a day by calling [phone]. Take care of yourself. DO Carine Jarrell Hospitalist Total Time Total Time Spent Total Time Spent (In Minutes): 60
== END 2022-11-18 13:41 | DRG 394 ==
LOC: SUATTDRO 21:00 → SUPCPDRO 21:00 → 3N 21:00

== ENCOUNTER 2023-01-29 10:56 | Inpatient (IN) ==
--- NOTE | 2023-01-29 11:08 | Emergency Department Note ---
Impression & Plan Intractable nausea and vomiting, Acute dehydration, AUDREY (acute kidney injury) ED Provider Note NAME: LUIS ANGEL COOPER AGE: 72 SEX: F : 1950 ARRIVES VIA: Ambulance INFORMANT: Patient, ED PROVIDER(S): Milad Arteaga MD CHIEF COMPLAINT: Abdominal pain, vomiting MEDICAL DECISION MAKING: Patient presents due to concern for associated abdominal pain and vomiting. The patient does have a lower abdominal wall hernia which is reducible. IV was established blood work was obtained patient was ordered IV Zofran and IV fluids. CT abdomen pelvis does show some pericholecystic fluid but no other findings consistent with cholecystitis. The patient does not have any element of transaminitis. Right upper quadrant ultrasound was ordered. No reproducible right upper quadrant pain on exam. Patient has a model count of 14 with anemia of 10.4 which is improved compared to prior. The patient's platelet count is unremarkable. Kidney function with a creat of 1.67 slightly worse compared to prior. The patient did receive additional IV fluids. LFTs grossly unremarkable with normal lipase. Urinalysis does show ketones consistent with dehydration. Patient's right upper quadrant ultrasound does not show any evidence of acute cholecystitis. Patient was trialed with p.o. challenged with saltines and water but the patient still vomited. Given this persistent nausea and vomiting I did speak with the on-call hospitalist service Dr. Gibson and the patient was admitted to the medicine service Prior /Outside records reviewed: I did review discharge summary from Dr. Marie from November 2022. Known history of hypertension CKD COPD hypothyroidism chronic anemia and anxiety patient was readmitted after evaluation for ventral hernia repair. Differential diagnosis: Gastroenteritis, food borne illness, infections, appendicitis, diverticulitis, inflammatory bowel disease, obstruction, GI bleed, biliary pathology, volvulus, as well as other pathologies. Diagnostics, as interpreted by me: ECG: None Cardiac monitoring: An order was placed for continuous cardiac monitoring. The monitor shows a rate of 102 with tachycardic and regular rhythm. Patient was placed on pulse oximetry Medical decision rules: None Imaging studies: See below I informally reviewed the patient's CT abdomen pelvis which does not show obvious pneumoperitoneum. Patient is noted to have a ventral hernia. HPI: Patient presents from her care facility due to concern for nausea and vomiting and associated abdominal pain. Patient describes the abdominal pain in the lower abdomen and is more diffuse. Nursing had reported that staff at the halfway was concerned that her emesis smelled like a bowel movement. Patient denies any upper abdominal pain. The patient has had associated nausea and vomiting. Patient denies any falls or trauma. No dysuria or hematuria. Patient denies any fevers chills chest pains or shortness of breath PAST MEDICAL HISTORY: See Below PAST SURGICAL HISTORY: See Below SOCIAL HISTORY: See Below HOME MEDICATIONS: See Below ALLERGIES: See Below VITALS: See Below PHYSICAL EXAMINATION: GENERAL: NAD, non-toxic. EYE EXAM: Normal conjunctiva. PERRL, no anisocoria and EOM's grossly intact w/o pain. OROPHARYNX: Dry mucus membranes, grossly normal dentition. NECK: Supple, no nuchal rigidity, no adenopathy, non-tender. No signs of meningismus. FROM of the neck with good chin to chest and neck extension. No stridor. LUNGS: Clear to auscultation. Normal chest wall mechanics. HEART: Tachycardic and regular, no MRG. ABDOMEN: Lower abdominal pain, abdomen is soft, lower abdominal hernia noted but reducible. BACK: No CVA TTP. SKIN: No rashes and no bruising. UPPER EXTREMITIES: Upper extremities are grossly normal. LOWER EXTREMITIES: Grossly normal, no edema. NEURO EXAM: A&O x3, cranial nerves II-XII grossly intact, normal speech, moves all 4 extremities. Past Med/Surg History Medical History Acute blood loss anemia Anemia Anxiety CKD (chronic kidney disease), stage III COPD (chronic obstructive pulmonary disease) HTN (hypertension) Hyperlipidemia Hypothyroidism Surgical History H/O: hysterectomy History of tonsillectomy Family History Mother Myocardial infarction Diabetes Denies family history of Colon cancer Ovarian cancer Prostate cancer Breast cancer Social History Smoking Status: Never smoker Second Hand Exposure: No; Do You Dip or Chew Tobacco: No; Hx Alcohol Use: No Hx Substance Use: No Preferred Language: Zambian Communication Ability: Effective Visual Impairment: No Limitations Hearing Ability: Normal Trim Carpenter Required: No Beliefs That Will Affect Care: None marital status: Current Living Situation: Family Current Living Situation Comment: Lives with Sons. current occupational status: retired Feels Safe at Home: Yes Dental Care, Regularly: Yes Physical Activity Frequency: Does not Exercise Assistive Devices: Bedside Commode and Walker Allergies Allergies Allergy/AdvReac Type Severity Reaction Status Date / Time Penicillins Allergy Unknown Unknown Verified 01/29/23 16:58 Sulfa (Sulfonamide Allergy Unknown rash Verified 01/29/23 16:58 Antibiotics) Home Meds Home Medications Medication Instructions Recorded Confirmed acetaminophen 325 mg tablet 650 mg PO Q6 PRN Fever Or Pain 01/29/23 01/29/23 (Tylenol) atorvastatin 80 mg tablet 80 mg PO HS 01/29/23 01/29/23 benazepril 40 mg tablet 40 mg PO QAM 01/29/23 01/29/23 carvedilol 12.5 mg tablet 12.5 mg PO BID 01/29/23 01/29/23 clonidine HCl 0.3 mg tablet 0.3 mg PO HS 01/29/23 01/29/23 escitalopram oxalate 10 mg tablet 10 mg PO QAM 01/29/23 01/29/23 ezetimibe 10 mg tablet 10 mg PO DAILY 01/29/23 01/29/23 fluticasone furoate 100 1 ea inhalation DAILY 01/29/23 01/29/23 mcg-vilanterol 25 mcg/dose inhalation powder (Breo Ellipta) hydrochlorothiazide 25 mg tablet 25 mg PO QAM 01/29/23 01/29/23 levothyroxine 112 mcg tablet 112 mcg PO .6 DAYS A WEEK 01/29/23 01/29/23 ondansetron HCl 4 mg tablet 4 mg PO Q6 PRN Nausea 01/29/23 01/29/23 potassium chloride 20 mEq 20 meq PO QAM 01/29/23 01/29/23 tablet,extended release(part/cryst) promethazine 25 mg/mL injection 25 mg IM Q6H PRN Nausea 01/29/23 01/29/23 solution (Phenergan) sennosides 8.6 mg tablet 17.2 mg PO BID 01/29/23 01/29/23 Results & Data (ED) Vital Signs Vital Signs - 24 hr 01/29/23 11:25 01/29/23 10:56 01/29/23 11:16 Temperature 36.7 C Temperature Source Oral Pulse Rate 110 H 59 L 110 H Pulse Rate from SpO2 Sensor Pulse Rhythm Regular Respiratory Rate 18 18 Respiratory Effort / Characteristics Non-Labored Respiratory Depth Normal Respiratory Pattern Regular Blood Pressure 154/92 H Blood Pressure Mean 112 Pulse Oximetry 95 95 Oxygen Delivery Method Room Air Room Air Sepsis Recent Fever Within 48 Hours No Sepsis New/Unexplained Change in Mental Status N/A Sepsis Action Taken by Nursing No Action Required 01/29/23 11:18 01/29/23 11:30 01/29/23 12:00 Temperature Temperature Source Pulse Rate 108 H 116 H 110 H Pulse Rate from SpO2 Sensor 114 H 110 H Pulse Rhythm Respiratory Rate 20 26 H 14 Respiratory Effort / Characteristics Respiratory Depth Respiratory Pattern Blood Pressure Blood Pressure Mean Pulse Oximetry 96 98 Oxygen Delivery Method Sepsis Recent Fever Within 48 Hours Sepsis New/Unexplained Change in Mental Status Sepsis Action Taken by Nursing 01/29/23 12:30 01/29/23 13:00 01/29/23 13:30 Temperature Temperature Source Pulse Rate 96 H 89 93 H Pulse Rate from SpO2 Sensor 96 H 92 H Pulse Rhythm Respiratory Rate 13 20 21 Respiratory Effort / Characteristics Respiratory Depth Respiratory Pattern Blood Pressure 161/101 H 157/81 H Blood Pressure Mean 121 106 Pulse Oximetry 98 92 Oxygen Delivery Method Sepsis Recent Fever Within 48 Hours Sepsis New/Unexplained Change in Mental Status Sepsis Action Taken by Nursing 01/29/23 14:01 01/29/23 15:00 01/29/23 15:30 Temperature Temperature Source Pulse Rate 74 74 78 Pulse Rate from SpO2 Sensor 71 81 Pulse Rhythm Respiratory Rate 17 34 H 18 Respiratory Effort / Characteristics Respiratory Depth Respiratory Pattern Blood Pressure 122/101 H 160/118 H 161/112 H Blood Pressure Mean 108 132 128 Pulse Oximetry 92 90 Oxygen Delivery Method Sepsis Recent Fever Within 48 Hours Sepsis New/Unexplained Change in Mental Status Sepsis Action Taken by Nursing 01/29/23 16:13 Temperature Temperature Source Pulse Rate 79 Pulse Rate from SpO2 Sensor Pulse Rhythm Respiratory Rate Respiratory Effort / Characteristics Respiratory Depth Respiratory Pattern Blood Pressure Blood Pressure Mean Pulse Oximetry Oxygen Delivery Method Sepsis Recent Fever Within 48 Hours Sepsis New/Unexplained Change in Mental Status Sepsis Action Taken by [facility] Medications Current Medication List: was personally reviewed by me Laboratory Data Attestation: I reviewed the patient's lab results. 01/29/23 11:15 01/29/23 11:15 Lab Results 01/29/23 01/29/23 01/29/23 Range/Units 11:15 11:15 11:30 WBC 14.51 H (4.8-10.8) K/ul RBC 4.71 (4.20-5.40) M/uL Hgb 10.4 L (12.0-16.0) g/dl POC Hgb (12.0-16.0) g/dl Hct 33.0 L (37.0-47.0) % POC Hct (37-47) % MCV 70.1 L (80.0-100.0) fL MCH 22.1 L (25.0-34.0) pg MCHC 31.5 L (32.0-36.0) g/dL RDW Std Deviation 49.1 H (36.4-46.3) fL RDW Coeff of Tip 19.8 H (11.5-14.5) % Plt Count 375 (130-400) K/uL MPV 9.6 (9.4-12.4) fL Immature Gran % (Auto) 0.5 % Neut % (Auto) 85.1 % Lymph % (Auto) 9.9 % [place] % (Auto) 4.1 % Eos % (Auto) 0.1 % Baso % (Auto) 0.3 % Neut # (Auto) 12.35 H (1.40-6.50) K/uL Lymph # (Auto) 1.44 (1.2-3.4) K/uL [place] # (Auto) 0.60 H (0.11-0.59) K/uL Eos # (Auto) 0.01 (0-0.50) K/uL Baso # (Auto) 0.04 (0-0.2) K/uL Immature Gran # (Auto) 0.07 (0.01-0.20) K/uL POC Sodium (135-144) mmol/L Sodium 145 (136-145) mmol/L POC Potassium (3.3-5.0) mmol/L Potassium 3.8 (3.5-5.1) mmol/L POC Chloride (101-112) mmol/L Chloride 101 (98-107) mmol/L Carbon Dioxide 29 (21-32) mmol/L POC Total CO2 (24-31) mmol/L Anion Gap 15 H (3-11) POC Anion Gap (16-25) mmol/L POC BUN (7-18) mg/dl BUN 35 H (6-23) mg/dl Creatinine 1.67 H (0.6-1.2) mg/dl POC Creatinine (0.6-1.3) mg/dl Est Cr Clr Drug Dosing 29.5 ml/min Est GFR ( Amer) 34.6 ml/min Est GFR (Non-Af Amer) 29.8 ml/min BUN/Creatinine Ratio 21.0 H (10-20) Glucose 122 H (70-99(Fasting)) mg/dl POC Glucose (other) (70-99) mg/dl Calcium 8.9 (8.6-10.3) mg/dl POC Ioniz Calcium Kamlesh (1.12-1.32) mmol/l Total Bilirubin 0.9 (0.2-1.0) mg/dl AST 14 (13-39) U/L ALT 6 L (7-52) U/L Alkaline Phosphatase 54 (34-104) U/L Total Protein 7.6 (6.0-8.3) gm/dl Albumin 3.8 (3.4-5.0) gm/dl Globulin 3.8 (2.5-4.0) gm/dl Albumin/Globulin Ratio 1.0 (0.9-2) Lipase 50 (11-82) U/L Urine Color Dark Yellow Urine Appearance Cloudy A (Clear) Urine pH 5.0 (4.5-7.5) Ur Specific [place] 1.024 (1.000-1.030) Urine Protein 3+ H (Negative) Urine Glucose (UA) Negative (Negative) Urine Ketones Trace H (Negative) Urine Blood Negative (Negative) Urine Nitrite Negative (Negative) Urine Bilirubin 2+ H (Negative) Urine Urobilinogen Negative (Negative) Ur Leukocyte Esterase Trace H (Negative) Urine WBC (Auto) 1-5 (0-5) /hpf Urine RBC (Auto) 5-10 H (0-4) /hpf U Hyaline Cast (Auto) 1-5 (0-5) /lpf U Epithel Cells (Auto) >30 H (0-5) /lpf Urine Bacteria (Auto) Negative (Negative) 01/29/23 01/29/23 Range/Units 11:54 16:52 WBC (4.8-10.8) K/ul RBC (4.20-5.40) M/uL Hgb (12.0-16.0) g/dl POC Hgb 11.6 L (12.0-16.0) g/dl Hct (37.0-47.0) % POC Hct 34 L (37-47) % MCV (80.0-100.0) fL MCH (25.0-34.0) pg MCHC (32.0-36.0) g/dL RDW Std Deviation (36.4-46.3) fL RDW Coeff of Tip (11.5-14.5) % Plt Count (130-400) K/uL MPV (9.4-12.4) fL Immature Gran % (Auto) % Neut % (Auto) % Lymph % (Auto) % [place] % (Auto) % Eos % (Auto) % Baso % (Auto) % Neut # (Auto) (1.40-6.50) K/uL Lymph # (Auto) (1.2-3.4) K/uL [place] # (Auto) (0.11-0.59) K/uL Eos # (Auto) (0-0.50) K/uL Baso # (Auto) (0-0.2) K/uL Immature Gran # (Auto) (0.01-0.20) K/uL POC Sodium 139 (135-144) mmol/L Sodium (136-145) mmol/L POC Potassium 8.1 H* (3.3-5.0) mmol/L Potassium 3.5 (3.5-5.1) mmol/L POC Chloride 104 (101-112) mmol/L Chloride (98-107) mmol/L Carbon Dioxide (21-32) mmol/L POC Total CO2 27 (24-31) mmol/L Anion Gap (3-11) POC Anion Gap 17.0 (16-25) mmol/L POC BUN 49 H (7-18) mg/dl BUN (6-23) mg/dl Creatinine (0.6-1.2) mg/dl POC Creatinine 1.9 H (0.6-1.3) mg/dl Est Cr Clr Drug Dosing ml/min Est GFR ( Amer) ml/min Est GFR (Non-Af Amer) ml/min BUN/Creatinine Ratio (10-20) Glucose (70-99(Fasting)) mg/dl POC Glucose (other) 127 H (70-99) mg/dl Calcium (8.6-10.3) mg/dl POC Ioniz Calcium Kamlesh 0.87 L (1.12-1.32) mmol/l Total Bilirubin (0.2-1.0) mg/dl AST (13-39) U/L ALT (7-52) U/L Alkaline Phosphatase (34-104) U/L Total Protein (6.0-8.3) gm/dl Albumin (3.4-5.0) gm/dl Globulin (2.5-4.0) gm/dl Albumin/Globulin Ratio (0.9-2) Lipase (11-82) U/L Urine Color Urine Appearance (Clear) Urine pH (4.5-7.5) Ur Specific [place] (1.000-1.030) Urine Protein (Negative) Urine Glucose (UA) (Negative) Urine Ketones (Negative) Urine Blood (Negative) Urine Nitrite (Negative) Urine Bilirubin (Negative) Urine Urobilinogen (Negative) Ur Leukocyte Esterase (Negative) Urine WBC (Auto) (0-5) /hpf Urine RBC (Auto) (0-4) /hpf U Hyaline Cast (Auto) (0-5) /lpf U Epithel Cells (Auto) (0-5) /lpf Urine Bacteria (Auto) (Negative) Administered Medications Discontinued Medications Sodium Chloride (Nss 1000ml) 500 mls @ 999 mls/hr IV .Q31M ONE Stop: 01/29/23 11:46 Last Infusion: 01/29/23 13:53 Dose: 0 mls/hr Documented By: Admin: 01/29/23 11:48 Dose: 999 mls/hr Documented By: JULIO Famotidine (Pepcid 20mg Iv Push) 20 mg in 5 mls @ 2.5 mls/min IV NOW STA Stop: 01/29/23 13:01 Last Admin: 01/29/23 13:12 Dose: 2.5 mls/min Documented By: KAREN Sodium Chloride (Nss 1000ml) 500 mls @ 999 mls/hr IV .Q31M ONE Stop: 01/29/23 13:30 Last Infusion: 01/29/23 13:53 Dose: 0 mls/hr Documented By: Admin: 01/29/23 13:12 Dose: 999 mls/hr Documented By: KAREN Ioversol (Optiray 320 100ml) 92 ml IV ONCE ONE Stop: 01/29/23 12:17 Last Admin: 01/29/23 12:16 Dose: 92 ml Documented By: MARISOL Ondansetron HCl (Ondansetron Inj 2 Mg/Ml 2 Ml Vial) 4 mg IV NOW STA Stop: 01/29/23 11:17 Last Admin: 01/29/23 11:48 Dose: 4 mg Documented By: JULIO Imaging Data Radiologist's Impression: Abdomen/Pelvis CT 01/29/23 11:16 CT abd pelvis IV con only CLINICAL HISTORY: lower ab pain; RLQ hernia TECHNIQUE: Helical axial images of the abdomen and pelvis were obtained and displayed. Automated dose lowering techniques and/or adjustment according to patient size were utilized for this exam. This exam was performed with intravenous contrast. CT DOSE: 1264.31 mGy.cm COMPARISON: Comparison is made to CT abdomen pelvis 11/08/2022 FINDINGS: Lower chest: Bibasilar atelectasis versus scarring is seen. Biatrial enlar gement is seen. Liver: Unremarkable. No focal lesions are seen. Gallbladder and biliary tree: Pericholecystic fluid is seen without definite wall thickening of the gallbladder. No intra- or extrahepatic biliary ductal dilation. Pancreas: Unremarkable, no focal lesions. Spleen: Unremarkable. Adrenals: Unremarkable. Kidneys and ureters: Multiple bilateral renal cysts are again seen. Bladder: Limited evaluation due to underdistention. Reproductive organs: Patient is status post hysterectomy. Bowel: Diverticulosis is seen without evidence of diverticulitis. Stomach and multiple loops of large and small bowel are seen in the right ventral hernia. Lymph nodes Retroperitoneal: Unremarkable. Pelvic: Unremarkable. Mesenteric: Unremarkable. Peritoneum: Normal. Vessels: Atherosclerotic calcifications are seen. Abdominal wall: Large ventral hernia containing multiple loops of nondilated bowel. Bilateral fat-containing inguinal hernias are seen. Bones: Degenerative changes in the visualized spine. Severe degenerative changes of the right hip with fragmentation. IMPRESSION: 1. Acute abnormalities are seen. Redemonstration of large right ventral hernia containing multiple loops of nondilated bowel. 2. Pericholecystic fluid is seen without evidence of gallbladder wall thickening. Clinical correlation is recommended to exclude atypical appearance of cholecystitis. 3. Additional findings as above. ACT 112: Negative or not required by law. Electronically signed by: Alex Valentine M.D. 01/29/2023 12:36 PM Gallbladder Ultrasound 01/29/23 13:00 US gallbladder CLINICAL HISTORY: pericholecystic fluid on CT, WBC 14 TECHNIQUE: Multiple real-time sonographic images of the right upper quadrant were obtained. Comparison: Comparison is made to CT abdomen pelvis 01/29/2023 FINDINGS: The liver is diffusely homogenous with normal contour and echogenicity. No focal mass lesions are seen. No intrahepatic ductal dilatation is seen. A tiny amount of pericholecystic fluid is seen however the wall is not thickened. A sonographic Flores's sign was not elicited by the temper mill operator. The common duct measures 0.4 cm in diameter at the level of the hepatic artery. The visualized portions of the pancreas appear normal. The right kidney shows normal echogenicity, cortical thickness and renal contour. The right kidney shows no evidence of hydronephrosis or mass. No ascites or free fluid is seen in Torres's pouch. IMPRESSION: Pericholecystic fluid without evidence of acute cholecystitis. ACT 112: Negative or not required by law. Electronically signed by: Alex Valentine M.D. 01/29/2023 2:55 PM Discharge Plan Visit Data Chief Complaint: Vomiting ED Provider: Milad Arteaga Discharge Problem: Intractable nausea and vomiting, Acute dehydration, AUDREY (acute kidney injury) Forms Stand Alone Forms: My [facility] Prescriptions Prescriptions: No Action atorvastatin 80 mg tablet 80 mg PO HS benazepril 40 mg tablet 40 mg PO QAM fluticasone furoate-vilanterol [Breo Ellipta] 100-25 mcg/dose blister with device 1 ea INHALATION DAILY carvedilol 12.5 mg tablet 12.5 mg PO BID clonidine HCl 0.3 mg tablet 0.3 mg PO HS escitalopram oxalate 10 mg tablet 10 mg PO QAM ezetimibe 10 mg tablet 10 mg PO DAILY hydrochlorothiazide 25 mg tablet 25 mg PO QAM promethazine [Phenergan] 25 mg/mL Solution 25 mg IM Q6H PRN (Reason: Nausea) levothyroxine 112 mcg tablet 112 mcg PO .6 DAYS A WEEK Rx Instructions: Take all days but mon. sennosides 8.6 mg Tablet 17.2 mg PO BID acetaminophen [Tylenol] 325 mg Tablet 650 mg PO Q6 PRN (Reason: Fever Or Pain) ondansetron HCl 4 mg tablet 4 mg PO Q6 PRN (Reason: Nausea) potassium chloride 20 mEq tablet,ER particles/crystals 20 meq PO QAM Referrals Referrals: Azeb Brady DO [Outside Practitioners] -
[2023-01-29] MEDS ORDERED: SODIUM CHLORIDE 0.9% 1000ML 500 ML IV ONE ×2 (11:16→13:00)
[2023-01-29] MEDS ORDERED: ONDANSETRON INJ 2 MG/ML 2 ML VIAL IV STA (11:16)
[2023-01-29 11:41] LABS: Basophils # (auto) 0.04 K/uL (0-0.2); Basophils % (auto) 0.3 %; Eosinophils # (auto) 0.01 K/uL (0-0.50); Eosinophils % (auto) 0.1 %; Hemoglobin 10.4 g/dl (12.0-16.0); Immature Granulocytes # (auto) 0.07 K/uL (0.01-0.20); Immature Granulocytes % (auto) 0.5 %; Lymphocytes # (auto) 1.44 K/uL (1.2-3.4); Lymphocytes % (auto) 9.9 %; Mean Corpuscular Hemoglobin 22.1 pg (25.0-34.0); Mean Corpuscular Hgb Conc 31.5 g/dL (32.0-36.0); Mean Corpuscular Volume 70.1 fL (80.0-100.0); Mean Platelet Volume 9.6 fL (9.4-12.4); Monocytes % (auto) 4.1 %; Neutrophils # (auto) 12.35 K/uL (1.40-6.50); Neutrophils % (auto) 85.1 %; Platelet Count 375 K/uL (130-400); RDW Coefficient of Variation 19.8 % (11.5-14.5); RDW Standard Deviation 49.1 fL (36.4-46.3); Red Blood Count 4.71 M/uL (4.20-5.40); White Blood Count 14.51 K/ul (4.8-10.8)
[2023-01-29 11:45] LABS: Appearance Urine Cloudy (Clear); Bacteria Urine Automated Negative (Negative); Blood Urine Negative (Negative); Color Urine Dark Yellow; Epithelial Cell Urine Auto >30 /lpf (0-5); Glucose Urine UA Negative (Negative); Ketones Urine Trace (Negative); Leukocyte Esterase Urine Trace (Negative); Nitrite Urine Negative (Negative); Protein Urine 3+ (Negative); Specific Gravity Urine 1.024 (1.000-1.030); Urobilinogen Urine Negative (Negative)
[2023-01-29 11:53] LABS: Bilirubin Urine 2+ (Negative)
[2023-01-29 11:57] LABS: Albumin Level 3.8 gm/dl (3.4-5.0); Bilirubin,Total 0.9 mg/dl (0.2-1.0); Calcium 8.9 mg/dl (8.6-10.3); Creatinine Clr Calc Pharmacy 29.5 ml/min; Est GFR (African American) 34.6 ml/min; Est GFR (Non-African American) 29.8 ml/min; Globulin 3.8 gm/dl (2.5-4.0); Potassium 3.8 mmol/L (3.5-5.1); Total Protein 7.6 gm/dl (6.0-8.3)
[2023-01-29 12:07] LABS: iSTAT Creatinine 1.9 mg/dl (0.6-1.3); iSTAT Hemoglobin 11.6 g/dl (12.0-16.0); iSTAT Ionized Calcium 0.87 mmol/l (1.12-1.32); iSTAT Potassium 8.1 mmol/L (3.3-5.0)
[2023-01-29] MEDS ORDERED: OPTIRAY 320 100ml IV ONE (12:16)
--- NOTE | 2023-01-29 12:38 | CT Scan Report ---
CT abd pelvis IV con only CLINICAL HISTORY: lower ab pain; RLQ hernia TECHNIQUE: Helical axial images of the abdomen and pelvis were obtained and displayed. Automated dose lowering techniques and/or adjustment according to patient size were utilized for this exam. This e xam was performed with intravenous contrast. CT DOSE: 1264.31 mGy.cm COMPARISON: Comparison is made to CT abdomen pelvis 11/08/2022 FINDINGS: Lower chest: Bibasilar atelectasis versus scarring is seen. Biatrial enlargement is seen. Liver: Unremarkable. No focal lesions are seen. Gallbladder and biliary tree: Pericholecystic fluid is seen without definite wall thickening of the g allbladder. No intra- or extrahepatic biliary ductal dilation. Pancreas: Unremarkable, no focal lesions. Spleen: Unremarkable. Adrenals: Unremarkable. Kidneys and ureters: Multiple bilateral renal cysts are again seen. Bladder: Limited evaluation due to underdistention. Reproductive organs: Patient is status post hysterectomy. Bowel: Diverticulosis is seen without evidence of diverticulitis. Stomach and multiple loops of large and small bowel are seen in the right ventral hernia. Lymph nodes Retroperitoneal: Unremarkable. Pelvic: Unremarkable. Mesenteric: Unremarkable. Peritoneum: Normal. Vessels: Atherosclerotic calcifications are seen. Abdominal wall: Large ventral hernia containing multiple loops of nondilated bowel. Bilateral fat-con taining inguinal hernias are seen. Bones: Degenerative changes in the visualized spine. Severe degenerative changes of the right hip wit h fragmentation. IMPRESSION: 1. Acute abnormalities are seen. Redemonstration of large right ventral hernia containing multiple l oops of nondilated bowel. 2. Pericholecystic fluid is seen without evidence of gallbladder wall thickening. Clinical correlati on is recommended to exclude atypical appearance of cholecystitis. 3. Additional findings as above. ACT 112: Negative or not required by law. Electronically signed by: Alex Valentine M.D. 01/29/2023 12:36 PM
[2023-01-29] MEDS ORDERED: FAMOTIDINE 20MG IV PUSH 20 MG/5 ML SYR IV STA (13:00)
--- NOTE | 2023-01-29 14:56 | Ultrasound Report ---
US gallbladder CLINICAL HISTORY: pericholecystic fluid on CT, WBC 14 TECHNIQUE: Multiple real-time sonographic images of the right upper quadrant were obtained. Comparison: Comparison is made to CT abdomen pelvis 01/29/2023 FINDINGS: The liver is diffusely homogenous with normal contour and echogenicity. No focal mass lesions are see n. No intrahepatic ductal dilatation is seen. A tiny amount of pericholecystic fluid is seen doherty micheal the wall is not thickened. A sonographic Flores's sign was not elicited by the slack line yarder. The common duct measures 0.4 cm in diameter at the level of the hepatic artery. The visualized portions of the pancreas appear normal. The right kidney shows normal echogenicity, cortical thickness and renal contour. The right kidney sh ows no evidence of hydronephrosis or mass. No ascites or free fluid is seen in Torres's pouch. IMPRESSION: Pericholecystic fluid without evidence of acute cholecystitis. ACT 112: Negative or not required by law. Electronically signed by: Alex Valentine M.D. 01/29/2023 2:55 PM
--- NOTE | 2023-01-29 17:19 | History & Physical Report ---
Date of Service January 29, 2023 Assessment & Plan (1) Acute gastroenteritis: Plan: Suspect viral etiology. Clear liquids for now. IV antiemetics as needed. IV fluids. (2) Volume depletion: Plan: IV fluids. Clear liquids for now. Advance as tolerated. Hold diuretics (3) Acute worsening of stage 3 chronic kidney disease: Plan: IV fluids. Monitor intake and output. Serial labs (4) Hyperkalemia: Plan: Elevated on admission. This might be due to hemolysis. Repeat potassium level is pending. Nevertheless, will hold potassium supplements and RO inhibitor (5) COPD (chronic obstructive pulmonary disease): Plan: Stable. Continue current medical management (6) Essential hypertension: Plan: Stable. Continue current medical management except for benazepril (7) Primary hypothyroidism: Plan: Stable. Continue current medical management Plan Hopeful discharge to prior living arrangements later this week History of Present Illness Chief Complaint: Nausea and vomiting for 4 days Primary Care Provider: [facility] 72-year-old white female from [facility]. She states that she has had nausea and vomiting for the past 4 days with several bouts of loose stools. This appears to be a viral gastroenteritis. She does have some noticeable perichol ecystic fluid on scans but no right upper quadrant tenderness and no evidence of cholecystitis. She has a large right-sided ventral hernia that is chronic but there is no obstruction. Potassium was 8.1 on admission but this could be hemolyzed. Repeat potassium level is pending. Nevertheless, diuretics, potassium, benazepril are on hold. She is on IV fluids. Clear liquids for now. Advance as tolerated. Allergies Allergy/AdvReac Type Severity Reaction Status Date / Time Penicillins Allergy Unknown Unknown Verified 01/29/23 16:58 Sulfa (Sulfonamide Allergy Unknown rash Verified 01/29/23 16:58 Antibiotics) Home Medications Medication Instructions Recorded Confirmed Type acetaminophen 325 mg tablet 650 mg PO Q6 PRN Fever Or Pain 01/29/23 01/29/23 History (Tylenol) atorvastatin 80 mg tablet 80 mg PO HS 01/29/23 01/29/23 History benazepril 40 mg tablet 40 mg PO QAM 01/29/23 01/29/23 History carvedilol 12.5 mg tablet 12.5 mg PO BID 01/29/23 01/29/23 History clonidine HCl 0.3 mg tablet 0.3 mg PO HS 01/29/23 01/29/23 History escitalopram oxalate 10 mg tablet 10 mg PO QAM 01/29/23 01/29/23 History ezetimibe 10 mg tablet 10 mg PO DAILY 01/29/23 01/29/23 History fluticasone furoate 100 1 ea inhalation DAILY 01/29/23 01/29/23 History mcg-vilanterol 25 mcg/dose inhalation powder (Breo Ellipta) hydrochlorothiazide 25 mg tablet 25 mg PO QAM 01/29/23 01/29/23 History levothyroxine 112 mcg tablet 112 mcg PO .6 DAYS A WEEK 01/29/23 01/29/23 History ondansetron HCl 4 mg tablet 4 mg PO Q6 PRN Nausea 01/29/23 01/29/23 History potassium chloride 20 mEq 20 meq PO QAM 01/29/23 01/29/23 History tablet,extended release(part/cryst) promethazine 25 mg/mL injection 25 mg IM Q6H PRN Nausea 01/29/23 01/29/23 His tory solution (Phenergan) sennosides 8.6 mg tablet 17.2 mg PO BID 01/29/23 01/29/23 History Past Med/Surg History Medical History Acute blood loss anemia Anemia Anxiety CKD (chronic kidney disease), stage III COPD (chronic obstructive pulmonary disease) HTN (hypertension) Hyperlipidemia Hypothyroidism Surgical History H/O: hysterectomy History of tonsillectomy Family History Mother Myocardial infarction Diabetes Denies family history of Colon cancer Ovarian cancer Prostate cancer Breast cancer Social History Smoking Status: Never smoker Second Hand Exposure: No; Do You Dip or Chew Tobacco: No; Hx Alcohol Use: No Hx Substance Use: No Preferred Language: Estonian Communication Ability: Effective Visual Impairment: No Limitations Hearing Ability: Normal Epic Cadence Analyst Required: No Beliefs That Will Affect Care: None marital status: Current Living Situation: Family Current Living Situation Comment: Lives with Sons. current occupational status: retired Feels Safe at Home: Yes Dental Care, Regularly: Yes Physical Activity Frequency: Does not Exercise Assistive Devices: Bedside Commode and Walker Review of Systems Review of Systems: Constitutional-no fever or chills ENT-no blurred vision, no double vision, no epistaxis, no sore throat Respiratory-no cough, no wheezing, no shortness of breath Cardiac-no palpitations, no chest pain, no syncope GI-protracted nausea and vomiting. Occasional loose stools. No hematochezia. No melena. No hematemesis -no urinary retention, no urinary incontinence, no dysuria, no hematuria Musculoskeletal-no joint pain, no muscle tenderness Skin-no bruising, no rashes, no pruritus Neuro-no isolated weakness, no paresthesia, no weakness Psych-no depression, no anxiety Physical Exam Physical Exam: General-alert and oriented x3, no fevers, no chills HEENT-head atraumatic and normocephalic, hard of hearing, pupils equal and reactive to light, extraocular muscles intact Neck-no lymphadenopathy or thyromegaly, trachea midline Chest-clear to auscultation percussion. No rales wheezing or rhonchi Cardiac-regular rate and rhythm, normal S1 and S2, no murmurs Abdomen-normal bowel sounds, nontender, no hepatosplenomegaly. Large soft right abdominal wall hernia without tenderness Extremities-no cyanosis, clubbing, or edema Neuro-cranial nerves II through XII intact, motor and sensory function within normal limits, strength symmetrical , no focal deficits Psych-normal affect, normal mood Results & Data Results & Data Vital Signs (Past 12 Hours) Vital Signs Temp Pulse Resp BP Pulse Ox O2 Del Method 01/29/23 16:13 79 01/29/23 15:30 78 18 161/112 H 01/29/23 15:00 74 34 H 160/118 H 90 01/29/23 14:01 74 17 122/101 H 92 01/29/23 13:30 93 H 21 157/81 H 92 01/29/23 13:00 89 20 01/29/23 12:30 96 H 13 161/101 H 98 01/29/23 12:00 110 H 14 98 01/29/23 11:30 116 H 26 H 96 01/29/23 11:18 108 H 20 01/29/23 11:16 110 H 18 95 Room Air 01/29/23 10:56 36.7 C 59 L 18 154/92 H 95 Room Air 01/29/23 11:25 110 H Laboratory Results 01/29/23 11:15 PG Care Time/CCT Total # of Minutes Spent Total Time Spent with Patient: Total time spent is greater than 50% in coordination of care (as documented) at patient's floor/unit and/or counseling patient: Coding Level of Care Code 48217 INT INP/OBS CARE 3/75MIN Diagnoses Acute gastroenteritis K52.9 Volume depletion E86.9 Acute worsening of stage 3 chronic kidney disease N18.30 Hyperkalemia E87.5 COPD (chronic obstructive pulmonary disease) J44.9 Essential hypertension I10 Primary hypothyroidism E03.9
[2023-01-29] MEDS ORDERED: PROMETHAZINE HCL INJ 25 MG/ML 1 ML VIAL IM PRN (19:09)
[2023-01-29] MEDS ORDERED: ONDANSETRON 4 MG OD TAB PO PRN (19:26)
[2023-01-29] MEDS ORDERED: PROMETHAZINE HCL 25 MG in SODIUM CHLORIDE 0.9% 50 ML IV PRN (19:45)
[2023-01-29] MEDS ORDERED: PROMETHAZINE 25 MG/51 ML NSS IV ONE (20:24)
[2023-01-29] MEDS: SODIUM CHLORIDE 0.9% 1000ML 1,000 ML IV SCH (20:26)
[2023-01-29 20:36] LABS: Basophils # (auto) 0.03 K/uL (0-0.2); Basophils % (auto) 0.3 %; Hematocrit (blood only) 32.8 % (37.0-47.0); Hemoglobin 10.1 g/dl (12.0-16.0); Immature Granulocytes # (auto) 0.06 K/uL (0.01-0.20); Immature Granulocytes % (auto) 0.6 %; Lymphocytes # (auto) 0.81 K/uL (1.2-3.4); Lymphocytes % (auto) 7.8 %; Mean Corpuscular Hemoglobin 22.4 pg (25.0-34.0); Mean Corpuscular Hgb Conc 30.8 g/dL (32.0-36.0); Mean Corpuscular Volume 72.7 fL (80.0-100.0); Monocytes # (auto) 0.34 K/uL (0.11-0.59); Monocytes % (auto) 3.3 %; Platelet Count 267 K/uL (130-400); RDW Coefficient of Variation 19.8 % (11.5-14.5); RDW Standard Deviation 50.5 fL (36.4-46.3); Red Blood Count 4.51 M/uL (4.20-5.40); White Blood Count 10.34 K/ul (4.8-10.8)
[2023-01-29 20:38] LABS: BUN Creatinine Ratio 18.2 (10-20); Calcium 8.4 mg/dl (8.6-10.3); Creatinine Clr Calc Pharmacy 24.9 ml/min; Est GFR (African American) 28.1 ml/min; Est GFR (Non-African American) 24.3 ml/min; Potassium 3.4 mmol/L (3.5-5.1)
[2023-01-29] MEDS: PANTOprazole 40 MG in SYRINGE 0 ML IV SCH (20:57)
[2023-01-29] MEDS: cloNIDine HCL 0.3 MG TAB PO SCH (20:59)
[2023-01-29] MEDS: carvediloL 12.5 MG TAB PO SCH (21:01)
[2023-01-29] MEDS: ATORVASTATIN 40 MG TAB PO SCH (21:02)
[2023-01-29] MEDS: SENNA 8.6 MG TAB PO SCH (21:04)
[2023-01-29] MEDS: HEPARIN SOD 5,000 UNIT/0.5 ML VIAL SQ SCH (21:26)
[2023-01-30] MEDS: LEVOTHYROXINE SODIUM 112 MCG TABLET PO SCH (05:25)
[2023-01-30 08:56] LABS: Basophils # (auto) 0.02 K/uL (0-0.2); Basophils % (auto) 0.2 %; Hematocrit (blood only) 29.5 % (37.0-47.0); Hemoglobin 8.9 g/dl (12.0-16.0); Immature Granulocytes # (auto) 0.09 K/uL (0.01-0.20); Immature Granulocytes % (auto) 0.8 %; Lymphocytes % (auto) 10.2 %; Mean Corpuscular Hemoglobin 22.1 pg (25.0-34.0); Mean Corpuscular Hgb Conc 30.2 g/dL (32.0-36.0); Mean Corpuscular Volume 73.4 fL (80.0-100.0); Mean Platelet Volume 9.7 fL (9.4-12.4); Monocytes # (auto) 0.66 K/uL (0.11-0.59); Monocytes % (auto) 5.6 %; Neutrophils # (auto) 9.75 K/uL (1.40-6.50); Neutrophils % (auto) 83.2 %; Platelet Count 262 K/uL (130-400); RDW Coefficient of Variation 19.9 % (11.5-14.5); RDW Standard Deviation 52.3 fL (36.4-46.3); Red Blood Count 4.02 M/uL (4.20-5.40); White Blood Count 11.72 K/ul (4.8-10.8)
[2023-01-30 09:24] LABS: BUN Creatinine Ratio 18.6 (10-20); Calcium 7.9 mg/dl (8.6-10.3); Creatinine Clr Calc Pharmacy 22.9 ml/min; Est GFR (African American) 24.6 ml/min; Est GFR (Non-African American) 21.3 ml/min; Potassium 4.5 mmol/L (3.5-5.1)
[2023-01-30] MEDS: carvediloL 12.5 MG TAB PO SCH ×2 (10:01→18:45)
[2023-01-30] MEDS: EZETIMIBE 10 MG TAB PO SCH (10:01)
[2023-01-30] MEDS: SODIUM CHLORIDE 0.9% 1000ML 1,000 ML IV SCH ×2 (10:01→20:13)
[2023-01-30] MEDS: SENNA 8.6 MG TAB PO SCH ×2 (10:01→20:50)
[2023-01-30] MEDS: HEPARIN SOD 5,000 UNIT/0.5 ML VIAL SQ SCH ×2 (10:01→20:50)
[2023-01-30] MEDS: ESCITALOPRAM OXALATE 10 MG TAB PO SCH (10:01)
[2023-01-30] MEDS: FLUTICASONE/VILANTEROL 100/25MCG 14 PUFFS/INHALER INH SCH (10:02)
[2023-01-30] MEDS: PANTOprazole 40 MG in SYRINGE 0 ML IV SCH ×2 (10:02→20:51)
[2023-01-30 12:32] LABS: Albumin Level 3.2 gm/dl (3.4-5.0); Bilirubin Direct 0.2 mg/dl (0-0.2); Bilirubin,Total 0.8 mg/dl (0.2-1.0)
[2023-01-30 12:38] LABS: Total Protein 6.1 gm/dl (6.0-8.3)
[2023-01-30] MEDS ORDERED: SODIUM CHLORIDE 0.9% 1000ML 500 ML IV ONE (15:32)
--- NOTE | 2023-01-30 15:42 | Hospitalist Progress Note ---
Date of Service January 30, 2023 Assessment & Plan (1) Intractable nausea and vomiting: Plan: this has resolved. she had associated diarrhea by report at the [facility]. N/V/D would be most c/w a gastroenteritis. interestingly her CT a/p did not show any bowel inflammation, however. CT a/p reviewed. GB ultrasound reviewed. despite the GB u/s she has NO tenderness on examination today. there is no evidence of obstruction despite her large ventral hernia. (2) AUDREY (acute kidney injury): Plan: 2nd to #1 and hypotension. fluid bolus then increase basal fluid rate. place smith. BMP am. (3) Hypotension: Plan: 2nd to volume depletion from #1. hold BP meds. fluid bolus then increase basal fluid rate. (4) Primary hypothyroidism: Plan: TSH 1.3 earlier this month. Cont synthroid w/o changes. (5) Essential hypertension: Plan: Now with hypotension. Hold clonidine & coreg. (6) COPD (chronic obstructive pulmonary disease): Plan: No exacerbation at this time. (7) Hypomagnesemia: Plan: SEVERE. level = 0.9. 3 grams mag sulfate IV now. repeat mag level am. likely 2nd to vomiting/diarrhea. PPI use could be contributing as well. (8) Ventral hernia: Plan: large, reducible. no signs of obstruction on admission CT. 11/2022 - was in [facility] - evaluated by surgery there for consideration of ventral hernia repair - surgery not advised at that time. (9) Hypokalemia: Plan: replace BMP am replace low mag as well (10) Anemia: Plan: etiology?? microcytic, but Fe studies wnl in November 2022 repeat Fe studies in am s/p EGD earlier this spring - esophagitis seen (11) Abnormal gall bladder diagnostic imaging: Plan: no gallstones present but pericholecystic fluid is seen she has NO tenderness on exam today LFTs wnl if any clinical worsening - HIDA scan to r/o acalculous cholecystitis (12) Esophagitis: Plan: as seen on EGD 11/10/22 cont PPI (13) DVT prophylaxis: Plan: heparin 5000 BID Plan will need PT/OT Admission and Anticipated Discharge Date Admission Date: January 29, 2023 Subjective patient lethargic upon arrival she was snoring she was VERY difficult to arouse once awake she was groggy it took a while for her to awaken but ultimately able to answer questions she denies any abd pain no further nausea/emesis staff report no diarrhea today she is very thirsty has not made any urine today she did say at one point "I think I feel a little better today" records reviewed - in November 2022 was at [facility] due to concern about her ventral hernia; surgery saw her there - no surgery recommended for ventral hernia tele overnight wnl Review of Systems Review of Systems: gen - feels cold; very weak; no appetite; has taken little to no clears today cv - no orthopnea/ no chest pain pulm - no dyspnea at rest; no cough GI - diarrhea/abd pain/nausea/emesis resolved Physical Exam Physical Exam: gen - obese, lethargic, looks unwell skin - cold to touch arms & legs mouth - severely dry MM neck - no JVD heart - RRR, s1 s2 lungs - CTA b/l abd - soft, large ventral hernia that is reducible, BS+, NONTENDER RUQ, no peritoneal signs ext - very cool to touch, pulses 1+ b/l, cap refill poor, no edema psych - mildly confused Results & Data Results & Data Vital Signs (Past 12 Hours) Vital Signs Temp Pulse Pulse Resp BP Pulse Ox O2 Del Method 01/30/23 07:39 36.4 C L 69 19 103/68 97 Room Air 01/30/23 07:32 90 Laboratory Results Laboratory Results - last 24 hr 01/29/23 01/29/23 01/29/23 16:52 19:38 19:38 WBC 10.34 RBC 4.51 Hgb 10.1 L Hct 32.8 L MCV 72.7 L MCH 22.4 L MCHC 30.8 L RDW Std Deviation 50.5 H RDW Coeff of Tip 19.8 H Plt Count 267 MPV 10.0 Immature Gran % (Auto) 0.6 Neut % (Auto) 88.0 Lymph % (Auto) 7.8 Crisp % (Auto) 3.3 Eos % (Auto) 0.0 Baso % (Auto) 0.3 Neut # (Auto) 9.10 H Lymph # (Auto) 0.81 L Crisp # (Auto) 0.34 Eos # (Auto) 0.00 Baso # (Auto) 0.03 Immature Gran # (Auto) 0.06 Sodium 145 Potassium 3.5 3.4 L Chloride 103 Carbon Dioxide 27 Anion Gap 15 H BUN 36 H Creatinine 1.98 H D Est Cr Clr Drug Dosing 24.9 Est GFR ( Amer) 28.1 Est GFR (Non-Af Amer) 24.3 BUN/Creatinine Ratio 18.2 Glucose 146 H Calcium 8.4 L Total Bilirubin Direct Bilirubin AST ALT Alkaline Phosphatase Total Protein Albumin Nasal Screen MRSA (PCR) SARS-CoV-2, RNA, NAAT 01/30/23 01/30/23 01/30/23 01:30 02:00 08:12 WBC 11.72 H RBC 4.02 L Hgb 8.9 L Hct 29.5 L MCV 73.4 L MCH 22.1 L MCHC 30.2 L RDW Std Deviation 52.3 H RDW Coeff of Tip 19.9 H Plt Count 262 MPV 9.7 Immature Gran % (Auto) 0.8 Neut % (Auto) 83.2 Lymph % (Auto) 10.2 Crisp % (Auto) 5.6 Eos % (Auto) 0.0 Baso % (Auto) 0.2 Neut # (Auto) 9.75 H Lymph # (Auto) 1.20 Crisp # (Auto) 0.66 H Eos # (Auto) 0.00 Baso # (Auto) 0.02 Immature Gran # (Auto) 0.09 Sodium Potassium Chloride Carbon Dioxide Anion Gap BUN Creatinine Est Cr Clr Drug Dosing Est GFR ( Amer) Est GFR (Non-Af Amer) BUN/Creatinine Ratio Glucose Calcium Total Bilirubin Direct Bilirubin AST ALT Alkaline Phosphatase Total Protein Albumin Nasal Screen MRSA (PCR) Positive A SARS-CoV-2, RNA, NAAT NEGATIVE 01/30/23 01/30/23 08:12 09:04 WBC RBC Hgb Hct MCV MCH MCHC RDW Std Deviation RDW Coeff of Tip Plt Count MPV Immature Gran % (Auto) Neut % (Auto) Lymph % (Auto) Crisp % (Auto) Eos % (Auto) Baso % (Auto) Neut # (Auto) Lymph # (Auto) Crisp # (Auto) Eos # (Auto) Baso # (Auto) Immature Gran # (Auto) Sodium 144 Potassium 4.5 D Chloride 107 Carbon Dioxide 30 Anion Gap 7 BUN 41 H Creatinine 2.21 H Est Cr Clr Drug Dosing 22.9 Est GFR ( Amer) 24.6 Est GFR (Non-Af Amer) 21.3 BUN/Creatinine Ratio 18.6 Glucose 107 H Calcium 7.9 L Total Bilirubin 0.8 Direct Bilirubin 0.2 AST 14 ALT 5 L Alkaline Phosphatase 41 Total Protein 6.1 Albumin 3.2 L Nasal Screen MRSA (PCR) SARS-CoV-2, RNA, NAAT PG Care Time/CCT Total # of Minutes Spent Total Time Spent with Patient: Total time spent is greater than 50% in coordination of care (as documented) at patient's floor/unit and/or counseling patient: Coding Level of Care Code 21550 SUB INP/OBS CARE 3/50MIN Diagnoses Intractable nausea and vomiting R11.2 AUDREY (acute kidney injury) N17.9 Hypotension I95.9 Primary hypothyroidism E03.9 Essential hypertension I10 COPD (chronic obstructive pulmonary disease) J44.9 Hypomagnesemia E83.42 Ventral hernia K43.9 Obstruction and gangrene presence: without obstruction or gangrene Hypokalemia E87.6 Anemia D64.9 Abnormal gall bladder diagnostic imaging R93.2 Esophagitis K20.90 DVT prophylaxis Z29.9 (8) Ventral hernia Obstruction and gangrene presence: without obstruction or gangrene Qualified Code(s): K43.9 - Ventral hernia without obstruction or gangrene
[2023-01-30 17:51] LABS: Calcium 7.2 mg/dl (8.6-10.3); Creatinine Clr Calc Pharmacy 23.5 ml/min; Est GFR (African American) 25.5 ml/min; Potassium 3.7 mmol/L (3.5-5.1)
[2023-01-30 18:36] LABS: Magnesium 0.9 mg/dl (1.7-2.4)
[2023-01-30] MEDS: MAGNESIUM SULFATE / D5W 1 GM/100 ML BAG IV SCH ×3 (18:46→22:56)
[2023-01-30] MEDS: ATORVASTATIN 40 MG TAB PO SCH (20:49)
[2023-01-30] MEDS: cloNIDine HCL 0.3 MG TAB PO SCH (20:50)
[2023-01-30] MEDS ORDERED: SODIUM CHLORIDE 0.9% 1000ML 1,000 ML IV ONE (21:26)
[2023-01-31] MEDS: LEVOTHYROXINE SODIUM 112 MCG TABLET PO SCH (05:58)
[2023-01-31] MEDS: SODIUM CHLORIDE 0.9% 1000ML 1,000 ML IV SCH ×2 (06:01→15:49)
[2023-01-31 06:59] LABS: Basophils # (auto) 0.03 K/uL (0-0.2); Basophils % (auto) 0.3 %; Eosinophils # (auto) 0.08 K/uL (0-0.50); Eosinophils % (auto) 0.8 %; Hematocrit (blood only) 27.8 % (37.0-47.0); Hemoglobin 8.2 g/dl (12.0-16.0); Immature Granulocytes # (auto) 0.04 K/uL (0.01-0.20); Immature Granulocytes % (auto) 0.4 %; Lymphocytes # (auto) 1.14 K/uL (1.2-3.4); Lymphocytes % (auto) 11.9 %; Mean Corpuscular Hgb Conc 29.5 g/dL (32.0-36.0); Mean Corpuscular Volume 74.7 fL (80.0-100.0); Mean Platelet Volume 9.7 fL (9.4-12.4); Monocytes # (auto) 0.53 K/uL (0.11-0.59); Monocytes % (auto) 5.5 %; Neutrophils # (auto) 7.77 K/uL (1.40-6.50); Neutrophils % (auto) 81.1 %; Platelet Count 213 K/uL (130-400); RDW Coefficient of Variation 19.9 % (11.5-14.5); RDW Standard Deviation 53.6 fL (36.4-46.3); Red Blood Count 3.72 M/uL (4.20-5.40); White Blood Count 9.59 K/ul (4.8-10.8)
[2023-01-31] MEDS: EZETIMIBE 10 MG TAB PO SCH (08:03)
[2023-01-31] MEDS: FLUTICASONE/VILANTEROL 100/25MCG 14 PUFFS/INHALER INH SCH (08:03)
[2023-01-31] MEDS: ESCITALOPRAM OXALATE 10 MG TAB PO SCH (08:04)
[2023-01-31] MEDS: HEPARIN SOD 5,000 UNIT/0.5 ML VIAL SQ SCH ×2 (08:04→20:34)
[2023-01-31 08:06] LABS: BUN Creatinine Ratio 19.8 (10-20); Calcium 7.3 mg/dl (8.6-10.3); Creatinine Clr Calc Pharmacy 26.3 ml/min; Est GFR (African American) 29.2 ml/min; Est GFR (Non-African American) 25.2 ml/min; Magnesium 1.9 mg/dl (1.7-2.4); Potassium 3.9 mmol/L (3.5-5.1)
[2023-01-31] MEDS: PANTOprazole 40 MG in SYRINGE 0 ML IV SCH ×2 (08:12→20:34)
[2023-01-31 08:26] LABS: Ferritin 509.3 ng/ml (8-388)
--- NOTE | 2023-01-31 13:33 | XRay Report ---
XR abdomen 2V w PA chest CLINICAL HISTORY: large ventral hernia, nausea, no flatus; SBO? TECHNIQUE: 2 views of the abdomen were obtained. A single view of the chest was obtained. Comparison: Comparison is made to CT abdomen pelvis 01/29/2023 FINDINGS: No lines and tubes are seen. Cardiomegaly is noted. The lungs are clear. No evidence of pleural effus ion or pneumothorax. The osseous structures are grossly unremarkable. Extensive gas dilated stomach is seen. No small patel l obstruction is seen. A moderate amount of stool is noted within the large bowel. Multiple loops of bowel are contained in a right-sided ventral hernia. IMPRESSION: Nonobstructive bowel gas pattern. Large gastric bubble is seen likely in the ventral hernia. ACT 112: Negative or not required by law. Electronically signed by: Alex Valentine M.D. 01/31/2023 1:31 PM
--- NOTE | 2023-01-31 15:11 | Surgery Consultation ---
Date of Consultation January 31, 2023 Assessment & Plan (1) Ventral hernia: Patient is a 72 year old female with a PMH of hypotension, AUDREY, hypothyroidism, HTN, anxiety, COPD, anemia, ambulatory disfunction, Cardiomegaly, Chronic Ventral hernia. Patient presented to the [facility] ER on 01/29/23 with complaint of N/V and abdominal pain. Patient was admitted to the hospital. General surgery was consulted due to a large Chronic ventral hernia and a CT scan that reads: Redemonstration of large right ventral hernia containing multiple loops of nondilated bowel. Bilateral fat-containing inguinal hernias are seen. WBC today are 9.5. Hernias seen on CT scan are non-obstructing. If patient starts to show signs of obstruction from the hernia it would be recommended to repeat imaging and transfer patient to a tertiary care center due to how large the ventral hernia is. Past abdominal surgical history includes a hysterectomy. Supervising Physician Co-Signing Physician Notes I personally saw and evaluated the patient with Nigel BUTTERFIELD and agree with the assessment and plan 72-year-old female with a large ventral hernia containing a distended stomach and normal-appearing small and large intestine Her CT images and results were personally viewed and interpreted by myself from 01/29/2023 She has no signs of obstruction on her CT scan but does have a very distended stomach, this could be an element of gastroparesis She does have some abdominal pain however no white blood cell count or any fever or tachycardia, so any ischemia due to this hernia is unlikely If she develops signs of worsening pain or obstructive symptoms would repeat a CT scan with oral contrast She is not a surgical candidate at this facility due to the size and complexity of her abdominal wall hernia Surgery will follow History of Present Illness Reason for Consultation: Large Ventral Hernia Attending Physician: Juliocesar Anders MD History of Present Illness Patient is a 72 year old female with a PMH of hypotension, AUDREY, hypothyroidism, HTN, anxiety, COPD, anemia, ambulatory disfunction, Cardiomegaly, Chronic Ventral hernia. Patient presented to the [facility] ER on 01/29/23 with complaint of N/V and abdominal pain. Patient was admitted to the hospital. General surgery was consulted due to a large ventral hernia and a CT scan that reads: Redemonstration of large right ventral hernia containing multiple loops of nondilated bowel. Allergies Allergy/AdvReac Type Severity Reaction Status Date / Time Penicillins Allergy Unknown Unknown Verified 01/29/23 16:58 Sulfa (Sulfonamide Allergy Unknown rash Verified 01/29/23 16:58 Antibiotics) Home Medications Medication Instructions Recorded Confirmed Type acetaminophen 325 mg tablet 650 mg PO Q6 PRN Fever Or Pain 01/29/23 01/29/23 History (Tylenol) atorvastatin 80 mg tablet 80 mg PO HS 01/29/23 01/29/23 History benazepril 40 mg tablet 40 mg PO QAM 01/29/23 01/29/23 History carvedilol 12.5 mg tablet 12.5 mg PO BID 01/29/23 01/29/23 History clonidine HCl 0.3 mg tablet 0.3 mg PO HS 01/29/23 01/29/23 History escitalopram oxalate 10 mg tablet 10 mg PO QAM 01/29/23 01/29/23 History ezetimibe 10 mg tablet 10 mg PO DAILY 01/29/23 01/29/23 History fluticasone furoate 100 1 ea inhalation DAILY 01/29/23 01/29/23 History mcg-vilanterol 25 mcg/dose inhalation powder (Breo Ellipta) hydrochlorothiazide 25 mg tablet 25 mg PO QAM 01/29/23 01/29/23 History levothyroxine 112 mcg tablet 112 mcg PO .6 DAYS A WEEK 01/29/23 01/29/23 History ondansetron HCl 4 mg tablet 4 mg PO Q6 PRN Nausea 01/29/23 01/29/23 History potassium chloride 20 mEq 20 meq PO QAM 01/29/23 01/29/23 History tablet,extended release(part/cryst) promethazine 25 mg/mL injection 25 mg IM Q6H PRN Nausea 01/29/23 01/29/23 History solution (Phenergan) sennosides 8.6 mg tablet 17.2 mg PO BID 01/29/23 01/29/23 History Patient History Medical History Acute blood loss anemia Anemia Anxiety CKD (chronic kidney disease), stage III COPD (chronic obstructive pulmonary disease) HTN (hypertension) Hyperlipidemia Hypothyroidism Surgical History H/O: hysterectomy History of tonsillectomy Family History Mother Myocardial infarction Diabetes Denies family history of Colon cancer Ovarian cancer Prostate cancer Breast cancer Social History Smoking Status: Former smoker Second Hand Exposure: No; Do You Dip or Chew Tobacco: No; Hx Alcohol Use: No Hx Substance Use: No Preferred Language: Wolof Communication Ability: Impaired Communication Ability Comment: patient is very hard of hearing Visual Impairment: No Limitations Hearing Ability: Normal Emission Technician Required: No Beliefs That Will Affect Care: None marital status: Current Living Situation: [facility] Current Living Situation Comment: Lives with Sons. current occupational status: retired Feels Safe at Home: Yes Dental Care, Regularly: Yes Physical Activity Frequency: Does not Exercise Assistive Devices: Wheelchair Review of Systems Constitutional: no fever and no chills Gastrointestinal: + abdominal pain, + nausea and + vomiting Genitourinary: has smith catheter in place Physical Exam Physical Exam: awake alert, [place] Respiratory: normal respiratory effort and able to speak in complete sentences; no respiratory distress and does not use accessory muscles Cardiovascular: Rate/Rhythm: regular rate Gastrointestinal (Abdomen): Inspection/Auscultation: + visible herniation Percussion/Palpation: + abdomen tender and abdomen soft Results & Data Vital Signs (Past 12 Hours) Vital Signs Temp Pulse Pulse Resp BP BP Pulse Ox 01/31/23 11:09 97.7 F 75 17 140/81 94 01/31/23 08:05 98.4 F 71 18 113/73 93 01/31/23 07:46 77 01/31/23 03:41 98.6 F 72 16 96/60 L 94 O2 Del Method 01/31/23 11:09 Room Air 01/31/23 08:05 Room Air 01/31/23 07:46 01/31/23 03:41 Room Air PG Care Time/CCT Total # of Minutes Spent Total Time Spent with Patient: Total time spent is greater than 50% in coordination of care (as documented) at patient's floor/unit and/or counseling patient: Coding Level of Care Code 14120 INT INP/OBS CARE 1/40MIN Diagnoses Ventral hernia K43.9 Obstruction and gangrene presence: without obstruction or gangrene (1) Ventral hernia Obstruction and gangrene presence: without obstruction or gangrene Qualified Code(s): K43.9 - Ventral hernia without obstruction or gangrene
[2023-01-31] MEDS: ONDANSETRON INJ 2 MG/ML 2 ML VIAL IV PRN ×2 (15:52→20:34)
--- NOTE | 2023-01-31 20:33 | Hospitalist Progress Note ---
Date of Service January 31, 2023 Assessment & Plan (1) Intractable nausea and vomiting: Plan: this has resolved. she had associated diarrhea by report at the SNF but has had NO stool here and she denies passing flatus. has little to no appetite and she feels very poorly. N/V/D would be most c/w a gastroenteritis. interestingly her CT a/p did not show any bowel inflammation, however. CT a/p reviewed. GB ultrasound reviewed. despite the GB u/s she again has NO tenderness in the RUQ. there is no evidence of obstruction even on repeat x-rays today despite her large ventral hernia. HOWEVER - it appears the entire stomach is in the hernia sac and it is markedly enlarged. GOO? gastroparesis? other? I spoke with Dr Golden by phone; discussed her case; he will formally consult. repeat x-rays of abdomen in am. (2) AUDREY (acute kidney injury): Plan: 2nd to #1 and hypotension. improving. cont smith. cont IV fluids. repeat bmp am. (3) Hypotension: Plan: 2nd to volume depletion from #1. IMPROVED. hold BP meds. cont IV fluids. (4) Primary hypothyroidism: Plan: TSH 1.3 earlier this month. Cont synthroid w/o changes. (5) Essential hypertension: Plan: Cont to Hold clonidine & coreg. (6) COPD (chronic obstructive pulmonary disease): Plan: No exacerbation at this time. o2 sats wnl in room air. (7) Hypomagnesemia: Plan: SEVERE. level = 0.9. repleted and resolved. (8) Ventral hernia: Plan: HUGE. no signs of obstruction on admission CT. 11/2022 - was in [facility] - evaluated by surgery there for consideration of ventral hernia repair - surgery not advised at that time. x-rays today without obstruction. see #1 above. (9) Hypokalemia: Plan: replaced resolved BMP am (10) Anemia: Plan: microcytic, but Fe studies wnl in November 2022 and again today no evidence of Fe deficiency thus, anemia is likely ACD (11) Abnormal gall bladder diagnostic imaging: Plan: no gallstones present but pericholecystic fluid is seen she has NO tenderness on exam today LFTs wnl if any clinical worsening - HIDA scan to r/o acalculous cholecystitis but suspicion for such is very low (12) Esophagitis: Plan: as seen on EGD 11/10/22 cont PPI (13) DVT prophylaxis: Plan: heparin 5000 BID Plan will need PT/OT spoke with pt's son - updated him by phone this evening Admission and Anticipated Discharge Date Admission Date: January 29, 2023 Subjective patient much more awake/alert today she says "I just feel so lousy" has stomach "Cramps" and mild pain left side of abdomen no pain over RUQ in expected location of gall bladder feels bloated over her hernia not passing flatus no vomiting overnight fortunately Review of Systems Review of Systems: gen - feels cold but no rigors; feels poorly; fatigued cv - no orthopnea; no chest pain pulm - no dyspnea or cough GI - see HPI - smith in place Physical Exam Physical Exam: gen - obese, more awake today; still looks sickly mouth - MM more moist today neck - no JVD heart - irregular (ectopy), regular rate, s1 s2, no murmur lungs - CTA b/l abd - soft, VERY large ventral hernia that is firm to touch; I can push on the hernia and it does reduce some; palpable loops of bowel in the hernia; BS+; NO RUQ pain/tenderness; mild pain at junction of LUQ/LLQ ext - pulses 1-2+ b/l, cap refill better, no edema psych - confusion improved Results & Data Results & Data Vital Signs (Past 12 Hours) Vital Signs Temp Pulse Pulse Resp BP Pulse Ox O2 Del Method 01/31/23 15:49 93 Room Air 01/31/23 15:41 47 L 01/31/23 15:16 36.7 C 76 17 151/84 H 86 L Room Air 01/31/23 15:09 60 01/31/23 11:09 36.5 C 75 17 140/81 94 Room Air Laboratory Results Laboratory Results - last 24 hr 01/31/23 01/31/23 06:31 06:31 WBC 9.59 RBC 3.72 L Hgb 8.2 L Hct 27.8 L MCV 74.7 L MCH 22.0 L MCHC 29.5 L RDW Std Deviation 53.6 H RDW Coeff of Tip 19.9 H Plt Count 213 MPV 9.7 Immature Gran % (Auto) 0.4 Neut % (Auto) 81.1 Lymph % (Auto) 11.9 [place] % (Auto) 5.5 Eos % (Auto) 0.8 Baso % (Auto) 0.3 Neut # (Auto) 7.77 H Lymph # (Auto) 1.14 L [place] # (Auto) 0.53 Eos # (Auto) 0.08 Baso # (Auto) 0.03 Immature Gran # (Auto) 0.04 Sodium 142 Potassium 3.9 Chloride 111 H Carbon Dioxide 24 Anion Gap 7 BUN 38 H Creatinine 1.92 H Est Cr Clr Drug Dosing 26.3 Est GFR ( Amer) 29.2 Est GFR (Non-Af Amer) 25.2 BUN/Creatinine Ratio 19.8 Glucose 80 Calcium 7.3 L Magnesium 1.9 Iron 44 TIBC 181 L Unsaturated IBC 137 L Transferrin % Sat 24 Ferritin 509.3 H Diagnostic Findings Chest/Abdomen X-ray 01/31/23 12:05 XR abdomen 2V w PA chest CLINICAL HISTORY: large ventral hernia, nausea, no flatus; SBO? TECHNIQUE: 2 views of the abdomen were obtained. A single view of the chest was obtained. Comparison: Comparison is made to CT abdomen pelvis 01/29/2023 FINDINGS: No lines and tubes are seen. Cardiomegaly is noted. The lungs are clear. No ev idence of pleural effusion or pneumothorax. The osseous structures are grossly unremarkable. Extensive gas dilated stomach is seen. No small bowel obstruction is seen. A moderate amount of stool is noted within the large bowel. Multiple loops of bowel are contained in a right-sided ventral hernia. IMPRESSION: Nonobstructive bowel gas pattern. Large gastric bubble is seen likely in the ventral hernia. ACT 112: Negative or not required by law. Electronically signed by: Alex Valentine M.D. 01/31/2023 1:31 PM PG Care Time/CCT Total # of Minutes Spent Total Time Spent with Patient: Total time spent is greater than 50% in coordination of care (as documented) at patient's floor/unit and/or counseling patient: Coding Level of Care Code 96030 SUB INP/OBS CARE 3/50MIN Diagnoses Intractable nausea and vomiting R11.2 AUDREY (acute kidney injury) N17.9 Hypotension I95.9 Primary hypothyroidism E03.9 Essential hypertension I10 COPD (chronic obstructive pulmonary disease) J44.9 Hypomagnesemia E83.42 Ventral hernia K43.9 Obstruction and gangrene presence: without obstruction or gangrene Hypokalemia E87.6 Anemia D64.9 Abnormal gall bladder diagnostic imaging R93.2 Esophagitis K20.90 DVT prophylaxis Z29.9 (8) Ventral hernia Obstruction and gangrene presence: without obstruction or gangrene Qualified Code(s): K43.9 - Ventral hernia without obstruction or gangrene
[2023-01-31] MEDS: ACETAMINOPHEN 325 MG TAB PO PRN (20:35)
[2023-01-31] MEDS: ATORVASTATIN 40 MG TAB PO SCH (20:35)
[2023-02-01] MEDS: SODIUM CHLORIDE 0.9% 1000ML 1,000 ML IV SCH (01:02)
[2023-02-01] MEDS: LEVOTHYROXINE SODIUM 112 MCG TABLET PO SCH (05:31)
[2023-02-01 08:04] LABS: Adenovirus F 40/41 PCR Not Detected (NotDetected); Astrovirus PCR Not Detected (NotDetected); Campylobacter PCR Not Detected (NotDetected); Cryptosporidium PCR Not Detected (NotDetected); Cyclospora cayetanensis PCR Not Detected (NotDetected); Entamoeba histolytica PCR Not Detected (NotDetected); Enteroaggregative E.coli(EAEC) Not Detected (NotDetected); Enteropathogenic E.coli (EPEC) Not Detected (NotDetected); Enterotoxigenic E.coli (ETEC) Not Detected (NotDetected); Giardia lamblia PCR Not Detected (NotDetected); Norovirus GI/GII PCR Not Detected (NotDetected); Plesiomonas shigelloides PCR Not Detected (NotDetected); Rotavirus A PCR Not Detected (NotDetected); Salmonella PCR Not Detected (NotDetected); Sapovirus PCR Not Detected (NotDetected); Shiga-like Toxin E.coli (STEC) Not Detected (NotDetected); Shigella/Enteroinvasive E.coli Not Detected (NotDetected); Vibrio cholerae PCR Not Detected (NotDetected); Vibrio species PCR Not Detected (NotDetected); Yersinia enterocolitica PCR Not Detected (NotDetected)
[2023-02-01 08:38] LABS: Basophils # (auto) 0.01 K/uL (0-0.2); Basophils % (auto) 0.1 %; Eosinophils # (auto) 0.03 K/uL (0-0.50); Eosinophils % (auto) 0.3 %; Hematocrit (blood only) 26.1 % (37.0-47.0); Hemoglobin 7.8 g/dl (12.0-16.0); Immature Granulocytes # (auto) 0.04 K/uL (0.01-0.20); Immature Granulocytes % (auto) 0.4 %; Lymphocytes % (auto) 9.7 %; Mean Corpuscular Hemoglobin 21.9 pg (25.0-34.0); Mean Corpuscular Hgb Conc 29.9 g/dL (32.0-36.0); Mean Corpuscular Volume 73.3 fL (80.0-100.0); Mean Platelet Volume 10.4 fL (9.4-12.4); Monocytes # (auto) 0.55 K/uL (0.11-0.59); Monocytes % (auto) 5.3 %; Neutrophils # (auto) 8.69 K/uL (1.40-6.50); Neutrophils % (auto) 84.2 %; Platelet Count 233 K/uL (130-400); RDW Coefficient of Variation 19.9 % (11.5-14.5); Red Blood Count 3.56 M/uL (4.20-5.40); White Blood Count 10.32 K/ul (4.8-10.8)
[2023-02-01 08:56] LABS: BUN Creatinine Ratio 21.1 (10-20); Calcium 7.2 mg/dl (8.6-10.3); Creatinine Clr Calc Pharmacy 31.4 ml/min; Est GFR (African American) 36.1 ml/min; Est GFR (Non-African American) 31.2 ml/min; Potassium 3.2 mmol/L (3.5-5.1)
--- NOTE | 2023-02-01 09:11 | XRay Report ---
XR abdomen min 2V HISTORY: 72 years-old Female vomiting, large ventral hernia; assess obstruction acute nausea with vo miting COMPARISON: 01/31/2023, 01/29/2023 TECHNIQUE: 2 views of the abdomen FINDINGS: Lumbar levoscoliosis. Severe osteoarthritis of the right hip. Cardiomegaly. Layering pleural effusion . Vascular calcifications. No definite urolith identified. No pneumatosis or pneumoperitoneum. Large ventral abdominal wall hernia redemonstrated containing air-filled loops of bowel. Air-filled loops o f large and small bowel are noted with large bowel loops measuring up to 6.4 cm and small bowel loops measuring up to 3 cm. There is resolution of the previously described prominent air-filled distentio n of the stomach IMPRESSION: 1. Large ventral hernia redemonstrated containing loops of bowel. Findings of gastric outlet obstruct ion secondary to the hernia as seen on the 01/29/2023 CT exam is not identified on today's study. Cont inued follow-up recommended. 2. Mildly distended air-filled loops of large and small bowel on today's exam may represent an ileus. ACT 112: Negative or not required by law. The above report was generated using voice recognition software. It may contain grammatical, syntax o r spelling errors. Electronically signed by: Tom Bone M.D. 02/01/2023 9:09 AM
[2023-02-01 09:45] LABS: Acanthocytes 1+; Polychromasia 1+
[2023-02-01] MEDS: PANTOprazole 40 MG in SYRINGE 0 ML IV SCH ×2 (10:13→20:35)
[2023-02-01] MEDS: FLUTICASONE/VILANTEROL 100/25MCG 14 PUFFS/INHALER INH SCH (10:13)
[2023-02-01] MEDS: EZETIMIBE 10 MG TAB PO SCH (10:14)
[2023-02-01] MEDS: ESCITALOPRAM OXALATE 10 MG TAB PO SCH (10:14)
[2023-02-01] MEDS: HEPARIN SOD 5,000 UNIT/0.5 ML VIAL SQ SCH ×2 (10:14→20:35)
[2023-02-01] MEDS: POTASSIUM CHLORIDE 40 MEQ in D5W AND LACTATED RINGERS 1,000 ML IV SCH ×2 (10:20→22:50)
--- NOTE | 2023-02-01 16:40 | Surgery Progress Note ---
Date of Service February 01, 2023 Assessment & Plan (1) Ventral hernia: Plan: She seems overall improved and had a bowel movement She is tolerating some clear liquids Advance as tolerated and discharge her when she is tolerating a diet I did discuss the medical team about having her follow-up at a tertiary care center for her complex abdominal wall hernia likely causing intermittent gastric outlet obstruction Surgical sign off at this time, please call with any questions or concerns Admission and Anticipated Discharge Date Admission Date: January 29, 2023 Subjective Patient seen and examined. Resting comfortably in bed. Had a bowel movement. Review of Systems Constitutional: no fever and no chills Physical Exam Constitutional: WD/WN, vitals as above Gastrointestinal (Abdomen): Inspection/Auscultation: abdomen normal to inspection; abdomen not distended Percussion/Palpation: + abdomen tender (G eneralized) and abdomen soft; no guarding Results & Data Vital Signs (Past 12 Hours) Vital Signs Temp Pulse Resp BP Pulse Ox O2 Del Method 02/01/23 16:04 36.8 C 71 18 126/72 95 Room Air 02/01/23 11:26 36.4 C L 74 18 109/67 92 Room Air 02/01/23 07:36 36.8 C 74 18 125/82 91 Room Air PG Care Time/CCT Total # of Minutes Spent Total Time Spent with Patient: Total time spent is greater than 50% in coordination of care (as documented) at patient's floor/unit and/or counseling patient: Coding Level of Care Code 88650 SUB INP/OBS CARE 25MIN Diagnoses Ventral hernia K43.9 Obstruction and gangrene presence: without obstruction or gangrene (1) Ventral hernia Obstruction and gangrene presence: without obstruction or gangrene Qualified Code(s): K43.9 - Ventral hernia without obstruction or gangrene
[2023-02-01] MEDS: ATORVASTATIN 40 MG TAB PO SCH (20:35)
[2023-02-01] MEDS: ACETAMINOPHEN 325 MG TAB PO PRN (20:35)
[2023-02-02] MEDS: LEVOTHYROXINE SODIUM 112 MCG TABLET PO SCH (05:55)
--- NOTE | 2023-02-02 05:59 | Hospitalist Progress Note ---
Date of Service February 01, 2023 Assessment & Plan (1) Ventral hernia: Plan: Massive, chronic ventral hernia. 11/2022 - was in [facility] - evaluated by surgery there for consideration of ventral hernia repair - surgery not advised at that time. during that admission she had gastric outlet obstruction due to the ventral hernia (the entire stomach snakes its way into the ventral hernia). x-rays yesterday likely with GOO. today x-rays show resolution of GOO. her clinical improvement overnight is c/w GOO resolving. appreciate gen surg input. they advise referral to tertiary care post-d/c for consideration of ventral hernia repair. will have to [facility] as Carine did not feel she was surgical candidate. (2) Gastric outlet obstruction: Plan: recurrent. likely cause of her presentation. no evidence of infectious gastroenteritis -- stool BioFire negative. nearly her entire stomach makes its way into the large ventral hernia. at that point she obstructions at the level of the pylorus/duodenum. x-rays yesterday with massively dilated stomach with air-fluid level. today's x-rays show resolution of this suggesting the GOO has resolved overnight. tolerating clears. advance to full liquids am. cont IV fluids. see #1 above. (3) Intractable nausea and vomiting: Plan: 2nd to #2. resolved. tolerating clears. she feels so much better with resolution of GOO. ventral hernia is the culprit in this admission and the admission in November 2022. (4) AUDREY (acute kidney injury): Plan: 2nd to #1 and hypotension. improving once again. Cr 1.6 today peak Cr 2.2 baseline Cr 1-1.1 cont smith. cont IV fluids. repeat bmp am. (5) Hypotension: Plan: 2nd to volume depletion -- resolved. but cont to hold BP meds. cont IV fluids. (6) Primary hypothyroidism: Plan: TSH 1.3 earlier this month. Cont synthroid w/o changes. (7) Essential hypertension: Plan: Cont to Hold clonidine & coreg. (8) COPD (chronic obstructive pulmonary disease): Plan: No exacerbation at this time. o2 sats wnl in room air. (9) Hypomagnesemia: Plan: SEVERE. level = 0.9. repleted and resolved. recheck mag level am. (10) Hypokalemia: Plan: replaced resolved now low again 2nd to recurrent emesis yesterday add 40meq KCL to basal fluids repeat BMP am (11) Anemia: Plan: microcytic, but Fe studies wnl in November 2022 and again today no evidence of Fe deficiency thus, anemia is likely ACD H/H dropped again overnight - check fecal occult repeat CBC am (12) Abnormal gall bladder diagnostic imaging: Plan: no gallstones present but pericholecystic fluid was seen she has had NO tenderness in the RUQ since admission LFTs wnl HIDA deferred (13) Esophagitis: Plan: as seen on EGD 11/10/22 cont PPI (14) Acute metabolic encephalopathy: Plan: 2nd to abdominal issues - resolved (15) DVT prophylaxis: Plan: heparin 5000 BID Plan PT/OT consults pending spoke with pt's son yesterday by phone Admission and Anticipated Discharge Date Admission Date: January 29, 2023 Subjective patient stated "I feel so much better" did have emesis yesterday but none overnight or today did have bowel movement early this am bloating/distension improved/resolved the previous feeling of "feeling lousy" is resolved tolerating clears we had lengthy discussion about her ventral hernia she is still not sure she wants it fixed [facility] surgery told her earlier in the spring she was not a surgical candidate for repair we talked about [place] or [facility] for 2nd opinion tele overnight - NSR, PACs Review of Systems Constitutional: gen - no fevers cv - no cp, no orthopnea pulm - no dyspnea GI - no abd pain Physical Exam Physical Exam: gen - obese, NAD, looks much better today; lying flat in bed comfortably mouth - MMM neck - no JVD heart - irregular (ectopy), regular rate, s1 s2, no murmur lungs - CTA b/l; no rales abd - soft, VERY large ventral hernia; less firm, less distended, reducible - I can push on the hernia and it does reduce; previously palpable loops of bowel not present today; BS+; NONTENDER TODAY ext - pulses 2+ b/l, no edema psych - confusion resolved Results & Data Results & Data Vital Signs (Past 12 Hours) Vital Signs Temp Pulse Pulse Resp BP Pulse Ox O2 Del Method 02/01/23 16:04 36.8 C 71 18 126/72 95 Room Air 02/01/23 11:26 36.4 C L 74 18 109/67 92 Room Air 02/01/23 07:36 36.8 C 74 18 125/82 91 Room Air Laboratory Results Laboratory Results - last 24 hr 02/01/23 02/01/23 02/01/23 05:55 05:55 05:55 WBC RBC Hgb Hct MCV MCH MCHC RDW Std Deviation RDW Coeff of Tip Plt Count MPV Immature Gran % (Auto) Neut % (Auto) Lymph % (Auto) [place] % (Auto) Eos % (Auto) Baso % (Auto) Neut # (Auto) Lymph # (Auto) [place] # (Auto) Eos # (Auto) Baso # (Auto) Immature Gran # (Auto) Polychromasia Acanthocytes (Spur) Sodium Potassium Chloride Carbon Dioxide Anion Gap BUN Creatinine Est Cr Clr Drug Dosing Est GFR ( Amer) Est GFR (Non-Af Amer) BUN/Creatinine Ratio Glucose Calcium Stl C. cayetanensis PCR Not Detected Stool Rotavirus A PCR Not Detected Stl Adenov F 40/41 PCR Not Detected Stool Astrovirus (PCR) Not Detected Stool Campylobacter PCR Not Detected Stl C. diff Tox B Gene Negative Cdiff Gene Stool Cryptosporidium PCR Not Detected Stl E.coli Shiga Tox PCR Not Detected Stl Enterotoxigenic E PCR Not Detected Stool EPEC (PCR) Not Detected Stool EAEC (PCR) Not Detected Stl E. histolytica PCR Not Detected Stool Giardia Lamblia PCR Not Detected Stool Salmonella PCR Not Detected Stool Sapovirus (PCR) Not Detected Stl P. shigelloides PCR Not Detected Stl Shigella/EIEC PCR Not Detected St Y.enterocolitica PCR Not Detected Stool Vibrio (PCR) Not Detected Stl Vibrio cholerae PCR Not Detected Stl Norovirus GI/GII PCR Not Detected C. difficile Tox B Gene Cancelled 02/01/23 02/01/23 07:51 07:51 WBC 10.32 RBC 3.56 L Hgb 7.8 L Hct 26.1 L MCV 73.3 L MCH 21.9 L MCHC 29.9 L RDW Std Deviation 52.0 H RDW Coeff of Tip 19.9 H Plt Count 233 MPV 10.4 Immature Gran % (Auto) 0.4 Neut % (Auto) 84.2 Lymph % (Auto) 9.7 [place] % (Auto) 5.3 Eos % (Auto) 0.3 Baso % (Auto) 0.1 Neut # (Auto) 8.69 H Lymph # (Auto) 1.00 L [place] # (Auto) 0.55 Eos # (Auto) 0.03 Baso # (Auto) 0.01 Immature Gran # (Auto) 0.04 Polychromasia 1+ Acanthocytes (Spur) 1+ Sodium 144 Potassium 3.2 L Chloride 114 H Carbon Dioxide 21 Anion Gap 9 BUN 34 H Creatinine 1.61 H D Est Cr Clr Drug Dosing 31.4 Est GFR ( Amer) 36.1 Est GFR (Non-Af Amer) 31.2 BUN/Creatinine Ratio 21.1 H Glucose 76 Calcium 7.2 L Stl C. cayetanensis PCR Stool Rotavirus A PCR Stl Adenov F 40/41 PCR Stool Astrovirus (PCR) Stool Campylobacter PCR Stl C. diff Tox B Gene Stool Cryptosporidium PCR Stl E.coli Shiga Tox PCR Stl Enterotoxigenic E PCR Stool EPEC (PCR) Stool EAEC (PCR) Stl E. histolytica PCR Stool Giardia Lamblia PCR Stool Salmonella PCR Stool Sapovirus (PCR) Stl P. shigelloides PCR Stl Shigella/EIEC PCR St Y.enterocolitica PCR Stool Vibrio (PCR) Stl Vibrio cholerae PCR Stl Norovirus GI/GII PCR C. difficile Tox B Gene PG Care Time/CCT Total # of Minutes Spent Total Time Spent with Patient: Total time spent is greater than 50% in coordination of care (as documented) at patient's floor/unit and/or counseling patient: Coding Level of Care Code 62703 SUB INP/OBS CARE 2/35MIN Diagnoses Ventral hernia K43.9 Obstruction and gangrene presence: without obstruction or gangrene Gastric outlet obstruction K31.1 Intractable nausea and vomiting R11.2 AUDREY (acute kidney injury) N17.9 Hypotension I95.9 Primary hypothyroidism E03.9 Essential hypertension I10 COPD (chronic obstructive pulmonary disease) J44.9 Hypomagnesemia E83.42 Hypokalemia E87.6 Anemia D64.9 Abnormal gall bladder diagnostic imaging R93.2 Esophagitis K20.90 Acute metabolic encephalopathy G93.41 DVT prophylaxis Z29.9 (1) Ventral hernia Obstruction and gangrene presence: without obstruction or gangrene Qualified Code(s): K43.9 - Ventral hernia without obstruction or gangrene
[2023-02-02] MEDS: FLUTICASONE/VILANTEROL 100/25MCG 14 PUFFS/INHALER INH SCH (08:13)
[2023-02-02 08:14] LABS: Hematocrit (blood only) 28.1 % (37.0-47.0); Hemoglobin 8.3 g/dl (12.0-16.0); Mean Corpuscular Hgb Conc 29.5 g/dL (32.0-36.0); Mean Corpuscular Volume 74.3 fL (80.0-100.0); Mean Platelet Volume 9.7 fL (9.4-12.4); Platelet Count 237 K/uL (130-400); RDW Coefficient of Variation 20.6 % (11.5-14.5); RDW Standard Deviation 52.8 fL (36.4-46.3); Red Blood Count 3.78 M/uL (4.20-5.40)
[2023-02-02] MEDS: PANTOprazole 40 MG in SYRINGE 0 ML IV SCH ×2 (08:14→20:49)
[2023-02-02] MEDS: ESCITALOPRAM OXALATE 10 MG TAB PO SCH (08:15)
[2023-02-02] MEDS: EZETIMIBE 10 MG TAB PO SCH (08:15)
[2023-02-02] MEDS: HEPARIN SOD 5,000 UNIT/0.5 ML VIAL SQ SCH ×2 (08:16→20:50)
[2023-02-02 08:52] LABS: BUN Creatinine Ratio 16.7 (10-20); Calcium 7.9 mg/dl (8.6-10.3); Creatinine Clr Calc Pharmacy 30.8 ml/min; Est GFR (African American) 41.4 ml/min; Est GFR (Non-African American) 35.7 ml/min; Magnesium 1.4 mg/dl (1.7-2.4)
[2023-02-02] MEDS: MAGNESIUM SULFATE / D5W 1 GM/100 ML BAG IV SCH ×2 (10:54→12:01)
[2023-02-02] MEDS ORDERED: MICONAZOLE NITRATE POWDER 85 GM EXT PRN (18:35)
[2023-02-02] MEDS: ATORVASTATIN 40 MG TAB PO SCH (20:49)
--- NOTE | 2023-02-02 20:57 | Hospitalist Progress Note ---
Date of Service February 02, 2023 Assessment & Plan (1) Ventral hernia: Plan: Massive, chronic ventral hernia. 11/2022 - was in [facility] - evaluated by surgery there for consideration of ventral hernia repair - surgery not advised at that time. during that admission she had gastric outlet obstruction due to the ventral hernia (the entire stomach snaked its way into the ventral hernia). this admission was similar to November - presented with severe vomiting likely due to GOO (gastric outlet obstruction). x-rays 2 days ago with likely the entire stomach in the hernia (with massive dilatation of stomach). repeat x-rays show resolution of such. fortunately the GOO has resolved; stomach likely exited the hernia sac. appreciate gen surg input. they advise referral to tertiary care post-d/c for consideration of ventral hernia repair. offered to refer her to [facility] or [facility] - patient declines such. does not want to pursue any surgical intervention. (2) Gastric outlet obstruction: Plan: recurrent. likely cause of her presentation. no evidence of infectious gastroenteritis -- stool BioFire negative. GOO now resolved. nearly her entire stomach makes its way into the large ventral hernia. at that point she obstructs at the level of the pylorus/duodenum. tolerating full liquids; advance to low fiber. then watch on low fiber x 24 hours, then d/c back to SNF. stop IVF. (3) Intractable nausea and vomiting: Plan: 2nd to #2. resolved. tolerating full liquids. advance to low fiber. she feels so much better with resolution of GOO. ventral hernia is the culprit in this admission and the admission in November 2022. (4) AUDREY (acute kidney injury): Plan: 2nd to #1 and hypotension. improving. peak Cr 2.2. baseline Cr 1-1.1 repeat BMP am. remove smith tomorrow am. stop IVF. (5) Hypotension: Plan: 2nd to volume depletion -- resolved. (6) Primary hypothyroidism: Plan: TSH 1.3 earlier this month. Cont synthroid w/o changes. (7) Essential hypertension: Plan: resume coreg today depending on response then resume other meds (8) COPD (chronic obstructive pulmonary disease): Plan: No exacerbation at this time. o2 sats wnl in room air. (9) Hypomagnesemia: Plan: ongoing replete mag sulfate 2gm IV x 1 repeat mag level in am may need amiloride if mag level remains refractory (10) Hypokalemia: Plan: replaced resolved stop IVF (11) Anemia: Plan: microcytic, but Fe studies wnl in November 2022 and again this admission with no evidence of Fe deficiency thus, anemia is likely ACD H/H dropped again overnight - checked fecal occult - negative check cbc every couple of days (12) Abnormal gall bladder diagnostic imaging: Plan: no gallstones present but pericholecystic fluid was seen she has had NO tenderness in the RUQ since admission LFTs wnl HIDA deferred (13) Esophagitis: Plan: as seen on EGD 11/10/22 cont PPI (14) Acute metabolic encephalopathy: Plan: 2nd to abdominal issues - resolved (15) DVT prophylaxis: Plan: heparin 5000 BID Plan PT/OT consults appreciate SNF level of care still advised updated pt's son again today informed him that his mother is declining referral for consideration of ventral hernia repair Admission and Anticipated Discharge Date Admission Date: January 29, 2023 Subjective patient feeling good tolerating full liquids no nausea, emesis, abd pain, or bloating passing "lots of gas" [flatus] asks for dietary advancement we had lengthy discussion about her hernia - she has decided to pursue no intervention doesn't want referral to [facility] or [facility] "I don't want to worry about this. I'm hoping it [GOO] doesn't happen again." tele stable overnight Review of Systems Review of Systems: gen - no fevers or chills; energy back to normal cv - no chest pain, no orthopnea pulm - no cough or dyspnea GI - no emesis Physical Exam Physical Exam: gen - obese, NAD, looks good mouth - MMM neck - no JVD heart - irregular (ectopy), regular rate, s1 s2, no murmur lungs - CTA b/l; mild dry rales bases abd - soft, VERY large ventral hernia; not distended, reducible - I can push on the hernia and it does reduce; previously palpable loops of bowel not present today; BS+; NT ext - pulses 2+ b/l, no edema psych - awake, alert - seems slight confused - did not remember our conversation from yesterday Results & Data Results & Data Vital Signs (Past 12 Hours) Vital Signs Temp Pulse Pulse Resp BP Pulse Ox O2 Del Method 02/02/23 16:00 93 H 02/02/23 16:00 Room Air 02/02/23 15:02 36.5 C 87 18 151/90 H 94 Room Air 02/02/23 11:20 36.7 C 80 18 158/91 H 95 Room Air Laboratory Results Laboratory Results - last 24 hr 02/02/23 02/02/23 02/02/23 07:49 07:49 18:10 WBC 9.20 RBC 3.78 L Hgb 8.3 L Hct 28.1 L MCV 74.3 L MCH 22.0 L MCHC 29.5 L RDW Std Deviation 52.8 H RDW Coeff of Tip 20.6 H Plt Count 237 MPV 9.7 Sodium 143 Potassium 4.0 D Chloride 114 H Carbon Dioxide 25 Anion Gap 4 BUN 24 H Creatinine 1.44 H Est Cr Clr Drug Dosing 30.8 Est GFR ( Amer) 41.4 Est GFR (Non-Af Amer) 35.7 BUN/Creatinine Ratio 16.7 Glucose 102 H Calcium 7.9 L Magnesium 1.4 L Stool Occult Bld Scrn Negative PG Care Time/CCT Total # of Minutes Spent Total Time Spent with Patient: Total time spent is greater than 50% in coordination of care (as documented) at patient's floor/unit and/or counseling patient: Coding Level of Care Code 45801 SUB INP/OBS CARE 3/50MIN Diagnoses Ventral hernia K43.9 Obstruction and gangrene presence: without obstruction or gangrene Gastric outlet obstruction K31.1 Intractable nausea and vomiting R11.2 AUDREY (acute kidney injury) N17.9 Hypotension I95.9 Primary hypothyroidism E03.9 Essential hypertension I10 COPD (chronic obstructive pulmonary disease) J44.9 Hypomagnesemia E83.42 Hypokalemia E87.6 Anemia D64.9 Abnormal gall bladder diagnostic imaging R93.2 Esophagitis K20.90 Acute metabolic encephalopathy G93.41 DVT prophylaxis Z29.9 (1) Ventral hernia Obstruction and gangrene presence: without obstruction or gangrene Qualified Code(s): K43.9 - Ventral hernia without obstruction or gangrene
[2023-02-02] MEDS ORDERED: carvediloL 12.5 MG TAB PO ONE (21:05)
[2023-02-03 07:18] LABS: Potassium 3.5 mmol/L (3.5-5.1)
[2023-02-03 07:19] LABS: BUN Creatinine Ratio 16.1 (10-20); Calcium 7.6 mg/dl (8.6-10.3); Creatinine Clr Calc Pharmacy 35.6 ml/min; Est GFR (African American) 49.6 ml/min; Est GFR (Non-African American) 42.8 ml/min; Magnesium 1.5 mg/dl (1.7-2.4)
[2023-02-03] MEDS: carvediloL 12.5 MG TAB PO SCH ×2 (07:28→16:58)
--- NOTE | 2023-02-03 08:50 | Electrocardiogram Report ---
Test Reason : Blood Pressure : / mmHG Vent. Rate : 084 BPM Atrial Rate : 084 BPM P-R Int : 116 ms QRS Dur : 096 ms QT Int : 400 ms P-R-T Axes : 083 064 026 degrees QTc Int : 473 ms Sinus rhythm with Premature supraventricular complexes Nonspecific ST abnormality Abnormal ECG When compared with ECG of 08-NOV-2022 12:25, Nonspecific T wave abnormality no longer evident in Anterolateral leads Confirmed by Quinn Tenorio ([id number]) on 02/03/2023 8:49:51 AM Referred By: [facility] Confirmed By:Quinn Tenorio
[2023-02-03] MEDS: ESCITALOPRAM OXALATE 10 MG TAB PO SCH (09:11)
[2023-02-03] MEDS: EZETIMIBE 10 MG TAB PO SCH (09:11)
[2023-02-03] MEDS: FLUTICASONE/VILANTEROL 100/25MCG 14 PUFFS/INHALER INH SCH (09:12)
[2023-02-03] MEDS: HEPARIN SOD 5,000 UNIT/0.5 ML VIAL SQ SCH ×2 (09:12→20:22)
[2023-02-03] MEDS: PANTOprazole 40 MG in SYRINGE 0 ML IV SCH (09:13)
[2023-02-03] MEDS: MAGNESIUM SULFATE / D5W 1 GM/100 ML BAG IV SCH ×2 (10:01→12:09)
[2023-02-03] MEDS: aMILoride HCL 5 MG TAB PO SCH (11:25)
--- NOTE | 2023-02-03 19:44 | Hospitalist Progress Note ---
Date of Service February 03, 2023 Assessment & Plan (1) Ventral hernia: Plan: Massive, chronic ventral hernia. 11/2022 - was in [facility] - evaluated by surgery there for consideration of ventral hernia repair - surgery not advised at that time (felt to be poor can didate for surgery). during that admission she had gastric outlet obstruction due to the ventral hernia (the entire stomach snaked its way into the ventral hernia). this admission was similar to November - presented with severe vomiting likely due to GOO (gastric outlet obstruction). x-ray over the weekend with likely the entire stomach in the hernia (with massive dilatation of stomach). repeat x-rays showed resolution of such. fortunately the GOO has resolved; stomach likely exited the hernia sac. appreciate gen surg input. they advise referral to tertiary care post-d/c for consideration of ventral hernia repair. offered to refer her to [facility] or [facility], operated by [facility]- patient declines such. does not want to pursue any surgical intervention. counseled that the GOO will likely happen again in the future. (2) Gastric outlet obstruction: Plan: recurrent but resolved. was the cause of her presentation. no evidence of infectious gastroenteritis -- stool BioFire negative. nearly her entire stomach makes its way into the large ventral hernia. at that point she obstructs at the level of the pylorus/duodenum. diet advanced to low fiber today and is tolerating such. IVF have been d/c. observe for 24 hours on low fiber diet. if she tolerates such and has as good night can d/c back to SNF on 02/04/23. (3) Intractable nausea and vomiting: Plan: 2nd to #2. resolved. advanced diet to low fiber. MASSIVE ventral hernia is the culprit in this admission and the admission in November 2022. (4) AUDREY (acute kidney injury): Plan: 2nd to #1 and hypotension. resolved. peak Cr 2.2. Cr now 1.2. baseline Cr 1-1.1. repeat BMP am. fluids and smith both stopped. (5) Hypotension: Plan: 2nd to volume depletion -- resolved. (6) Primary hypothyroidism: Plan: TSH 1.3 earlier this month. Cont synthroid w/o changes. (7) Essential hypertension: Plan: she took a combination of clonidine at HS, coreg BID, HCTZ, and benazapril pre- admission. all BP meds were held at admission due to low BPs and AUDREY. BPs slowly luis antonio over last 2-3 days. coreg resumed. would not resume HCTZ at discharge - has had refractory low magnesium levels. would not resume clonidine - fortunately has not had rebound with holding. in fela of HCTZ added amiloride 5mg daily -- this will help keep her mag levels wnl (review of EMR shows tendencies towards severely low mag levels - likely combination of renal losses and GI losses). uncertain if there will be need for the benazapril. trend the BPs over the next 24 hours. (8) COPD (chronic obstructive pulmonary disease): Plan: No exacerbation at this time. o2 sats wnl in room air. (9) Hypomagnesemia: Plan: ongoing she has had copious replacement IV this admission and still is low replace again with IV mag today change HCTZ to amiloride 5mg daily; this will help with renal wasting of mag it that process is present repeat mag level am (10) Hypokalemia: Plan: replaced resolved replace low mag (11) Anemia: Plan: microcytic, but Fe studies wnl in November 2022 and again this admission with no evidence of Fe deficiency thus, anemia is likely ACD H/H dropped consistently while here; fecal occult - negative likely was hemoconcentrated from massive dehydration at admission H/H have plateaued repeat CBC am for stability (12) Abnormal gall bladder diagnostic imaging: Plan: no gallstones present but pericholecystic fluid was seen she has had NO tenderness in the RUQ since admission LFTs wnl HIDA deferred (13) Esophagitis: Plan: as seen on EGD 11/10/22 cont PPI (14) Acute metabolic encephalopathy: Plan: 2nd to abdominal issues - resolved (15) DVT prophylaxis: Plan: heparin 5000 BID Plan PT/OT consults appreciated SNF level of care still advised updated pt's son 02/02 by phone updated pt's sister - Mary - by phone on 02/03 (10 min conversation) hopeful for d/c on 02/04/23 Admission and Anticipated Discharge Date Admission Date: January 29, 2023 Subjective no events overnight no abd pain, bloating, nausea or emesis tolerated breakfast this am had BM this am she feels good again states she is not going to pursue surgical consultation to discuss candidacy for ventral hernia repair she stated "I'm not going to worry about it" tele overnight wnl Review of Systems Review of Systems: gen - no fevers cv - no cp, no orthopnea pulm - no cough, no dyspnea at rest GI - no abd pain/nausea/emesis Physical Exam Physical Exam: gen - obese, NAD, looks good again today mouth - MMM neck - no JVD heart - irregular (ectopy), regular rate, s1 s2, no murmur lungs - CTA b/l; minimal dry rales bases abd - soft, VERY large ventral hernia; hernia not distended today; hernia is reducible; previously palpable loops of bowel not present in the hernia sac today; BS+; NT ext - pulses 2+ b/l, no edema psych - awake, alert Results & Data Results & Data Vital Signs (Past 12 Hours) Vital Signs Temp Pulse Pulse Resp BP Pulse Ox O2 Del Method 02/03/23 16:35 36.6 C 66 19 137/86 95 Room Air 02/03/23 16:04 73 02/03/23 15:55 73 02/03/23 11:46 36.4 C L 81 18 124/79 95 Room Air 02/03/23 08:03 81 Laboratory Results Laboratory Results - last 24 hr 02/03/23 06:01 Sodium 142 Potassium 3.5 Chloride 114 H Carbon Dioxide 24 Anion Gap 4 BUN 20 Creatinine 1.24 H Est Cr Clr Drug Dosing 35.6 Est GFR ( Amer) 49.6 Est GFR (Non-Af Amer) 42.8 BUN/Creatinine Ratio 16.1 Glucose 93 Calcium 7.6 L Magnesium 1.5 L PG Care Time/CCT Total # of Minutes Spent Total Time Spent with Patient: Total time spent is greater than 50% in coordination of care (as documented) at patient's floor/unit and/or counseling patient: Coding Level of Care Code 93794 SUB INP/OBS CARE 3/50MIN Diagnoses Ventral hernia K43.9 Obstruction and gangrene presence: without obstruction or gangrene Gastric outlet obstruction K31.1 Intractable nausea and vomiting R11.2 AUDRYE (acute kidney injury) N17.9 Hypotension I95.9 Primary hypothyroidism E03.9 Essential hypertension I10 COPD (chronic obstructive pulmonary disease) J44.9 Hypomagnesemia E83.42 Hypokalemia E87.6 Anemia D64.9 Abnormal gall bladder diagnostic imaging R93.2 Esophagitis K20.90 Acute metabolic encephalopathy G93.41 DVT prophylaxis Z29.9 (1) Ventral hernia Obstruction and gangrene presence: without obstruction or gangrene Qualified Code(s): K43.9 - Ventral hernia without obstruction or gangrene
[2023-02-03] MEDS: ATORVASTATIN 40 MG TAB PO SCH (20:23)
[2023-02-04] MEDS: LEVOTHYROXINE SODIUM 112 MCG TABLET PO SCH (05:57)
[2023-02-04 08:06] LABS: Hematocrit (blood only) 28.1 % (37.0-47.0); Hemoglobin 8.7 g/dl (12.0-16.0); Mean Corpuscular Hemoglobin 22.4 pg (25.0-34.0); Mean Corpuscular Volume 72.2 fL (80.0-100.0); Mean Platelet Volume 10.6 fL (9.4-12.4); Platelet Count 214 K/uL (130-400); RDW Coefficient of Variation 21.4 % (11.5-14.5); RDW Standard Deviation 51.7 fL (36.4-46.3); Red Blood Count 3.89 M/uL (4.20-5.40); White Blood Count 8.44 K/ul (4.8-10.8)
[2023-02-04] MEDS: ESCITALOPRAM OXALATE 10 MG TAB PO SCH (08:07)
[2023-02-04] MEDS: carvediloL 12.5 MG TAB PO SCH (08:07)
[2023-02-04] MEDS: FLUTICASONE/VILANTEROL 100/25MCG 14 PUFFS/INHALER INH SCH (08:07)
[2023-02-04] MEDS: EZETIMIBE 10 MG TAB PO SCH (08:07)
[2023-02-04] MEDS: HEPARIN SOD 5,000 UNIT/0.5 ML VIAL SQ SCH (08:08)
[2023-02-04 08:29] LABS: BUN Creatinine Ratio 12.8 (10-20); Calcium 7.6 mg/dl (8.6-10.3); Creatinine Clr Calc Pharmacy 37.7 ml/min; Est GFR (African American) 53.2 ml/min; Est GFR (Non-African American) 45.9 ml/min; Magnesium 1.6 mg/dl (1.7-2.4); Potassium 3.4 mmol/L (3.5-5.1)
[2023-02-04] MEDS ORDERED: POTASSIUM CHLORIDE CRTAB 20 MEQ TABCR PO STA (08:56)
[2023-02-04] MEDS: MAGNESIUM SULFATE / D5W 1 GM/100 ML BAG IV SCH ×2 (10:24→12:09)
--- NOTE | 2023-02-04 10:50 | Discharge Summary ---
Date of Service February 04, 2023 Admission HPI Per Admitting Provider 72-year-old white female from [facility]. She states that she has had nausea and vomiting for the past 4 days with several bouts of loose stools. This appears to be a viral gastroenteritis. She does have some noticeable pericholecystic fluid on scans but no right upper quadrant tenderness and no evidence of cholecystitis. She has a large right-sided ventral hernia that is chronic but there is no obstruction. Potassium was 8.1 on admission but this could be hemolyzed. Repeat potassium level is pending. Nevertheless, diuretics, potassium, benazepril are on hold. She is on IV fluids. Clear liquids for now. Advance as tolerated. Admission Exam Per Admitting Provider General-alert and oriented x3, no fevers, no chills HEENT-head atraumatic and normocephalic, hard of hearing, pupils equal and reactive to light, extraocular muscles intact Neck-no lymphadenopathy or thyromegaly, trachea midline Chest-clear to auscultation percussion. No rales wheezing or rhonchi Cardiac-regular rate and rhythm, normal S1 and S2, no murmurs Abdomen-normal bowel sounds, nontender, no hepatosplenomegaly. Large soft right abdominal wall hernia without tenderness Extremities-no cyanosis, clubbing, or edema Neuro-cranial nerves II through XII intact, motor and sensory function within normal limits, strength symmetrical , no focal deficits Psych-normal affect, normal mood Principal Diagnosis Gastric outlet obstruction due to ventral hernia Acute kidney injury, now resolved Hypotension secondary to volume depletion, now resolved Hypomagnesemia Hypokalemia Discharge Exam General: Awake, conversant Heart: S1, S2/regular rate and rhythm, no murmur rubs or gallops Lungs: Clear to auscultation bilaterally. Normal effort Abdomen: Soft/nontender/nondistended. No hepatosplenomegaly. Ventral hernia noted. Positive bowel sounds. Extremities: No clubbing/cyanosis. No edema Behavior: Appropriate, cooperative Discharge Data Allergies Allergy/AdvReac Type Severity Reaction Status Date / Time Penicillins Allergy Unknown Unknown Verified 01/29/23 16:58 Sulfa (Sulfonamide Allergy Unknown rash Verified 01/29/23 16:58 Antibiotics) Consultations 01/29/23 16:43 ED Decision to Admit Stat 01/31/23 14:23 Consult General Surgery Routine Ordered Studies 01/29/23 11:16 CT abd pelvis IV con only Stat 01/29/23 13:00 US gallbladder Stat Hospital Course (1) Ventral hernia: Massive, chronic ventral hernia. 11/2022 - was in [facility] - evaluated by surgery there for consideration of ventral hernia repair - surgery not advised at that time (felt to be poor candidate for surgery). during that admission she had gastric outlet obstruction due to the ventral hernia (the entire stomach snaked its way into the ventral hernia). this admission was similar to November - presented with severe vomiting likely due to GOO (gastric outlet obstruction). x-ray over the weekend with likely the entire stomach in the hernia (with massive dilatation of stomach). repeat x-rays showed resolution of such. fortunately the GOO has resolved; stomach likely exited the hernia sac. appreciate gen surg input. they advise referral to tertiary care post-d/c for consideration of ventral hernia repair. offered to refer her to [facility] or [facility]- patient declines such. does not want to pursue any surgical intervention. counseled that the GOO will likely happen again in the future. (2) Gastric outlet obstruction: recurrent but resolved. was the cause of her presentation. no evidence of infectious gastroenteritis -- stool BioFire negative. nearly her entire stomach makes its way into the large ventral hernia. at that point she obstructs at the level of the pylorus/duodenum. Patient is now tolerating low fiber diet (3) Intractable nausea and vomitinnd to #2. resolved. advanced diet to low fiber. MASSIVE ventral hernia is the culprit in this admission and the admission in November 2022. (4) AUDREY (acute kidney injury): 2nd to #1 and hypotension. resolved. peak Cr 2.2. Cr now 1.2. baseline Cr 1-1.1. repeat BMP am. fluids and smith both stopped. (5) Hypotension: 2nd to volume depletion -- resolved. (6) Primary hypothyroidism: TSH 1.3 earlier this month. Cont synthroid w/o changes. (7) Essential hypertension: she took a combination of clonidine at HS, coreg BID, HCTZ, and benazapril pre- admission. all BP meds were held at admission due to low BPs and AUDREY. BPs slowly luis antonio over last 2-3 days. coreg resumed. would not resume HCTZ at discharge - has had refractory low magnesium levels. in fela of HCTZ added amiloride 5mg daily -- this will help keep her mag levels wnl (review of EMR shows tendencies towards severely low mag levels - likely combination of renal losses and GI losses). Resumed benazepril (8) COPD (chronic obstructive pulmonary disease): No exacerbation at this time. o2 sats wnl in room air. (9) Hypomagnesemia: ongoing she has had copious replacement IV this admission and still is low replace again with IV mag today change HCTZ to amiloride 5mg daily; this will help with renal wasting of mag it that process is present Discharge on magnesium supplements (10) Hypokalemia: replaced resolved (11) Anemia: microcytic, but Fe studies wnl in November 2022 and again this admission with no evidence of Fe deficiency thus, anemia is likely ACD H/H dropped consistently while here; fecal occult - negative likely was hemoconcentrated from massive dehydration at admission H/H have plateaued (12) Abnormal gall bladder diagnostic imaging: no gallstones present but pericholecystic fluid was seen she has had NO tenderness in the RUQ since admission LFTs wnl HIDA deferred (13) Esophagitis: as seen on EGD 11/10/22 cont PPI (14) Acute metabolic encephalopathy: 2nd to abdominal issues - resolved (15) DVT prophylaxis: Patient was on heparin 5000 BID during the hospital stay Plan PT/OT consults appreciated SNF level of care still advised updated pt's son 02/02 by phone updated pt's sister - Mary - by phone on 02/03 Total Time Total Time Spent Total Time Spent (In Minutes): 35 Discharge Plan Discharge Items Patient Disposition: Transfer [facility] Fac Reason For Visit: NAUSEA AND VOMITING Discharge Diagnosis: Gastric outlet obstruction faraz to large ventral hernia, low magnesium, low potasium Activity: Resume your previous activity Non-emergency contact: Primary Care Provider Call non-emergency contact if: you have any medication questions and your symptoms worsen Follow-up/Referrals: [facility] [Primary Care Provider] - Diet: Low Fiber Addtl Attending Provider Instructions: Advised to be seen by PCP at [facility] in 3 days Pending Studies at Discharge: No Stand-Alone Forms: My [facility] Skilled Items Patient informed of condition?: Yes DNR: Yes Discharge Level of Care: Skilled Communicable Disease: No Discharge Prognosis: Stable Lines: None Urinary Catheter: No Medications and DC Order Prescriptions: New amiloride 5 mg Tablet 5 mg PO DAILY Qty: 30 0RF magnesium 200 mg tablet 200 mg PO DAILY Qty: 30 0RF Continued atorvastatin 80 mg tablet 80 mg PO HS benazepril 40 mg tablet 40 mg PO QAM fluticasone furoate-vilanterol [Breo Ellipta] 100-25 mcg/dose blister with dev ice 1 ea INHALATION DAILY carvedilol 12.5 mg tablet 12.5 mg PO BID clonidine HCl 0.3 mg tablet 0.3 mg PO HS escitalopram oxalate 10 mg tablet 10 mg PO QAM ezetimibe 10 mg tablet 10 mg PO DAILY promethazine [Phenergan] 25 mg/mL Solution 25 mg IM Q6H PRN (Reason: Nausea) levothyroxine 112 mcg tablet 112 mcg PO .6 DAYS A WEEK Rx Instructions: Take all days but mon. sennosides 8.6 mg Tablet 17.2 mg PO BID acetaminophen [Tylenol] 325 mg Tablet 650 mg PO Q6 PRN (Reason: Fever Or Pain) ondansetron HCl 4 mg tablet 4 mg PO Q6 PRN (Reason: Nausea) potassium chloride 20 mEq tablet,ER particles/crystals 20 meq PO QAM Discontinued hydrochlorothiazide 25 mg tablet 25 mg PO QAM Discharge Orders: Discharge Order (Routine); Ordered 02/04/23 Ordered By: Brisa Howard Admission Data Admit Date/Time: 01/29/23 17:07 Attending Provider: Brisa Howard Admit Provider: Peter Sorenson Primary Care Provider: [facility] Other Providers: Peter Sorenson ; Enrique Golden Other Interventions: Discharge Summary Assessment (RN) Last Done: 02/04/23 14:40 Coding Level of Care Code 77921 INP/OBS DISCH >30 MIN Diagnoses Ventral hernia K43.9 Obstruction and gangrene presence: without obstruction or gangrene Gastric outlet obstruction K31.1 Intractable nausea and vomiting R11.2 AUDREY (acute kidney injury) N17.9 Hypotension I95.9 Primary hypothyroidism E03.9 Essential hypertension I10 COPD (chronic obstructive pulmonary disease) J44.9 Hypomagnesemia E83.42 Hypokalemia E87.6 Anemia D64.9 Abnormal gall bladder diagnostic imaging R93.2 Esophagitis K20.90 Acute metabolic encephalopathy G93.41 DVT prophylaxis Z29.9
[2023-02-04] MEDS: aMILoride HCL 5 MG TAB PO SCH (11:56)
== END 2023-02-04 15:10 | DRG 393 ==
LOC: ED 10:56 → EDINP 17:07 → SUATTDRO 17:07 → 2N 19:09 → 2W 01-30 05:13